=== PATIENT | male | born 1950 | race Caucasian/White ===

== ENCOUNTER 2020-11-15 13:29 | Emergency (ER) | payer MEDICARE, OTHER, SELFPAY ==
--- NOTE | ~2020-11-15 | XR_ITS ---
EXAMINATION: XR ribs LT 2V EXAM DATE: 11/15/2020 14:13 INDICATION: Fall, left lower rib pain. TECHNIQUE: Frontal projection of the upper left ribs, frontal projection of the lower left ribs, obli que projection of the left ribs, without chest x-ray(s) for interpretation. Comparison is made to kalen or examination from 06/15/2015. FINDINGS: Possible acute closed posttraumatic left 6th rib fracture anterolaterally. There is no sof t tissue abnormality seen. There is a dual lead pacemaker/AICD seen with leads projecting over the ex pected locations of the right atrial appendage and right ventricle. IMPRESSION: Possible acute nondisplaced left 6th rib fracture Reviewed, dictated and finalized at location A.
[2020-11-15 13:40] VITALS: BP 157/86; PULSE 71; RESP 71; TEMP 36.6; O2SAT 96
--- NOTE | 2020-11-15 14:35 | ED.CHESTPAIN ---
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 MD complaint: other ( left rib pain and bruising) Severity: mild Related Data Home Medications Medication Instructions Recorded Confirmed allopurinol 100 mg PO BID 11/15/20 11/15/20 alprazolam 0.5 mg PO DAILY PRN 11/15/20 11/15/20 amlodipine 10 mg PO DAILY 11/15/20 11/15/20 aspirin 81 mg PO DAILY 11/15/20 11/15/20 atorvastatin 80 mg PO DAILY 11/15/20 11/15/20 bupropion HCl 300 mg PO DAILY 11/15/20 11/15/20 carvedilol 25 mg PO BID 11/15/20 11/15/20 cetirizine 10 mg PO DAILY 11/15/20 11/15/20 fluoxetine 40 mg PO DAILY 11/15/20 11/15/20 hydralazine 25 mg PO BID 11/15/20 11/15/20 zafirlukast 20 mg PO BID 11/15/20 11/15/20 Allergies Allergy/AdvReac Type Severity Reaction Status Date / Time morphine AdvReac Unknown N&V Verified 11/15/20 13:45 Review of Systems Review of Systems: All systems reviewed & are unremarkable except as noted in HPI and below PMFSH Past Medical History Medical History HLD (hyperlipidemia) HTN (hypertension) Exam Const: General: cooperative, healthy appearing, comfortable, no acute distress and ill appearing HENMT: Head: normal to inspection Ears: hearing grossly normal bilaterally Face and sinus: normal facial exam Mouth: Yes Normal oral and palatal mucosa present Throat: posterior oropharynx normal Eyes: General: appearance normal, both eyes and all related structures Conjunctivae: conjunctivae normal Sclera: sclerae normal Neck: Neck: normal visual inspection Chest: Chest palpation & inspection: normal inspection of the chest and normal palpation of entire chest wall Other: left lower rib pain with palpation and bruising Resp: Effort & Inspection: able to speak in complete sentences Cardio: Jugular venous distension: no JVD Palpation: normal PMI Rate: regular rate Rhythm: regular rhythm Back/Spine/Pelvis: Back: no CVA tenderness Skin: General skin exam: no rashes or lesions noted Neuro: General: oriented to person, oriented to place, oriented to time, patient oriented x3 and gait normal Course Course Emergency Course: patient pain level well controlled according to patient declined any pain medication, reviewed x-ray finding which show a nondisplaced 6th rib fracture on the left Vital Signs Vital signs: Vital Signs Temperature 36.6 C 11/15/20 13:40 Pulse Rate 71 11/15/20 13:40 Respiratory Rate 71 H 11/15/20 13:40 Blood Pressure 157/86 H 11/15/20 13:40 Pulse Oximetry 96 11/15/20 13:40 Temperature 36.6 C 11/15/20 13:40 Pulse Rate 71 11/15/20 13:40 Respiratory Rate 71 H 11/15/20 13:40 Blood Pressure 157/86 H 11/15/20 13:40 Pulse Oximetry 96 11/15/20 13:40 Critical Care Time Critical Care Time Critical Care Time: No Discharge Plan Discharge Clinical Impression: Fracture of rib Qualifiers: Encounter type: initial encounter Rib fracture type: single rib Fracture type: closed Laterality: left Qualified Code(s): S22.32XA - Fracture of one rib, left side, initial encounter for closed fracture Patient Disposition: Home, Self-Care Condition: Stable Instructions: Antibiotic Form, Rib Fracture (ED) Additional Instructions: can take Tylenol or Motrin for pain and follow-up with primary care physician. Prescriptions: No Action fluoxetine 40 mg capsule 40 mg PO DAILY RF: 0 atorvastatin 80 mg tablet 80 mg PO DAILY RF: 0 carvedilol 25
[2020-11-15 14:45] VITALS: BP 142/80; PULSE 75; RESP 16; TEMP 36.8; O2SAT 96
== END 2020-11-15 14:48 | disposition home or self-care (01) ==
PROVIDERS: Emergency Provider Emergency Medicine; PCP Internal Medicine
DX: S22.32XA Fracture of one rib, left side, initial encounter for closed fracture (principal); W01.198A Fall on same level from slipping, tripping and stumbling with subsequent striking against other object, initial encounter; E78.5 Hyperlipidemia, unspecified; I10 Essential (primary) hypertension
CPT/HCPCS: 71100; 99282; 99283

== ENCOUNTER 2021-02-02 02:18 | Day surgery (SDC) | payer MEDICARE, OTHER, SELFPAY ==
[2021-01-14 14:50] VITALS: BMI 32.0
[2021-02-02 10:25] VITALS: BP 151/88; PULSE 70; RESP 18; TEMP 35.7; O2SAT 95; BMI 31.3
[2021-02-02] MEDS: LACTATED RINGERS 1,000 ML 150 ML IV CONT (10:36)
[2021-02-02] MEDS: AMPICILLIN 2 GM/NS 100 ML 2 GM/100 ML BAG IVPB (10:38)
[2021-02-02 10:40] LABS: Glucose Point of Care 127 mg/dl (65-105)
--- NOTE | 2021-02-02 10:44 | WPDGICN ---
Assessment and Plan Assessment and plan (1) History of colon polyps: Code(s): Z86.010 - Personal history of colonic polyps Status: Acute Assessment and Plan: Patient has a prior history of colon polyps. For this reason surveillance colonoscopies have been advised 5 year intervals. Further recommendations will be given after endoscopy. GI Consult Note Consult date/time: 02/02/21 10:45 HPI: Quinten Hawkins is a 71 year old male Presents for screening colonoscopy. Patient reports his current weight appetite bowel movements are normal. He has had previous colon polyps. He has had several previous colonoscopies. Most recent colonoscopy was 2014. Patient does report some tendency towards constipation. His past medical history is significant for diabetes mellitus. He denies any blood in his stools. Review of Systems Review of Systems: All systems reviewed & are unremarkable except as noted in HPI and below PMFSH Past Medical History Medical History HLD (hyperlipidemia) HTN (hypertension) Social History Social History Substance use: never Living arrangements: with family Meds Home Medications and Allergies Home Medications Medication Instructions Recorded Confirmed Type allopurinol 100 mg PO BID 11/15/20 01/14/21 History alprazolam 0.5 mg PO DAILY PRN 11/15/20 01/14/21 History amlodipine 10 mg PO DAILY 11/15/20 01/14/21 History aspirin 81 mg PO DAILY 11/15/20 01/14/21 History atorvastatin 80 mg PO DAILY 11/15/20 01/14/21 History bupropion HCl 300 mg PO DAILY 11/15/20 01/14/21 History carvedilol 25 mg PO BID 11/15/20 01/14/21 History cetirizine 10 mg PO DAILY 11/15/20 01/14/21 History fluoxetine 40 mg PO DAILY 11/15/20 01/14/21 History hydralazine 25 mg PO BID 11/15/20 01/14/21 History zafirlukast 20 mg PO BID 11/15/20 01/14/21 History Infusion To Raise Blood Counts 01/14/21 History alirocumab [Praluent Syringe] 75 mg SUBCUT USEASDIRECTD 01/14/21 02/02/21 History cholecalciferol (vitamin D3) 50 mcg PO DAILY 01/14/21 01/14/21 History [Vitamin D3] coenzyme Q10 [Co Q-10] 100 mg PO DAILY 01/14/21 01/14/21 History ipratropium bromide 2 spray INTRANASAL TID PRN 01/14/21 01/14/21 History melatonin 6 mg PO HS PRN 01/14/21 01/14/21 History iqxstherwubu-sfynbxxe-zbvwyg 1 tablet PO DAILY 01/14/21 01/14/21 History [Centrum Silver] Allergies Allergy/AdvReac Type Severity Reaction Status Date / Time morphine AdvReac Unknown N&V Verified 02/02/21 10:23 Vital Signs Vital Signs - 24 hr 02/02/21 10:25 Temperature 96.2 F L Pulse Rate 70 Respiratory Rate 18 Blood Pressure 151/88 H Pulse Oximetry 95 Exam Narrative: Physical exam reveals patient be alert. Vital signs stable. HEENT exam is unremarkable. Patient is anicteric. Lungs are clear to auscultation and percussion. Heart is without murmur or extra sounds. Abdominal exam bowel sounds are present soft nontender with no organomegaly. Digital external rectal exam is normal.
--- NOTE | 2021-02-02 11:13 | WPDANESEPPF ---
Anes - Initial Pre Proc Eval Procedure: Operation Date: 02/02/21 11:00 Proposed Procedures p Screening Colonoscopy - John Oseguera MD Date/Time: 02/02/21 11:13 Surgeon: John Oseguera MD Pre Op Diagnosis: hx of colon polyps Patient Data Age: 71 Gender: M Height: 1.85 m Weight: 107.8 kg Last Vital Signs Temp 96.2 F L 02/02/21 10:25 Pulse 70 02/02/21 10:25 Resp 18 02/02/21 10:25 BP 151/88 H 02/02/21 10:25 Pulse Ox 95 02/02/21 10:25 Allergies Allergy/AdvReac Type Severity Reaction Status Date / Time morphine AdvReac Unknown N&V Verified 02/02/21 10:23 Home Medications Medication Instructions Recorded Confirmed Type allopurinol 100 mg PO BID 11/15/20 01/14/21 History alprazolam 0.5 mg PO DAILY PRN 11/15/20 01/14/21 History amlodipine 10 mg PO DAILY 11/15/20 01/14/21 History aspirin 81 mg PO DAILY 11/15/20 01/14/21 History atorvastatin 80 mg PO DAILY 11/15/20 01/14/21 History bupropion HCl 300 mg PO DAILY 11/15/20 01/14/21 History carvedilol 25 mg PO BID 11/15/20 01/14/21 History cetirizine 10 mg PO DAILY 11/15/20 01/14/21 History fluoxetine 40 mg PO DAILY 11/15/20 01/14/21 History hydralazine 25 mg PO BID 11/15/20 01/14/21 History zafirlukast 20 mg PO BID 11/15/20 01/14/21 History Infusion To Raise Blood Counts 01/14/21 History alirocumab [Praluent Syringe] 75 mg SUBCUT USEASDIRECTD 01/14/21 02/02/21 History cholecalciferol (vitamin D3) 50 mcg PO DAILY 01/14/21 01/14/21 History [Vitamin D3] coenzyme Q10 [Co Q-10] 100 mg PO DAILY 01/14/21 01/14/21 History ipratropium bromide 2 spray INTRANASAL TID PRN 01/14/21 01/14/21 History melatonin 6 mg PO HS PRN 01/14/21 01/14/21 History jcnrknvkoqjx-utqghqka-nihojf 1 tablet PO DAILY 01/14/21 01/14/21 History [Centrum Silver] Laboratory Tests 02/02/21 10:36 POC Capillary Glucose 127 mg/dl H mg/dl (65-105) Patient hx anesthesia problems: none Family hx anesthesia problems: none Results Review: All pre-operative results and documents have been reviewed as part of the pre-operative evaluation. [facility] Past Medical History Medical History HLD (hyperlipidemia) HTN (hypertension) Social History Social History Substance use: never Living arrangements: with family Jacquies - Evtabatha Final PreProcedure Day of Procedure 02/02/21 11:13 Patient weight: overweight Heart: regular rate and rhythm Lungs: clear to auscultation Airway: Mallampati scale class II Neurological: alert and oriented Last oral intake: >/= 8 hours ASA classification: III Emergent: no Anesthetic plan: proceed Anesthesia type and monitoring: general GIVS and standard monitoring Results Review: All pre-operative results and documents have been reviewed as part of the pre-operative evaluation. Informed Consent: The patient's anesthetic plan and its attendant risks and benefits were discussed with the patient/family/POA. Questions were solicited and answers provided to the satisfaction of the patient/family/POA.
[2021-02-02 12:08] VITALS: BP 111/69; PULSE 73; RESP 25; O2SAT 95
[2021-02-02 12:18] VITALS: BP 144/81; PULSE 71; RESP 24; O2SAT 96
[2021-02-02 12:28] VITALS: BP 146/80; PULSE 70; RESP 20; O2SAT 96
== END 2021-02-02 12:43 | disposition home or self-care (01) ==
PROVIDERS: PCP Internal Medicine; Visit Provider Internal Medicine Gastroenterology
PROC: 0DJD8ZZ Inspection of Lower Intestinal Tract, Via Natural or Artificial Opening Endoscopic (ICD-10-PCS; CPT 45378; principal; 2021-02-02 11:00)
DX: Z12.11 Encounter for screening for malignant neoplasm of colon (principal); D12.2 Benign neoplasm of ascending colon; I10 Essential (primary) hypertension; E78.5 Hyperlipidemia, unspecified; Z79.82 Long term (current) use of aspirin
CPT/HCPCS: 45385; 82948; 88305; J0290; J2704; J7120

== ENCOUNTER 2021-08-26 16:45 | Emergency (ER) | payer MEDICARE, OTHER, SELFPAY ==
[2021-08-26 16:50] VITALS: BP 105/62; PULSE 66; RESP 20; TEMP 36.1; O2SAT 97
--- NOTE | 2021-08-26 16:50 | ED.ABDPAIN ---
HPI - Abdominal Pain General Chief Complaint: Unspecified Stated Complaint: constipation Time Seen by Provider: 08/26/21 16:48 Source: patient and RN notes reviewed Mode of arrival: ambulatory Limitations: no limitations History of Present Illness HPI narrative: Patient has a history of constipation. He tried several different medications at home. He admits that he had not been taking his MiraLax daily. He has had an episode of this in the past. Said he has not had a bowel movement in 3 days. MD elicited complaint: other ( constipation) Pertinent past history: constipation Onset (ago): day(s) (3) Pain Consistency: constant Location: diffuse Severity: moderate Quality: cramping Migration to: no migration Exacerbating factors: eating Relieving factors: nothing Associated symptoms: constipation Related Data Home Medications Medication Instructions Recorded Confirmed allopurinol 100 mg tablet 100 mg PO BID 11/15/20 01/14/21 alprazolam 0.5 mg tablet 0.5 mg PO DAILY PRN Anxiety 11/15/20 01/14/21 amlodipine 10 mg tablet 10 mg PO DAILY 11/15/20 01/14/21 aspirin 81 mg tablet,delayed 81 mg PO DAILY 11/15/20 01/14/21 release atorvastatin 80 mg tablet 80 mg PO DAILY 11/15/20 01/14/21 bupropion HCl 300 mg 24 hr tablet, 300 mg PO DAILY 11/15/20 01/14/21 extended release carvedilol 25 mg tablet 25 mg PO BID 11/15/20 01/14/21 cetirizine 10 mg tablet 10 mg PO DAILY 11/15/20 01/14/21 fluoxetine 40 mg capsule 40 mg PO DAILY 11/15/20 01/14/21 hydralazine 25 mg tablet 25 mg PO BID 11/15/20 01/14/21 zafirlukast 20 mg tablet 20 mg PO BID 11/15/20 01/14/21 Infusion To Raise Blood Counts 01/14/21 alirocumab 75 mg/mL subcutaneous 75 mg subcut USEASDIRECTD 01/14/21 02/02/21 syringe cholecalciferol (vitamin D3) 50 50 mcg PO DAILY 01/14/21 01/14/21 mcg (2,000 unit) capsule (Vitamin D3) coenzyme Q10 100 mg capsule (Co 100 mg PO DAILY 01/14/21 01/14/21 Q-10) ipratropium bromide 42 mcg (0.06 2 spray intranasal TID PRN 01/14/21 01/14/21 %) nasal spray Allergies melatonin 3 mg disintegrating 6 mg PO HS PRN Insomnia 01/14/21 01/14/21 tablet fmfevlbgpslk-uqplsifd-aovhsj tablet 1 tablet PO DAILY 01/14/21 01/14/21 Allergies Allergy/AdvReac Type Severity Reaction Status Date / Time morphine AdvReac Unknown N&V Verified 02/02/21 10:23 Review of Systems Review of Systems: All systems reviewed & are unremarkable except as noted in HPI and below PMFSH Past Medical History Medical History (Updated 08/26/21 @ 17:28 by John Adler MD) Gout HLD (hyperlipidemia) HTN (hypertension) Social History Social History (Updated 08/26/21 @ 17:26 by John Adler MD) Smoking status: Never smoker Alcohol intake: former Alcohol use details: no alcohol last 5 years Substance use: never Exam Const: General: healthy appearing, no acute distress and alert Nutritional Appearance: well nourished Orientation/consciousness: patient oriented x3 Limitations: no limitations HENMT: Head: normal to inspection Ears: external ears normal General nose exam: Normal external nose present Face and sinus: normal facial exam Mouth: Yes moist mucous membranes Eyes: Conjunctivae: conjunctivae normal Pupils: Equal, round and reactive pupils present EOM: EOMs intact bilaterally Neck: Neck: normal visual inspection Resp: Effort & Inspection: normal respiratory effort Auscultation: clear to auscultation bilaterally Cardio: Rate: regular rate Rhythm: regular rhythm GI: GI Palp: Yes Soft to palpation, Yes Tenderness to palpation present (GI) ( mild diffusely) and No Guarding due to palpation present (GI) Auscultation: normal bowel sounds Back/Spine/Pelvis: Cervical Spine: cervical ROM normal Thoracic/Lumbar Spine: thoraco-lumbar ROM normal Skin: General skin exam: normal color Rashes: no rashes Neuro: General: patient oriented x3, moves all extremities, no focal motor deficits and CN's II-XI intact bilaterally Speech: annie
[2021-08-26 17:30] VITALS: BP 110/62; PULSE 66; RESP 20; TEMP 36.6; O2SAT 97
== END 2021-08-26 17:40 | disposition home or self-care (01) ==
PROVIDERS: Emergency Provider Emergency Medicine; PCP Internal Medicine
DX: K59.00 Constipation, unspecified (principal); E78.5 Hyperlipidemia, unspecified; I10 Essential (primary) hypertension
CPT/HCPCS: 99283

== ENCOUNTER 2021-09-19 10:30 | Emergency (ER) | payer MEDICARE, OTHER, SELFPAY ==
--- NOTE | ~2021-09-19 | XR_ITS ---
XR foot LT min 3V DATE: 09/19/2021 11:25 INDICATION: Twisted ankle and foot 3 days ago. Pain, swelling, bruising TECHNIQUE: 4 views COMPARISON: None FINDINGS: Osteopenia. Prominent anterior and posterior tibial and dorsalis pedis artery calcifications. Metatarsal artery c alcifications. Diabetes is suggested. Prominent plantar and posterior calcaneal enthesopathy. Incorporated os tibiale externum, normal variant. One cortical width laterally displaced lateral malleolar fracture with overlying soft tissue swelling . Linear intra-articular nondisplaced fracture of the medial base of the proximal phalanx of the great toe. Osteoarthritic change of mild degree at the first metatarsophalangeal joint. Irregularity of the second metatarsal head likely due to chronic osteonecrosis. IMPRESSION: Nondisplaced linear intra-articular fracture of the medial base of the proximal phalanx o f the first digit 1 cortical width laterally displaced lateral malleolar fracture Osteopenia Mild osteoarthrosis at first metatarsophalangeal joint Chronic flattening deformity of the second metatarsal head consistent with avascular necrosis Prominent plantar and posterior calcaneal enthesopathy Extensive arterial calcifications including metatarsal artery calcifications suggesting diabetes Reviewed, dictated and finalized at location A. IMPRESSION: Nondisplaced linear intra-articular fracture of the medial base of the proximal phalanx of the first digit 1 cortical width laterally displaced lateral malleolar fracture Osteopenia Mild osteoarthrosis at first metatarsophalangeal joint Chronic flattening deformity of the second metatarsal head consistent with avas cular necrosis Prominent plantar and posterior calcaneal enthesopathy Extensive arterial calcifications including metatarsal artery calcifications galeas ggesting diabetes
--- NOTE | ~2021-09-19 | XR_ITS ---
XR ankle LT min 3V DATE: 09/19/2021 11:26 INDICATION: Twisted ankle 3 days ago. Swelling, bruising TECHNIQUE: 4 views COMPARISON: None FINDINGS: There is a lateral malleolar fracture with one cortical width lateral displacement, no angu lation. The medial malleolus and posterior malleolus are intact. The ankle mortise appears preserved. Prominent plantar and posterior calcaneal enthesopathy. Osteoarthritic change at the tarsal joints. Anterior and posterior tibial and dorsalis pedis artery calcification. IMPRESSION: 1 cortical width laterally displaced lateral malleolar fracture Reviewed, dictated and finalized at location A.
[2021-09-19 10:40] VITALS: BP 153/86; PULSE 74; RESP 14; TEMP 36.2; O2SAT 95
--- NOTE | 2021-09-19 10:54 | ED.LOWEXIN ---
HPI - Extremity Injury (Lower) General Chief Complaint: Extremity Injury, Lower Stated Complaint: L ankle pain after fall Time Seen by Provider: 09/19/21 10:54 Source: patient History of Present Illness HPI Narrative: 71-year-old male with a history of hypertension, dyslipidemia, gout, coronary artery disease status post stents, arthritis status post hip and knee replacements twisted his left ankle 2 days ago and presents to the ER with -- pain around the left lateral ankle with bruising -- over the left big toe with bruising -- bruising over left medial knee joint. MD complaint: ankle injury Onset (ago): day(s) ( Two days ago) Injury: Left: ankle and foot Type of Injury: inversion Place: work Severity: moderate Relieving factors: immobilization Exacerbating factors: movement Associated symptoms: swelling Other symptoms: none Related Data Home Medications Medication Instructions Recorded Confirmed allopurinol 100 mg tablet 100 mg PO BID 11/15/20 09/19/21 alprazolam 0.5 mg tablet 0.5 mg PO DAILY PRN Anxiety 11/15/20 09/19/21 amlodipine 10 mg tablet 10 mg PO DAILY 11/15/20 09/19/21 aspirin 81 mg tablet,delayed 81 mg PO DAILY 11/15/20 09/19/21 release atorvastatin 80 mg tablet 80 mg PO DAILY 11/15/20 09/19/21 bupropion HCl 300 mg 24 hr tablet, 300 mg PO DAILY 11/15/20 09/19/21 extended release carvedilol 25 mg tablet 25 mg PO BID 11/15/20 09/19/21 cetirizine 10 mg tablet 10 mg PO DAILY 11/15/20 09/19/21 fluoxetine 40 mg capsule 40 mg PO DAILY 11/15/20 09/19/21 hydralazine 25 mg tablet 25 mg PO BID 11/15/20 09/19/21 zafirlukast 20 mg tablet 20 mg PO BID 11/15/20 09/19/21 alirocumab 75 mg/mL subcutaneous 75 mg subcut USEASDIRECTD 01/14/21 09/19/21 syringe cholecalciferol (vitamin D3) 50 50 mcg PO DAILY 01/14/21 09/19/21 mcg (2,000 unit) capsule (Vitamin D3) coenzyme Q10 100 mg capsule (Co 100 mg PO DAILY 01/14/21 09/19/21 Q-10) ipratropium bromide 42 mcg (0.06 2 spray intranasal TID PRN 01/14/21 09/19/21 %) nasal spray Allergies nedkimqcrgjn-vpnubobl-nenpct tablet 1 tablet PO DAILY 01/14/21 09/19/21 carvedilol 25 mg tablet 25 mg PO BID 09/19/21 09/19/21 Allergies Allergy/AdvReac Type Severity Reaction Status Date / Time morphine AdvReac Unknown N&V Verified 09/19/21 10:52 Review of Systems Review of Systems: All systems reviewed & are unremarkable except as noted in HPI and below Constitutional: Constitutional: Reports as per HPI and Reports no additional constitutional complaints Eyes: Eyes: Reports as per HPI and Reports no additional eye complaints ENT: Reports system reviewed and no additional complaints, except as documented Cardiovascular: Cardiovascular: Reports as per HPI and Reports no additional cardiovascular complaints Respiratory: Respiratory: Reports as per HPI and Reports no additional respiratory complaints Gastrointestinal: Gastrointestinal: Reports as per HPI and Reports no additional gastrointestinal complaints Genitourinary: Genitourinary: Reports no additional male genitourinary complaints and Reports as per HPI Musculoskeletal: Musculoskeletal: Reports no additional musculoskeletal complaints, Reports as per HPI, Reports arthralgias and Reports joint swelling Integumentary/Breasts: Skin/Breast: Reports system reviewed and no additional complaints, except as docu and Reports as per HPI Comments: bruising over her left ankle and toe Neurologic: Reports system reviewed and no additional complaints, except as documented and Reports as per HPI Psychiatric: Psychiatric: Reports no additional psychiatric complaints and Reports as per HPI Endocrine: Endocrine: Reports no additional endocrine complaints and Reports as per HPI Hematologic/Lymphatic: Hematologic/Lymphatic: Reports no additional hematologic/lymphatic complaints and Reports as per HPI Allergic/Immunologic: Allergic/Immunologic: Reports no additional allergic/immunologic complaints and Reports as per HPI PMFSH P
[2021-09-19 12:45] VITALS: BP 141/74; PULSE 67; RESP 16; O2SAT 96
== END 2021-09-19 12:45 | disposition home or self-care (01) ==
PROVIDERS: Emergency Provider Internal Medicine Critical Care Medicine; PCP Internal Medicine
DX: S92.415A Nondisplaced fracture of proximal phalanx of left great toe, initial encounter for closed fracture (principal); S82.62XA Displaced fracture of lateral malleolus of left fibula, initial encounter for closed fracture; I10 Essential (primary) hypertension; I25.10 Atherosclerotic heart disease of native coronary artery without angina pectoris; M87.9 Osteonecrosis, unspecified; E78.5 Hyperlipidemia, unspecified; M10.9 Gout, unspecified; X50.1XXA Overexertion from prolonged static or awkward postures, initial encounter; Z95.5 Presence of coronary angioplasty implant and graft; Z96.649 Presence of unspecified artificial hip joint; Z96.659 Presence of unspecified artificial knee joint; Z79.82 Long term (current) use of aspirin
CPT/HCPCS: 73610; 73630; 99284; L4350

== ENCOUNTER 2022-06-22 13:58 | Outpatient (CLI) | payer MEDICARE, OTHER, SELFPAY ==
--- NOTE | ~2022-06-22 | XR_ITS ---
XR lumbar spine 2-3V 06/22/2022 14:39 Indication: Low back pain Procedure: 3 views lumbar spine Comparison: No prior studies for comparison. Findings: Vertebral body heights are maintained. There is disc narrowing at L4-5 and L5-S1. There are small marginal osteophytes anteriorly. There is facet hypertrophy at L4-5 and L5-S1. No evidence for fracture, subluxation or spondylolisthesis. Impression: 1: Moderate lumbar spondylosis. Reviewed, dictated and finalized at location A. Impression: 1: Moderate lumbar spondylosis.
--- NOTE | ~2022-06-22 | XR_ITS ---
XR thoracic spine 3V DATE: 06/22/2022 14:36 INDICATION: Lower thoracic and upper lumbar back pain for 6 months, worsening TECHNIQUE: AP, lateral, swimmer views COMPARISON: 09/14/2016 two-view chest FINDINGS: Moderate cervical degenerative disc disease. Diffuse osteopenia. There is chronic mild anterior wedging and loss of height at T4 since 09/04/2016 . There is mild to moderate degenerative spurring of the thoracic spine. The thoracic pedicles appear intact. No bone destruction is evident. No paraspinal soft tissue thickening is noted. IMPRESSION: Osteopenia Degenerative change of the cervical and thoracic spine Chronic mild anterior wedge compression fracture deformity of T4, stable in appearance since lateral chest radiograph of 09/14/2016 Reviewed, dictated and finalized at location L. IMPRESSION: Osteopenia Degenerative change of the cervical and thoracic spine Chronic mild anterior wedge compression fracture deformity of T4, stable in anabel earance since lateral chest radiograph of 09/14/2016
== END 2022-06-22 13:59 | disposition home or self-care (01) ==
LOC: CHSIMG 14:01
PROVIDERS: PCP Internal Medicine; Visit Provider Internal Medicine
DX: M54.50 Low back pain, unspecified (principal); M43.06 Spondylolysis, lumbar region; M85.88 Other specified disorders of bone density and structure, other site; M48.54XA Collapsed vertebra, not elsewhere classified, thoracic region, initial encounter for fracture
CPT/HCPCS: 72072; 72100

== ENCOUNTER 2022-07-12 13:27 | Outpatient (RCR) | payer MEDICARE, OTHER, SELFPAY ==
--- NOTE | 2022-07-12 13:41 | PTOPEVAL1 ---
Assessment and note entered by Maxim Harry Evaluation Information Assessment Status Evaluation Diagnosis low back pain Onset 07/12/22 Subjective Information Pt. reports that he has had increasing back pain over the past year. He reports that he has had multiple knee and hip surgeries that have kept him down as of recently. He states that back pain is located along the belt line and up about 6 inches . He states that he cannot stand for longer than 10 minutes due to increasing low back pain. He reports that he is not active and has been sitting the majority of the day. he states that he has no trouble with sleeping at night. He reports that he has seen a decline in his ability to sleep . He reports that his goal for therapy is to stand longer and decrease his low back pain. Reported Pain Level Pain Score 5: Self Report Assessment PT Clinical Summary Pt. is a 72 year old male who enters the clinic with low back pain. Pt. presents with signifcant generalized l.e. weakness, impaired balance, impaired gait, pain and functional decline. Continued skilled PT is indicated in order to improve these areas to allow the pt. to be able to complete all IADL's with improved comfort. Plan of Care Interventions Gait Training,Manual Therapy,Neuro Re-education, Patient/Caregiver Educati,Therapeutic Activities, Therapeutic Exercise PT Services Indicated Yes Treatment Frequency and 2x/week x 10 visits Duration These treatments will address the objective and functional deficits as defined above. The patient will be advanced safely and appropriately in order for the patient to progress towards his/her prior level of function. Additional exercises will be introduced and as well as a comprehensive home exercise program upon discharge, if needed, ?to ensure carryover of functional gains achieved in the clinic. This treatment plan has been reviewed and agreement upon by the patient.
--- NOTE | 2022-08-26 12:19 | PTOPREEVAL ---
Assessment and note entered by JT File, PT Evaluation Information Assessment Status Re-evaluation Diagnosis low back pain Onset 07/12/22 Subjective Information patient reports therapy has really helped him. he reports he no longer uses a cane for ambulation, and he tolerates standing and walking for longer periods of time. he reports he would like to continue to work on the back, the knees, and his balance. Reported Pain Level Pain Score 3: Self Report Pain Score 4: Self Report Assessment PT Clinical Summary mr. monzon presents to skilled PT services for his 10th skilled therapy visit. as of this date, he has achieved goals for pain, safety, and HEP performance. however, he is still lacking achievement of goals for flexibility, strength, and balance/functional performance. he would benefit from continued skilled PT to address these remaining deficits and progress towards return to prior level standing, walking, and functional activity participation/performance. Plan of Care Interventions Gait Training,Hot Pack/Cold Pack,Manual Therapy, Neuro Re-education,Patient/Caregiver Educati, Therapeutic Activities,Therapeutic Exercise PT Services Indicated Yes Treatment Frequency and continue skilled PT 1x weekly for 3 more visits Duration These treatments will address the objective and functional deficits as defined above. The patient will be advanced safely and appropriately in order for the patient to progress towards his/her prior level of function. Additional exercises will be introduced and as well as a comprehensive home exercise program upon discharge, if needed, ?to ensure carryover of functional gains achieved in the clinic. This treatment plan has been reviewed and agreement upon by the patient.
== END 2022-09-08 23:59 | disposition home or self-care (01) ==
LOC: CHSPT 13:27
PROVIDERS: PCP Internal Medicine; Visit Provider Internal Medicine
DX: M54.50 Low back pain, unspecified (principal)
CPT/HCPCS: 97110; 97112; 97161; 97530

== ENCOUNTER 2022-09-15 12:22 | Outpatient (CLI) | payer MEDICARE, OTHER, SELFPAY ==
--- NOTE | 2022-09-15 14:00 | NEURO_ITS ---
Impression: # Complains of numbness of left 4th and 5th fingers. # Left Carpal Tunnel Syndrome. # Left ulnar neuropathy across the elbow. # Needle/EMG exam revealed neurogenic changes in left 1st DI, ADM, APB but as well as in Deltoid and triceps muscles raising the possibility of higher involvement as well such as cervical spondylosis. # Clinical correlation recommended.Mri will be needed for the Possibility of cervical spondylosis to be ruled out., Nerve Conduction Studies Anti Sensory Summary Table Stim Site NR Peak (ms) P-T Amp (?V) Site1 Site2 Delta-P (ms) Dist (cm) Matteo (m/s) Left Median Anti Sensory (2-3nd Digit) NO RESPONSE Wrist NR Wrist 2-3nd Digit 14.0 Wrist NR Wrist 2-3nd Digit 14.0 Left Radial Anti Sensory (Base 1st Digit) Wrist 2.5 8.1 Wrist Base 1st Digit 2.5 0.0 Left Ulnar Anti Sensory (5th Digit) NO RESPONSE Wrist NR Wrist 5th Digit 14.0 Motor Summary Table Stim Site NR Onset (ms) O-P Amp (mV) Site1 Site2 Delta-0 (ms) Dist (cm) Matteo (m/s) Left Median Motor (Abd Poll Brev) Wrist 4.5 2.2 Elbow Wrist 6.0 33.0 55 Elbow 10.5 1.4 Left Ulnar Motor (Abd Dig Minimi) Wrist 2.9 3.8 A Elbow Wrist 7.9 32.0 41 A Elbow 10.8 2.4 B Elbow Wrist 5.0 25.0 50 B Elbow 7.9 2.6 F Wave Studies NR F-Lat (ms) L-R F-Lat (ms) Left Median (Mrkrs) (Abd Poll Brev) 33.39 Left Ulnar (Mrkrs) (Abd Dig Min) 31.16 EMG Side Muscle Nerve Root Ins Act Fibs Amp Dur Recrt Comment Left 1stDorInt Ulnar C8-T1 Nml Nml Incr >12ms Reduced Left Ext Indicis Radial (Post Int) C7-8 Nml Nml Nml Nml Nml Left Ext Digitorum Radial (Post Int) C7-8 Nml Nml Nml Nml Nml Left BrachioRad Radial C5-6 Nml Nml Incr Nml Reduced Left PronatorTeres Median C6-7 Nml Nml Nml Nml Nml Left Abd Poll Brev Median C8-T1 Nml Nml Incr >12ms Reduced Left ABD Dig Min Ulnar C8-T1 Nml Nml Incr >12ms Reduced Left Biceps Musculocut C5-6 Nml Nml Nml Nml Nml Left Triceps Radial C6-7-8 Nml Nml Nml Nml Nml Left Deltoid Axillary C5-6 Nml Nml Incr Nml Reduced MTDD
== END 2022-09-15 12:23 | disposition home or self-care (01) ==
PROVIDERS: PCP Internal Medicine
DX: G56.22 Lesion of ulnar nerve, left upper limb (principal); G56.02 Carpal tunnel syndrome, left upper limb
CPT/HCPCS: 95886; 95909

== ENCOUNTER 2022-10-11 08:41 | Outpatient (CLI) | payer MEDICARE, OTHER, SELFPAY ==
--- NOTE | ~2022-10-11 | CT_ITS ---
EXAMINATION: CT cervical spine wo con DATE: 10/11/2022 09:13 INDICATION: Cervical radiculopathy. TECHNIQUE: Computed tomography (CT) of the cervical spine was performed without intravenous contrast. Automated exposure control and iterative reconstruction technique were employed. The dose-length pro duct was 541.46 mGy-cm. COMPARISON: None FINDINGS: Bone alignment is normal. Vertebral body heights are normal. There is mildly decreased disc height at C5-C6 and C6-C7. The following disc levels are specifically discussed: C2-C3: There is mild bilateral uncovertebral joint osteoarthritis. There is moderate facet joint oste oarthritis. There is no neural foraminal stenosis. There is no central canal stenosis. C3-C4: There is mild bilateral uncovertebral joint osteoarthritis. There is severe right and mild lef t facet joint osteoarthritis. There is mild bilateral neural foraminal stenosis. There is no central canal stenosis. C4-C5: There is mild bilateral uncovertebral joint osteoarthritis. There is mild bilateral facet join t osteoarthritis. There is no neural foraminal stenosis. There is mild central canal stenosis. C5-C6: There is mild bilateral uncovertebral joint osteoarthritis. There is mild bilateral facet join t osteoarthritis. There is no neural foraminal stenosis. There is mild central canal stenosis. C6-C7: There is mild bilateral uncovertebral joint osteoarthritis. There is mild bilateral facet join t osteoarthritis. There is mild right neural foraminal stenosis. There is mild central canal stenosis . C7-T1: There is no uncovertebral joint osteoarthritis. There is mild bilateral facet joint osteoarthr itis. There is no neural foraminal stenosis. There is no central canal stenosis. IMPRESSION: 1. Mild cervical spondylosis. Reviewed, dictated and finalized at location A.
== END 2022-10-11 08:42 | disposition home or self-care (01) ==
LOC: CHSIMG 08:43
PROVIDERS: PCP Internal Medicine; Visit Provider Internal Medicine
DX: M43.02 Spondylolysis, cervical region (principal); M54.12 Radiculopathy, cervical region; Z95.0 Presence of cardiac pacemaker
CPT/HCPCS: 72125

== ENCOUNTER 2022-11-12 09:28 | Outpatient (CLI) | payer MEDICARE, OTHER, SELFPAY ==
[2022-11-12 09:40] LABS: Hematocrit 28.4 % (37.0-46.0); Hemoglobin 9.1 g/dL (12.4-15.3)
[2022-11-12 09:54] LABS: Partial Thromboplastin Time 26.9 SEC (23.90-30.70); Prothrombin Time 10.9 Seconds (9.50-12.10)
[2022-11-12 10:16] LABS: Anion Gap 9 mmol/L (8-16); Blood Urea Nitrogen 48 mg/dL (7-18); Calcium 8.7 mg/dL (8.5-10.1); Carbon Dioxide 25 mmol/L (21-32); Chloride 109 mmol/L (98-108); Estimated Glomerular Filt Rate 18; Glucose 97 mg/dL (70-99); Osmolality Calculated 308 mOsm/kg (285-295); Potassium 4.7 mmol/L (3.5-5.1); Sodium 143 mmol/L (136-145)
== END 2022-11-12 09:29 | disposition home or self-care (01) ==
PROVIDERS: PCP Internal Medicine; Visit Provider Anesthesiology
DX: Z01.818 Encounter for other preprocedural examination (principal); N28.9 Disorder of kidney and ureter, unspecified; D64.9 Anemia, unspecified
CPT/HCPCS: 36415; 80048; 85014; 85018; 85610; 85730

== ENCOUNTER 2022-11-16 01:33 | Day surgery (SDC) | payer MEDICARE, OTHER, SELFPAY ==
[2022-11-11 14:25] VITALS: BMI 16.6
--- NOTE | 2022-11-11 14:39 | PC.NURSE ---
Report to the Outpatient Waiting Room, entrance under the green pavilion located off [facility], at time ___1030____ on date __11/16/22 . Planned Procedure Time: __1230 . Time changes happen often and if your time is changed the preop area will call you the afternoon before. - You and your visitor will be asked to self-screen and do not enter if you have any COVID symptoms. - A mask is optional within the hospital at this time. Patients may have clear liquids (water, carbonated beverages, clear teas, apple juice) until 3 hours prior to surgery with a maximum of 20 ounces. - No food from midnight until time of surgery - Infants may have breast milk until 4 hours before surgery, infant formula 6 hours prior to surgery. - Children will be allowed to drink immediately following surgery. If applicable, please bring a bottle or sippy cup to assist with drinking. Juice, water, soda, and popsicles are readily available. For infants on formula, please bring formula the day of surgery. Pacifiers are allowed. Take the following medications with a SIP of water the morning of surgery: _AMLODIPINE, BUPROPION, CARVEDILOL, FLUOXETINE, HYDRALAZINE, ZAFIRLUKAST_ DO NOT STOP ANY OF YOUR OTHER PRESCRIPTION MEDICATIONS PRIOR TO SURGERY ?EXCEPT THE FOLLOWING Medications to discontinue per physician _ASPIRIN PER DR. BALES'S INSTRUCTIONS, MULTIVITAMIN 3 DAYS PRIOR TO SURGERY, Date to take last dose 11/12/22 Please no make-up, nail syrian, hairspray, perfume, deodorant, or body powder the day of surgery. No jewelry (including any body piercings) or valuables the day of surgery, leave them at home. Please take a shower or bath the night before, or the morning of, surgery with an antibacterial soap. Wear comfortable, loose fitting clothing. Children are encouraged to wear pajamas. - Jewelry must be removed prior to entering the operating room. Rings and piercings that are not removed may be cut off. - The hospital will not accept responsibility for valuables. - Please leave all valuables, including medications, at home the day of surgery. If you are going home after surgery, a licensed otr tanker truck driver must drive you home. - NO public transportation without another adult if you receive anesthesia. - We recommend that an adult stay with you for 24 hours following discharge. - We also recommend that you do not drive, make important decision, drink alcoholic beverages, or take any drugs that were not prescribed by your health care provider for at least 24 hours after your discharge time. For Pediatric surgeries, we recommend two adults accompany the child home. Follow any additional instructions given to you from your surgeon. If you or anyone in your household have experienced Covid symptoms in the past week, please notify your surgeon or the nurse liaison at the phone number below for possible testing. Telephone instructions given to ___SPOUSE and asked if any additional questions and then verbalized understanding. Patient advised to call surgeon office or pre surgery nurse liaison [phone] if any additional questions.
--- NOTE | 2022-11-15 12:49 | WPDANESEPPF ---
Anes - Initial Pre Proc Eval Procedure: Operation Date: 11/16/22 12:30 Proposed Procedures p Left Endoscopic Possible Open Carpal Tunnel Release and Left Cubital Tunnel Release - Chidi Guardado MD Date/Time: 11/15/22 12:49 Surgeon: Chidi Guardado MD Pre Op Diagnosis: left cpts of wrist, ulnar nerve entrapment lft elb Patient Data Age: 72 Gender: M Height: 1.85 m Weight: 57.27 kg Allergies Allergy/AdvReac Type Severity Reaction Status Date / Time morphine AdvReac Unknown N&V Verified 11/16/22 11:02 Home Medications Medication Instructions Recorded Confirmed Type allopurinol 100 mg tablet 100 mg PO BID 11/15/20 11/16/22 History amlodipine 10 mg tablet 10 mg PO DAILY 11/15/20 11/16/22 History aspirin 81 mg tablet,delayed 81 mg PO DAILY 11/15/20 11/16/22 History release atorvastatin 80 mg tablet 80 mg PO DAILY 11/15/20 11/16/22 History fluoxetine 40 mg capsule 40 mg PO DAILY 11/15/20 11/16/22 History hydralazine 25 mg tablet 25 mg PO BID 11/15/20 11/16/22 History zafirlukast 20 mg tablet 20 mg PO BID 11/15/20 11/16/22 History cholecalciferol (vitamin D3) 50 50 mcg PO DAILY 01/14/21 11/16/22 History mcg (2,000 unit) capsule (Vitamin D3) coenzyme Q10 100 mg capsule (Co 100 mg PO DAILY 01/14/21 11/16/22 History Q-10) qvlkmqavccdh-bsatqmyy-knrnnp tablet 1 tablet PO DAILY 01/14/21 11/16/22 History bupropion HCl 300 mg 24 hr tablet, 300 mg PO DAILY 11/11/22 11/16/22 History extended release carvedilol 25 mg tablet 25 mg BID 11/11/22 11/16/22 History cetirizine 10 mg capsule (Zyrtec) 10 mg PO HS 11/11/22 11/16/22 History frmoocyp-qscaqjhbv-kolnssob 3.5 1 drp Q2H 11/11/22 11/16/22 History mg/mL-10,000 unit/mL-0.1% eye drops Patient hx anesthesia problems: none Family hx anesthesia problems: none Results Review: All pre-operative results and documents have been reviewed as part of the pre-operative evaluation. [facility] Past Medical History Medical History (Updated 11/15/22 @ 12:50 by Tha Elliott DO) CAD (coronary artery disease) COPD (chronic obstructive pulmonary disease) Gout HLD (hyperlipidemia) HTN (hypertension) DEVEN (obstructive sleep apnea) Pacemaker Surgical History Surgical History (Updated 11/15/22 @ 12:50 by Tha Elliott DO) H/O heart artery stent x3 Social History Social History Smoking status: Never smoker Second hand tobacco smoke exposure: No Alcohol intake: former Alcohol use details: STOPPED 2018~ Substance use: never Substance use type: does not use Living arrangements: with family Spiritual care concerns: No Anes - Eval Final PreProcedure Day of Procedure 11/15/22 12:49 Patient weight: normal Heart: regular rate and rhythm Lungs: clear to auscultation and normal air movement Airway: Mallampati scale class II Neurological: alert and oriented Last oral intake: >/= 8 hours ASA classification: III Emergent: no Anesthetic plan: proceed Anesthesia type and monitoring: general GIVS and standard monitoring Results Review: All pre-operative results and documents have been reviewed as part of the pre-operative evaluation. Informed Consent: The patient's anesthetic plan and its attendant risks and benefits were discussed with the patient/family/POA. Questions were solicited and answers provided to the satisfaction of the patient/family/POA.
--- NOTE | 2022-11-16 09:14 | WPDHPUPDATE1 ---
History and Physical Update Update Date/Time: 11/16/22 09:14 History and Physical has been reviewed, including an updated exam of the patient. There are NO changes in the patient's condition. Risks, benefits, and alternatives have been discussed and questions answered. Patient agrees to proceed with procedure. Patient seen and examined in pre-op holding area. Continues to desire to proceed with left endoscopic, possible open carpal tunnel release and left cubital tunnel release. I reviewed procedure, post-op expectations and risks including but not limited to bleeding, infection, injury to tendon/nerve/vessel, decreased hand function, stiffness, RSD, no change or worsening of symptoms. Patient stated understanding and signed consent form wishing to proceed.
[2022-11-16] MEDS: LACTATED RINGERS 1,000 ML 30 ML IV CONT (11:07)
[2022-11-16 11:27] VITALS: BP 122/67; PULSE 71; RESP 16; TEMP 36.2; O2SAT 98
--- NOTE | 2022-11-16 11:35 | P.OP_ITS ---
Procedure Note - Detailed Date of Procedure 11/16/22 Pre-op Diagnosis left carpal tunnel syndrome and ulnar nerve entrapment at elbow Post-op Diagnosis Same Procedure Performed left ectr and cubital tunnel release Surgeon Chidi Guardado MD [employer] Lab Technician Denisa Ray PA-C Anesthesia MAC Description of Procedure Pt. seen and examined and marked in pre-op area. consent signed Patient taken back to OR on stretcher in supine position. Time out performed with anesthesia, surgeon and staff agreeing on patient name site and surgery to be performed scds placed on LE and inflated tourniquet placed on Left upper extremity After anesthesia administered sedation I injected 10cc 1%lido with epi and 0.5%marcaine plain amongs both operative sites LUE prepped and draped in sterile fashion LUE exanguinated with Esmarch bandage and tourniquet inflated to 250mmHg I made a transverse incision in left distal volar wrist crease through skin and dermis with 15 blade scalpe. Littler scissors spread down to antebrachial fascia. A small incision was made in antebrachial fascia allowing access to Carpal tunnel. I proceeded with sequential dilation staying in line with the ring finger and hugging the hook of the hamate. I then used the synovial elevator to free any adhesions from the underside of the transverse carpal ligament. Next I was able to insert the [employer] endoscopic carpal tunnel device with direct visualization of the transverse fibers on the monitor and proceeded with complete segmental retrograde release of the ligament in its entirety. I irrgated with normal saline and closed with 4-0 monocry for dermis and subcuticular closure. I next proceeded with making a longitudinal incision between two heads for flexor carpi ulnaris at end of cubital tunnel with 15 blade scalpel. Littler scissors used to spread down to FCU fascia. Incision made in FCU fascia and ulnar nerve identified extiing cubital tunnel. Proceeded with complete retrograde release of the cubital tunnel including 7cm proximal for intermuscular septum. The nerve appeared healthy with visible vaso nervorum. There was no subluxation on full elbow range of motion. I irrigated with normal saline and closure with 4-0 monocry for dermis and subcuticular. The incisions were covered with Dermabond then 4x4s, vanessa, volar wrist splint and posterior elbow splint for patient safety, security and comfort and secured with radha bandages after the tourniquet was let down noting the hand was warm and well perfused. Patient awaken from anesthesia and transferred to recovery in stable condition Complciations - none EBL- 1cc Disposition _ home in stable conditions Denisa Ray PA-C was essentail for positioning, retraction, closure and dressing/splint application [facility] Billing Surgery - Charge Forward: Surgery Billing ([id number] and [id number] and [id number])
[2022-11-16] MEDS: ceFAZolin 2 GM/D5W 50 ML 2 GM/50 ML BAG IVPB (12:08)
[2022-11-16] MEDS: BUPivacaine HCL 0.5% PF 30 ML VIAL 5 ML INFILTRATE (12:43)
[2022-11-16] MEDS: LIDO 1%/EPINEPHRINE 1:100,000 20 ML VIAL 5 ML INFILTRATE (12:44)
[2022-11-16 13:00] VITALS: BP 114/65; PULSE 64; RESP 16; O2SAT 95
[2022-11-16 13:30] VITALS: BP 125/66; PULSE 69; RESP 16
[2022-11-16 14:05] VITALS: BP 136/67; PULSE 63; RESP 16
[2022-11-16 14:20] VITALS: BP 131/68; PULSE 68; RESP 16
== END 2022-11-16 14:30 | disposition home or self-care (01) ==
PROVIDERS: PCP Internal Medicine; Visit Provider Plastic Surgery
PROC: 01N54ZZ Release Median Nerve, Percutaneous Endoscopic Approach (ICD-10-PCS; CPT 29848; principal; 2022-11-16 12:30)
DX: G56.02 Carpal tunnel syndrome, left upper limb (principal); G56.22 Lesion of ulnar nerve, left upper limb; I25.10 Atherosclerotic heart disease of native coronary artery without angina pectoris; J44.9 Chronic obstructive pulmonary disease, unspecified; I10 Essential (primary) hypertension; E78.5 Hyperlipidemia, unspecified; M10.9 Gout, unspecified; G47.33 Obstructive sleep apnea (adult) (pediatric); Z95.0 Presence of cardiac pacemaker; Z95.5 Presence of coronary angioplasty implant and graft; Z79.82 Long term (current) use of aspirin
CPT/HCPCS: 64718; 29848; J0690; J2704; J3010; J7120

== ENCOUNTER 2023-03-02 15:47 | Outpatient (CLI) | payer MEDICARE, OTHER, SELFPAY ==
--- NOTE | ~2023-03-02 | XR_ITS ---
EXAMINATION: XR foot RT min 3V DATE: 03/02/2023 16:12 INDICATION: Right foot hammertoes. TECHNIQUE: 5 views of right foot were obtained. COMPARISON: Right ankle radiographs 06/28/2011 FINDINGS: There is dorsiflexion of the metatarsophalangeal joints and flexion of the interphalangeal joints. There is mild osteoarthritis of first and second metatarsophalangeal joints and many of the i nterphalangeal joints and midfoot joints. There are enthesophytes at the posterior and plantar aspect s of calcaneal tuberosity. IMPRESSION: 1. Mild polyarticular osteoarthritis. Reviewed, dictated and finalized at location A. OPERATOR
--- NOTE | ~2023-03-02 | XR_ITS ---
EXAMINATION: XR foot LT min 3V DATE: 03/02/2023 16:13 INDICATION: Left foot hammertoes. TECHNIQUE: 4 views of left foot were obtained. COMPARISON: Left foot radiographs 09/19/2021 FINDINGS: There is mild hallux valgus. There is dorsiflexion of the metatarsophalangeal joints and fl exion of the interphalangeal joints. No fracture. There is chronic flattening of head of second metat arsal, consistent with osteonecrosis (Freiberg's infraction). There is mild osteoarthritis of first a nd second metatarsophalangeal joints and many of the interphalangeal joints and midfoot joints. There are enthesophytes at the posterior and plantar aspects of calcaneal tuberosity. IMPRESSION: 1. Mild polyarticular osteoarthritis. 2. Freiberg's infraction involving second metatarsal. 3. Mild hallux valgus. Reviewed, dictated and finalized at location A. ANICAL SYSTEM TECHNICIAN
== END 2023-03-02 15:48 | disposition home or self-care (01) ==
LOC: CHSIMG 15:50
PROVIDERS: PCP Internal Medicine; Visit Provider Internal Medicine
DX: M20.42 Other hammer toe(s) (acquired), left foot (principal); M20.41 Other hammer toe(s) (acquired), right foot; M19.072 Primary osteoarthritis, left ankle and foot; M19.071 Primary osteoarthritis, right ankle and foot; M92.72 Juvenile osteochondrosis of metatarsus, left foot; M20.12 Hallux valgus (acquired), left foot
CPT/HCPCS: 73630

== ENCOUNTER 2023-12-08 12:40 | Outpatient (CLI) | payer MEDICARE, OTHER, SELFPAY ==
--- NOTE | ~2023-12-08 | XR_ITS ---
EXAMINATION: XR hip RT min 2V DATE: 12/08/2023 12:59 INDICATION: Right hip fracture. Follow-up. TECHNIQUE: 2 views of right hip were obtained. COMPARISON: Right hip radiographs 07/06/2014 FINDINGS: There is a total right hip arthroplasty in near-anatomic alignment. There is a periprosthet ic fracture involving lateral aspect of proximal femur with callus formation. The greater trochanter fracture fragment demonstrates approximately 6 mm displacement. No periprosthetic lucency to suggest loosening or infection. IMPRESSION: 1. Healing periprosthetic fracture of proximal right femur. Reviewed, dictated and finalized at location A.
== END 2023-12-08 12:41 | disposition home or self-care (01) ==
LOC: CHSIMG 12:42
PROVIDERS: PCP Internal Medicine; Visit Provider Internal Medicine
DX: S72.001D Fracture of unspecified part of neck of right femur, subsequent encounter for closed fracture with routine healing (principal)
CPT/HCPCS: 73502

== ENCOUNTER 2024-01-09 13:32 | Outpatient (RCR) | payer MEDICARE, OTHER, SELFPAY ==
--- NOTE | 2024-01-09 14:29 | PTOPEVAL1 ---
Assessment and note entered by Maxim Harry Evaluation Information Assessment Status Evaluation Diagnosis right proximal femur fracture ICD-10 Condition Codes (PT) Difficulty Walking R26.2,R26.9,Weakness R53.1 Onset 12/15/23 Subjective Information Pt. reports that 10 weeks ago he developed a kidney infection. He was hospitalized for about 1 week. Following hospitalization he was admitted into a rehab facility for about 10 days for weakness. He then returned home and fell in the home 2 days later. He states that he was again hospitalized for about 1 week. He then returned home and has been dealing with a kidney infection. He states that during the last fall he also shattered the bone around his right hip replacement. He states that he has not had it repaired, as doctor does not want to do so with his kidney infection. He states that his balance is currently bad and he is very weak. he states that prior to the last 10 weeks he was able to drive, get into the community and walk without complication. He states that his helps lay his clothes out, but he is able to do the dressing . he reports that he can only stand with his walker and can walk about 20' with his walker. He reports that his goal is to improve his strength and balance. Reported Pain Level Pain Score 0: Self Report Assessment PT Clinical Summary Pt. is a 74 year old male who enters the clinic for developed weakness following prolonged hospitalization. He presents with impaired gait, impaired balance, gross l.e. weakness and functional decline. Continued skilled PT is indicated in order to improve these areas to allow the pt. to achieve his goal of being able to walk further and improve balance and safety. Plan of Care Interventions Gait Training,Hot Pack/Cold Pack,Manual Therapy, Neuro Re-education,Patient/Caregiver Educati, Therapeutic Activities,Therapeutic Exercise PT Services Indicated Yes Treatment Frequency and 3x/week x 12 visits Duration These treatments will address the objective and functional deficits as defined above. The patient will be advanced safely and appropriately in order for the patient to progress towards his/her prior level of function. Additional exercises will be introduced and as well as a comprehensive home exercise program upon discharge, if needed, ?to ensure carryover of functional gains achieved in the clinic. This treatment plan has been reviewed and agreement upon by the patient.
--- NOTE | 2024-01-09 14:29 | OPREHPOC ---
Outpatient Therapy Plan of Care This is a Multidisciplinary Plan of Care that may contain components documented by all disciplines (PT, OT, and ST.) PT Problem 1 PT Problem #1 Knowledge Deficit PT Goal 1 Goal / Goal Update Independent with a HEP addressing strength and mobility. Target Visit 2 PT Problem 2 PT Problem #2 Impaired Balance PT Goal 1 Goal / Goal Update Improve Tinetti score to 20 or greater indicating improved function. Target Visit 10 PT Problem 3 PT Problem #3 Impaired Gait PT Goal 1 Goal / Goal Update Pt. will be able to complete the 6 minute walk test with use of ww for a distance of 600' or greater to participate in community navigation. Target Visit 10 PT Problem 4 PT Problem #4 Impaired Functional Mobil PT Goal 1 Goal / Goal Update Pt. will be able to safely reach to the floor to lift small objects without handhold PT Problem 5 PT Problem #5 Impaired Strength PT Goal 1 Goal / Goal Update Pt. will demonstrate gross bilateral l.e. strength at 4/5 or greater in order to improve standing endurance. Target Visit 10
== END 2024-04-08 23:59 | disposition home or self-care (01) ==
LOC: CHSPT 13:32
PROVIDERS: PCP Internal Medicine; Visit Provider Internal Medicine
DX: R26.2 Difficulty in walking, not elsewhere classified (principal); R53.1 Weakness; S72.001A Fracture of unspecified part of neck of right femur, initial encounter for closed fracture
CPT/HCPCS: 97110; 97150; 97161; 97530

== ENCOUNTER 2024-01-27 15:41 | Outpatient (CLI) | payer MEDICARE, OTHER, SELFPAY ==
--- NOTE | ~2024-01-27 | XR_ITS ---
EXAMINATION: XR hip RT min 2V DATE: 01/27/2024 15:58 INDICATION: Right femur fracture. TECHNIQUE: 2 views of right hip were obtained. COMPARISON: Right hip radiographs 12/08/2023 FINDINGS: There is a total right hip arthroplasty in near-anatomic alignment. No periprosthetic lucen cy to suggest loosening or infection. There is a periprosthetic fracture of proximal right femur with increased callus formation. The greater trochanter fracture fragment demonstrates 15 mm anterior dis placement relative to the main distal fracture fragment. IMPRESSION: 1. Healing periprosthetic fracture of proximal right femur. Reviewed, dictated and finalized at location A. ATRIC NURSE PRACTITIONER
== END 2024-01-27 15:42 | disposition home or self-care (01) ==
PROVIDERS: PCP Internal Medicine; Visit Provider Internal Medicine
DX: S72.001D Fracture of unspecified part of neck of right femur, subsequent encounter for closed fracture with routine healing (principal)
CPT/HCPCS: 73502

== ENCOUNTER 2024-10-24 02:14 | Day surgery (SDC) | payer MEDICARE, OTHER, SELFPAY ==
--- OUTSIDE RECORDS SUMMARY | 2008-01-04 09:45 | XMS_ITS | Continuity of Care Document ---
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 Name Role Phone Trivedi OD, John Unavailable Unavailable Procedures Procedure Date Office/outpatient Visit, Est Office/outpatient Visit, Est Remove Foreign Body From Eye Advance Directives Directive Yes / No Effective Date File Name No Information Encounters Encounter Description Practice Location Reason(s) For Visit Diagnoses Date Provider Providers Copied on Encounter Office/outpat ient Visit, [facility] [place], [address] [place] [address] [address], [place], [place], [id number], tel:[phone] [facility] No Information Oct-3 0-200 8 Trivedi OD John. [address] , [address], [place], [place], [facility], . tel:[phone] Office/outpat ient Visit, [facility] [place], [address] [place] [address] [address], [place], [place], [id number], [place] tel:[phone] [facility] No Information Oct-2 3-200 8 Trivedi OD John. [address] , [address], [place], [place], [facility], . tel:[phone] [facility], [address] [place] [address] [address], [place], [place], [id number], [place] tel:[phone] [facility] No Information Oct-2 1-200 8 Luciano Liz. [address] , [address], [place], [address], [place]. tel:[phone] Referring Provider: Omer Nunn MD, [address] [place] [address], [address]. tel:[phone] Family History Family Member Type Diagnosis Age At Onset No Information Payers Payer name Insurance type Covered libertarian ID Authoriza tikam(s) Mail Hand[employer] Benefit Plan [id number] Social History Type Description Quantity Date Captured [...]
--- OUTSIDE RECORDS SUMMARY | 2023-12-01 09:05 | XMS_ITS | Continuity of Care Document ---
Author Organization [facility] Address [address] [place] [address] Phone Care Team Providers Care Power Switchboard Operator Name Role Phone Garth MARSHALL, Skyler Unavailable [...] Diagnoses Date Provider Providers Copied on Encounter [facility], [address] [place] [address], [id number], tel:[phone] [facility] No Information Liang Skyler. [address] [place] [address], [id number], [place]. tel:[phone] [facility], [address] [place] [address], [id number], tel:[phone] [facility] Liang Skyler. [address] [place] [address], [id number], . tel:[phone] Referring Provider: Guilherme Ramos, [address] [place] [address], [place], [address]. tel:[phone] [facility], [address] [place] [address], [id number], tel:[phone] [facility] Liang Skyler. [address] [place] [address], [id number], . tel:[phone] Referring Provider: Guilherme Ramos, [address] [facility] [address] [facility], [place], [address]. tel:[phone] As per patient privacy policy some of the clinical information may not be visible. Family History Family Member Type Diagnosis Age At Onset No Information Payers Payer name Insurance type Covered green party ID Authortoshiaa tikam(s) Medicare [facility] [id number] Aet[employer] Better [employer] [facility] [id number] Social History Type Description Quantity Date Captured Comments Sex Male Smoking Status No Information Gender Identity Male Chief Complaint And Reason For Visit No Information Reason For Referral Reason For Referral No Information Plan Of Treatment Date Type Action Status Future Order: Radiology Order Up per Body Flouroscopy ([id number]), Ordered on: Ordered History Of Present Illness Encounter Date Complaint History Of Prese nt Illness No Information Functional Status Date Functional Assessmen t No Information Instructions Date Instruction Additional Infor mation No Information Assessments Type Assessment Date No Information Patient Care Teams Name Effective Dates (start - stop) Status Members No Information
[2024-10-23 15:45] VITALS: BMI 27.1
--- OUTSIDE RECORDS SUMMARY | 2024-10-24 02:23 | XMS_ITS | Encounter Summary ---
Author Organization [facility] Address [address] [place] [address] Phone Care Team Providers Care Poultry Breeder Name Role Phone Omer Nunn MD Primary Care Provider [phone] Encounter Details Date Type Department Care Team (Late st Contact Info) Description 05/25/2019 Orders Only [facility]. [address] [facility] [address] [place] [address] Guilherme Dumont MD [address] [facility] [address] [place] [address] Chronic kidney disease stage 3 (HCC); Type 2 diabetes mellitus with diabetic nephropathy (HCC) Social History Tobacco Use Types Packs/Day Years Used Date Smoking Tobacco: Never Smokeless Tobacco: Never Alcohol Use Standard Drinks/Week Comments Never 0 (1 standard drink = 0.6 oz pur e alcohol) AUDIT-C Answer Date Recorded Frequency of Alcohol Consumption Never 10/24/2018 Average Number of Drinks Not on file 019 Frequency of Binge Drinking Not on file 10/06 Sex and Gender Information Value Date Recorded Sex Assigned at Not on file Legal Sex Male 6:10 PM EDT Gender Identity Not on file Sexual Orientation Not on file documented as of this encounter Plan of Treatment Not on file documented as of this encounter Visit Diagnoses Diagnosis Chronic kidney disease stage 3 (HCC) Type 2 diabetes mellitus with diabetic nephropathy (HCC) documented in this encounter Care Teams Poultry Breeder Relationship Specialty Start Date End Date Omer Nunn MD [address] [id number] PCP - General Internal Medicine 12/18/19 documented as of this encounter
--- OUTSIDE RECORDS SUMMARY | 2024-10-24 02:23 | XMS_ITS | Encounter Summary ---
Author Organization [facility] Address [address] [place] [address] Phone Care Team Providers Care Peer Support Specialist Name Role Phone Omer Nunn MD Primary Care Provider [phone] Encounter Details Date Type Department Care Team (Late st Contact Info) Description 06/22/2019 Orders Only [facility]. [address] [place] [address] Guilherme Dumont MD [address] [facility] [place] [address] Chronic kidney disease stage 3 [...] (HCC) documented in this encounter Care Teams Peer Support Specialist Relationship Specialty Start Date End Date Omer Nunn MD [address] [id number] PCP - General Internal Medicine 12/18/19 documented as of this encounter
--- OUTSIDE RECORDS SUMMARY | 2024-10-24 02:23 | XMS_ITS | Clinical Summary ---
Author Organization [facility] Address [address] [place] [address] Care Team Providers Care Golf Player Assistant Name Role Phone Omer Nunn MD Primary Care Provider [phone] Hemanth Sanches MD Unavailable Jessa Bryan DO Unavailable [phone] Allergies Active Allergy Reactions Criticality Noted Date Comments Beta-Blockers (Beta-Adrenergic Blocking Agts) Other (See comments) Low Reaction: Bradycardia, Other reaction(s): Other (See comments) Reaction: Bradycardia, Morphine Nausea & Vomiting,Nausea only Low Vancomycin Unknown 10/18/2023 Pt's reports a previous reaction to vancomycin where he had to be hospitalized afterward but does not remember the symptoms. Medications buPROPion XL (WELLBUTRIN XL) 300 mg 24 hr tablet take 1 tablet by oral route every day 0 0 4 Active FLUoxetine (PROzac) 40 mg capsule Take one by mouth one time per day 0 0 8 Active aspirin (ASPIR-81) 81 mg tablet Take one by mouth one time per day 0 0 8 Active zafirlukast (ACCOLATE) 20 mg tablet TAKE 1 TABLET BY MOUTH TWICE A DAY AT LEAST 1 HOUR BEFORE OR 2 HOURS AFTER MEALS. 1 8 Active multivitamin capsule Take 1 capsule by mouth daily Active lactulose solution 10 gram/15mL Take 15 mL (10 g total) by mouth daily as needed (constipation) 480 mL 1 4 Active cetirizine (ZyrTEC) 10 mg tablet Take 0.5 tablets (5 mg total) by mouth daily 30 tablet 1 4 Active cholecalciferol 25 mcg (1,000 unit) tablet Take 1 tablet (1,000 Units total) by mouth daily Active acetaminophen 500 mg capsule Take 2 capsules (1,000 mg total) by mouth every 6 (six) hours as needed for pain 4 Active rOPINIRole (REQUIP) 0.25 mg tablet Take 1 tablet (0.25 mg total) by mouth daily 4 Active ALPRAZolam (XANAX) 0.5 mg tablet Take 1 tablet (0.5 mg total) by mouth nightly as needed for anxiety Active carvediloL (COREG) 12.5 mg tablet Take 1 tablet (12.5 mg total) by mouth 2 (two) times a day 4 Active apixaban (ELIQUIS) 2.5 mg tablet Take 1 tablet (2.5 mg total) by mouth daily Active blood-glucose meter kit 1 Units 2 (two) times a day 1 kit 5 Active blood glucose diagnostic strip 1 each by other route as directed 100 strip 5 Active glucose 4 gram chewable tablet Take 4 tablets (16 g total) by mouth as needed for low blood sugar 50 tablet 12 5 07/12/19 26 Active hydrALAZINE (APRESOLINE) 25 mg tabletIndication s:hypertension Take 1 tablet (25 mg total) by mouth 3 (three) times a day 90 tablet 5 07/12/19 26 Active Additional Information Patient not taking.Reported on 10/19/2024 coenzyme Q10 10 mg capsule Take 1 capsule (10 mg total) by mouth daily Active blood-glucose sensor (Dexcom G7 Sensor) deviceIndication s:Type 2 diabetes mellitus with hypoglycemia without coma, without long-term current use of insulin (HCC) Use for BG monitoring 3 each 5 Active blood-glucose,re ceiver,cont miscIndications: Type 2 diabetes mellitus with hypoglycemia without coma, without long-term current use of insulin (HCC) Use for blood glucose monitor 1 each 5 Active atorvastatin (LIPITOR) 80 mg tablet TAKE 1 TABLET BY MOUTH EVERY DAY 90 tablet 5 Active famotidine (PEPCID) 10 mg tablet Take 1 tablet (10 mg total) by mouth daily 30 tablet 3 5 10/22/19 26 Active Active Problems Problem Noted Date Diagnosed Date Pharyngeal dysphagia 10/20/2024 Bradycardia 10/20/2024 Chronic systolic congestive heart failure 2024 Hypoalbuminemia 10/20/2024 Hypotension, unspecified hypotension type 2024 NSTEMI (non-ST elevated myocardial infarction) 0 10/19/2024 Hypoglycemia 07/08/2024 End stage renal disease 01/26/2024 Chronic peritonitis 11/16/2023 Closed fracture of right hip, initial encounter 11/12/2023 Peritoneal dialysis catheter site infection 09/2023 Assessment & Plan (11/13/2023 3:59 PM CDT): #C/f PD catheter infection - Renal following for dialysis management - PD fluid studies sent for cell count and culture - Per neph, low threshold to start antibiotics - f/u in AM possible need for intraperitoneal abx --11/12 patient declining hospitalization and leaving AMA, d/w nephrology who recommended 1w course of cipro/zyvox/nystatin until renal SW can set up PD abx/IV abx Periprosthetic fracture of proximal end of femur 11/12/2023 Assessment & Plan (11/13/2023 3:34 PM CDT): - Ortho c/s - Operative planning however given active infection will delay operative planning - Hgb > 9 for OR - Hgb 7.1 > 2u pRBCs > repeat CBC pending - NWBRLE - Ok for the DVT, hold therapeutic anticoagulation - 11/12 Ortho/Anes cancelled OR I/s/o active peritonitis, possible covid (tested negative) with desat >94%, hypertension, nonoperative at this time and patient to follow up with [facility] orthopedics (Dr. Cheema clinic to set up) Peritonitis 10/19/2023 Chronic constipation 10/19/2023 Seizure, epileptic 10/14/2023 Suspected cerebrovascular accident (CVA) 024 Chronic kidney disease, stage V 06/09/2023 Assessment & Plan (06/16/2023 12:27 PM CDT): Discussed placement and post operative phase of placing PD cath, patient and now understanding (initially hoping to have treatments done at a treatment center so they don't have all the equipment in their home) He does not have surgical hx concern (hernias) He does have constipation issues with have recently been addressed by starting senna and lactulose. Anemia of chronic renal failure, stage 5 024 Esophageal dysphagia 05/14/2023 Assessment & Plan (05/18/2023 4:36 PM CDT): No complaints of dysphagia and eating well since EGD yesterday. Progressively worsening dyasphagia PER DIEM PHYSICAL THERAPIST ASSISTANT and scheduled for endoscopy at OSH. He described this as food or pills getting stuck in his upper-mid chest Ate lunch after EGD without difficulty. Will switch IV pantoprazole to p.o. 05/13 morning unable to tolerate po. Modified Barium Swallow showed impaired upper esophageal sphincter relaxation Speech Therapy cleared him for regular diet but concerned he will not be able to swallow due to impaired relaxation of sphincter GI Consult EGD with possible dilation procedure with Bougie ([place]) 05/16 Endoscopy No endoscopic abnormality was evident in the esophagus to explain the patient's complaint of dysphagia. Widely patent Patchy mildly erythematous mucosa without bleeding was found in the gastric antrum. Biopsies were taken with a cold forceps for Helicobacter pylori testing. Patchy moderately erythematous mucosa without active bleeding and with no stigmata of bleeding found in the entire duodenum. Localized nodular mucosa was found in the duodenal bulb. Biopsies taken with a cold forceps for histology. Recommendation: Await pathology results Savory dilation not completed due to widely patent upper esophagus. Acute renal failure superimp osed on stage 4 chronic kidney disease 05/13/2023 Assessment & Plan (05/18/2023 4:35 PM CDT): Spoke with patient's nephrology office and they will see patient next week. He will obtain a BMP at [facility] prior to the visit. Renal function has stabilized on the border of Stage 5 CKD. Per nephrology documentation, likely due to hypertension. Last outside labs 03/25/2023 with Cr 3.83 suggestive of progressive renal disease. Current insult is likely a consequence of urinary retention 2/2 large stool ball. - Falcon, strict I/O with daily weights initially Falcon pulled 05/15 and he was able to urinate well on his own. Will check a PVR. - Limit further contrast exposure, no NSAIDs, renally dose medications Creatinine Trend Recent Labs Lab Units 05/18/23 0442 05/16/23 2211 05/16/23 0458 05/15/23 0525 05/14/23 0540 CREATININE mg/dL 4.25* 4.34* 4.34* 4.24* 4.31* Sick sinus syndrome 05/13/2023 Assessment & Plan (05/16/2023 8:35 PM CDT): S/p pacemaker 2010, no acute issues. 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 Last time device check in 02/27 had dizziness Telemetry Device check by [employer]- normal Hemopericardium 05/13/2023 Assessment & Plan (05/15/2023 4:35 PM CDT): Incidental finding on CT, asymptomatic. - Monitor hemodynamics, hold DVT ppx - ECHO- no pericardial effusion seen Stercoral colitis 05/13/2023 Assessment & Plan (05/18/2023 4:40 PM CDT): No response to dulcolax suppository. Patient had multiple BMs this afternoon after Rx with osmotic agent. Pleased with finally having sufficient BMs. Reports recent colonoscopy which was normal as per pt. Large (11 cm) stool ball in rectum with surrounding inflammatory changes. Manual disimpaction in the ED and enemas. Likely compressing bladder outlet and contributing to urinary retention. No opioids, no recent CCBs. sp golytely (didn't tolerate well due to severe dysphagia at that time) - Miralax BID and Senna 2 tabs BID prn started and he began having BMs with resolution of his abdominal pain. 05/16 He complained of some recurrent constipation. Rx Dulcolax Gout 05/13/2023 Assessment & Plan (05/13/2023 2:27 AM [employer] COOK): Cont allopurinol COPD (chronic obstructive pulmonary disease) 10/2023 Assessment & Plan (05/13/2023 2:37 AM RESTAURANT COOK): PFTs appear more restrictive than obstructive in the setting of known hemidaphragmatic paralysis. No symptoms presently. - Cont zyrtec, levalbuterol PRN - formulary montelukast to replace home zafirlukast Unintentional weight loss 12/22/2022 Mood disorder 12/22/2022 Assessment & Plan (11/12/2023 5:01 PM CDT): - continue home wellbutrin, prozac Assessment & Plan (05/13/2023 2:27 AM [employer]OOK): Continue fluoxetine 40 and bupropion 300 Iron deficiency anemia, unspecified 04/20/2019 Anemia of chronic renal failure, stage 4 (severe ) 03/08/2019 Assessment & Plan (05/18/2023 4:40 PM CDT): No bleeding, was getting EPO w/outpatient nephrology, HGb 7.6 (baseline around 9) - Transfuse for Hgb < 7 - iron panel - borderline low Fe and Fe sat, with elevated ferritin and and low TIBC Hemoglobin Trend Recent Labs Lab Units 05/18/23 0442 05/16/23 2211 05/16/23 0458 05/15/23 0525 05/14/23 0540 HEMOGLOBIN g/dL 7.6* 7.1* 7.6* 8.0* 7.6* Chronic kidney disease, stage IV (severe) 2019 Assessment & Plan (11/13/2023 3:32 PM CDT): - Recent PD peritonitis x2 (E.cloacae July 2023, E. Faecalis September 2023), concern for further PD peritonitis given reported cloudy PD effluent - Plan for 2 x 2L 2.5% dextrose manual exchanges for 2 hours each overnight followed by a 1500 mL daytime icodextrin dwell - PD fluid studies sent for cell count and culture overnight with 46058 nucleated cells (95% neutrophils) and 6403 RBCs, culture pending. Patient has documented vancomycin allergy although seems to have received it last month. Treat with IP cefepime 1g in 2.5L 2.5% dextrose allowed to dwell in peritoneum for 6 hours by manual exchange. Dilated cardiomyopathy 01/28/2019 Assessment & Plan (05/17/2023 4:56 PM CDT): Recovered EF 46 -> 55%. 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 Not taking a diuretic but has been working outside in the heat last week. Dyspnea 09/16/2016 Assessment & Plan (09/16/2016 5:07 PM CDT): Patient is complaining of symptoms consistent with orthopnea and some exertional dyspnea. Does not look volume overloaded; in fact looks a little dry because he is orthostatic. Pro BNP in the emergency room Tuesday was 350, not terribly impressive, and chest x-ray showed no pulmonary vascular congestion. I wonder if this is related to his elevated right hemidiaphragm or obesity. Obesity (BMI 30-39.9) 09/16/2016 Assessment & Plan (09/16/2016 5:08 PM CDT): Obesity is worsening. Patient gained 8 lb Obstructive sleep apnea 09/16/2016 Assessment & Plan (05/13/2023 2:10 AM [employer]OOK): Nonadherent to CPAP Assessment & Plan (09/16/2016 5:11 PM CDT): Intolerant of CPAP Pacemaker 09/16/2016 Overview (10/13/2017): Biotronik Dual Pacemaker. Dx; SSS. DOI 11/10/[address] Black[address] Biotronik remote home monitoring. Office pacer checks Q1 yr. Assessment & Plan (09/16/2016 5:12 PM CDT): Pacemaker check today shows appropriate device function, good thresholds, longevity 5.5 years Essential hypertension 04/26/2013 Overview (06/11/2016): HYPERTENSION NOS Assessment & Plan (05/18/2023 4:39 PM CDT): Home regimen Coreg 12.5 BID, hydralazine 25 BID. Off amlodipine due to symptomatic orthostatic hypotension per patient and cardiology documentation -had hypertensive urgency at ED, and BP continued to alternate with high and normal levels (didn't tolerate po meds for some time) During hospitalization, Coreg 12.5 BID continued and hydralazine increased to 25 TID with plan to restart amlodipine if it remained high. BP 195/87 on morning of 05/16 and patient given amlodipine 5mg with good response. Will decrease hydralazine back to 25mg bid. Will need continued adjustment of his anti-hypertensive medications as an outpatient. Vitals: 05/17/23 1252 05/17/23200905/18/23 0445 05/18/23 0822 BP: 139/75 162/69 168/79 (!) 190/88 BP Location: Right arm Right arm Left arm Patient Position: HOB 30 degrees HOB 30 degrees;Lying Pulse: 67 65 69 69 Resp: 18 18 Temp: 36.5 C (97.7 F) 36.5 C (97.7 F) TempSrc: Oral Oral SpO2: 93% 96% 97% Weight: Height: Assessment & Plan (09/16/2016 5:11 PM CDT): Blood pressure has been high recently, but with orthostasis I am not going to change meds this office visit Arthralgia of hip 09/29/2010 Acquired trigger finger 04/28/2010 Coronary arteriosclerosis in ione artery 06/18 Overview (06/09/2016): CRNRY ATHRSCL NATVE VSSL Assessment & Plan (11/12/2023 5:00 PM CDT): - Hold home aspirin - Continue home statin, coreg Assessment & Plan (09/16/2016 5:09 PM CDT): History of multiple stents in the past, most recent being 2007. 2013: Stress test negative (interesting that was negative in view of chronic total occlusion of the RCA, although the RCA is non dominant) Atypical chest pain and HERNANDEZ recently, will evaluate further with a Lexiscan Multiple-type hyperlipidemia 06/19/2007 Overview (06/09/2016): MIXED HYPERLIPIDEMIA Assessment & Plan (05/13/2023 2:10 AM [employer]AURANT COOK): Cont atorva 80 Assessment & Plan (09/16/2016 5:22 PM CDT): March 2015: Total cholesterol 333, HDL 33, TG 626 May 2015: Total cholesterol 192, HDL 30, TG 377, LDL 87 Patient states compliance with atorvastatin and fish oil Addendum: Later found the following lipids: July 2016 total cholesterol 238, HDL 32, TG 751, direct LDL 67, creatinine 1.5, GFR 48 Type 2 diabetes mellitus wit h hypoglycemia without coma, without long-term current use of insulin Resolved Problems Problem Noted Date Diagnosed Date Resolved Date Hyperkalemia 10/19/2024 10/20/2024 Moderate malnutrition 05/17/20232023 Elevated hemidiaphragm 09/16/201606/18 Assessment & Plan (09/16/2016 5:05 PM CDT): Chest x-ray this week showed a c hronically elevated right hemidiaphragm. Patient did have some chest trauma 1-2 years ago. I wonder if the patient has diaphragmatic paresis and at that is contributing to his HERNANDEZ. I can understand why his shortness of breath may be worse when he lays on his left side if that is the case. Morbid obesity 04/09/2015 09/16/2016 Overview (06/10/2016): Morbid obesity due to excess calories Knee pain 09/29/2010 06/18/2017 Fracture of metacarpal bone 04/28/2010 06/18/2017 Post percutaneous translumin al coronary angioplasty 06/19/2007 06/18/2017 Overview (06/10/2016): STATUS-POST PTCA Unstable angina pectoris 06/19/2007 Overview (06/11/2016): INTERMED CORONARY SYND Chronic ischemic heart disease 06/19/2007 09/16/2016 Overview (06/11/2016): CHR ISCHEMIC HRT DIS NEC Encounters Date Type Department Care Team Description 10/23/2024 [facility] Post Discharge Follow up phone call [facility] [address] [place] [address] Chiara Chavez 10/22/2024 Telephone [facility] G[facility] at [address] [place] [address] Delia Davila MA 10/22/2024 Telephone [facility] at [address] [place] [address] Delia Davila MA 10/22/2024 Telephone [facility] at [address] [place] [address] Delia Davila MA 10/19/2024 2:24 PM CDT - 10/21/2024 5:33 PM CDT Hospital Encounter [facility] [address] [place] [address] Konstantin Jara MD Nikolic, Jelena, MD Richards, MD René Corcoran Jr., Nancy Ramos MD Hypotension, unspecified hypotension type (Primary Dx); Pharyngeal dysphagia; Chronic constipation; Orthostatic hypotension; Hypoalbuminemia; Chronic systolic congestive heart failure (HCC); Bradycardia; End stage renal disease; Essential hypertension; Multiple-type hyperlipidemia; Type 2 diabetes mellitus with hypoglycemia without coma, without long-term current use of insulin (HCC) Discharge Disposition: Discharge to home or self care 10/10/2024 7:15 AM CDT Ancillary Procedure [facility] [address] [place] [address] [place] [phone] Pacemaker; Sick sinus syndrome (HCC) 10/10/2024 Telephone [facility] [address] [facility] [address] [place] [phone] Maxim Juares MD 10/10/2024 Telephone [facility] [address] [place] [address] [place] [phone] Maxim Juares MD 10/09/2024 Telephone [facility] Gastroenter[facility] at [address] [place] [address] Mckenna Cary 09/11/2024 8:30 AM CDT Ancillary Procedure [facility] [address] [place] [address] [place] [phone] Pacemaker [Z95.0] (Primary Dx); SSS (sick sinus syndrome) (HCC); Sick sinus syndrome (HCC); Ischemic cardiomyopathy 08/02/2024 2:30 PM CDT Office Visit [facility] of [address] [place] [phone] Leila Cardoza MD Type 2 diabetes mellitus with hypoglycemia without coma, without long-term current use of insulin (HCC) (Primary Dx); 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; Hypoglycemia 08/01/2024 Telephone [facility] of [address] [phone] Leila Cardoza MD appointment reminder N/P 08/01/2024 Documentation [facility] [address] [place] [address] Shine Hunt MD 07/26/2024 12:31 PM CDT - 07/28/2024 2:55 PM CDT Hospital Encounter [facility] Medicine [address] [place] [address] López Hoskins MD Singh, Supriya, MD Fasick, Victoria Rose, Hypoglycemia (Primary Dx) Discharge Disposition: Discharge to home or self care from Last 3 Months Surgical History Surgery Date Site/Laterality Comments KNEE SURGERY Knee surgery OTHER SURGICAL HISTORY : [facility]. Knee Replacement TOTAL HIP ARTHROPLASTY Right Total Hip Replacement KNEE ARTHROSCOPY Arthroscopic Knee Surgery OTHER SURGICAL HISTORY Surgery for Ulnar nerve R OTHER SURGICAL HISTORY Surgery for Carpal Tunnel R PERITONEAL CATHETER REMOVAL 11/18/2023 REMOVAL PERITONEAL DIALYSIS CATHETER/HEMO placement CARDIAC PACEMAKER PLACEMENT Biotronik CORONARY ANGIOPLASTY WITH STENT PLACEMENT total 3 stents FOOT SURGERY Right surgery for infection Medical History Medical History Date Comments Hx Other Medical Chronic pain Sleep apnea 2007 Sleep Apnea Hx Other Medical Infected ankle - >OA Hx Other Medical Diabetic Neurop athy Gout Gout Hx Other Medical Diabetes Type I I Hypertension AR (myocardial infarction) (HCC) Lung disease COPD Chronic kidney disease stage 5 c kd Type 2 diabetes mellitus Anemia Depression Anxiety AR (myocardial infarction) (HCC) 3 stents Family History Medical History Relation Name Comments Heart attack Father 2 Myocardial Infa rction; Cause of : Myocardial Infarction Other Mother 2 Glioblastoma, C AD; Cause of : Glioblastoma, CAD Heart attack Son 2 Myocardial Infa rction; Relation Name Status Comments Father 1 Father 2 Mother 1 Mother 2 Son 1 Alive Son 2 Social History Tobacco Use Types Packs/Day Years Used Date Smoking Tobacco: Never Smokeless Tobacco: Never Tobacco Cessation:Counseling Given: Not Answered Alcohol Use Standard Drinks/Week Comments Never 0 (1 standard drink = 0.6 oz pur e alcohol) [facility] Utilities Answer Date Recorded In the past 12 months has e electric, gas, oil, or water company threatened to shut off services in your home? No 07/27/2024 Social Connection and Isolation Panel Answer Date Recorded In a typical week, how many times do you talk on the phone with family, friends, or neighbors? More than three times a week 07/27/2024 How often do you get togethe r with friends or relatives? More than three times a week 07/27/2024 How often do you attend chur ch or shinto services? 1 to 4 times per year 07/27/2024 Do you belong to any clubs o r organizations such as pentecostal groups, unions, fraternal or athletic groups, or school groups? No 07/27/2024 How often do you attend meet ings of the clubs or organizations you belong to? Never 07/27/2024 Are you , , di vorced, , never , or living with a partner? 07/27/2024 Overall Financial Resource Strain (CARDIA) Answe r Date Recorded How hard is it for you to pa y for the very basics like food, housing, medical care, and heating? Not very hard 07/27/2024 PHQ-2 Answer Date Recorded PHQ-2 Total Score (If total score is 3 or more points, staff should administer the PHQ-9) 0 10/14/2023 Hunger Vital Sign Answer Date Recorded Within the past 12 months, y ou worried that your food would run out before you got the money to buy more. Never true 07/28/19 25 Within the past 12 months, t he food you bought just didn't last and you didn't have money to get more. Never true 07/27/2024 PRAPARE - Transportation Answer Date Re corded In the past 12 months, has l ack of transportation kept you from medical appointments or from getting medications? No 07/06 In the past 12 months, has l ack of transportation kept you from meetings, work, or from getting things needed for daily living? No 07/27/2024 Housing Stability Vital Sign Answer Vijay e Recorded In the last 12 months, was t here a time when you were not able to pay the mortgage or rent on time? No 06/21/2023 In the last 12 months, how many places have you lived? 1 06/21/2023 In the last 12 months, was t here a time when you did not have a steady place to sleep or slept in a nursing home (including now)? No 06/21/2023 Housing Stability Vital Sign Answer Vijay e Recorded In the last 12 months, was t here a time when you were not able to pay the mortgage or rent on time? No 07/27/2024 In the past 12 months, how m any times have you moved where you were living? 0 07/27/2024 At any time in the past 12 m [facility], were you homeless or living in a nursing home (including now)? No 07/27/2024 AUDIT-C Answer Date Recorded Q1: How often do you have a drink containing alcohol? Never 10/19/2024 Q2: How many drinks containi ng alcohol do you have on a typical day when you are drinking? Patient does not drink Q3: How often do you have si x or more drinks on one occasion? Never 10/19/2024 Personal Safety Answer Date Recorded Have you ever been in or are you currently in a harmful physical or emotional relationship or is someone making you feel afraid or unsafe? Denies 10/19/2024 Sex and Gender Information Value Date Recorded Sex Assigned at Not on file Legal Sex Male 7:02 AM [employer] Gender Identity Not on file Sexual Orientation Not on file Obstetrics History Last Filed Vital Signs Vital Sign Reading Time Taken Comments Blood Pressure 104/56 10/21/2024 11:24 AM CDT Pulse 72 10/21/2024 11:24 AM CDT Temperature 36.5 C (97.7 F) 10/21/2024 11:24 AM CDT Respiratory Rate 18 10/21/2024 11:24 AM CDT Oxygen Saturation 95% 10/21/2024 11:24 AM CDT Inhaled Oxygen Concentration - - Weight 88.1 kg (194 lb 3.6 oz) 10/21/2024 7:00 A M CDT Height 185.4 cm (6' 1) 10/19/2024 8:14 PM CDT Body Mass Index 25.62 10/19/2024 8:14 PM CDT Plan of Treatment Health Maintenance Due Date Last Done Comments Dilated Eye Exam 1950 Foot Exam 1950 Zoster Vaccine (1 of 2) 01/04/1998 Well Visit 65+ 01/04/2013 Albumin Creatinine Ratio, Urine 07/26/2020 0 Pneumococcal vaccine 65+ (3 of 3 - PCV20 or PCV21) 03/23/2023 03/23/2018, 12/20/2012 Covid-19 Vaccine (4 - 2023-2 5 season) 2023 03/16/2021, 06/10/2020, 05/18/2020 DTaP/Tdap/Td Vaccine (2 - Td or Tdap) 04/17/2024 04/17/2014 Lipid Panel 06/20/2024 06/21/2023, 03/07, 12/22/2022, Additional history exists Depression Screening 10/13/2024 10/14/2023 Influenza Vaccine (#1) 2024 , 11/21/2018, 12/16/2017, Additional history exists Hemoglobin A1C 02/02/2025 08/02/2024, 08/2024, 11/12/2023, Additional history exists Fall Risk Assessment 10/21/2025 10/21/2024, 06/09/2023, 01/19/2021, Additional history exists eGFR 10/21/2025 10/21/2024, 10/05, 10/19/2024, Additional history exists Colon Cancer Screening-CT Colonography Discontinued 11/19/2023 Colon Cancer Screening-Colonoscopy Discontinued 11/19/2023 Colon Cancer Screening-DNA Stool Discontinued 11/19/19 Colon Cancer Screening-FIT Discontinued 11/19/2023 Colon Cancer Screening-FOBT Discontinued 11/19/2023 Colon Cancer Screening-Sigmoidoscopy Discontinued 11/19/2023 Colorectal Cancer Screening Discontinued Hepatitis C Screening Completed 07/27/2024 , 11/18/2023, 10/18/2023 Hepatitis B Screening Completed 10/20/2024 , 08/06/2024, 06/08/2024, Additional history exists 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 Device 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 Shelf Expiration Date Model / Serial / Lot Pacemaker- [id number] Implanted:11/09 by Jill Black MD (Quantity not on file) Pacemaker Chest [employer] SSS Calm Longer Luke Set Catheter Laparoscopic Placement Peritoneal [id number] - [id number] Implanted:Qty: 1 on 06/20/2023 by Volodymyr Seo MD at [facility] N/A: Peritoneum [employer] 03/24/2026 [id number] / / [id number] Calm Catheter Peritoneal Dialysis Double Cuff Coiled Adult Flex Neck [id number] Cf-5260 - [id number] Implanted:Qty: 1 on 06/20/2023 by Volodymyr Seo MD at [facility] N/A: Peritoneum [employer] 05/14/2024 CF-5260 / / [id number] [employer] Duraflow Embosafe 15.5fr 24cm Basic 2 Lumen Kit Catheter [id number] - [id number] Implanted:Qty: 1 on 11/18/2023 by Volodymyr Seo MD at [facility] Right: Chest [employer] 04/06/2024 [id number] / / [id number] Calm Catheter Peritoneal Dialysis Double Cuff Coiled Adult Flex Neck 5.3x3.3mgr27nt Cf-5260 - [id number] Implanted:Qty: 1 on 03/05/2024 by Volodymyr Seo MD at [facility] N/A: Abdomen [employer] 07/21/2026 CF-5260 / / [id number] [facility] [employer] Longer Luke Set Catheter Laparoscopic Placement Peritoneal Vp411 - [id number] Implanted:Qty: 1 on 03/05/2024 by Volodymyr Seo MD at [facility] N/A: Abdomen [employer] 08/12/2026 [id number] / / [id number] Procedures Procedure Name Priority Date/Time Associated Diagnosis Comments POCT GLUCOSE DEVICE Routine 10/21/2024 4 :39 PM CDT POCT GLUCOSE DEVICE Routine 10/21/2024 1 1:59 AM CDT POCT GLUCOSE DEVICE Routine 10/21/2024 8 :12 AM CDT POCT GLUCOSE DEVICE Routine 10/21/2024 4 :16 AM CDT EGFR Routine 10/21/2024 2:15 AM CDT DIFFERENTIAL AUTO Routine 10/21/2024 2:1 5 AM CDT COMPREHENSIVE METABOLIC PANEL Routine 10/21/2024 2:15 AM CDT CBC WITH AUTO DIFFERENTIAL Routine 10/21/2024 2:15 AM CDT POCT GLUCOSE DEVICE Routine 10/21/2024 1 2:06 AM CDT POCT GLUCOSE DEVICE Routine 10/20/2024 8 :24 PM CDT POCT GLUCOSE DEVICE Routine 10/20/2024 5 :07 PM CDT POCT GLUCOSE DEVICE Routine 10/20/2024 1 2:07 PM CDT INSULIN, TOTAL Routine 10/20/2024 11:18 AM CDT C-PEPTIDE Routine 10/20/2024 11:18 AM CDT HEPATITIS B SURFACE ANTIGEN Routine 10/20/2024 11:18 AM CDT CONTINUOUS CYCLIC PERITONEAL DIALYSIS (CCPD) Routine 10/20/2024 10:53 AM CDT TRANSTHORACIC ECHO (TTE) LIMITED/FOLLOW UP WO DOPPLER/CF WO CONTRAST Routine 10/20/2024 9:45 AM CDT POCT GLUCOSE DEVICE Routine 10/20/2024 8 :08 AM CDT POCT GLUCOSE DEVICE Routine 10/20/2024 1 :50 AM CDT EGFR Routine 10/20/2024 12:53 AM CDT DIFFERENTIAL AUTO Routine 10/20/2024 12: 53 AM CDT COMPREHENSIVE METABOLIC PANEL Routine 10/20/2024 12:53 AM CDT CBC WITH AUTO DIFFERENTIAL Routine 10/20/2024 12:53 AM CDT LACTATE Routine 10/20/2024 12:53 AM CDT BLOOD CULTURE Routine 10/20/2024 12:53 AM CDT BLOOD CULTURE Routine 10/20/2024 12:53 AM CDT POCT GLUCOSE DEVICE Routine 10/19/2024 1 1:19 PM CDT TROPONIN T HIGH-SENSITIVITY 6-HOUR Timed 10/19/2024 9:15 PM CDT POCT GLUCOSE DEVICE Routine 10/19/2024 8 :31 PM CDT TROPONIN T HIGH-SENSITIVITY 4-HR Timed 10/19/2024 6:52 PM CDT POCT GLUCOSE DEVICE Routine 10/19/2024 4 :13 PM CDT TROPONIN T HIGH-SENSITIVITY 2-HOUR Timed 10/19/2024 4:12 PM CDT ECG 12-LEAD STAT 10/19/2024 2:45 PM CDT INFLUENZA A/B, RSV, AND COVID-19 PCR STAT 10/19/2024 2:45 PM CDT XR CHEST 1 VIEW ED 10/19/2024 2:39 PM CDT EGFR STAT 10/19/2024 2:30 PM CDT DIFFERENTIAL AUTO STAT 10/19/2024 2:3 0 PM CDT TROPONIN T HIGH-SENSITIVITY SERIES (BASELINE, 2HR, 4HR, 6HR) STAT 10/19/2024 2:30 PM CDT PRO B-TYPE NATRIURETIC PEPTIDE Add-On 10/19/2024 2:30 PM CDT COMPREHENSIVE METABOLIC PANEL STAT 10/19/2024 2:30 PM CDT CBC WITH AUTO DIFFERENTIAL STAT 10/19/2024 2:30 PM CDT POCT GLUCOSE DEVICE Routine 10/19/2024 2 :23 PM CDT DEVICE CHECK - REMOTE Routine 10/10/2024 7:00 AM CDT Pacemaker Sick sinus syndrome (HCC) DEVICE CHECK - REMOTE Routine 09/11/2024 4:52 PM CDT SSS (sick sinus syndrome) (HCC) Sick sinus syndrome (HCC) Ischemic cardiomyopathy POCT GLUCOSE Routine 08/02/2024 2:36 PM CDT Type 2 diabetes mellitus with hypoglycemia without coma, without long-term current use of insulin (HCC) POCT HEMOGLOBIN A1C Routine 08/02/2024 2 :36 PM CDT Type 2 diabetes mellitus with hypoglycemia without coma, without long-term current use of insulin (HCC) POCT GLUCOSE DEVICE Routine 07/28/2024 1 1:52 AM CDT POCT GLUCOSE DEVICE Routine 07/28/2024 1 1:29 AM CDT POCT GLUCOSE DEVICE Routine 07/28/2024 8 :11 AM CDT POCT GLUCOSE DEVICE Routine 07/28/2024 7 :53 AM CDT POCT GLUCOSE DEVICE Routine 07/28/2024 6 :48 AM CDT POCT GLUCOSE DEVICE Routine 07/28/2024 6 :47 AM CDT EGFR Routine 07/28/2024 4:21 AM CDT DIFFERENTIAL AUTO Routine 07/28/2024 4:2 1 AM CDT INSULIN, TOTAL Routine 07/28/2024 4:21 AM CDT C-PEPTIDE Routine 07/28/2024 4:21 AM CDT MAGNESIUM Routine 07/28/2024 4:21 AM CDT PHOSPHORUS Routine 07/28/2024 4:21 AM CDT COMPREHENSIVE METABOLIC PANEL Routine 07/28/2024 4:21 AM CDT CBC WITH AUTO DIFFERENTIAL Routine 07/28/2024 4:21 AM CDT POCT GLUCOSE DEVICE Routine 07/28/2024 4 :14 AM CDT POCT GLUCOSE DEVICE Routine 07/28/2024 2 :03 AM CDT POCT GLUCOSE DEVICE Routine 07/27/2024 1 0:30 PM CDT POCT GLUCOSE DEVICE Routine 07/27/2024 7 :54 PM CDT HEPATITIS PANEL, ACUTE Routine 07/27/2024 6:07 PM CDT HEPATITIS B SURFACE ANTIBODY (IMMUNE STATUS) Routine 07/27/2024 6:07 PM CDT POCT GLUCOSE DEVICE Routine 07/27/2024 4 :21 PM CDT POCT GLUCOSE DEVICE Routine 07/27/2024 1 1:52 AM CDT PROINSULIN Routine 07/27/2024 11:27 AM CDT C-PEPTIDE Routine 07/27/2024 11:27 AM CDT INSULIN, TOTAL Routine 07/27/2024 11:27 AM CDT POCT GLUCOSE DEVICE Routine 07/27/2024 9 :34 AM CDT POCT GLUCOSE DEVICE Routine 07/27/2024 7 :30 AM CDT POCT GLUCOSE DEVICE Routine 07/27/2024 4 :13 AM CDT CONTINUOUS CYCLIC PERITONEAL DIALYSIS (CCPD) Routine 07/27/2024 12:31 AM CDT POCT GLUCOSE DEVICE Routine 07/26/2024 1 1:22 PM CDT POCT GLUCOSE DEVICE Routine 07/26/2024 7 :56 PM CDT POCT GLUCOSE DEVICE Routine 07/26/2024 5 :48 PM CDT CONTINUOUS CYCLIC PERITONEAL DIALYSIS (CCPD) Routine 07/26/2024 5:44 PM CDT BETA-HYDROXYBUTYRATE Add-On 07/26/2024 4:50 PM CDT INSULIN-LIKE GROWTH FACTOR Routine 07/26/2024 4:11 PM CDT POCT GLUCOSE DEVICE Routine 07/26/2024 4 :01 PM CDT POCT GLUCOSE DEVICE Routine 07/26/2024 3 :05 PM CDT POCT GLUCOSE DEVICE Routine 07/26/2024 2 :09 PM CDT POCT GLUCOSE DEVICE Routine 07/26/2024 1 :11 PM CDT POCT GLUCOSE DEVICE Routine 07/26/2024 1 2:49 PM CDT ECG 12-LEAD STAT 07/26/2024 12:43 PM CDT C-PEPTIDE Routine 07/26/2024 12:39 PM CDT INSULIN, TOTAL Routine 07/26/2024 12:39 PM CDT EGFR STAT 07/26/2024 12:39 PM CDT DIFFERENTIAL AUTO STAT 07/26/2024 12: 39 PM CDT COMPREHENSIVE METABOLIC PANEL STAT 07/26/2024 12:39 PM CDT CBC WITH AUTO DIFFERENTIAL STAT 07/26/2024 12:39 PM CDT POCT GLUCOSE DEVICE Routine 07/26/2024 1 2:27 PM CDT COLONOSCOPY 11/19/2023 7:32 AM CDT LIPID PANEL Routine 06/21/2023 3:52 AM CDT ALBUMIN CREATININE RATIO, URINE Routine 07/27/2019 from Last 3 Months or Most Recently Relevant to Health Maintenance Results * POCT glucose (10/21/2024 4:39 PM CDT) Glucose, POC 122 70 - 199 mg/dL Blood 10/21/2024 4:39 PM CDT 10/21/2024 4:39 PM CDT Nancy Merritt MD LAB POCT ORDERABLES - DEV ICE Final Result Performing Organization Address City/[facility] Co de Phone Number [address] [employer] [place] [place] [address] * POCT glucose (10/21/2024 11:59 AM CDT) Glucose, POC 128 70 - 199 mg/dL Blood 10/21/2024 11:5 9 AM CDT 10/21/2024 11:59 AM CDT Nancy Merritt MD LAB POCT ORDERABLES - DEV ICE Final Result Performing Organization Address City/[facility]/ZIP Co de Phone Number [facility] ([place] [address] [place] [address] of [employer] [place] [address] * POCT glucose (10/21/2024 8:12 AM CDT) Glucose, POC 121 70 - 199 mg/dL Blood 10/21/2024 8:12 AM CDT 10/21/2024 8:12 AM CDT us Nancy Merritt MD LAB POCT ORDERABLES - DEV ICE Final Result [facility] ([place]) 1 [facility] of [employer] [place] [place] [address] * POCT glucose (10/21/2024 4:16 AM CDT) Glucose, POC 95 70 - 199 mg/dL Blood 10/21/2024 4:16 AM CDT 10/21/2024 4:16 AM CDT Nancy Merritt MD LAB POCT ORDERABLES - DEV ICE Final Result Performing Organization Address City/[facility] Co de Phone Number [facility] ([place]) 1 [facility] [place] [address] * (ABNORMAL) eGFR (10/21/2024 2:15 AM CDT) Pathologist [facility] eGFR 6(L) >=60 mL/min/1. 73 m2 Comment: Interpretive Data Reference Interval Normal >/= 90 mL/min/1.73m2 Mildly decreased* 60 - 89 mL/min/1.73m2 Mildly to moderately decreased 45 - 59 mL/min/1.73m2 Moderately to severely decreased 30 - 44 mL/min/1.73m2 Severely decreased 15 - 29 mL/min/1.73m2 Kidney Failure < 15 mL/min/1.73m2 *Relative to young adult level Estimated glomerular filtration rate is determined by the 2020 CKD-EPI equation recommended by the National Kidney Foundation (A Unifying Approach to GFR Estimation: Recommendations of the NKF-ASK Task Force on Reassessing the Inclusion of Race in Diagnosing Kidney Disease, JASN 202). The CKD-EPI equation should not be used for patients with unstable renal function and has not been validated in children and those over 70. Current interpretive data was last reviewed 2021. Blood 10/21/2024 2:15 AM CDT 10/21/2024 3:35 AM CDT us Eugene Scott MD LAB BLOOD ORDERABLES Final Resu lt [facility] ([place]) 1 [facility] [place] [address] * Differential, auto (10/21/2024 2:15 AM CDT) Neutrophil abs 5.18 1.50 - 6.50 K/cumm Imm gran abs 0.02 0.00 - 0.10 K/cumm [facility] ([place]) Lymphocyte abs 0.87 0.80 - 3.30 K/cumm [facility] ([place]) Monocyte abs 0.58 0.20 - 0.80 K/cumm [facility] ([place]) Eosinophil abs 0.16 0.00 - 0.50 K/cumm [facility] ([place]) Basophil abs 0.04 0.00 - 0.10 K/cumm [facility] ([place]) Neutrophil pct 75.6 % [facility] ([place]) Comment: Interpretive Data Percent cell count reference ranges are not reported, since discordance with absolute values may lead to misinterpretation of CBC data. Current Interpretive Data was last revised on 2017. Imm gran pct 0.3 % [facility] ([place]) Comment: Interpretive Data Percent cell count reference ranges are not reported, since discordance with absolute values may lead to misinterpretation of CBC data. Current Interpretive Data was last revised on 2017. Lymphocyte pct 12.7 % [facility] ([place]) Comment: Interpretive Data Percent cell count reference ranges are not reported, since discordance with absolute values may lead to misinterpretation of CBC data. Current Interpretive Data was last revised on 2017. Monocyte pct 8.5 % [facility] ([place]) Comment: Interpretive Data Percent cell count reference ranges are not reported, since discordance with absolute values may lead to misinterpretation of CBC data. Current Interpretive Data was last revised on 2017. Eosinophil pct 2.3 % [facility] ([place]) Comment: Interpretive Data Percent cell count reference ranges are not reported, since discordance with absolute values may lead to misinterpretation of CBC data. Current Interpretive Data was last revised on 2017. Basophil pct 0.6 % [facility] ([place]) Comment: Interpretive Data Percent cell count reference ranges are not reported, since discordance with absolute values may lead to misinterpretation of CBC data. Current Interpretive Data was last revised on 2017. Blood 10/21/2024 2:15 AM CDT 10/21/2024 3:35 AM CDT us Eugene Scott MD LAB BLOOD ORDERABLES Final Resu lt [facility] ([place]) 1 [facility] [place] [address] * (ABNORMAL) CBC with auto differential (10/21/2024 2:15 AM CDT) WBC 6.85 3.80 - 9.90 K/cumm Hgb 8.6(L) 13.0 - 17.5 g/dL [facility] ([place]) Hct 27.3(L) 38.9 - 50.3 % [facility] ([place]) Plt 211 150 - 400 K/cumm [facility] ([place]) MPV 9.4 9.1 - 12.3 fL [facility] ([place]) RBC 2.75(L) 4.30 - 5.80 M/cumm [facility] ([place]) MCV 99.3(H) 81.3 - 96.4 fL [facility] ([place]) MCH 31.3 27.1 - 33.3 pg [facility] ([place]) MCHC 31.5(L) 32.3 - 35.7 g/dL [facility] ([place]) RDW CV 16.6(H) 11.1 - 14.9 % [facility] ([place]) RDW SD 60.2(H) 35.7 - 48.1 fL [facility] ([place]) NRBC abs 0.00 0.00 - 0.01 K/cumm [facility] ([place]) Blood 10/21/2024 2:15 AM CDT 10/21/2024 3:35 AM CDT us Eugene Scott MD LAB BLOOD ORDERABLES Final Resu lt [facility] ([place]) 1 [facility] [place] [address] * (ABNORMAL) Comprehensive metabolic panel (10/21/2024 2:15 AM CDT) Sodium 131(L) 135 - 145 mmol/L [facility] ([place]) Potassium, pl 4.5 3.3 - 4.9 mmol/L [facility] ([place]) Chloride 89(L) 97 - 110 mmol/L [facility] ([place]) CO2 24 22 - 32 mmol/L [facility] ([place]) Anion gap 18(H) 2 - 15 mmol/L [facility] ([place]) BUN 68(H) 6 - 25 mg/dL [facility] ([place]) Creatinine 9.03(H) 0.80 - 1.30 mg/dL [facility] ([place]) Glucose 90 70 - 199 mg/dL [facility] ([place]) Comment: Interpretive Data Fasting glucose >/= 126 mg/dl is diagnostic for diabetes. Fasting is defined as no caloric intake for at least 8 hours. Fasting glucose between 100 mg/dl to 125 mg/dl is diagnostic of prediabetes. In a patient with classic symptoms of hyperglycemia or hyperglycemic crisis, a random glucose >/= 200 mg/dl is diagnostic for diabetes. In the absence of unequivocal hyperglycemia, results should be confirmed by repeat testing. The classification and Diagnosis of Diabetes Diabetes Care 202; 46: S19-S40. Current interpretive data was last revised 2022. Calcium 8.6 8.5 - 10.3 mg/dL [facility] ([place]) Bilirubin, total 0.2 0.1 - 1.2 mg/dL [facility] ([place]) Protein, pl 6.5 6.5 - 8.5 g/dL [facility] ([place]) Albumin 3.2(L) 3.5 - 5.0 g/dL [facility] ([place]) Alk phos 63 40 - 130 Units/L [facility] ([place]) ALT 12 7 - 55 Units/L [facility] ([place]) AST 18 10 - 50 Units/L [facility] ([place]) Blood 10/21/2024 2:15 AM CDT 10/21/2024 3:35 AM CDT Eugene Scott MD LAB BLOOD ORDERABLES Final Resu lt [facility] ([place]) [address] [facility] [employer] [place] [address] * POCT glucose (10/21/2024 12:06 AM CDT) Glucose, POC 106 70 - 199 mg/dL Blood 10/21/2024 12:0 6 AM CDT 10/21/2024 12:06 AM CDT Nancy Merritt MD LAB POCT ORDERABLES - DEV ICE Final Result Performing Organization Address City/[facility]/ZIP Co de Phone Number [facility] ([place]) [address] [facility] [employer] [place] [address] * POCT glucose (10/20/2024 8:24 PM CDT) Glucose, POC 146 70 - 199 mg/dL Blood 10/20/2024 8:24 PM CDT 10/20/2024 8:24 PM CDT Nancy Merritt MD LAB POCT ORDERABLES - DEV ICE Final Result Performing Organization Address City/[facility]/ZIP Co de Phone Number [facility] ([place]) 1 [facility] [employer] [place] [address] * POCT glucose (10/20/2024 5:07 PM CDT) Glucose, POC 127 70 - 199 mg/dL Blood 10/20/2024 5:07 PM CDT 10/20/2024 5:07 PM CDT Nancy Merritt MD LAB POCT ORDERABLES - DEV ICE Final Result [facility] ([place]) 1 [facility] [place] [employer] [place] [address] * POCT glucose (10/20/2024 12:07 PM CDT) [facility] Glucose, POC 103 70 - 199 mg/dL Blood 10/20/2024 12:0 7 PM CDT 10/20/2024 12:07 PM CDT Nancy Merritt MD LAB POCT ORDERABLES - DEV ICE Final Result Performing Organization Address [facility]/ZIP Co de Phone Number [facility] ([place]) 1 [facility] [place] [address] * (ABNORMAL) Insulin, total (10/20/2024 11:18 AM CDT) [facility] Insulin 28.7(H) 2.6 - 25.0 mcIUnit/mL Comment:Testing performed by : [facility], [address] [facility], [place]., [address] Blood 10/20/2024 11:1 8 AM CDT 10/20/2024 4:05 PM CDT Guilherme Dumont MD LAB BLOOD ORDERABLES Final Re sult [facility] ([place]) 1 [facility] [place] [address] * (ABNORMAL) C-peptide (10/20/2024 11:18 AM CDT) [facility] C-peptide 14.70(H) 1.10 - 4.40 ng/mL Comment:Testing performed by : [facility], [address] [place]., [address] Blood 10/20/2024 11:1 8 AM CDT 10/20/2024 4:05 PM CDT Guilherme Dumont MD LAB BLOOD ORDERABLES Final Re sult Performing Organization Address City/[facility]/ZIP Co de Phone Number [facility] ([place]) [address] [place] [phone] * Hepatitis B Surface Antigen Blood (10/20/2024 11:18 AM CDT) [facility] HepBsAg Nonreactive Nonreactive Comment:Testing performed by : [facility], [address] [place] [address], [address] Blood 10/20/2024 11:1 8 AM CDT 10/20/2024 3:08 PM CDT Guilherme Dumont MD LAB MICROBIOLOGY - GENERAL OR DERABLES Final Result Performing Organization Address [facility] Co de Phone Number [facility] ([place]) [address] [place] [id number] * TRANSTHORACIC ECHO (TTE) LIMITED/FOLLOW UP WO DOPPLER/CF WO CONTRAST (10/20/2024 9:45 AM CDT) Pathologist [facility] Estimated EF 30 % CONS SCIMAGE Anatomical Region Laterality Modality Ultrasound 10/20/2024 11:3 5 AM CDT Narrative 10/20/2024 4:26 PM CDT [address] [address] Limited Echocardiogram Report Patient Name: QUINTEN GOULD : 1950 Study Date: 10/20/2024 11:35:32 AM Gender: M Tech: AA Location: [id number] Ref Provider: ROE GOSS Height(Cm): BSA: Weight(Kg): Quality: Good PROCEDURES: Echocardiographic Report: Limited transthoracic echocardiogram with 2D and M-Mode. INDICATIONS: lv function. MEASUREMENTS: 2D/MM Value Range Doppler Value Range Estimated EF 30 to 35 % TR Peak Matteo 2.70 m/s [ 1.00 - 2.80 ] TR Peak PG 29 mmHg RVSP 34.00 mmHg [ 10.00 - 36.00 ] PA Pressure 5.00 mmHg [ 10.00 - 36.00 ] 2D/MM Value Range Doppler Value Range - FINDINGS: Left Ventricle: Mild enlargement of left ventricle cavity. Moderate global left ventricular systolic dysfunction. Ejection Fraction is estimated to be 30 to 35 %. Left Atrium: The left atrium is normal in size. Right Ventricle: Normal right ventricular size. Normal right ventricular systolic function. Right Atrium: The right atrium is normal in size. Aortic Valve: Normal structure of the aortic valve. Mitral Valve: Normal structure of the mitral valve. Tricuspid Valve: Normal structure of the tricuspid valve. Mild pulmonary hypertension based on right ventricular systolic pressure. Estimated peak RVSP is 39 to 43 mmHg. Mild to moderate tricuspid regurgitation. Pericardium: Normal pericardium with no significant pericardial effusion. CONCLUSIONS: Mild enlargement of left ventricle cavity. Moderate global left ventricular systolic dysfunction. Ejection Fraction is estimated to be 30 to 35 %. Normal structure of the mitral valve. Normal structure of the aortic valve. Normal structure of the tricuspid valve. Mild pulmonary hypertension based on right ventricular systolic pressure. Estimated peak RVSP is 39 to 43 mmHg. Mild to moderate tricuspid regurgitation. Electronically Signed By: Dr Roe Goss 10/20/2024 4:26:13 PM CDT Procedure Note Roe Goss MD - 10/20/[address] [place] [address] Limited Echocardiogram Report Patient Name: QUINTEN GOULD : 1950 Study Date: 10/20/2024 11:35:32 AM Gender: M Tech: AA Location: [place] [address] Ref Provider: ROE GOSS Height(Cm): BSA: Weight(Kg): Quality: Good PROCEDURES: Echocardiographic Report: Limited transthoracic echocardiogram with 2D and M-Mode. INDICATIONS: lv function. MEASUREMENTS: 2D/MM Value Range Doppler ValueRange Estimated EF 30 to 35 % TR Peak Matteo 2.70 m/s [ 1.00- 2.80 ] TR Peak PG 29 mmHg RVSP 34.00 mmHg [ 10.00 - 36.00 ] PA Pressure 5.00 mmHg [ 10.00 - 36.00 ] 2D/MM Value Range Doppler ValueRange - FINDINGS: Left Ventricle: Mild enlargement of left ventricle cavity. Moderate global leftventricular systolic dysfunction. Ejection Fraction is estimated to be 30 to 35 %. Left Atrium: The left atrium is normal in size. Right Ventricle: Normal right ventricular size. Normal right ventricular systolicfunction. Right Atrium: The right atrium is normal in size. Aortic Valve: Normal structure of the aortic valve. Mitral Valve: Normal structure of the mitral valve. Tricuspid Valve: Normal structure of the tricuspid valve. Mild pulmonary hypertension basedon right ventricular systolic pressure. Estimated peak RVSP is 39 to 43 mmHg. Mildto moderate tricuspid regurgitation. Pericardium: Normal pericardium with no significant pericardial effusion. CONCLUSIONS: Mild enlargement of left ventricle cavity. Moderate global leftventricular systolic dysfunction. Ejection Fraction is estimated to be 30 to 35 %. Normal structure of the mitral valve. Normal structure of the aortic valve. Normal structure of the tricuspid valve. Mild pulmonary hypertension basedon right ventricular systolic pressure. Estimated peak RVSP is 39 to 43 mmHg. Mildto moderate tricuspid regurgitation. Electronically Signed By: Dr Roe Goss 10/20/2024 4:26:13 PM CDT us Roe Goss MD CV ECHO PROCEDURES Final Resu lt * POCT glucose (10/20/2024 8:08 AM CDT) Glucose, POC 87 70 - 199 mg/dL Blood 10/20/2024 8:08 AM CDT 10/20/2024 8:08 AM CDT us Nancy Merritt MD LAB POCT ORDERABLES - DEV ICE Final Result Performing Organization Address [facility] Co de Phone Number [facility] ([place]) 1 [facility] [employer] [place] [address] * POCT glucose (10/20/2024 1:50 AM CDT) Glucose, POC 79 70 - 199 mg/dL Blood 10/20/2024 1:50 AM CDT 10/20/2024 1:50 AM CDT us Tatiana Sow MD LAB POCT ORDERABLES - DEVICE F inal Result Performing Organization Address [facility] Co de Phone Number [facility] ([place]) 1 [facility] [employer] [place] [address] * Lactate (10/20/2024 12:53 AM CDT) Lactate 1.3 0.7 - 2.0 mmol/L Blood 10/20/2024 12:5 3 AM CDT 10/20/2024 12:56 AM CDT us Eugene Scott MD LAB BLOOD ORDERABLES Final Resu lt Performing Organization Address City/[facility] Co de Phone Number [facility] ([place]) 1 [facility] [place] [address] * (ABNORMAL) eGFR (10/20/2024 12:53 AM CDT) Pathologist [facility] eGFR 6(L) >=60 mL/min/1. 73 m2 Comment: Interpretive Data Reference Interval Normal >/= 90 mL/min/1.73m2 Mildly decreased* 60 - 89 mL/min/1.73m2 Mildly to moderately decreased 45 - 59 mL/min/1.73m2 Moderately to severely decreased 30 - 44 mL/min/1.73m2 Severely decreased 15 - 29 mL/min/1.73m2 Kidney Failure < 15 mL/min/1.73m2 *Relative to young adult level Estimated glomerular filtration rate is determined by the 2020 CKD-EPI equation recommended by the National Kidney Foundation (A Unifying Approach to GFR Estimation: Recommendations of the NKF-ASK Task Force on Reassessing the Inclusion of Race in Diagnosing Kidney Disease, JASN 2020). The CKD-EPI equation should not be used for patients with unstable renal function and has not been validated in children and those over 70. Current interpretive data was last reviewed 2021. Blood 10/20/2024 12:5 3 AM CDT 10/20/2024 12:56 AM CDT us Eugene Scott MD LAB BLOOD ORDERABLES Final Resu lt [facility] ([place]) 1 [facility] [place] [address] * Differential, auto (10/20/2024 12:53 AM CDT) Pathologist [facility] Neutrophil abs 4.52 1.50 - 6.50 K/cumm Imm gran abs 0.04 0.00 - 0.10 K/cumm [facility] ([place]) Lymphocyte abs 1.26 0.80 - 3.30 K/cumm [facility] ([place]) Monocyte abs 0.65 0.20 - 0.80 K/cumm [facility] ([place]) Eosinophil abs 0.15 0.00 - 0.50 K/cumm [facility] ([place]) Basophil abs 0.05 0.00 - 0.10 K/cumm [facility] ([place]) Neutrophil pct 67.9 % [facility] ([place]) Comment: Interpretive Data Percent cell count reference ranges are not reported, since discordance with absolute values may lead to misinterpretation of CBC data. Current Interpretive Data was last revised on 2017. Imm gran pct 0.6 % [facility] ([place]) Comment: Interpretive Data Percent cell count reference ranges are not reported, since discordance with absolute values may lead to misinterpretation of CBC data. Current Interpretive Data was last revised on 2017. Lymphocyte pct 18.9 % [facility] ([place]) Comment: Interpretive Data Percent cell count reference ranges are not reported, since discordance with absolute values may lead to misinterpretation of CBC data. Current Interpretive Data was last revised on 2017. Monocyte pct 9.7 % [facility] ([place]) Comment: Interpretive Data Percent cell count reference ranges are not reported, since discordance with absolute values may lead to misinterpretation of CBC data. Current Interpretive Data was last revised on 2017. Eosinophil pct 2.2 % [facility] ([place]) Comment: Interpretive Data Percent cell count reference ranges are not reported, since discordance with absolute values may lead to misinterpretation of CBC data. Current Interpretive Data was last revised on 2017. Basophil pct 0.7 % [facility] ([place]) Comment: Interpretive Data Percent cell count reference ranges are not reported, since discordance with absolute values may lead to misinterpretation of CBC data. Current Interpretive Data was last revised on 2017. Blood 10/20/2024 12:5 3 AM CDT 10/20/2024 12:56 AM CDT us Eugene Scott MD LAB BLOOD ORDERABLES Final Resu lt [facility] ([place]) 1 [facility] [place] [address] * (ABNORMAL) CBC with auto differential (10/20/2024 12:53 AM CDT) Pathologist [facility] WBC 6.67 3.80 - 9.90 K/cumm Hgb 9.1(L) 13.0 - 17.5 g/dL [facility] ([place]) Hct 28.3(L) 38.9 - 50.3 % [facility] ([place]) Plt 223 150 - 400 K/cumm [facility] ([place]) MPV 9.6 9.1 - 12.3 fL [facility] ([place]) RBC 2.81(L) 4.30 - 5.80 M/cumm [facility] ([place]) MCV 100.7(H) 81.3 - 96.4 fL [facility] ([place]) MCH 32.4 27.1 - 33.3 pg [facility] ([place]) MCHC 32.2(L) 32.3 - 35.7 g/dL [facility]) RDW CV 17.0(H) 11.1 - 14.9 % [facility] ([place]) RDW SD 63.0(H) 35.7 - 48.1 fL [facility] ([place]) NRBC abs 0.00 0.00 - 0.01 K/cumm [facility] ([place]) Blood 10/20/2024 12:5 3 AM CDT 10/20/2024 12:56 AM CDT us Eugene Scott MD LAB BLOOD ORDERABLES Final Resu lt [facility] ([place]) 1 [facility] [place] [address] * (ABNORMAL) Comprehensive metabolic panel (10/20/2024 12:53 AM CDT) Pathologist [facility] Sodium 137 135 - 145 mmol/L [facility] Potassium, pl 4.8 3.3 - 4.9 mmol/L [facility] ([place]) Chloride 93(L) 97 - 110 mmol/L [facility]) CO2 24 22 - 32 mmol/L [facility]) Anion gap 20(H) 2 - 15 mmol/L [facility] ([place]) BUN 70(H) 6 - 25 mg/dL [facility] ([place]) Creatinine 9.06(H) 0.80 - 1.30 mg/dL [facility] ([place]) Glucose 75 70 - 199 mg/dL [facility] ([place]) Comment: Interpretive Data Fasting glucose >/= 126 mg/dl is diagnostic for diabetes. Fasting is defined as no caloric intake for at least 8 hours. Fasting glucose between 100 mg/dl to 125 mg/dl is diagnostic of prediabetes. In a patient with classic symptoms of hyperglycemia or hyperglycemic crisis, a random glucose >/= 200 mg/dl is diagnostic for diabetes. In the absence of unequivocal hyperglycemia, results should be confirmed by repeat testing. The classification and Diagnosis of Diabetes Diabetes Care 2021; 46: S19-S40. Current interpretive data was last revised 2022. Calcium 9.3 8.5 - 10.3 mg/dL [facility]) Bilirubin, total 0.2 0.1 - 1.2 mg/dL [facility] ([place]) Protein, pl 6.7 6.5 - 8.5 g/dL [facility] ([place]) Albumin 3.2(L) 3.5 - 5.0 g/dL [facility] ([place]) Alk phos 61 40 - 130 Units/L [facility]) ALT 13 7 - 55 Units/L [facility]) AST 18 10 - 50 Units/L [facility]) Blood 10/20/2024 12:5 3 AM CDT 10/20/2024 12:56 AM CDT us Eugene Scott MD LAB BLOOD ORDERABLES Final Resu lt [facility] ([place]) 1 [facility] [place] [address] * POCT glucose (10/19/2024 11:19 PM CDT) Glucose, POC 88 70 - 199 mg/dL Blood 10/19/2024 11:1 9 PM CDT 10/19/2024 11:19 PM CDT Tatiana Sow MD LAB POCT ORDERABLES - DEVICE F inal Result [facility] ([place]) 1 [facility] [employer] [place] [address] * (ABNORMAL) Troponin T high-sensitivity 6-hour (10/19/2024 9:15 PM CDT) Trop T hs 292(C) <=22 ng/L [facility] ([place]) Comment: Critical Result called by [email or web address] at 2024-10-19 22:37:16. Result Read Back by ludy zavala u Interpretive Data For further hscTnT resources including the diagnostic algorithm and an aid in interpretation, copy and paste this link: https://nrl.testcatalog.org/show/hsTrop Current Interpretive Data last revised 2020. Trop T hs pct delta -3 % [facility] ([place]) Trop T hs interp Insignificant [facility] ([place]) Blood 10/19/2024 9:15 PM CDT 10/19/2024 9:28 PM CDT Konstantin Jara MD LAB BLOOD ORDERABLES Final R esult Performing Organization Address City/[facility]/ZIP Co de Phone Number [facility] ([place]) 1 [facility] [employer] [place] [address] * POCT glucose (10/19/2024 8:31 PM CDT) Glucose, POC 91 70 - 199 mg/dL Blood 10/19/2024 8:31 PM CDT 10/19/2024 8:31 PM CDT Tatiana Sow MD LAB POCT ORDERABLES - DEVICE F inal Result [facility] ([place]) 1 [facility] [employer] [place] [address] * (ABNORMAL) Troponin T high-sensitivity 4-hour (10/19/2024 6:52 PM CDT) Pathologist [facility] Trop T hs 290(C) <=22 ng/L [facility] ([place]) Comment: Critical Result called by [email or web address] at 2024-10-19 19:23:37. Result Read Back by MILADY GARCIA Interpretive Data For further hscTnT resources including the diagnostic algorithm and an aid in interpretation, copy and paste this link: https://nrl.testcatalog.org/show/hsTrop Current Interpretive Data last revised 2020. Trop T hs pct delta -4 % [facility] ([place]) Trop T hs interp Insignificant [facility]) Blood 10/19/2024 6:52 PM CDT 10/19/2024 6:55 PM CDT Konstantin Jara MD LAB BLOOD ORDERABLES Final R esult [facility] ([place]) 1 [facility] [employer] [place] [address] * POCT glucose (10/19/2024 4:13 PM CDT) [facility] Glucose, POC 109 70 - 199 mg/dL Blood 10/19/2024 4:13 PM CDT 10/19/2024 4:13 PM CDT Konstantin Jara MD LAB POCT ORDERABLES - DEVICE Final Result [facility] ([place]) 1 [facility] [employer] [place] [address] * (ABNORMAL) Troponin T high-sensitivity 2-hour (10/19/2024 4:12 PM CDT) Pathologist [facility] Trop T hs 288(C) <=22 ng/L [facility] ([place]) Comment: Critical Result called by [email or web address] at 2024-10-19 17:04:24. Result Read Back by [facility] Interpretive Data For further hscTnT resources including the diagnostic algorithm and an aid in interpretation, copy and paste this link: https://nrl.testcatalog.org/show/hsTrop Current Interpretive Data last revised 2020. Trop T hs pct delta -4 % [facility]) Trop T hs interp Insignificant [facility] ([place]) Blood 10/19/2024 4:12 PM CDT 10/19/2024 4:17 PM CDT Konstantin Jara MD LAB BLOOD ORDERABLES Final R esult Performing Organization Address City/[facility]/ZIP Co de Phone Number [facility] ([place]) 1 [facility] [place] [address] * ECG 12 lead (10/19/2024 2:45 PM CDT) 10/19/2024 2:45 PM CDT Narrative [facility] - 10/19/2024 3:36 PM CDT Vent Rate: 62 bpm RR Interval: 967 msec [place] Interval: 213 msec QRS Duration: 162 msec QT Interval: 506 msec QTC Interval: 510 msec P-R-T [place]: -2 - -76 - 137 degrees IMPRESSION: Baseline artifact, 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 ABNORMAL RHYTHM ECG No change from prior EKG Electronically Signed By: Graham Mancilla MD Konstantin Jara MD ECG ORDERABLES Final Result Performing Organization Address City/[facility]/ZIP Co de Phone Number [facility] * Influenza A/B, RSV, and COVID-19 PCR Nasopharyngeal (10/19/2024 2:45 PM CDT) COVID-19 RNA Negative Negative Influenza A RNA Negative Negative [facility]) Influenza B RNA Negative Negative [facility] RSV RNA Negative Negative [facility] ([place]) Comment: Interpretive data: Testing performed by [facility]. This test is performed using the Cepheid Xpert Xpress CoV-2/Flu/RSV plus assay. This is a multiplex, real- time reverse transcriptase PCR assay intended for the qualitative detection of nucleic acid from SARS-CoV-2, influenza A, influenza B, and respiratory syncytial virus. This assay has been cleared by the [place] Food and Drug administration. The performance characteristics have been verified by the [facility]. Results must be considered in the clinical context, and a negative result does not rule out infection. Interpretive Data last revised 2023 Nasopharyngeal 10/19/2024 2: 45 PM CDT 10/19/2024 2:47 PM CDT Narrative [facility] ([place]) - 10/19/2024 3:27 PM CDT Is the Patient experiencing symptoms consistent with COVID?->Unknown Konstantin Jara MD LAB MICROBIOLOGY - GENERAL O RDERABLES Final Result [facility] ([place]) 1 [facility] [place] [address] * XR Chest 1 Vw Portable (10/19/2024 2:39 PM CDT) Anatomical Region Laterality Modality Body, Chest N/A Computed Radiogr aphy 10/19/2024 3:01 PM CDT Narrative 10/19/2024 3:02 PM CDT EXAM DESCRIPTION: XR CHEST 1 VIEW REASON FOR STUDY: general weakness cc of hypotension. Was at pcp office with readings 70s/40s. Pt feels dizzy and lightheaded, some blurred vision. TECHNIQUE: Single radiographic view(s) of the chest. COMPARISON: Chest radiograph 07/07/2024 FINDINGS: LUNGS: Bibasilar atelectasis, stable. No focal opacity, pleural effusion, or pneumothorax. HEART/MEDIASTINUM: Cardiac silhouette normal in size. Mediastinal and hilar contours appear normal. LINES/TUBES: None. BONES: No acute osseous abnormality. IMPRESSION: No acute cardiopulmonary abnormality. THIS IS AN ELECTRONICALLY VERIFIED FINAL REPORT 10/19/2024 3:02 PM - Electronically signed by Katie Li M.D. FT: FT Report ID: [id number] Reading Location: [id number] Procedure Note Katie Kirkland MD - 10/19/2024 EXAM DESCRIPTION: XR CHEST 1 VIEW REASON FOR STUDY: general weakness cc of hypotension. Was at pcp office with readings 70s/40s. Pt feels dizzyand lightheaded, some blurred vision. TECHNIQUE: Single radiographic view(s) of the chest. COMPARISON: Chest radiograph 07/07/2024 FINDINGS: LUNGS: Bibasilar atelectasis, stable. No focal opacity, pleuraleffusion, or pneumothorax. HEART/MEDIASTINUM: Cardiac silhouette normal in size. Mediastinal andhilar contours appear normal. LINES/TUBES: None. BONES: No acute osseous abnormality. IMPRESSION: No acute cardiopulmonary abnormality. THIS IS AN ELECTRONICALLY VERIFIED FINAL REPORT 10/19/2024 3:02 PM - Electronically signed by Katie Li M.D. FT: FT Report ID: [id number] Reading Location: [id number] Konstantin Jara MD IMG XR PROCEDURES Final Resu lt * (ABNORMAL) Troponin T high-sensitivity series (baseline, 2hr, 4hr, 6hr) (10/19/2024 2:30 PM CDT) Trop T hs 301(C) <=22 ng/L [facility] ([place]) Comment: Critical Result called by [email or web address] at 2024-10-19 14:59:02. Result Read Back by SHANEKA QUIÑONES Interpretive Data For further hscTnT resources including the diagnostic algorithm and an aid in interpretation, copy and paste this link: https://nrl.testcatalog.org/show/hsTrop Current Interpretive Data last revised 2020. Blood 10/19/2024 2:30 PM CDT 10/19/2024 2:35 PM CDT Konstantin Jara MD LAB BLOOD ORDERABLES Final R esult Performing Organization Address City/[facility]/ZIP Co de Phone Number [facility] ([place]) 1 [facility] [employer] [place] [address] * (ABNORMAL) eGFR (10/19/2024 2:30 PM CDT) eGFR 6(L) >=60 mL/min/1. 73 m2 Comment: Interpretive Data Reference Interval Normal >/= 90 mL/min/1.73m2 Mildly decreased* 60 - 89 mL/min/1.73m2 Mildly to moderately decreased 45 - 59 mL/min/1.73m2 Moderately to severely decreased 30 - 44 mL/min/1.73m2 Severely decreased 15 - 29 mL/min/1.73m2 Kidney Failure < 15 mL/min/1.73m2 *Relative to young adult level Estimated glomerular filtration rate is determined by the 2020 CKD-EPI equation recommended by the National Kidney Foundation (A Unifying Approach to GFR Estimation: Recommendations of the NKF-ASK Task Force on Reassessing the Inclusion of Race in Diagnosing Kidney Disease, JASN 2020). The CKD-EPI equation should not be used for patients with unstable renal function and has not been validated in children and those over 70. Current interpretive data was last reviewed 2021. Blood 10/19/2024 2:30 PM CDT 10/19/2024 2:35 PM CDT Ailyn LOUIE LAB BLOOD ORDERABLES Final Resu lt [facility] ([place]) 1 [facility] [employer] [place] [address] * Differential, auto (10/19/2024 2:30 PM CDT) Neutrophil abs 5.57 1.50 - 6.50 K/cumm Imm gran abs 0.03 0.00 - 0.10 K/cumm [facility] ([place]) Lymphocyte abs 0.89 0.80 - 3.30 K/cumm [facility] ([place]) Monocyte abs 0.55 0.20 - 0.80 K/cumm [facility] ([place]) Eosinophil abs 0.19 0.00 - 0.50 K/cumm [facility] ([place]) Basophil abs 0.04 0.00 - 0.10 K/cumm [facility] ([place]) Neutrophil pct 76.6 % [facility] ([place]) Comment: Interpretive Data Percent cell count reference ranges are not reported, since discordance with absolute values may lead to misinterpretation of CBC data. Current Interpretive Data was last revised on 2017. Imm gran pct 0.4 % [facility] ([place]) Comment: Interpretive Data Percent cell count reference ranges are not reported, since discordance with absolute values may lead to misinterpretation of CBC data. Current Interpretive Data was last revised on 2017. Lymphocyte pct 12.2 % [facility] ([place]) Comment: Interpretive Data Percent cell count reference ranges are not reported, since discordance with absolute values may lead to misinterpretation of CBC data. Current Interpretive Data was last revised on 2017. Monocyte pct 7.6 % [facility] ([place]) Comment: Interpretive Data Percent cell count reference ranges are not reported, since discordance with absolute values may lead to misinterpretation of CBC data. Current Interpretive Data was last revised on 2017. Eosinophil pct 2.6 % [facility] ([place]) Comment: Interpretive Data Percent cell count reference ranges are not reported, since discordance with absolute values may lead to misinterpretation of CBC data. Current Interpretive Data was last revised on 2017. Basophil pct 0.6 % [facility] ([place]) Comment: Interpretive Data Percent cell count reference ranges are not reported, since discordance with absolute values may lead to misinterpretation of CBC data. Current Interpretive Data was last revised on 2017. Blood 10/19/2024 2:30 PM CDT 10/19/2024 2:35 PM CDT us Ailyn LOUIE LAB BLOOD ORDERABLES Final Resu lt [facility] ([place]) 1 [facility] [place] [address] * (ABNORMAL) Pro B-type natriuretic peptide (10/19/2024 2:30 PM CDT) NT-proBNP 14,898(H) <=450 pg/mL [facility] ([place]) Comment: Interpretive Comments: A. Dyspnea in Acute Care Setting All Ages: < 300 pg/ml, acute heart failure unlikely. < 50 yrs: 300 - 450 pg/ml, further investigation warranted. > 450 pg/ml, acute heart failure likely. 50 - 74 yrs: 300 - 900 pg/ml, further investigation warranted. > 900 pg/ml, acute heart failure likely . > or = 75 yrs: 450 - 1800 pg/ml, further investigation warranted. > 1800 pg/ml, acute heart failure likely. B. Non-acute Setting < 75 yrs < 125 pg/ml, rules out heart failure. > or = 125 pg/ml, further investigation warranted. > or = 75 yrs < 450 pg/ml, rules out heart failure. > or = 450 pg/ml, further investigation warranted. - Knowledge of each individual patient's NT-proBNP range may be more useful than using similar cut-points for every patient. Please note that marked elevations in NT-proBNP levels may be observed in state other than Left Ventricular Congestive Failure, including: acute coronary syndromes, right heart strain/failure (including pulmonary embolism and cor pulmonale), critical illness, renal failure, as well as advanced age. - References: 1. Bev MON[place] et.al. Eur Heart J. 2006:27:330-337. 2. Buster RW, Magali NICHOLSON. J. AM Bello Cardiol: Cardiovasc Imag. 2009;2: 216- 225. Interpretive Data Last Revised Date: 2017. Blood 10/19/2024 2:30 PM CDT 10/19/2024 2:35 PM CDT us Konstantin Jara MD LAB BLOOD ORDERABLES Final R esult [facility] [place]) 1 [facility] [employer] [place] [address] * (ABNORMAL) CBC with auto differential (10/19/2024 2:30 PM CDT) Pathologist [facility] WBC 7.27 3.80 - 9.90 K/cumm Hgb 9.1(L) 13.0 - 17.5 g/dL [facility] ([place]) Hct 29.5(L) 38.9 - 50.3 % [facility] ([place]) Plt 211 150 - 400 K/cumm [facility] ([place]) MPV 9.2 9.1 - 12.3 fL [facility]) RBC 2.85(L) 4.30 - 5.80 M/cumm [facility] ([place]) MCV 103.5(H) 81.3 - 96.4 fL [facility] ([place]) MCH 31.9 27.1 - 33.3 pg [facility]) MCHC 30.8(L) 32.3 - 35.7 g/dL [facility]) RDW CV 17.2(H) 11.1 - 14.9 % [facility]) RDW SD 65.0(H) 35.7 - 48.1 fL [facility] ([place]) NRBC abs 0.00 0.00 - 0.01 K/cumm [facility] ([place]) Blood 10/19/2024 2:30 PM CDT 10/19/2024 2:35 PM CDT Konstantin Jara MD LAB BLOOD ORDERABLES Final R esult [facility] ([place]) 1 [facility] [place] [address] * (ABNORMAL) Comprehensive metabolic panel (10/19/2024 2:30 PM CDT) Pathologist [facility] Sodium 136 135 - 145 mmol/L [facility] ([place]) Potassium, pl 5.1(H) 3.3 - 4.9 mmol/L [facility]) Chloride 93(L) 97 - 110 mmol/L [facility]) CO2 25 22 - 32 mmol/L [facility]) Anion gap 18(H) 2 - 15 mmol/L [facility] ([place]) BUN 64(H) 6 - 25 mg/dL [facility]) Creatinine 8.47(H) 0.80 - 1.30 mg/dL [facility]) Glucose 115 70 - 199 mg/dL [facility] ([place]) Comment: Interpretive Data Fasting glucose >/= 126 mg/dl is diagnostic for diabetes. Fasting is defined as no caloric intake for at least 8 hours. Fasting glucose between 100 mg/dl to 125 mg/dl is diagnostic of prediabetes. In a patient with classic symptoms of hyperglycemia or hyperglycemic crisis, a random glucose >/= 200 mg/dl is diagnostic for diabetes. In the absence of unequivocal hyperglycemia, results should be confirmed by repeat testing. The classification and Diagnosis of Diabetes Diabetes Care 202; 46: S19-S40. Current interpretive data was last revised 2022. Calcium 9.5 8.5 - 10.3 mg/dL [facility] Bilirubin, total 0.3 0.1 - 1.2 mg/dL [facility] ([place]) Protein, pl 7.1 6.5 - 8.5 g/dL [facility]) Albumin 3.4(L) 3.5 - 5.0 g/dL [facility]) Alk phos 62 40 - 130 Units/L [facility]) ALT 12 7 - 55 Units/L [facility] AST 18 10 - 50 Units/L [facility]) Blood 10/19/2024 2:30 PM CDT 10/19/2024 2:35 PM CDT us Konstantin Jara MD LAB BLOOD ORDERABLES Final R esult [facility] ([place]) 1 [facility] [place] [address] * POCT glucose (10/19/2024 2:23 PM CDT) [facility] Glucose, POC 126 70 - 199 mg/dL Blood 10/19/2024 2:23 PM CDT 10/19/2024 2:23 PM CDT us Notinfile Unknown LAB POCT ORDERABLES - DEVICE F inal Result [facility] ([place]) 1 [facility] [employer] [place] [address] * DEVICE CHECK - REMOTE (10/10/2024 7:00 AM CDT) Anatomical Region Laterality Modality Other Narrative 10/15/2024 7:36 AM CDT [employer] Dual Pacemaker. Dx; SSS. DOI 11/10/[address] Black[address] [employer] remote home monitoring. Office pacer checks Q1 yr. Unscheduled DDD CLS Pacemaker Remote due to EMEKA reached on 10/10/24 Transmission attached. Battery status: EMEKA reached on 10/10/24 Patient is not pacemaker dependent. [employer] reports that standard six-month replacement window applies, however some setting changes will occur. Patient device will switch to VDD mode with no rate response, and there is 11% reduction in base rate. 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 No Ventricular high rate episodes detected. Medications: Eliquis 2.5 mg, ASA 81 mg, carvedilol 12.5 mg, hydralazine 25 mg See scanned report. Office pacemaker follow up: Pending generator change [employer] remote f/u pending generator change. Jose Guadalupe Velázquez, [place] Called and spoke with patient's Mili. She states that she handles most of Quinten's healthcare issues. Informed Mili that Quinten's pacemaker has reached recommended replacement time. She states that he would like to have the replacement done at [facility] by Dr. Juares. Patient is diabetic and on peritoneal dialysis. Patient is taking Eliquis 2.5 mg and ASA 81 mg as ordered. Informed patient's that this report would be forwarded to Dr. Juares and the nurses in the [place] office for follow-up. Patient's verbalized understanding. Patient is a former patient of Dr. Black, and then Kirill. Maxim Juares MD [facility] PROC EDURES Final Result * DEVICE CHECK - REMOTE (09/11/2024 4:52 PM CDT) Anatomical Region Laterality Modality Other Narrative 09/14/2024 8:25 AM CDT [employer] Dual Pacemaker. Dx; SSS. DOI 11/10/[address] Black[address] [employer] remote home monitoring. Office pacer checks Q1 yr. 6 week DDD Pacemaker remote. Normal device function. Billable. Battery function-Ok, 10% remaining battery life to [employer]ME[employer]. Appropriate lead measurements noted. Presenting rhythm: -VS. AP-82%, [employer]-7%. 5 Atrial high rate episodes noted, no iegm's available for review. AF burden 1%. No Ventricular high rate episodes noted. Medications; Coreg, Eliquis, ASA 81 mg. See scanned report. Office pacemaker follow-up post generator replacement. Biotronik remote f/u 10/23/2024. Rosi Lisa, RN Day Roy MD CV CARDIAC SERVICES PRO CEDURES Final Result * (ABNORMAL) POCT hemoglobin A1c (08/02/2024 2:36 PM CDT) Hemoglobin A1C, POC 5.0 4.0 - 5.6 % Comment:None Capillary blood 08/02/2024 2 :36 PM CDT Leila Cardoza MD POINT OF CARE TEST ORDERABLES Fi nal Result * (ABNORMAL) POCT glucose (08/02/2024 2:36 PM CDT) Glucose Blood, POC 131 Normal Fasting 70 - 100, Random <200 mg/dL Comment:None Blood 08/02/2024 2:36 PM CDT Result [facility] Leila Cardoza MD POINT OF CARE TEST ORDERABLES Fi nal Result * POCT glucose (07/28/2024 11:52 AM CDT) Glucose, POC 110 70 - 199 mg/dL Blood 07/28/2024 11:5 2 AM CDT 07/28/2024 11:52 AM CDT Jessa Bryan DO LAB POCT ORDERABLES - DE VICE Final Result [facility] ([place]) 1 [facility] [employer] [place] [address] * POCT glucose (07/28/2024 11:29 AM CDT) Glucose, POC 126 70 - 199 mg/dL Blood 07/28/2024 11:2 9 AM CDT 07/28/2024 11:29 AM CDT Jessa Bryan DO LAB POCT ORDERABLES - DE VICE Final Result Performing Organization Address City/[facility]/ZIP Co de Phone Number [facility] ([place]) 1 [facility] [employer] [place] [address] * POCT glucose (07/28/2024 8:11 AM CDT) Glucose, POC 87 70 - 199 mg/dL Blood 07/28/2024 8:11 AM CDT 07/28/2024 8:11 AM CDT Jessa Bryan DO LAB POCT ORDERABLES - DE VICE Final Result Performing Organization Address City/[facility]/ZIP Co de Phone Number [facility] ([place]) 1 [facility] [employer] [place] [address] * POCT glucose (07/28/2024 7:53 AM CDT) Glucose, POC 89 70 - 199 mg/dL Blood 07/28/2024 7:53 AM CDT 07/28/2024 7:53 AM CDT Jessa Bryan DO LAB POCT ORDERABLES - DE VICE Final Result LUCILLE FARR) 1 [facility] [employer] [place] [address] * POCT glucose (07/28/2024 6:48 AM CDT) Glucose, POC 99 70 - 199 mg/dL Blood 07/28/2024 6:48 AM CDT 07/28/2024 6:48 AM CDT Jessa Bryan DO LAB POCT ORDERABLES - DE VICE Final Result Performing Organization Address [facility] Co de Phone Number [facility] ([place]) 1 [facility] [employer] [place] [address] * POCT glucose (07/28/2024 6:47 AM CDT) Glucose, POC 98 70 - 199 mg/dL Blood 07/28/2024 6:47 AM CDT 07/28/2024 6:47 AM CDT Jessa Bryan DO LAB POCT ORDERABLES - DE VICE Final Result Performing Organization Address City/[facility] Co de Phone Number [facility] ([place]) 1 [facility] [employer] [place] [address] * (ABNORMAL) eGFR (07/28/2024 4:21 AM CDT) eGFR 8(L) >=60 mL/min/1. 73 m2 Comment: Interpretive Data Reference Interval Normal >/= 90 mL/min/1.73m2 Mildly decreased* 60 - 89 mL/min/1.73m2 Mildly to moderately decreased 45 - 59 mL/min/1.73m2 Moderately to severely decreased 30 - 44 mL/min/1.73m2 Severely decreased 15 - 29 mL/min/1.73m2 Kidney Failure < 15 mL/min/1.73m2 *Relative to young adult level Estimated glomerular filtration rate is determined by the 2020 CKD-EPI equation recommended by the National Kidney Foundation (A Unifying Approach to GFR Estimation: Recommendations of the NKF-ASK Task Force on Reassessing the Inclusion of Race in Diagnosing Kidney Disease, JASN 2020). The CKD-EPI equation should not be used for patients with unstable renal function and has not been validated in children and those over 70. Current interpretive data was last reviewed 2021. Blood 07/28/2024 4:21 AM CDT 07/28/2024 4:38 AM CDT Jessa Bryan DO LAB BLOOD ORDERABLES Fin al Result [facility] ([place]) 1 [facility] [place] [address] * Differential, auto (07/28/2024 4:21 AM CDT) Neutrophil abs 3.80 1.50 - 6.50 K/cumm Imm gran abs 0.02 0.00 - 0.10 K/cumm [facility] ([place]) Lymphocyte abs 1.58 0.80 - 3.30 K/cumm [facility] ([place]) Monocyte abs 0.62 0.20 - 0.80 K/cumm [facility] ([place]) Eosinophil abs 0.16 0.00 - 0.50 K/cumm [facility] ([place]) Basophil abs 0.03 0.00 - 0.10 K/cumm [facility] ([place]) Neutrophil pct 61.2 % [facility] ([place]) Comment: Interpretive Data Percent cell count reference ranges are not reported, since discordance with absolute values may lead to misinterpretation of CBC data. Current Interpretive Data was last revised on 2017. Imm gran pct 0.3 % [facility] ([place]) Comment: Interpretive Data Percent cell count reference ranges are not reported, since discordance with absolute values may lead to misinterpretation of CBC data. Current Interpretive Data was last revised on 2017. Lymphocyte pct 25.4 % [facility] ([place]) Comment: Interpretive Data Percent cell count reference ranges are not reported, since discordance with absolute values may lead to misinterpretation of CBC data. Current Interpretive Data was last revised on 2017. Monocyte pct 10.0 % [facility] ([place]) Comment: Interpretive Data Percent cell count reference ranges are not reported, since discordance with absolute values may lead to misinterpretation of CBC data. Current Interpretive Data was last revised on 2017. Eosinophil pct 2.6 % [facility] ([place]) Comment: Interpretive Data Percent cell count reference ranges are not reported, since discordance with absolute values may lead to misinterpretation of CBC data. Current Interpretive Data was last revised on 2017. Basophil pct 0.5 % [facility] ([place]) Comment: Interpretive Data Percent cell count reference ranges are not reported, since discordance with absolute values may lead to misinterpretation of CBC data. Current Interpretive Data was last revised on 2017. Blood 07/28/2024 4:21 AM CDT 07/28/2024 4:38 AM CDT us Jessa Bryan DO LAB BLOOD ORDERABLES Fin al Result [facility] ([place]) 1 [facility] [place] [address] * (ABNORMAL) CBC with auto differential (07/28/2024 4:21 AM CDT) WBC 6.21 3.80 - 9.90 K/cumm Hgb 9.2(L) 13.0 - 17.5 g/dL [facility]) Hct 28.1(L) 38.9 - 50.3 % [facility]) Plt 151 150 - 400 K/cumm [facility] ([place]) MPV 9.5 9.1 - 12.3 fL [facility]) RBC 2.85(L) 4.30 - 5.80 M/cumm [facility] ([place]) MCV 98.6(H) 81.3 - 96.4 fL [facility] ([place]) MCH 32.3 27.1 - 33.3 pg [facility] ([place]) MCHC 32.7 32.3 - 35.7 g/dL [facility]) RDW CV 13.2 11.1 - 14.9 % [facility]) RDW SD 47.5 35.7 - 48.1 fL [facility] ([place]) NRBC abs 0.00 0.00 - 0.01 K/cumm [facility]) Blood 07/28/2024 4:21 AM CDT 07/28/2024 4:38 AM CDT Jessa Bryan DO LAB BLOOD ORDERABLES Fin al Result [facility] ([place]) 1 [facility] [employer] [place] [address] * Insulin, total (07/28/2024 4:21 AM CDT) Pathologist [facility] Insulin 8.9 2.6 - 25.0 mcIUnit/mL Comment:Testing performed by : [facility], [address] [place] [address]., [id number] Blood 07/28/2024 4:21 AM CDT 07/28/2024 7:36 PM CDT Narrative [facility] ([place]) - 07/30/2024 6:42 PM CDT Once blood glucose is less than 50. Nursing to call. Jessa Bryan DO LAB BLOOD ORDERABLES Fin al Result Performing Organization Address City/[facility]/ZIP Co de Phone Number [facility] ([place]) 1 [place] [address] * (ABNORMAL) C-peptide (07/28/2024 4:21 AM CDT) Pathologist [facility] C-peptide 11.40(H) 1.10 - 4.40 ng/mL Comment:Testing performed by : [facility], [address] [place] [address], [place]., [address] Blood 07/28/2024 4:21 AM CDT 07/28/2024 7:36 PM CDT Narrative [facility] ([place]) - 07/30/2024 6:41 PM CDT Once blood glucose is less than 50. Nursing to call. Jessa Schmidt [employer] DO LAB BLOOD ORDERABLES Fin al Result Performing Organization Address City/[facility]/ZIP Co de Phone Number [facility] ([place]) 1 [facility] [employer] [place] [address] * (ABNORMAL) Phosphorus (07/28/2024 4:21 AM CDT) Phosphorus, pl 4.6(H) 2.3 - 4.5 mg/dL Blood 07/28/2024 4:21 AM CDT 07/28/2024 4:38 AM CDT [facility] Roxana [employer] LAB BLOOD ORDERABLES Fin al Result Performing Organization Address [facility] Co de Phone Number [facility] Q[facility] ([place]) 1 [facility] [employer] [place] [address] * (ABNORMAL) Magnesium (07/28/2024 4:21 AM CDT) Magnesium 2.6(H) 1.4 - 2.5 mg/dL Blood 07/28/2024 4:21 AM CDT 07/28/2024 4:38 AM CDT Shoeboxed DO LAB BLOOD ORDERABLES Fin al Result Performing Organization Address City/[facility] Co de Phone Number [facility] ([place]) 1 [facility] [employer] [place] [address] * (ABNORMAL) Comprehensive metabolic panel (07/28/2024 4:21 AM CDT) Sodium 134(L) 135 - 145 mmol/L Potassium, pl 3.9 3.3 - 4.9 mmol/L [facility]) Chloride 95(L) 97 - 110 mmol/L [facility]) CO2 25 22 - 32 mmol/L [facility]) Anion gap 15 2 - 15 mmol/L [facility] ([place]) BUN 53(H) 6 - 25 mg/dL [facility] ([place]) Creatinine 6.54(H) 0.80 - 1.30 mg/dL [facility] ([place]) Glucose 78 70 - 199 mg/dL [facility] ([place]) Comment: Interpretive Data Fasting glucose >/= 126 mg/dl is diagnostic for diabetes. Fasting is defined as no caloric intake for at least 8 hours. Fasting glucose between 100 mg/dl to 125 mg/dl is diagnostic of prediabetes. In a patient with classic symptoms of hyperglycemia or hyperglycemic crisis, a random glucose >/= 200 mg/dl is diagnostic for diabetes. In the absence of unequivocal hyperglycemia, results should be confirmed by repeat testing. The classification and Diagnosis of Diabetes Diabetes Care 2021; 46: S19-S40. Current interpretive data was last revised 2022. Calcium 8.2(L) 8.5 - 10.3 mg/dL [facility] ([place]) Bilirubin, total 0.3 0.1 - 1.2 mg/dL [facility] ([place]) Protein, pl 5.4(L) 6.5 - 8.5 g/dL [facility] ([place]) Albumin 3.0(L) 3.5 - 5.0 g/dL [facility] ([place]) Alk phos 56 40 - 130 Units/L [facility] ([place]) ALT 12 7 - 55 Units/L [facility] ([place]) AST 14 10 - 50 Units/L [facility] ([place]) Blood 07/28/2024 4:21 AM CDT 07/28/2024 4:38 AM CDT us Jessa Bryan DO LAB BLOOD ORDERABLES Fin al Result [facility] ([place]) 1 [facility] [place] [address] * POCT glucose (07/28/2024 4:14 AM CDT) Glucose, POC 95 70 - 199 mg/dL Blood 07/28/2024 4:14 AM CDT 07/28/2024 4:14 AM CDT Jessa Bryan DO LAB POCT ORDERABLES - DE VICE Final Result Performing Organization Address [facility] Co de Phone Number [facility] ([place]) 1 [facility] [employer] [place] [address] * POCT glucose (07/28/2024 2:03 AM CDT) Glucose, POC 100 70 - 199 mg/dL Blood 07/28/2024 2:03 AM CDT 07/28/2024 2:03 AM CDT Jessa Bryan LAB POCT ORDERABLES - DE VICE Final Result Performing Organization Address [facility] Co de Phone Number [facility] ([place]) 1 [place] [address] * POCT glucose (07/27/2024 10:30 PM CDT) Glucose, POC 113 70 - 199 mg/dL Blood 07/27/2024 10:3 0 PM CDT 07/27/2024 10:30 PM CDT Jessa Bryan DO LAB POCT ORDERABLES - DE VICE Final Result Performing Organization Address City/[facility] Co de Phone Number [facility] ([place]) 1 [facility] [employer] [place] [address] * POCT glucose (07/27/2024 7:54 PM CDT) Glucose, POC 151 70 - 199 mg/dL Blood 07/27/2024 7:54 PM CDT 07/27/2024 7:54 PM CDT us Jessa Bryan DO LAB POCT ORDERABLES - DE VICE Final Result [facility] ([place]) 1 [facility] [place] [address] * Hepatitis panel, acute Blood (07/27/2024 6:07 PM CDT) Hep A IgM Nonreactive Nonreactive Comment: Interpretive Data: If Hep A IgM Ab is reported as Equivocal, a new sample should be drawn in two weeks for testing. Current interpretive data was last revised on 19. Testing performed by: [address] [address] Hep B core IgM Nonreactive Nonreactive [place] QUIÑONES ([place]) Comment: Interpretive Data If HepB Core IgM Ab is reported as Equivocal, a new sample should be drawn in two weeks for testing. Current interpretive data was last revised on 19. Testing performed by: [facility], [address] [place] [address]., [id number] Hep C Ab Nonreactive Nonreactive [facility] ([place]) Comment: Interpretive Data Nonreactive: Antibodies to HCV not detected. Does NOT exclude the possibility of recent exposure to HCV. Equivocal: Equivocal for HCV antibodies. Supplemental molecular testing will be automatically performed to determine infection status in accordance with current CDC screening recommendations. Reactive: Positive for HCV antibodies. This may represent current or past HCV infection. Supplemental molecular testing will be automatically performed to determine current infection status in accordance with current CDC screening recommendations. Interpretive data was last revised on 2019. Testing performed by: [address] [address] HepBsAg Nonreactive Nonreactive [facility] ([place]) Comment:Testing performed by : [address] [address] Blood 07/27/2024 6:07 PM CDT 07/28/2024 11:03 AM CDT us Guilherme Dumont MD LAB MICROBIOLOGY - GENERAL OR DERABLES Final Result [facility] ([place]) 1 [facility] [employer] [place] [address] * Hepatitis B surface antibody (immune status) Blood (07/27/2024 6:07 PM CDT) [facility] HBsAb (immune status) Reactive Comment: Interpretive Data Nonreactive: This result is consistent with a lack of immunity to Hepatitis B Virus when used in the setting of routine screening. Equivocal: The immune status of the individual should be further assessed, if appropriate, after consideration of clinical status, risk factors, and additional diagnostic information. Reactive: This result is consistent with immunity to Hepatitis B Virus when used in the setting of routine screening. Current interpretive data was last revised on 19. Testing performed by: [facility], [address] [place] [address]., [address] HBsAb (immune status) index 1,203.0 mIUnits/m Brian QUIÑONES ([place]) Comment:Testing performed by : [facility], [address] [place] [address]., [id number] Blood 07/27/2024 6:07 PM CDT 07/28/2024 11:03 AM CDT us Guilherme Dumont MD LAB MICROBIOLOGY - GENERAL OR DERABLES Final Result [facility] ([place]) 1 [place] [address] * (ABNORMAL) POCT glucose (07/27/2024 4:21 PM CDT) [facility] Glucose, POC 224(H) 70 - 199 mg/dL Blood 07/27/2024 4:21 PM CDT 07/27/2024 4:21 PM CDT us Jessa Bryan DO LAB POCT ORDERABLES - DE VICE Final Result [facility] ([place]) 1 [facility] [employer] [place] [address] * POCT glucose (07/27/2024 11:52 AM CDT) Glucose, POC 117 70 - 199 mg/dL Blood 07/27/2024 11:5 2 AM CDT 07/27/2024 11:52 AM CDT Jessa Brayn DO LAB POCT ORDERABLES - DE VICE Final Result Performing Organization Address City/[facility]/ZIP Co de Phone Number [facility] ([place]) 1 [facility] [employer] [place] [address] * (ABNORMAL) Proinsulin (07/27/2024 11:27 AM CDT) Pathologist [facility] Proinsulin 66(H) 3.6 - 22 pmol/L [facility] Comment: ADDITIONAL INFORMATION This test was developed and its performance characteristics determined by [facility] in a manner consistent with CLIA requirements. This test has not been cleared or approved by the U.S. Food and Drug Administration. Test Performed by: [place] [address] Learning Program Manager: Andrea Almonte Ph.D.; CLIA# [id number] Blood 07/27/2024 11:2 7 AM CDT 07/27/2024 11:40 AM CDT Jessa Bryan DO LAB BLOOD ORDERABLES Fin al Result [facility] ([place]) 1 [facility] [place] [address] [facility] * Insulin, total (07/27/2024 11:27 AM CDT) Insulin 21.0 2.6 - 25.0 mcIUnit/mL Comment:Testing performed by : [facility], 1 [place]., [address] Blood 07/27/2024 11:2 7 AM CDT 07/27/2024 2:05 PM CDT Jessa Bryan DO LAB BLOOD ORDERABLES Fin al Result [facility] QUI[facility]ONES ([place]) 1 [facility] [employer] [place] [address] * (ABNORMAL) C-peptide (07/27/2024 11:27 AM CDT) C-peptide 15.60(H) 1.10 - 4.40 ng/mL Comment:Testing performed by : [facility], [address] [place]., [address] Blood 07/27/2024 11:2 7 AM CDT 07/27/2024 2:05 PM CDT Jessa Bryan DO LAB BLOOD ORDERABLES Fin al Result [facility] ([place]) 1 [facility] [employer] [place] [address] * (ABNORMAL) POCT glucose (07/27/2024 9:34 AM CDT) Glucose, POC 223(H) 70 - 199 mg/dL Blood 07/27/2024 9:34 AM CDT 07/27/2024 9:34 AM CDT Jessa Bryan DO LAB POCT ORDERABLES - DE VICE Final Result [facility] ([place]) 1 [facility] [employer] [place] [address] * POCT glucose (07/27/2024 7:30 AM CDT) Glucose, POC 121 70 - 199 mg/dL Blood 07/27/2024 7:30 AM CDT 07/27/2024 7:30 AM CDT Jessa Bryan DO LAB POCT ORDERABLES - DE VICE Final Result [facility] Q[facility]ON[facility] ([place]) 1 [facility] [employer] [place] [address] * POCT glucose (07/27/2024 4:13 AM CDT) Glucose, POC 167 70 - 199 mg/dL Blood 07/27/2024 4:13 AM CDT 07/27/2024 4:13 AM CDT Jessa Bryan DO LAB POCT ORDERABLES - DE VICE Final Result [facility] ([place]) 1 [facility] [employer] [place] [address] * POCT glucose (07/26/2024 11:22 PM CDT) Glucose, POC 144 70 - 199 mg/dL Blood 07/26/2024 11:2 2 PM CDT 07/26/2024 11:22 PM CDT Jessa Bryan DO LAB POCT ORDERABLES - DE VICE Final Result [facility] ([place]) 1 [facility] [employer] [place] [address] * POCT glucose (07/26/2024 7:56 PM CDT) Glucose, POC 145 70 - 199 mg/dL Blood 07/26/2024 7:56 PM CDT 07/26/2024 7:56 PM CDT Jessa Bryan DO LAB POCT ORDERABLES - DE VICE Final Result [facility] ([place]) 1 [facility] [employer] [place] [address] * POCT glucose (07/26/2024 5:48 PM CDT) Glucose, POC 98 70 - 199 mg/dL Blood 07/26/2024 5:48 PM CDT 07/26/2024 5:48 PM CDT Jessa Bryan DO LAB POCT ORDERABLES - DE VICE Final Result Performing Organization Address City/[facility]/ZIP Co de Phone Number [facility] ([place]) 1 [place] [address] * Beta-hydroxybutyrate (07/26/2024 4:50 PM CDT) [facility] Beta-Hydroxybut yrate 0.2 <=0.5 mmol/L Comment:Testing performed by : [facility], [address] [place] [address], [facility] Blood 07/26/2024 4:50 PM CDT 07/27/2024 10:15 AM CDT Jessa Bryan DO LAB BLOOD ORDERABLES Fin al Result Performing Organization Address [facility]/ZIP Co de Phone Number [facility]LE QUI[facility]ON[facility] ([place]) 1 [facility] [employer] [place] [address] * Insulin-like growth factor (IGF-1) (07/26/2024 4:11 PM CDT) Pathologist [facility] Insulin-like growth factor 1 (IGF-1) 185 30 - 200 ng/mL Comment: Interpretive Data Christiano Stage Male Female I 80-250 80-320 II 100-450 120-450 III 250-500 250-550 IV 225-600 225-600 V 225-500 180-500 Assay calibrated to WHO and instituted at [facility] 07/2017. References: 1. [employer] IGF-1 Package Insert 2016-12, V 1.0. 2. [employer] IGFMS entry ([email or web address] Seeking.[email or web address]-catalog/Overview/73215) accessed 07-13-2017. 3. Sarah Beth M, Lucero N, Herrera RT et al. J Clin Endocrinol Metab 2014;99:2114-6159. Current interpretive data was last revised on 2017. Testing performed by: [facility], [facility], [place]., [address] Blood 07/26/2024 4:11 PM CDT 07/27/2024 10:03 AM CDT Shoeboxed DO LAB BLOOD ORDERABLES Fin al Result [facility]LE QUI[facility]ONES ([place]) 1 [facility] [employer] [place] [address] * POCT glucose (07/26/2024 4:01 PM CDT) Glucose, POC 112 70 - 199 mg/dL Blood 07/26/2024 4:01 PM CDT 07/26/2024 4:01 PM CDT Jessa Roxana Finalta LAB POCT ORDERABLES - DE VICE Final Result [facility] ([place]) 1 [facility] [place] [address] * POCT glucose (07/26/2024 3:05 PM CDT) Glucose, POC 123 70 - 199 mg/dL Blood 07/26/2024 3:05 PM CDT 07/26/2024 3:05 PM CDT Shoeboxed DO LAB POCT ORDERABLES - DE VICE Final Result [facility] ([place]) 1 [facility] [employer] [place] [address] * (ABNORMAL) POCT glucose (07/26/2024 2:09 PM CDT) Glucose, POC 58(L) 70 - 199 mg/dL Blood 07/26/2024 2:09 PM CDT 07/26/2024 2:09 PM CDT Candice Meyers MD LAB POCT ORDERABLES - DEVICE Fi nal Result Performing Organization Address [facility]/ZIP Co de Phone Number [facility]LE [facility]ONES ([place]) 1 [facility] [employer] [place] [address] * POCT glucose (07/26/2024 1:11 PM CDT) Glucose, POC 122 70 - 199 mg/dL Blood 07/26/2024 1:11 PM CDT 07/26/2024 1:11 PM CDT López Hoskins MD LAB POCT ORDERABLES - DEVICE Final Result Performing Organization Address [facility] Co de Phone Number [facility]LE QUI[facility]ONES ([place]) 1 [facility] [employer] [place] [address] * (ABNORMAL) POCT glucose (07/26/2024 12:49 PM CDT) Glucose, POC 52(C) 70 - 199 mg/dL Comment:Glu2: RN/ Notified Blood 07/26/2024 12:4 9 PM CDT 07/26/2024 12:49 PM CDT us López Hoskins MD LAB POCT ORDERABLES - DEVICE Final Result Performing Organization Address City/[facility] Co de Phone Number [facility]LE QUI[facility]ONES ([place]) 1 [facility] [employer] [place] [address] * ECG 12 lead (07/26/2024 12:43 PM CDT) 07/26/2024 12:4 3 PM CDT Narrative [facility] - 07/26/2024 2:01 PM CDT Vent Rate: 71 bpm RR Interval: 840 msec [place] Interval: 190 msec QRS Duration: 170 msec QT Interval: 486 msec QTC Interval: 508 msec P-R-T [place]: 78 - -63 - -59 degrees IMPRESSION: Baseline artifact, probable SINUS RHYTHM RIGHT BUNDLE BRANCH BLOCK [120+ ms QRS DURATION, UPRIGHT V1, 40+ ms S IN I/aVL/V4/V5/V6] LEFT ANTERIOR FASCICULAR BLOCK [QRS AXIS <= -45, QR IN I, RS IN II] POSSIBLE LEFT VENTRICULAR HYPERTROPHY [VOLTAGE CRITERIA PLUS LAE OR QRS WIDENING] MODERATE T-WAVE ABNORMALITY, CONSIDER LATERAL ISCHEMIA [-0.1+ mV T-WAVE IN I/aVL/V5/V6] ABNORMAL ECG Need repeat EKG with stable baseline Electronically Signed By: Graham Mancilla MD us López Hoskins MD ECG ORDERABLES [facility] al Result [facility] * (ABNORMAL) eGFR (07/26/2024 12:39 PM CDT) eGFR 8(L) >=60 mL/min/1. 73 m2 Comment: Interpretive Data Reference Interval Normal >/= 90 mL/min/1.73m2 Mildly decreased* 60 - 89 mL/min/1.73m2 Mildly to moderately decreased 45 - 59 mL/min/1.73m2 Moderately to severely decreased 30 - 44 mL/min/1.73m2 Severely decreased 15 - 29 mL/min/1.73m2 Kidney Failure < 15 mL/min/1.73m2 *Relative to young adult level Estimated glomerular filtration rate is determined by the 2020 CKD-EPI equation recommended by the National Kidney Foundation (A Unifying Approach to GFR Estimation: Recommendations of the [employer]F-ASK Task Force on Reassessing the Inclusion of Race in Diagnosing Kidney Disease, JASN 202). The CKD-EPI equation should not be used for patients with unstable renal function and has not been validated in children and those over 70. Current interpretive data was last reviewed 2021. Blood 07/26/2024 12:3 9 PM CDT 07/26/2024 12:42 PM CDT us López Hoskins MD LAB BLOOD ORDERABLE S Final Result [facility] ([place]) 1 [facility] [place] [address] * Differential, auto (07/26/2024 12:39 PM CDT) Neutrophil abs 5.51 1.50 - 6.50 K/cumm Imm gran abs 0.02 0.00 - 0.10 K/cumm [facility] ([place]) Lymphocyte abs 0.87 0.80 - 3.30 K/cumm [facility] ([place]) Monocyte abs 0.42 0.20 - 0.80 K/cumm [facility] ([place]) Eosinophil abs 0.09 0.00 - 0.50 K/cumm [facility] ([place]) Basophil abs 0.02 0.00 - 0.10 K/cumm [facility] ([place]) Neutrophil pct 79.4 % [facility] ([place]) Comment: Interpretive Data Percent cell count reference ranges are not reported, since discordance with absolute values may lead to misinterpretation of CBC data. Current Interpretive Data was last revised on 2017. Imm gran pct 0.3 % [facility] ([place]) Comment: Interpretive Data Percent cell count reference ranges are not reported, since discordance with absolute values may lead to misinterpretation of CBC data. Current Interpretive Data was last revised on 2017. Lymphocyte pct 12.6 % [facility] ([place]) Comment: Interpretive Data Percent cell count reference ranges are not reported, since discordance with absolute values may lead to misinterpretation of CBC data. Current Interpretive Data was last revised on 2017. Monocyte pct 6.1 % [facility] ([place]) Comment: Interpretive Data Percent cell count reference ranges are not reported, since discordance with absolute values may lead to misinterpretation of CBC data. Current Interpretive Data was last revised on 2017. Eosinophil pct 1.3 % [facility] ([place]) Comment: Interpretive Data Percent cell count reference ranges are not reported, since discordance with absolute values may lead to misinterpretation of CBC data. Current Interpretive Data was last revised on 2017. Basophil pct 0.3 % [facility] ([place]) Comment: Interpretive Data Percent cell count reference ranges are not reported, since discordance with absolute values may lead to misinterpretation of CBC data. Current Interpretive Data was last revised on 2017. Blood 07/26/2024 12:3 9 PM CDT 07/26/2024 12:42 PM CDT us López Hoskins MD LAB BLOOD ORDERABLE S Final Result [facility] ([place]) 1 [facility] [place] [address] * (ABNORMAL) CBC with auto differential (07/26/2024 12:39 PM CDT) WBC 6.93 3.80 - 9.90 K/cumm Hgb 10.2(L) 13.0 - 17.5 g/dL [facility] ([place]) Hct 31.9(L) 38.9 - 50.3 % [facility] ([place]) Plt 159 150 - 400 K/cumm [facility] ([place]) MPV 9.5 9.1 - 12.3 fL [facility] ([place]) RBC 3.18(L) 4.30 - 5.80 M/cumm [facility] ([place]) MCV 100.3(H) 81.3 - 96.4 fL [facility] ([place]) MCH 32.1 27.1 - 33.3 pg [facility] ([place]) MCHC 32.0(L) 32.3 - 35.7 g/dL [facility] ([place]) RDW CV 13.3 11.1 - 14.9 % [facility] ([place]) RDW SD 49.0(H) 35.7 - 48.1 fL [facility] ([place]) NRBC abs 0.00 0.00 - 0.01 K/cumm [facility] ([place]) Blood 07/26/2024 12:3 9 PM CDT 07/26/2024 12:42 PM CDT us López Hoskins MD LAB BLOOD ORDERABLE S Final Result [facility] ([place]) [address] [facility] [employer] [place] [address] * (ABNORMAL) Insulin, total (07/26/2024 12:39 PM CDT) [facility] Insulin 79.0(H) 2.6 - 25.0 mcIUnit/mL Comment:Testing performed by : [facility], [address] [place] [address], [id number] Blood 07/26/2024 12:3 9 PM CDT 07/26/2024 5:53 PM CDT Jessa Bryan LAB BLOOD ORDERABLES Fin al Result Performing Organization Address City/[facility] Co de Phone Number [facility] ([place]) 1 [facility] [employer] [place] [address] * (ABNORMAL) C-peptide (07/26/2024 12:39 PM CDT) [facility] C-peptide 30.80(H) 1.10 - 4.40 ng/mL Comment:Testing performed by : [facility], [address] [place] [address], [id number] Blood 07/26/2024 12:3 9 PM CDT 07/26/2024 5:53 PM CDT Jessa Bryan LAB BLOOD ORDERABLES Fin al Result [facility] ([place]) 1 [facility] [employer] [place] [address] * (ABNORMAL) Comprehensive metabolic panel (07/26/2024 12:39 PM CDT) [facility] Sodium 137 135 - 145 mmol/L Potassium, pl 4.4 3.3 - 4.9 mmol/L [facility] ([place]) Chloride 96(L) 97 - 110 mmol/L [facility] ([place]) CO2 28 22 - 32 mmol/L [facility] ([place]) Anion gap 13 2 - 15 mmol/L [facility] ([place]) BUN 64(H) 6 - 25 mg/dL [facility] ([place]) Creatinine 6.59(H) 0.80 - 1.30 mg/dL [facility] ([place]) Glucose 40(C) 70 - 199 mg/dL [facility] ([place]) Comment: Critical Result called by [email or web address] at 2024-07-26 13:03:39. Result Read Back by Juanita Cohen RN ER Interpretive Data Fasting glucose >/= 126 mg/dl is diagnostic for diabetes. Fasting is defined as no caloric intake for at least 8 hours. Fasting glucose between 100 mg/dl to 125 mg/dl is diagnostic of prediabetes. In a patient with classic symptoms of hyperglycemia or hyperglycemic crisis, a random glucose >/= 200 mg/dl is diagnostic for diabetes. In the absence of unequivocal hyperglycemia, results should be confirmed by repeat testing. The classification and Diagnosis of Diabetes Diabetes Care 202; 46: S19-S40. Current interpretive data was last revised 2022. Calcium 8.3(L) 8.5 - 10.3 mg/dL [facility]) Bilirubin, total <0.2 0.1 - 1.2 mg/dL [facility] ([place]) Protein, pl 5.8(L) 6.5 - 8.5 g/dL [facility] ([place]) Albumin 3.2(L) 3.5 - 5.0 g/dL [facility] ([place]) Alk phos 55 40 - 130 Units/L [facility] ([place]) ALT 11 7 - 55 Units/L [facility] ([place]) AST 15 10 - 50 Units/L [facility] ([place]) Blood 07/26/2024 12:3 9 PM CDT 07/26/2024 12:42 PM CDT us López Hoskins MD LAB BLOOD ORDERABLE S Final Result [facility] ([place]) 1 [facility] [place] [address] * (ABNORMAL) POCT glucose (07/26/2024 12:27 PM CDT) Glucose, POC 52(C) 70 - 199 mg/dL Comment:Glu2: RN/ Notified Blood 07/26/2024 12:2 7 PM CDT 07/26/2024 12:27 PM CDT us Notinfile Unknown LAB POCT ORDERABLES - DEVICE F inal Result [facility] ([place]) 1 [facility] [place] [address] * Colonoscopy (11/19/2023 7:32 AM CDT) Anatomical Region Laterality Modality Other Narrative Procedure Note Jerson Alonso MD - 11/19/2023 7:32 AM CDT [facility] Patient Name: Quinten Gould Procedure Date: 11/19/2023 7:32 AM Date of : 1950 Admit Type: Inpatient Age: 73 Gender: Male Attending MD: Jerson Alonso M.D. Room: [facility] ENDOSCOPY ROOM 3 Note Status: Finalized Patient Profile: This is a 73 year old male. Patient admitted with peritonitis. Type of bacteria concerning for GI source. 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 By reports he had colonoscopy within thelast 2 years with benign polyps removed. No familyhistory of colon cancer. Procedure: Colonoscopy Indications: Abnormal CT of the GI tract Referring MD: Omer Nunn M.D. Providers: Jerson Alonso M.D. Impression: - Stool in the rectum and in the sigmoid colon. - No specimens collected. Recommendation: - Continue present medications. - Continue Linzess daily and MiraLax 34 g twicedaily. - Once his colon fully evacuated then proper colonoscopy as needed with the inpatient orinpatient depending on the clinical course and duration ofstay in the hospital. - Repeat colonoscopy after studies are complete for surveillance. Medicines: Monitored Anesthesia Care Complications: No immediate complications. Estimated Blood Loss: Estimated blood loss: none. Procedure: Pre-Anesthesia Assessment: - Prior to the procedure, a History and Physicalwas performed, and patient medications and allergieswere reviewed. The patient's tolerance of previous anesthesia was also reviewed. The risks andbenefits of the procedure and the sedation options and risks were discussed with the patient. All questions were answered, and informed consent was obtained. Prior Anticoagulants: The patient has taken noanticoagulant or antiplatelet agents. ASA Grade Assessment: Per anesthesia note and evaluation. After reviewing the risks and benefits, the patient was deemed in satisfactory condition to undergo the procedure. The benefits, risks and alternatives of theprocedure and sedation were discussed and informed consentwas obtained. All questions were answered. Please referto the signed informed consent document in the medical record. The scope was passed under direct vision.The Pediatric Colonoscope [id number]-H190L [id number] was introduced through the anus and advanced to the the rectum. The bowel preparation used was Miralax, bisacodyl tablets and magnesium citrate. Findings: The perianal and digital rectal examinations were normal. A large amount of semi solid and solid stool was found in the rectumand in the sigmoid colon, precluding visualization. Partially visualized rectal mucosa appeared normal. Electronically signed by Jerson Alonso M.D. Jerson Alonso M.D. 11/19/2023 8:26:28 AM Number of Addenda: 0 Note Initiated On: 11/19/2023 7:32 AM Procedure Code(s): --- Professional --- 98857, 53, Colonoscopy, flexible; diagnostic, including collection of specimen(s) by brushing or washing, when performed (separateprocedure) Diagnosis Code(s): --- Professional --- R93.3, Abnormal findings on diagnostic imaging of other parts of digestive tract CPT copyright 2020 [employer]. All rights reserved. The codes documented in this report are preliminary and upon hospital coder reviewmay be revised to meet current compliance requirements. Recognized by the [employer] for promoting quality in endoscopy Jerson Alonso MD ENDOSCOPY PROCEDURES Final Result * (ABNORMAL) Lipid panel (06/21/2023 3:52 AM CDT) Cholesterol 176 30 - 199 mg/dL Comment: Interpretive Data Ages < or = 19 years Acceptable: <170 mg/dL Borderline high: 170-199 mg/dL High: >or= 200 mg/dL Ages > or = 20 years Desirable: <200 mg/dL Borderline high: 200-239 mg/dL High: >or= 240 mg/dL Literature References: 1. Expert Panel on Integrated Guidelines for Cardiovascular Health and Risk Reduction in Children and Adolescents. Pediatrics 2011;128:S213 2. NCEP Expert Panel. Circulation 2004;110:227 Current Interpretive Data was last revised on 2017. Triglycerides 241(H) <=149 mg/dL [facility] ([place]) Comment: Interpretive Data Ages < or = 9 years Acceptable: <75 mg/dL Borderline high: 75-99 mg/dL High: >or= 100 mg/dL Ages 10 to 20 years Acceptable: <90 mg/dL Borderline high: 90-129 mg/dL High: >or= 130 mg/dL Ages > or = 20 years Desirable: <150 mg/dL Borderline high: 150-199 mg/dL High: 200-499 mg/dL Very high: >or= 499 mg/dL Literature References: 1. Expert Panel on Integrated Guidelines for Cardiovascular Health and Risk Reduction in Children and Adolescents. Pediatrics 2011;128:S213 2. NCEP Expert Panel. Circulation 2004;110:227 Current Interpretive Data was last revised on 2017. HDL 30(L) >=40 mg/dL [facility] ([place]) Comment: Interpretive Data Ages < or = 19 years Acceptable: >45 mg/dL Borderline low: 40-45 mg/dL Low: <40 mg/dL Ages > or = 20 years Desirable: >or= 60 mg/dL Low: <40 mg/dL Literature References: 1. Expert Panel on Integrated Guidelines for Cardiovascular Health and Risk Reduction in Children and Adolescents. Pediatrics 2011;128:S213 2. NCEP Expert Panel. Circulation 2004;110:227 Current Interpretive Data was last revised on 2017. LDL, calculated 98 <=129 mg/dL [facility] ([place]) Comment: Interpretive Data Ages < or = 19 years Acceptable: <110 mg/dL Borderline high: 110-129 mg/dL High: >or= 130 mg/dL Ages > or = 20 years Optimal: <100 mg/dL Near optimal: 100-129 mg/dL Borderline high: 130-159 mg/dL High: >160 mg/dL Literature References: 1. Expert Panel on Integrated Guidelines for Cardiovascular Health and Risk Reduction in Children and Adolescents. Pediatrics 2011;128:S213 2. NCEP Expert Panel. Circulation 2004;110:227 Current Interpretive Data was last revised on 2017. Non-HDL Cholesterol 146 mg/dL [facility] ([place]) Comment: Interpretive Data Ages < or = 19 years Acceptable: <120 mg/dL Borderline high: 120-144 mg/dL High: >145 mg/dL Ages > or = 20 years When triglycerides are >200 mg/dL, Non-HDL cholesterol is a secondary target of therapy with treatment goals that are 30 mg/dL greater than the LDL cholesterol target. Literature References: 1. Expert Panel on Integrated Guidelines for Cardiovascular Health and Risk Reduction in Children and Adolescents. Pediatrics 2011;128:S213 2. NCEP Expert Panel. Circulation 2004;110:227 Current Interpretive Data was last revised on 2017. Chol/HDL ratio 6 [facility] ([place]) Blood 06/21/2023 3:52 AM CDT 06/21/2023 4:23 AM CDT Andrey Hernandez MD LAB BLOOD ORDERABLES Final Resu lt [facility] ([place]) 1 [facility] [place] [address] * Albumin Creatinine Ratio, Urine (07/27/2019) Urine Historical Provider LAB URINE ORDERABLES Nancy l Result from Last 3 Months or Most Recently Relevant to Health Maintenance Insurance MEDICARE [facility] HMO MEDICARE [facility] Advance Directives For more information, please contact: [phone] Documents on File Type Date Recorded 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 Expl anation ADVANCE DIRECTIVE 11/15/2016 Advance Di rective Checklist * Full Code (Latest Code Status on File) Date Activated Date Inactivated Comments 10/19/2024 6:52 PM 10/21/2024 9:38 PM * Full Code Date Activated Date Inactivated Comments 07/26/2024 2:09 PM 07/28/2024 6:55 PM * Full Code Date Activated Date Inactivated Comments 07/08/2024 3:22 AM 07/11/2024 5:35 PM * Full Code Date Activated Date Inactivated Comments 11/19/2023 7:25 AM 11/21/2023 9:43 PM * Full Code Date Activated Date Inactivated Comments 11/16/2023 4:35 PM 11/19/2023 7:25 AM Healthcare Agents on File Name Relationship Healthcare Agent Relationshi p Communication Mili Gould Spouse Health Care Agent Tita Gonzalez Sister First Alternate Health Care Agent John Gould Son Second Alternate Health Care Agent Care Teams Golf Player Assistant Relationship Specialty Start Date End Date Omer Nunn MD [address] [place], [place] [id number] PCP - General 01/10/12 Hemanth Sanches MD [address] [place] [address] Consulting Physician Gastroenterology 10/24/23 Jessa Bryan DO [address] [place] [address] Consulting Physician Internal Medicine 07/12/24
--- OUTSIDE RECORDS SUMMARY | 2024-10-24 02:23 | XMS_ITS ---
Author Organization [facility] Address [address] [place] [address] Care Team Providers Care Vehicle Sales Professional Name Role Phone Omer Nunn MD Primary Care Provider [phone] Hemanth Sanches MD Unavailable Jessa Bryan DO Unavailable [phone] Dialysis Plan of Treatment Dialysis Prescription As-Of Date Prescribed Dry Weight Primary Se tting 10/20/2024 Acute Dialysis S CA Instructions Modality Start Time Dwell Time (hours) Dextrose Strength Continuous Cycling Peritonea l Dialysis Dialysis Access Type Location from Last 30 Days Dialysis Access Sites Type Status Location Placement Date Removal Da te Peritoneal Dialysis Catheter Manual on hold Mid lower abdomen Active Abdomen - Lower, Medial (Navel) 03/05/2024 Hemodialysis Cath Double 11/18/23 Tunneled catheter Right Internal Jugular Inactive Right Neck (side) - Anterior 11/18/2023 04/13/2024 Peritoneal Dialysis Catheter Left lower abdomen Inactive Left Abdomen (side) - Lower 06/20/2023 11/18/2023 Procedures Procedure Name Priority Date/Time Associated Diagnosis [...] insulin (HCC) POCT HEMOGLOBIN A1C Routine 08/02/2024 2:36 PM CDT Type 2 [...] or Most Recently Relevant to Health Maintenance Allergies Active Allergy Reactions Criticality Noted Date [...] coma, without long-term current use of insulin ([facility]) Use for blood glucose monitor 1 each [...] time and patient to follow up with [facility] orthopedics (Dr. Cheema clinic to set up) [...] well since EGD yesterday. 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 He [...] week. He will obtain a BMP at [facility] prior to the visit. 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 No symptoms presently. - Cont zyrtec, levalbuterol PRN - formulary montelukast to replace home zafirlukast Unintentional weight loss 12/22/2022 Mood disorder 12/22/2022 Assessment & Plan (11/12/2023 5:01 PM CDT): - continue home wellbutrin, prozac Assessment & Plan (05/13/2023 2:27 AM DOG WALKER): Continue fluoxetine 40 and bupropion 300 Iron [...] for cell count and culture [place] with 10826 nucleated cells (95% neutrophils) and 6403 RBCs, [...] 12/30/2016 Assessment & Plan (05/13/2023 2:10 AM DOG WALKER): - Continue ASA, atorvastatin 80 - Off [...] 09/16/2016 Assessment & Plan (05/13/2023 2:10 AM DOG WALKER): Nonadherent to CPAP Assessment & Plan (09/16/2016 [...] Acquired trigger finger 04/28/2010 Coronary arteriosclerosis in bad river band artery 06/18 Overview (06/09/2016): CRNRY ATHRSCL NATVE [...] HYPERLIPIDEMIA Assessment & Plan (05/13/2023 2:10 AM DOG WALKER): Cont atorva 80 Assessment & Plan (09/16/2016 [...] coma, without long-term current use of insulin Social History Tobacco Use Types Packs/Day Years Used Date Smoking Tobacco: Never Smokeless Tobacco: Never Tobacco Cessation:Counseling Given: Not Answered Alcohol Use Standard Drinks/Week Comments Never 0 (1 standard drink = 0.6 oz pur e alcohol) [facility] Utilities Answer Date Recorded In the past 12 months has e [employer], gas, oil, or water [employer] threatened to shut off services in your [...] often do you attend chur ch or spiritism services? 1 to 4 times per year 07/27/2024 Do you belong to any clubs o r organizations such as taoism groups, unions, fraternal or athletic groups, or [...] place to sleep or slept in a long term (including now)? No 06/21/2023 Housing Stability Vital Sign Answer Vijay e Recorded In the last 12 months, was t here a time when you were not able to pay the mortgage or rent on time? No 07/27/2024 In the past 12 months, how m any times have you moved where you were living? 0 07/27/2024 At any time in the past 12 m [facility], were you homeless or living in a long term (including now)? No 07/27/2024 AUDIT-C Answer Date [...] on file Legal Sex Male 7:02 AM DOG WALKER Gender Identity Not on file Sexual Orientation Not on file Last Filed Vital Signs Vital Sign Reading [...] Mass Index 25.62 10/19/2024 8:14 PM CDT Results * POCT glucose (10/21/2024 4:39 PM CDT) [facility] Signature Glucose, POC 122 70 - 199 mg/dL Blood 10/21/2024 4:39 PM CDT 10/21/2024 4:39 PM CDT Nancy Merritt MD LAB POCT ORDERABLES - DEV ICE Final Result [facility] 1 [facility] [place] [address] * POCT glucose (10/21/2024 11:59 AM CDT) Glucose, POC 128 70 - 199 mg/dL Blood 10/21/2024 11:5 9 AM CDT 10/21/2024 11:59 AM CDT Nancy Merritt MD LAB POCT ORDERABLES - DEV ICE Final Result Performing Organization Address [facility] Co de Phone Number [facility] ([place] [address] [facility] [place] [address] * POCT glucose (10/21/2024 8:12 AM CDT) Glucose, POC 121 70 - 199 mg/dL Blood 10/21/2024 8:12 AM CDT 10/21/2024 8:12 AM CDT Nancy Merritt MD LAB POCT ORDERABLES - DEV ICE Final Result Performing Organization Address City/[facility]/ZIP Co de Phone Number [facility] ([place]) 1 [facility] [place] [address] * POCT glucose (10/21/2024 4:16 AM CDT) Glucose, POC 95 70 - 199 mg/dL Blood 10/21/2024 4:16 AM CDT 10/21/2024 4:16 AM CDT us Nancy Merritt MD LAB POCT ORDERABLES - DEV ICE Final Result Performing Organization Address City/[facility]/ZIP Co de Phone Number [facility] ([place]) [address] Department [place] [address] * (ABNORMAL) eGFR (10/21/2024 2:15 AM CDT) [facility] eGFR 6(L) >=60 mL/min/1. 73 m2 Comment: [...] BLOOD ORDERABLES Final Resu lt [facility] ([place]) 1 [facility] [place] [address] * Differential, auto (10/21/2024 2:15 AM CDT) [facility] Neutrophil abs 5.18 1.50 - 6.50 K/cumm Imm gran abs 0.02 0.00 - 0.10 K/cumm [facility] ([place]) Lymphocyte abs 0.87 0.80 - 3.30 K/cumm [facility] ([place]) Monocyte abs 0.58 0.20 - 0.80 K/cumm [facility] ([place]) Eosinophil abs 0.16 0.00 - 0.50 K/cumm [facility] ([place]) Basophil abs 0.04 0.00 - 0.10 K/cumm [facility] ([place]) Neutrophil pct 75.6 % [facility] ([place]) Comment: Interpretive [...] Final Resu lt [facility] ([place]) 1 [facility] [place] [address] * (ABNORMAL) CBC with auto differential (10/21/2024 [...] Final Resu lt [facility] ([place]) 1 [facility] [place] [address] * (ABNORMAL) Comprehensive metabolic panel (10/21/2024 2:15 AM CDT) Pathologist [facility] Sodium 131(L) 135 - 145 mmol/L [facility] [...] 5.0 g/dL [facility] ([place]) Alk phos 63 40 - 130 Units/L [facility]) ALT 12 7 - 55 Units/L [facility] ([place]) AST 18 10 - 50 Units/L [facility] ([place]) Blood 10/21/2024 2:15 AM CDT 10/21/2024 3:35 AM CDT us Eugene Scott MD LAB BLOOD ORDERABLES Final Resu lt [facility] ([place]) 1 [facility] [place] [address] * POCT glucose (10/21/2024 12:06 AM CDT) Glucose, POC 106 70 - 199 mg/dL Blood 10/21/2024 12:0 6 AM CDT 10/21/2024 12:06 AM CDT Nancy Merritt MD LAB POCT ORDERABLES - DEV ICE Final Result [facility] ([place] 1 [facility] [place] [address] * POCT glucose (10/20/2024 8:24 PM CDT) Glucose, POC 146 70 - 199 mg/dL Blood 10/20/2024 8:24 PM CDT 10/20/2024 8:24 PM CDT Nancy Merritt MD LAB POCT ORDERABLES - DEV ICE Final Result Performing Organization Address [facility]/ZIP Co de Phone Number [facility] ([place]) 1 [facility] [place] [address] * POCT glucose (10/20/2024 5:07 PM CDT) Glucose, POC 127 70 - 199 mg/dL Blood 10/20/2024 5:07 PM CDT 10/20/2024 5:07 PM CDT Nancy Merritt MD LAB POCT ORDERABLES - DEV ICE Final Result Performing Organization Address City/[facility]/ZIP Co de Phone Number [facility] ([place] 1 [facility] [place] [address] * POCT glucose (10/20/2024 12:07 PM CDT) Glucose, POC 103 70 - 199 mg/dL Blood 10/20/2024 12:0 7 PM CDT 10/20/2024 12:07 PM CDT Nancy Merritt MD LAB POCT ORDERABLES - DEV ICE Final Result [facility] ([place]) 1 [facility] [place] [address] * (ABNORMAL) Insulin, total (10/20/2024 11:18 AM CDT) [facility] Insulin 28.7(H) 2.6 - 25.0 mcIUnit/mL Comment:Testing performed by : [facility], [address] [place] [address], [employer] [facility] [employer], [address] Blood 10/20/2024 11:1 8 AM CDT 10/20/2024 4:05 PM CDT us Guilherme Dumont MD LAB BLOOD ORDERABLES Final Re sult [facility] ([place]) 1 [facility] [place] [address] * (ABNORMAL) C-peptide (10/20/2024 11:18 AM CDT) [facility] C-peptide 14.70(H) 1.10 - 4.40 ng/mL Comment:Testing performed by : [facility], [address] [place] [address], [place]., [address] Blood 10/20/2024 11:1 8 AM CDT 10/20/2024 4:05 PM CDT us Guilherme Dumont MD LAB BLOOD ORDERABLES Final Re sult [facility] ([place]) 1 [facility] [place] [address] * Hepatitis B Surface Antigen Blood (10/20/2024 11:18 AM CDT) [facility] HepBsAg Nonreactive Nonreactive Comment:Testing performed by : [facility], [address] [place] [address], [place]., [address] Blood 10/20/2024 11:1 8 AM CDT 10/20/2024 3:08 PM CDT us Guilherme Dumont MD LAB MICROBIOLOGY - GENERAL OR DERABLES Final Result [facility] ([place]) [address] [place] [address] Department of Laboratories [place], [place] [id number] * TRANSTHORACIC ECHO (TTE) LIMITED/FOLLOW UP WO DOPPLER/CF WO CONTRAST (10/20/2024 9:45 AM CDT) Estimated EF 30 % CONS SCIMAGE Anatomical Region Laterality Modality Ultrasound 10/20/2024 11:3 5 AM CDT Narrative 10/20/2024 4:26 PM CDT [address] [address] Limited Echocardiogram Report Patient Name: QUINTEN GOULD : 1950 Study Date: 10/20/2024 11:35:32 AM Gender: M Tech: AA Location: [id number] Ref Provider: ROE GOSS Height(Cm): BSA: Weight(Kg): [...] Procedure Note Roe Goss MD - 10/20/[address] [address] Limited Echocardiogram Report Patient Name: QUINTEN GOULD : 1950 Study Date: 10/20/2024 11:35:32 AM Gender: M Tech: Location: [place] [address] Ref Provider: ROE GOSS Height(Cm): BSA: Weight(Kg): [...] ORDERABLES - DEV ICE Final Result [facility] ([place] 1 [facility] [place] [address] * POCT glucose (10/20/2024 1:50 AM CDT) Pathologist [facility] Glucose, POC 79 70 - 199 mg/dL Blood 10/20/2024 1:50 AM CDT 10/20/2024 1:50 AM CDT us Tatiana Sow MD LAB POCT ORDERABLES - DEVICE F inal Result Performing Organization Address City/[facility]/ZIP Co de Phone Number [facility] ([place]) [address] [place] [address] [place] [address] * Lactate (10/20/2024 12:53 AM CDT) [facility] Lactate 1.3 0.7 - 2.0 mmol/L Blood 10/20/2024 12:5 3 AM CDT 10/20/2024 12:56 AM CDT us Eugene Scott MD LAB BLOOD ORDERABLES Final Resu lt Performing Organization Address City/[facility]/ZIP Co de Phone Number [facility] ([place]) 1 [facility] [place] [address] * (ABNORMAL) eGFR (10/20/2024 12:53 AM CDT) [facility] eGFR 6(L) >=60 mL/min/1. 73 m2 Comment: [...] MD LAB BLOOD ORDERABLES Final Resu lt [facility] ([place]) 1 [facility] Department [place] [address] * Differential, auto (10/20/2024 12:53 AM CDT) Neutrophil abs 4.52 1.50 - 6.50 K/cumm Imm gran abs 0.04 0.00 - 0.10 K/cumm [facility] ([place]) Lymphocyte abs 1.26 0.80 - 3.30 K/cumm [facility] ([place]) Monocyte abs 0.65 0.20 - 0.80 K/cumm [facility] ([place]) Eosinophil abs 0.15 0.00 - 0.50 K/cumm [facility] ([place]) Basophil abs 0.05 0.00 - 0.10 K/cumm [facility] ([place]) Neutrophil pct 67.9 % [facility] ([place]) Comment: Interpretive Data Percent cell count reference ranges are not reported, since discordance with absolute values may lead to misinterpretation of CBC data. Current Interpretive Data was last revised on 2017. Imm gran pct 0.6 % [facility] ([place]) Comment: Interpretive Data Percent cell count reference ranges are not reported, since discordance with absolute values may lead to misinterpretation of CBC data. Current Interpretive Data was last revised on 2017. Lymphocyte pct 18.9 % [facility] ([place]) Comment: Interpretive Data Percent cell count reference ranges are not reported, since discordance with absolute values may lead to misinterpretation of CBC data. Current Interpretive Data was last revised on 2017. Monocyte pct 9.7 % [facility] ([place]) Comment: Interpretive Data Percent cell count reference [...] Final Resu lt [facility] ([place]) 1 [facility] Department [place] [address] * (ABNORMAL) CBC with auto differential (10/20/2024 12:53 AM CDT) WBC 6.67 3.80 - 9.90 K/cumm Hgb [...] Final Resu lt [facility] ([place]) 1 [facility] Department [place] [address] * (ABNORMAL) Comprehensive metabolic panel (10/20/2024 12:53 AM CDT) Sodium 137 135 - 145 mmol/L [facility] ([place]) Potassium, pl 4.8 3.3 - [...] BLOOD ORDERABLES Final Resu lt [facility] ([place]) 1 [facility] [place] [address] * POCT glucose (10/19/2024 11:19 PM CDT) Glucose, POC 88 70 - 199 mg/dL Blood 10/19/2024 11:1 9 PM CDT 10/19/2024 11:19 PM CDT us Tatiana Sow MD LAB POCT ORDERABLES - DEVICE F inal Result Performing Organization Address City/[facility]/ZIP Co de Phone Number [facility] ([place]) 1 [facility] [place] [address] * (ABNORMAL) Troponin T high-sensitivity 6-hour (10/19/2024 9:15 PM CDT) Trop T hs 292(C) <=22 ng/L [facility] ([place]) Comment: Critical Result called by [email or web address] at 2024-10-19 22:37:16. Result Read Back by ludy fraser Interpretive Data For further hscTnT resources including the diagnostic algorithm and an aid in interpretation, copy and paste this link: https://nrl.testcatalog.org/show/hsTrop Current Interpretive Data last revised 2020. Trop T hs pct delta -3 % [facility] ([place]) Trop T hs interp Insignificant [facility] ([place]) Blood 10/19/2024 9:15 PM CDT 10/19/2024 9:28 PM CDT Konstantin Jara MD LAB BLOOD ORDERABLES Final R esult Performing Organization Address [facility] Co de Phone Number [facility] ([place] 1 [facility] [place] [address] * POCT glucose (10/19/2024 8:31 PM CDT) Glucose, POC 91 70 - 199 mg/dL Blood 10/19/2024 8:31 PM CDT 10/19/2024 8:31 PM CDT Tatiana Sow MD LAB POCT ORDERABLES - DEVICE F inal Result Performing Organization Address [facility] de Phone Number [facility] ([place]) 1 [facility] [place] [address] * (ABNORMAL) Troponin T high-sensitivity 4-hour (10/19/2024 6:52 PM CDT) Trop T hs 290(C) <=22 ng/L [facility] ([place]) Comment: Critical Result called by [email or web address] at 2024-10-19 19:23:37. Result Read Back by MILADY GARCIA Interpretive Data For further hscTnT resources including the diagnostic algorithm and an aid in interpretation, copy and paste this link: https://nrl.testcatalog.org/show/hsTrop Current Interpretive Data last revised 2020. Trop T hs pct delta -4 % [facility] ([place]) Trop T hs interp Insignificant [facility] ([place]) Blood 10/19/2024 6:52 PM CDT 10/19/2024 6:55 PM CDT Konstantin Jara MD LAB BLOOD ORDERABLES Final R esult Performing Organization Address [facility]/ZIP Co de Phone Number [facility] ([place]) 1 [facility] [place] [address] * POCT glucose (10/19/2024 4:13 PM CDT) Glucose, POC 109 70 - 199 mg/dL Blood 10/19/2024 4:13 PM CDT 10/19/2024 4:13 PM CDT Konstantin Jara MD LAB POCT ORDERABLES - DEVICE Final Result Performing Organization Address [facility] Co de Phone Number [facility] ([place]) [address] [place] [address] * (ABNORMAL) Troponin T high-sensitivity 2-hour (10/19/2024 4:12 PM CDT) Trop T hs 288(C) <=22 ng/L [facility] ([place]) Comment: Critical Result called by [email or web address] at 2024-10-19 17:04:24. Result Read Back by FAUSTO LEPE Interpretive Data For further hscTnT resources including the diagnostic algorithm and an aid in interpretation, copy and paste this link: https://nrl.testcatalog.org/show/hsTrop Current Interpretive Data last revised 2020. Trop T hs pct delta -4 % [facility] ([place]) Trop T hs interp Insignificant [facility] ([place]) Blood 10/19/2024 4:12 PM CDT 10/19/2024 4:17 PM CDT Konstantin Jara MD LAB BLOOD ORDERABLES Final R esult Performing Organization Address [facility] Co de Phone Number [facility] ([place]) 1 [facility] [place] [address] * ECG 12 lead (10/19/2024 2:45 PM CDT) 10/19/2024 2:45 PM CDT Narrative [facility] - 10/19/2024 3:36 PM CDT Vent Rate: 62 bpm RR Interval: 967 msec UT Interval: 213 msec QRS Duration: 162 msec QT Interval: 506 msec QTC Interval: 510 msec P-R-T Ada: -2 - -76 - 137 degrees IMPRESSION: Baseline artifact, 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 ABNORMAL RHYTHM ECG No change from prior EKG Electronically Signed By: Graham Mancilla MD Konstantin Jara MD ECG ORDERABLES Final Result [facility] * Influenza A/B, RSV, and COVID-19 PCR Nasopharyngeal (10/19/2024 2:45 PM CDT) COVID-19 RNA Negative Negative Influenza A RNA Negative Negative [facility] ([place] Influenza B RNA Negative Negative [facility] ([place]) RSV RNA Negative Negative [facility] ([place]) Comment: Interpretive data: Testing performed by [facility]. This test is performed using the [employer] Xpert Xpress CoV-2/Flu/RSV plus assay. This is a multiplex, real- time reverse transcriptase PCR assay intended for the qualitative detection of nucleic acid from SARS-CoV-2, influenza A, influenza B, and respiratory syncytial virus. This assay has been cleared by the [place] Food and Drug administration. The performance characteristics have been verified by the [facility]. Results must be considered in the clinical context, and a negative result does not rule out infection. Interpretive Data last revised 2023 Nasopharyngeal 10/19/2024 2: 45 PM CDT 10/19/2024 2:47 PM CDT Narrative [facility] ([place]) - 10/19/2024 3:27 PM CDT Is the Patient experiencing symptoms consistent with COVID?->Unknown Konstantin Jara MD LAB MICROBIOLOGY - GENERAL O RDERABLES Final Result [facility] ([place]) 1 [facility] [place] [address] * XR Chest 1 Vw Portable (10/19/2024 [...] Katie Li M.D. FT: FT Report ID: [id number] Reading Location: [id number] Procedure Note Katie Kirkland MD - 10/19/2024 [...] 3:02 PM - Electronically signed by Katie PerezD. FT: FT Report ID: [id number] Reading Location: [id number] Konstantin Jaar MD IMG XR PROCEDURES Final Resu lt * (ABNORMAL) Troponin T high-sensitivity series (baseline, 2hr, 4hr, 6hr) (10/19/2024 2:30 PM CDT) Trop T hs 301(C) <=22 ng/L [facility] ([place]) Comment: Critical Result called by [email or web address] at 2024-10-19 14:59:02. Result Read Back by SHANEKA QUIÑONES Interpretive Data For further hscTnT resources including the diagnostic algorithm and an aid in interpretation, copy and paste this link: https://nrl.testcatalog.org/show/hsTrop Current Interpretive Data last revised 2020. Blood 10/19/2024 2:30 PM CDT 10/19/2024 2:35 PM CDT Konstantin Jara MD LAB BLOOD ORDERABLES Final R esult [facility] ([place]) 1 [facility] [place] [address] * (ABNORMAL) eGFR (10/19/2024 2:30 PM CDT) [...] LOUIE LAB BLOOD ORDERABLES Final Resu lt [facility] ([place]) 1 [facility] [place] [address] * Differential, auto (10/19/2024 2:30 PM CDT) Neutrophil abs 5.57 1.50 - 6.50 K/cumm Imm gran abs 0.03 0.00 - 0.10 K/cumm [facility] ([place]) Lymphocyte abs 0.89 0.80 - 3.30 K/cumm [...] revised on 2017. Monocyte pct 7.6 % [facility] ([place]) Comment: Interpretive Data Percent cell [...] revised on 2017. Basophil pct 0.6 % [facility] ([place]) Comment: Interpretive Data Percent cell count reference ranges are not reported, since discordance with absolute values may lead to misinterpretation of CBC data. Current Interpretive Data was last revised on 2017. Blood 10/19/2024 2:30 PM CDT 10/19/2024 2:35 PM CDT Ailyn LOUIE LAB BLOOD ORDERABLES Final Resu lt [facility] ([place]) 1 [facility] [place] [address] * (ABNORMAL) Pro B-type natriuretic peptide (10/19/2024 2:30 PM CDT) NT-proBNP 14,898(H) <=450 pg/mL [facility] ([place]) Comment: Interpretive Comments: A. Dyspnea in Acute [...] Final R esult [facility] ([place]) 1 [facility] [place] [address] * (ABNORMAL) CBC with auto differential (10/19/2024 2:30 PM CDT) WBC 7.27 3.80 - 9.90 K/cumm Hgb [...] Final R esult [facility] ([place]) 1 [facility] [place] [address] * (ABNORMAL) Comprehensive metabolic panel (10/19/2024 2:30 PM CDT) Sodium 136 135 - 145 mmol/L [facility] [...] BLOOD ORDERABLES Final R esult [facility] ([place]) 1 [facility] [place] [address] * POCT glucose (10/19/2024 2:23 PM CDT) [facility] Glucose, POC 126 70 - 199 mg/dL Blood 10/19/2024 2:23 PM CDT 10/19/2024 2:23 PM CDT us Notinfile Unknown LAB POCT ORDERABLES - DEVICE F inal Result Performing Organization Address City/[facility]/ZIP Co de Phone Number [facility] ([place]) 1 [facility] [place] [address] * DEVICE CHECK - REMOTE (10/10/2024 7:00 AM CDT) Anatomical Region Laterality Modality Other Narrative 10/15/2024 7:36 AM CDT [employer] Dual Pacemaker. Dx; SSS. DOI 11/10/[address] Black. [employer] remote home monitoring. Office pacer checks Q1 yr. Unscheduled DDD CLS Pacemaker Remote due to EMEKA reached on 10/10/24 Transmission attached. Battery status: EMEKA reached on 10/10/24 Patient is not pacemaker dependent. [employer] reports that standard six-month replacement window applies, however some setting changes will occur. Patient device will switch to VDD mode with no rate response, and there is 11% reduction in base rate. Stable Lead impedances, pacing and sensing thresholds since 04/24/24 Presenting rhythm: AP/VS AP-84%, COURT CRIER-7% No AT/AF episodes noted. No Ventricular high [...] like to have the replacement done at [facility] by Dr. Juares. Patient is diabetic and on peritoneal dialysis. Patient is taking Eliquis 2.5 mg and ASA 81 mg as ordered. Informed patient's that this report would be forwarded to Dr. Juares and the nurses in the [place] office for follow-up. Patient's verbalized understanding. Patient is a former patient of Dr. Black, and then Kirill. us Maxim Juares MD [facility] CARDIAC SERVICES PROC [...] lead measurements noted. Presenting rhythm: -VS. AP-82%, COURT CRIER-7%. 5 Atrial high rate episodes noted, no [...] Comment:None Blood 08/02/2024 2:36 PM CDT Result [facility] Leila Cardoza MD POINT OF CARE TEST ORDERABLES Fi nal Result * POCT glucose (07/28/2024 11:52 AM CDT) Glucose, POC 110 70 - 199 mg/dL Blood 07/28/2024 11:5 2 AM CDT 07/28/2024 11:52 AM CDT Jessa Bryan DO LAB POCT ORDERABLES - DE VICE Final Result [facility] [place] 1 [facility] [place] [address] * POCT glucose (07/28/2024 11:29 AM CDT) Glucose, POC 126 70 - 199 mg/dL Blood 07/28/2024 11:2 9 AM CDT 07/28/2024 11:29 AM CDT Jessa Bryan DO LAB POCT ORDERABLES - DE VICE Final Result [facility] ([place]) 1 [facility] [place] [address] * POCT glucose (07/28/2024 8:11 AM CDT) Glucose, POC 87 70 - 199 mg/dL Blood 07/28/2024 8:11 AM CDT 07/28/2024 8:11 AM CDT Jessa Bryan DO LAB POCT ORDERABLES - DE VICE Final Result [facility] ([place]) 1 [facility] [place] [address] * POCT glucose (07/28/2024 7:53 AM CDT) Glucose, POC 89 70 - 199 mg/dL Blood 07/28/2024 7:53 AM CDT 07/28/2024 7:53 AM CDT Jessa Bryan DO LAB POCT ORDERABLES - DE VICE Final Result [facility] ([place]) 1 [facility] [place] [address] * POCT glucose (07/28/2024 6:48 AM CDT) Glucose, POC 99 70 - 199 mg/dL Blood 07/28/2024 6:48 AM CDT 07/28/2024 6:48 AM CDT Jessa Bryan DO LAB POCT ORDERABLES - DE VICE Final Result [facility] ([place]) 1 [facility] [place] [address] * POCT glucose (07/28/2024 6:47 AM CDT) Glucose, POC 98 70 - 199 mg/dL Blood 07/28/2024 6:47 AM CDT 07/28/2024 6:47 AM CDT Jessa Schmidt [employer] DO LAB POCT ORDERABLES - DE VICE Final Result Performing Organization Address City/[facility]/ZIP Co de Phone Number [place] ([place]) 1 [facility] [place] [address] * (ABNORMAL) eGFR (07/28/2024 4:21 AM CDT) [...] AM CDT 07/28/2024 4:38 AM CDT Jessa Roxana Octopart DO LAB BLOOD ORDERABLES Fin al Result [facility] ([place]) 1 [facility] [place] [address] * Differential, auto (07/28/2024 4:21 AM CDT) [...] Fin al Result [facility] ([place]) 1 [facility] [place] [address] * (ABNORMAL) CBC with auto differential (07/28/2024 [...] ([place]) MCH 32.3 27.1 - 33.3 pg [facility] ([place]) MCHC 32.7 32.3 - 35.7 g/dL [facility] ([place]) RDW CV 13.2 11.1 - 14.9 % [facility] ([place]) RDW SD 47.5 35.7 - 48.1 fL [facility] ([place]) NRBC abs 0.00 0.00 - 0.01 K/cumm [facility] ([place]) Blood 07/28/2024 4:21 AM CDT 07/28/2024 4:38 AM CDT Jessa Bryan DO LAB BLOOD ORDERABLES Fin al Result [place] ([place]) 1 [facility] [place] [address] * Insulin, total (07/28/2024 4:21 AM CDT) Pathologist [facility] Insulin 8.9 2.6 - 25.0 mcIUnit/mL Comment:Testing performed by : [facility], [address] [place]., [address] Blood 07/28/2024 4:21 AM CDT 07/28/2024 7:36 PM CDT Narrative [facility] ([place]) - 07/30/2024 6:42 PM CDT Once blood glucose is less than 50. Nursing to call. Jessa Bryan DO LAB BLOOD ORDERABLES Fin al Result [place] ([place]) 1 [facility] [place] [address] * (ABNORMAL) C-peptide (07/28/2024 4:21 AM CDT) C-peptide 11.40(H) 1.10 - 4.40 ng/mL Comment:Testing performed by : [facility], [address] [place]., [address] Blood 07/28/2024 4:21 AM CDT 07/28/2024 7:36 PM CDT Narrative [facility] ([place]) - 07/30/2024 6:41 PM CDT Once blood glucose is less than 50. Nursing to call. Jessa Bryan DO LAB BLOOD ORDERABLES Fin al Result [facility] ([place]) 1 [facility] [place] [address] * (ABNORMAL) Phosphorus (07/28/2024 4:21 AM CDT) Phosphorus, pl 4.6(H) 2.3 - 4.5 mg/dL Blood 07/28/2024 4:21 AM CDT 07/28/2024 4:38 AM CDT Jessa Bryan DO LAB BLOOD ORDERABLES Fin al Result [facility] ([place]) 1 [facility] [place] [address] * (ABNORMAL) Magnesium (07/28/2024 4:21 AM CDT) Magnesium 2.6(H) 1.4 - 2.5 mg/dL Blood 07/28/2024 4:21 AM CDT 07/28/2024 4:38 AM CDT Jessa [email or web address] DO LAB BLOOD ORDERABLES Fin al Result Performing Organization Address City/[facility] Co de Phone Number [place] ([place]) 1 [facility] [place] [address] * (ABNORMAL) Comprehensive metabolic panel (07/28/2024 4:21 AM CDT) Sodium 134(L) 135 - 145 mmol/L Potassium, pl 3.9 3.3 - 4.9 mmol/L [facility] ([place]) Chloride 95(L) 97 - 110 mmol/L [facility] ([place]) CO2 25 22 - 32 mmol/L [facility] ([place]) Anion gap 15 2 - 15 mmol/L [facility] ([place]) BUN 53(H) 6 - 25 mg/dL [facility] ([place]) Creatinine 6.54(H) 0.80 - 1.30 mg/dL [facility] ([place]) Glucose 78 70 - 199 mg/dL [facility] ([place]) Comment: Interpretive Data Fasting glucose [...] ([place]) AST 14 10 - 50 Units/L [facility] ([place]) Blood 07/28/2024 4:21 AM CDT 07/28/2024 4:38 AM CDT Jessa rByan DO LAB BLOOD ORDERABLES Fin al Result Performing Organization Address City/[facility]/ZIP Co de Phone Number [facility] ([place]) 1 [facility] [place] [address] * POCT glucose (07/28/2024 4:14 AM CDT) Glucose, POC 95 70 - 199 mg/dL Blood 07/28/2024 4:14 AM CDT 07/28/2024 4:14 AM CDT Jessa Bryan DO LAB POCT ORDERABLES - DE VICE Final Result Performing Organization Address City/[facility]/ZIP Co de Phone Number [facility] ([place]) 1 [facility] [place] [address] * POCT glucose (07/28/2024 2:03 AM CDT) Glucose, POC 100 70 - 199 mg/dL Blood 07/28/2024 2:03 AM CDT 07/28/2024 2:03 AM CDT Jessa Bryan DO LAB POCT ORDERABLES - DE VICE Final Result Performing Organization Address City/[facility]/ZIP Co de Phone Number [facility] ([place]) 1 [place] [address] * POCT glucose (07/27/2024 10:30 PM CDT) Glucose, POC 113 70 - 199 mg/dL Blood 07/27/2024 10:3 0 PM CDT 07/27/2024 10:30 PM CDT Jessa Bryan DO LAB POCT ORDERABLES - DE VICE Final Result [facility] ([place]) 1 [place] [address] * POCT glucose (07/27/2024 7:54 PM CDT) Pathologist [facility] Glucose, POC 151 70 - 199 mg/dL Blood 07/27/2024 7:54 PM CDT 07/27/2024 7:54 PM CDT Jessa Bryan DO LAB POCT ORDERABLES - DE VICE Final Result Performing Organization Address City/[facility]/ZIP Co de Phone Number [facility] ([place]) 1 [place] [address] * Hepatitis panel, acute Blood (07/27/2024 6:07 PM CDT) [facility] Hep A IgM Nonreactive Nonreactive Comment: Interpretive Data: If Hep A IgM Ab is reported as Equivocal, a new sample should be drawn in two weeks for testing. Current interpretive data was last revised on 19. Testing performed by: [facility], [address] [place] [address], [place]., [address] Hep B core IgM Nonreactive Nonreactive [place] [facility] ([place]) Comment: Interpretive Data If HepB Core IgM Ab is reported as Equivocal, a new sample should be drawn in two weeks for testing. Current interpretive data was last revised on 19. Testing performed by: [facility], [address] [place] [address], [place] [address] Hep C Ab Nonreactive Nonreactive [facility] [...] last revised on 2019. Testing performed by: [facility], [address] [place] [address]., [address] HepBsAg Nonreactive Nonreactive [facility] ([place]) Comment:Testing performed by : [address] [address] Blood 07/27/2024 6:07 PM CDT 07/28/2024 11:03 AM CDT Guilherme Dumont MD LAB MICROBIOLOGY - GENERAL OR DERABLES Final Result [facility] ([place]) 1 [facility] Department [place] [address] * Hepatitis B surface antibody (immune status) Blood (07/27/2024 6:07 PM CDT) [facility] HBsAb (immune status) Reactive Comment: Interpretive [...] last revised on 19. Testing performed by: [address] [address] HBsAb (immune status) index 1,203.0 mIUnits/m L [facility] ([place]) Comment:Testing performed by : [address] [address] Blood 07/27/2024 6:07 PM CDT 07/28/2024 11:03 AM CDT Guilherme Dumont MD LAB MICROBIOLOGY - GENERAL OR DERABLES Final Result Performing Organization Address [facility] Co de Phone Number [facility] ([place]) 1 [facility] [place] [address] * (ABNORMAL) POCT glucose (07/27/2024 4:21 PM CDT) Glucose, POC 224(H) 70 - 199 mg/dL Blood 07/27/2024 4:21 PM CDT 07/27/2024 4:21 PM CDT Jessa Bryan DO LAB POCT ORDERABLES - DE VICE Final Result Performing Organization Address [facility] de Phone Number [facility] ([place]) 1 [facility] [place] [address] * POCT glucose (07/27/2024 11:52 AM CDT) Glucose, POC 117 70 - 199 mg/dL Blood 07/27/2024 11:5 2 AM CDT 07/27/2024 11:52 AM CDT Jessa Bryan DO LAB POCT ORDERABLES - DE VICE Final Result Performing Organization Address [facility] de Phone Number [facility] ([place]) 1 [facility] [place] [address] * (ABNORMAL) Proinsulin (07/27/2024 11:27 AM CDT) Proinsulin 66(H) 3.6 - 22 pmol/L [place] [facility] Comment: ADDITIONAL INFORMATION This test was developed and its performance characteristics determined by [facility] in a manner consistent with CLIA requirements. This test has not been cleared or approved by the U.S. Food and Drug Administration. Test Performed by: [facility] [address] [place] [address] Greenkeeper: Andrea Almonte Ph.D.; CLIA# [id number] Blood 07/27/2024 11:2 7 AM CDT 07/27/2024 11:40 AM CDT Jessa StreeterChunnel[employer]TV DO LAB BLOOD ORDERABLES Fin al Result Performing Organization Address City/[facility]/ZIP Co de Phone Number [facility] ([place]) 1 [place] [address] [facility] * Insulin, total (07/27/2024 11:27 AM CDT) Insulin 21.0 2.6 - 25.0 mcIUnit/mL Comment:Testing performed by : [facility], [address] [place] [address]., [address] Blood 07/27/2024 11:2 7 AM CDT 07/27/2024 2:05 PM CDT Jessa StreeterNTQ-Data LAB BLOOD ORDERABLES Fin al Result Performing Organization Address [facility] Co de Phone Number [facility] ([place]) 1 [place] [address] * (ABNORMAL) C-peptide (07/27/2024 11:27 AM CDT) C-peptide 15.60(H) 1.10 - 4.40 ng/mL Comment:Testing performed by : [facility], [address] [place] [address], [place]., [address] Blood 07/27/2024 11:2 7 AM CDT 07/27/2024 2:05 PM CDT [employer] DO LAB BLOOD ORDERABLES Fin al Result [facility] ([place]) 1 [facility] [place] [address] * (ABNORMAL) POCT glucose (07/27/2024 9:34 AM CDT) Glucose, POC 223(H) 70 - 199 mg/dL Blood 07/27/2024 9:34 AM CDT 07/27/2024 9:34 AM CDT Jessa Bryan DO LAB POCT ORDERABLES - DE VICE Final Result [facility] ([place]) 1 [facility] [place] [address] * POCT glucose (07/27/2024 7:30 AM CDT) Glucose, POC 121 70 - 199 mg/dL Blood 07/27/2024 7:30 AM CDT 07/27/2024 7:30 AM CDT Jessa Bryan DO LAB POCT ORDERABLES - DE VICE Final Result [facility] ([place]) 1 [facility] [place] [address] * POCT glucose (07/27/2024 4:13 AM CDT) Glucose, POC 167 70 - 199 mg/dL Blood 07/27/2024 4:13 AM CDT 07/27/2024 4:13 AM CDT Jessa Bryan DO LAB POCT ORDERABLES - DE VICE Final Result [facility] ([place]) 1 [facility] [place] [address] * POCT glucose (07/26/2024 11:22 PM CDT) Glucose, POC 144 70 - 199 mg/dL Blood 07/26/2024 11:2 2 PM CDT 07/26/2024 11:22 PM CDT Jessa Bryan DO LAB POCT ORDERABLES - DE VICE Final Result Performing Organization Address [facility] Co de Phone Number [facility] ([place]) 1 [facility] [place] [address] * POCT glucose (07/26/2024 7:56 PM CDT) Glucose, POC 145 70 - 199 mg/dL Blood 07/26/2024 7:56 PM CDT 07/26/2024 7:56 PM CDT Jessa Schmidt Sylmaged DO LAB POCT ORDERABLES - DE VICE Final Result Performing Organization Address [facility] Co de Phone Number [place] ([place]) 1 [facility] [place] [address] * POCT glucose (07/26/2024 5:48 PM CDT) Glucose, POC 98 70 - 199 mg/dL Blood 07/26/2024 5:48 PM CDT 07/26/2024 5:48 PM CDT Jessa Bryan DO LAB POCT ORDERABLES - DE VICE Final Result Performing Organization Address [facility] Co de Phone Number [facility] ([place]) 1 [facility] [place] [address] * Beta-hydroxybutyrate (07/26/2024 4:50 PM CDT) Beta-Hydroxybut yrate 0.2 <=0.5 mmol/L Comment:Testing performed by : [facility], [address] [place] [address], [place]., [address] Blood 07/26/2024 4:50 PM CDT 07/27/2024 10:15 AM CDT Jessa Bryan DO LAB BLOOD ORDERABLES Fin al Result [facility] ([place]) 1 [facility] [place] [address] * Insulin-like growth factor (IGF-1) (07/26/2024 4:11 PM CDT) Insulin-like growth factor 1 (IGF-1) 185 30 - 200 ng/mL Comment: Interpretive Data Christiano Stage Male Female I 80-250 80-320 II 100-450 120-450 III 250-500 250-550 IV 225-600 225-600 V 225-500 180-500 Assay calibrated to WHO and instituted at [facility] 07/2017. References: 1. [employer] IGF-1 Package Insert 2016-12, V 1.0. 2. [employer] IGFMS entry ([email or web address]-[email or web address]/31936) accessed 07-13-2017. 3. Sarah Beth M, Lucero N, Herrera RT et al. J Clin Endocrinol Metab 2014;99:1338-8134. Current interpretive data was last revised on 2017. Testing performed by: [facility], [facility], [place]., [address] Blood 07/26/2024 4:11 PM CDT 07/27/2024 10:03 AM CDT Jessa Bryan DO LAB BLOOD ORDERABLES Fin al Result [facility] ([place]) 1 [facility] [place] [address] * POCT glucose (07/26/2024 4:01 PM CDT) Glucose, POC 112 70 - 199 mg/dL Blood 07/26/2024 4:01 PM CDT 07/26/2024 4:01 PM CDT us Jessa Bryan DO LAB POCT ORDERABLES - DE VICE Final Result Performing Organization Address City/[facility]/ZIP Co de Phone Number [facility] ([place]) 1 [facility] [place] [address] * POCT glucose (07/26/2024 3:05 PM CDT) Glucose, POC 123 70 - 199 mg/dL Blood 07/26/2024 3:05 PM CDT 07/26/2024 3:05 PM CDT us Jessa Bryan DO LAB POCT ORDERABLES - DE VICE Final Result Performing Organization Address [facility] Co de Phone Number [facility] ([place]) 1 [facility] [place] [address] * (ABNORMAL) POCT glucose (07/26/2024 2:09 PM CDT) Glucose, POC 58(L) 70 - 199 mg/dL Blood 07/26/2024 2:09 PM CDT 07/26/2024 2:09 PM CDT us Candice Meyers MD LAB POCT ORDERABLES - DEVICE Fi nal Result Performing Organization Address City/[facility]/ZIP Co de Phone Number [facility] ([place]) 1 [facility] [place] [address] * POCT glucose (07/26/2024 1:11 PM CDT) Glucose, POC 122 70 - 199 mg/dL Blood 07/26/2024 1:11 PM CDT 07/26/2024 1:11 PM CDT us López Hoskins MD LAB POCT ORDERABLES - DEVICE Final Result Performing Organization Address City/[facility]/ZIP Co de Phone Number [facility] ([place]) 1 [facility] [place] [address] * (ABNORMAL) POCT glucose (07/26/2024 12:49 PM CDT) Pathologist [facility] Glucose, POC 52(C) 70 - 199 mg/dL Comment:Glu2: RN/ Notified Blood 07/26/2024 12:4 9 PM CDT 07/26/2024 12:49 PM CDT López Hoskins MD LAB POCT ORDERABLES - DEVICE Final Result [facility] ([place]) 1 [place] [address] * ECG 12 lead (07/26/2024 12:43 PM CDT) 07/26/2024 12:4 3 PM CDT Narrative [facility] - 07/26/2024 2:01 PM CDT Vent Rate: 71 bpm RR Interval: 840 msec UT Interval: 190 msec QRS Duration: 170 msec QT Interval: 486 msec QTC Interval: 508 msec P-R-T Ada: 78 - -63 - -59 degrees IMPRESSION: [...] baseline Electronically Signed By: Graham Mancilla MD López Hoskins MD ECG ORDERABLES Fin al Result [employer] [facility] * (ABNORMAL) eGFR (07/26/2024 12:39 PM CDT) [facility] eGFR 8(L) >=60 mL/min/1. 73 m2 Comment: [...] MD LAB BLOOD ORDERABLE S Final Result [facility] ([place]) 1 [facility] Department of Laboratories [place], [place] [id number] * Differential, auto (07/26/2024 12:39 PM CDT) [...] Neutrophil pct 79.4 % [facility] ([place]) Comment: Interpretive Data Percent cell count reference [...] 2017. Monocyte pct 6.1 % [facility] ([place]) Comment: Interpretive Data [...] S Final Result [facility] ([place]) 1 [facility] [place] [address] * (ABNORMAL) CBC with auto differential (07/26/2024 12:39 PM CDT) WBC 6.93 3.80 - 9.90 K/cumm Hgb 10.2(L) 13.0 - 17.5 g/dL [facility] ([place]) Hct 31.9(L) 38.9 - 50.3 [...] S Final Result [facility] ([place]) 1 [facility] [place] [address] * (ABNORMAL) Insulin, total (07/26/2024 12:39 PM CDT) Insulin 79.0(H) 2.6 - 25.0 mcIUnit/mL Comment:Testing performed by : [facility], 1 [place] [address] Blood 07/26/2024 12:3 9 PM CDT 07/26/2024 5:53 PM CDT us Jessa Bryan DO LAB BLOOD ORDERABLES Fin al Result [facility] ([place]) 1 [facility] [place] [address] * (ABNORMAL) C-peptide (07/26/2024 12:39 PM CDT) C-peptide 30.80(H) 1.10 - 4.40 ng/mL Comment:Testing performed by : [facility], [address] [place]., [address] Blood 07/26/2024 12:3 9 PM CDT 07/26/2024 5:53 PM CDT Jessa Bryan DO LAB BLOOD ORDERABLES [facility] al Result [facility] ([place]) 1 [facility] [place] [address] * (ABNORMAL) Comprehensive metabolic panel (07/26/2024 12:39 PM CDT) Sodium 137 135 - 145 mmol/L Potassium, pl 4.4 3.3 - 4.9 mmol/L [facility] ([place]) Chloride 96(L) 97 - 110 mmol/L [facility] ([place]) CO2 28 22 - 32 mmol/L [facility] ([place]) Anion gap 13 2 - 15 mmol/L [facility] ([place]) BUN 64(H) 6 - 25 mg/dL [facility] ([place]) Creatinine 6.59(H) 0.80 - 1.30 mg/dL [facility] ([place]) Glucose 40(C) 70 - 199 mg/dL [facility] ([place]) Comment: Critical Result called by [id number] at 2024-07-26 13:03:39. Result Read Back by [...] MD LAB BLOOD ORDERABLE S Final Result Performing Organization Address City/[facility]/ZIP Co de Phone Number [facility] ([place]) 1 [facility] [place] [address] * (ABNORMAL) POCT glucose (07/26/2024 12:27 PM CDT) [facility] Glucose, POC 52(C) 70 - 199 mg/dL Comment:Glu2: RN/ Notified Blood 07/26/2024 12:2 7 PM CDT 07/26/2024 12:27 PM CDT us Notinfile Unknown LAB POCT ORDERABLES - DEVICE F inal Result Performing Organization Address City/[facility]/ZIP Co de Phone Number [facility] ([place]) 1 [facility] [place] [address] * Colonoscopy (11/19/2023 7:32 AM CDT) Anatomical Region Laterality Modality Other Narrative Procedure Note Jerson Alonso MD - 11/19/2023 7:32 AM CDT [facility] Patient Name: Quinten Gould Procedure Date: 11/19/2023 7:32 AM Date of : 1950 Admit Type: Inpatient Age: 73 Gender: Male Attending MD: Jerson Alonso M.D. Room: [facility] ENDOSCOPY ROOM 3 Note Status: Finalized Patient [...] passed under direct vision.The Pediatric Colonoscope [id number] was introduced through the anus and advanced [...] 7:32 AM Procedure Code(s): --- Professional --- 94273, 53, Colonoscopy, flexible; diagnostic, including collection of specimen(s) by brushing or washing, when performed (separateprocedure) Diagnosis Code(s): --- Professional --- R93.3, Abnormal findings on diagnostic imaging of other parts of digestive tract CPT copyright 2020 [employer]. All rights reserved. The codes documented in this report are preliminary and upon help desk manager reviewmay be revised to meet current compliance requirements. Recognized by the [employer] for promoting quality [...] on 2017. HDL 30(L) >=40 mg/dL [facility] ([place]) Comment: Interpretive Data [...] 2017. LDL, calculated 98 <=129 mg/dL [facility] ([place]) Comment: Interpretive Data [...] on 2017. Non-HDL Cholesterol 146 mg/dL [facility] ([place]) Comment: Interpretive Data [...] last revised on 2017. Chol/HDL ratio 6 [facility] ([place]) Blood 06/21/2023 3:52 AM CDT 06/21/2023 4:23 AM CDT us Andrey Hernandez MD LAB BLOOD ORDERABLES Final Resu lt [facility] ([place]) 1 [facility] [place] [address] * Albumin Creatinine Ratio, Urine (07/27/2019) Urine Historical Provider LAB URINE ORDERABLES Nancy l Result from Last 3 Months or Most Recently Relevant to Health Maintenance
--- OUTSIDE RECORDS SUMMARY | 2024-10-24 02:23 | XMS_ITS | Encounter Summary ---
Author Organization [facility] Address [address] [facility] [place] [address] Care Team Providers Care Gold Beater Name Role Phone Monty Moreno MD Unavailable Jill Black MD Unavailable Omer Nunn MD Primary Care Provider [phone] Encounter Details Date Type Department Care Team (Late st Contact Info) Description 05/01/2015 Therapy Visit [facility] Orthopedics [id number] [facility] [address] [place] [address] [place] [id number] [address] Social History Tobacco Use Types Packs/Day Years Used Date Smoking Tobacco: Never Alcohol Use Standard Drinks/Week Comments Yes 0 (1 standard drink = 0.6 oz pur e alcohol) very rare Sex and Gender Information Value Date Recorded Sex Assigned at Not on file 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 Answer Date of Assessment Author No 04/16/2015 5:28 PM Jose Juan Garrison RN * Is person blind or have serious difficulty seeing? Answer Date of Assessment Author No 04/16/2015 5:28 PM Jose Juan Garrison RN * Does person have serious difficulty walking/climbing stairs? Answer Date of Assessment Author No 04/16/2015 5:28 PM Jose Juan Garrison RN * Does person have difficulty dressing/bathing? Answer Date of Assessment Author No 04/16/2015 5:28 PM Jose Juan Garrison RN * Does person have difficulty doing errands alone? Answer Date of Assessment Author No 04/16/2015 5:28 PM Jose Juan Garrison RN documented as of this encounter Mental Status * Does person have difficulty concentrating/remembering/making decisions? Answer Entry Date Author No 04/16/2015 5:28 PM Jose Juan Garrison RN documented in this encounter Plan of Treatment Not on file documented as of this encounter Visit Diagnoses Not on filedocumented in this encounter Additional Health Concerns Infection Onset Date Last Indicated Resolved Time COVID-19 Under Investigation 09/22/2019 09/22/2019 09/22/2019 3:48 PM CDT documented as of this encounter Care Teams Gold Beater Relationship Specialty Start Date End Date Omer Nunn MD [address] [place] [address] PCP - General 02/04/21 [place] [address] [address] Orthopedic Surgery 12/31/14 Jill Black MD [address] [facility] [address] [place] [address] Cardiovascular Disease 09/20/19 documented as of this encounter
--- OUTSIDE RECORDS SUMMARY | 2024-10-24 02:23 | XMS_ITS | Encounter Summary ---
Author Organization [facility] Address [address] [facility] [address] [place] [address] Phone Care Team Providers Care Med Admin Name Role Phone Omer Nunn MD Primary Care Provider [phone] Encounter Details Date Type Department Care Team (Late st Contact Info) Description 10/22/2024 Orders Only [facility]. [address] [facility] [address] [place] [address] Guilherme Dumont MD [address] [facility] [address] [place] [address] Social History Tobacco Use Types Packs/Day Years [...] on file documented as of this encounter Procedures Procedure Name Priority Date/Time Associated Diagnosis Comments SPECIAL CHEMISTRY Routine 10/22/2024 HEMATOLOGY Routine 10/22/2024 CHEMISTRY Routine 10/22/2024 CHEMISTRY Routine 10/22/2024 documented in this encounter Results * (ABNORMAL) SPECIAL CHEMISTRY (10/22/2024) Hemoglobin A1C 4.7(L) 4.8 - 5.9 % [facility] 10/22/2024 10/23/2024 9:5 2 AM CDT Narrative [facility] - 10/23/2024 Unless otherwise specified, test(s) performed at: [facility], [address] [place] [address] SUPERVISOR TWISTING DEPARTMENT: Ramirez Carter M.D. For any questions, please call customer service at FREQUENCY:MONTHLY Resulting Agency Comment Specimen source: Blood Guilherme Dumont MD LAB BLOOD BANK TEST ORDERABLES Final Result [facility] See order comments or contact performing lab Unknown, [place] * (ABNORMAL) [facility] (10/22/2024) Pathologist [facility] Ferritin 896(H) 22 - 322 ng/mL [facility] BUN 60(H) 6 - 19 mg/dL [facility] Creatinine 9.07(H) 0.60 - 1.30 mg/dL [facility] BUN/Creatinine Ratio 6.6(L) 10.0 - 20.0 [facility] Sodium 135(L) 136 - 145 mEq/L [facility] Potassium 4.2 3.5 - 5.1 mEq/L [facility] Chloride 91(L) 96 - 108 mEq/L [facility] Bicarbonate (CO2) 26 22 - 29 mEq/L [facility] Calcium 8.7 8.4 - 10.2 mg/dL [facility] Corrected Calcium 9.1 8.4 - 10.2 mg/dL [facility] Comment: Corrected Calcium is not equivalent to measured Ionized Calcium. Phosphorus 7.5(H) 2.6 - 4.5 mg/dL [facility] Calcium Phosphorus Product 65(H) 0 - 54 [facility] Calcium Phosporus Product, Cor 68(H) 0 - 54 [facility] Alkaline Phosphatase 60 40 - 129 U/L [facility] Total Protein 6.5 6.0 - 8.5 g/dL [facility] Albumin 3.5 3.5 - 5.2 g/dL [facility] Globulin, Total 3.0 2.0 - 4.0 g/dL [facility] A/G Ratio 1.2 1.0 - 2.0 [facility] Glucose 102(H) 70 - 100 mg/dL [facility] Magnesium 2.5 1.6 - 2.6 mg/dL [facility] Iron 77 45 - 160 mcg/dL [facility] UIBC 189 155 - 355 mcg/dL [facility] TIBC 266 185 - 515 mcg/dL [facility] Iron Saturation (TSat) 29 20 - 55 % [facility] 10/22/2024 10/23/2024 10: 08 AM CDT Narrative [facility] - 10/23/2024 Unless otherwise specified, test(s) performed at: [facility], [address] [place] [address] SUPERVISOR TWISTING DEPARTMENT: Ramirez Carter M.D. For any questions, please call customer service at FREQUENCY:MONTHLY Resulting Agency Comment Specimen source: Serum Guilherme Dumont MD LAB BLOOD ORDERABLES Edited Re sult - Final Performing Organization Address City/[facility]/ZIP Co de Phone Number [facility] YouTube See order comments or contact performing lab Unknown, [place] * (ABNORMAL) [facility] Chemistry (10/22/2024) PTH 178(H) 16 - 80 pg/mL [facility] 10/22/2024 10/23/2024 10: 11 AM CDT Narrative [facility] - 10/23/2024 Unless otherwise specified, test(s) performed at: [facility], [address] [place], [place] [id number] SUPERVISOR TWISTING DEPARTMENT: Ramirez Carter M.D. For any questions, please call customer service at FREQUENCY:MONTHLY Resulting Agency Comment Specimen source: Plasma Guilherme Dumont MD LAB BLOOD ORDERABLES Final Res ult [facility] See order comments or contact performing lab Unknown, [place] * (ABNORMAL) HEMATOLOGY (10/22/2024) Neutrophils 74.1 40.0 - 75.0 % [facility] Lymphocytes Relative 14.2(L) 19.0 - 48.0 % [facility] Monocytes 5.7 3.0 - 10.0 % [facility] Eosinophils Relative 3.8 0.0 - 7.0 % [facility] Basophils Relative 3.1(H) 0.0 - 1.5 % [facility] BUBBA 2.2 0.0 - 4.0 % [facility] WBC 5.30 4.80 - 10.80 1000/mcL [facility] RBC 3.05(L) 4.70 - 6.10 mill/mcL [facility] Hematocrit 30.4(L) 42.0 - 52.0 % [facility] MCV 100 80 - 100 fl [facility] MCH 31.8(H) 27.0 - 31.0 pg [facility] MCHC 32.0 30.0 - 36.0 g/dL [facility] RDW 16.6(H) 11.5 - 14.5 % [facility] Hemoglobin 9.7(L) 14.0 - 18.0 g/dL [facility] Hemoglobin x 3 29.1(L) 42.0 - 54.0 % [facility] Platelets 292 130 - 400 1000/mcL [facility] Retic Ct Pct 4.12(H) 0.80 - 2.10 % [facility] 10/22/2024 10/23/2024 9:5 2 AM CDT Narrative [facility] - 10/23/2024 Unless otherwise specified, test(s) performed at: [facility], [address] [place] [id number] SUPERVISOR TWISTING DEPARTMENT: Ramirez Carter M.D. For any questions, please call customer service at FREQUENCY:MONTHLY Resulting Agency Comment Specimen source: Blood Guilherme Dumont MD LAB BLOOD ORDERABLES Final Res ult [facility] See order comments or contact performing lab Unknown, [place] documented in this encounter Visit Diagnoses Not on filedocumented in this encounter Care Teams Med Admin Relationship Specialty Start Date End Date Omer Nunn MD [address] [place] [address] PCP - General Internal Medicine 12/18/19 documented as of this encounter
--- OUTSIDE RECORDS SUMMARY | 2024-10-24 02:23 | XMS_ITS | Encounter Summary ---
Author Organization [facility] Address [address] [address] [place] [address] Phone Care Team Providers Care Steam And Gas Turbine Assembler Name Role Phone Omer Nunn MD Primary Care Provider [phone] Encounter Details Date Type Department Care Team (Late st Contact Info) Description 04/27/2019 Orders Only [facility]. [address] [facility] [facility] [address] [place] [address] Guilherme Dumont MD [address] [facility] [address] [place] [address] Chronic kidney disease stage 3 [...] (HCC) documented in this encounter Care Teams Steam And Gas Turbine Assembler Relationship Specialty Start Date End Date Omer Nunn MD [address] [place] [id number] PCP - General Internal Medicine 12/18/19 documented as of this encounter
--- OUTSIDE RECORDS SUMMARY | 2024-10-24 02:23 | XMS_ITS | Encounter Summary ---
Author Organization [facility] Address [address] [facility] [address] [place] [address] Phone Care Team Providers Care Credentialing Specialist Name Role Phone Omer Nunn MD Primary Care Provider [phone] Reason for Visit * Reason Comments Med Refill Encounter Details Date Type Department Care Team (Late st Contact Info) Description 01/24/2024 Refill [facility]. [address] [facility] [address] [place] [address] Guilherme Dumont MD [address] [facility] [address] [place] [address] Social History Tobacco Use Types [...] on filedocumented in this encounter Care Teams Credentialing Specialist Relationship Specialty Start Date End Date Omer Nunn MD [address] [place] [address] PCP - General Internal Medicine 12/18/19 documented as of this encounter
--- OUTSIDE RECORDS SUMMARY | 2024-10-24 02:23 | XMS_ITS | Clinical Summary ---
Author Organization [facility] Address [facility] [place] [address] Care Team Providers Care Couture Alterations Dressmaker Name Role Phone Unavailable Primary Care Provider Unavailabl e Social History Tobacco Use Types Packs/Day Years Used Date Smoking Tobacco: Never Assessed Sex and Gender Information Value Date Recorded Sex Assigned at Not on file Legal Sex Male 8:03 PM CDT Gender Identity Not on file Sexual Orientation Not on file Plan of Treatment Health Maintenance Due Date Last Done Comments Hepatitis C 01/04/1966 DTaP, Tdap and Td Vaccines ( 1 - Tdap) 01/04/1967 Pneumococcal Vaccine: 50+ Ye ars (1 of 1 - PCV) 01/04/1998 Zoster Vaccines (1 of 2) 01/04/1998 RSV Immunization or 60+ Years (1 - 1-dose 75+ series) 01/04/2023 COVID-19 Vaccine ( - 2023-2 5 season) 2023 Meningococcal B Vaccine Aged Out No l onger eligible based on patient's age to complete this topic Meningococcal Vaccine Aged Out No alonzo ailyn eligible based on patient's age to complete this topic RSV Immunizations Under 20 Months Aged Out No longer eligible based on patient's age to complete this topic
--- OUTSIDE RECORDS SUMMARY | 2024-10-24 02:23 | XMS_ITS | Encounter Summary ---
Author Organization [facility] Address [address] [place] [address] Care Team Providers Care Pin Sorter And Bagger Name Role Phone Omer Nunn MD Primary Care Provider [phone] Hemanth Sanches MD Unavailable Jessa Bryan DO Unavailable [phone] Encounter Details Date Type Department Care Team (Late st Contact Info) Description 10/23/2024 [facility] Post Discharge Follow up phone call [facility] [address] [place] [address] [id number] Chiara Chavez Social History Tobacco Use Types Packs/Day Years Used Date Smoking Tobacco: Never Smokeless Tobacco: Never Alcohol Use Standard Drinks/Week Comments Never 0 (1 standard drink = 0.6 oz pur e alcohol) [facility] Utilities Answer Date Recorded In the past [...] often do you attend chur ch or worship services? 1 to 4 times per year 07/27/2024 Do you belong to any clubs o r organizations such as roman catholic groups, unions, fraternal or athletic groups, or [...] money to buy more. Never true 07/28/19 Within the past 12 months, t he [...] place to sleep or slept in a group home (including now)? No 06/21/2023 Housing Stability [...] any time in the past 12 m [facility], were you homeless or living in a group home (including now)? 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 Gender Identity Not on file Sexual Orientation Not on file documented as of this encounter Plan of Treatment Not on file documented as of this encounter Visit Diagnoses Not on filedocumented in this encounter Care Teams Pin Sorter And Bagger Relationship Specialty Start Date End Date Omer Nunn MD [address] [place] [address] PCP - General 01/10/12 Hemanth Sanches MD [address] [facility] [address] [place] [address] Consulting Physician Gastroenterology 10/24/23 Jessa Bryan DO [address] [facility] [place] [address] Consulting Physician Internal Medicine 07/12/24 documented as of this encounter
--- OUTSIDE RECORDS SUMMARY | 2024-10-24 02:23 | XMS_ITS | Clinical Summary ---
Author Organization [facility] Facility Address [address] [address] Care Team Providers Care Lead Operator Name Role Phone Omer Nunn MD Primary Care Provider [phone] Allergies Active Allergy Reactions Criticality Noted Date Comments Morphine Nausea And Vomiting, Other (see comments) 12/31/2014 Medications * This document contains information received from the source organization and may not represent a complete record from that organization. allopurinol (ZYLOPRIM) 100 MG tablet Take 1 tablet by mouth 2 (two) times a day 5 Active aspirin 81 MG chewable tablet Chew 1 tablet 1 (one) time each day 6 Active FLUoxetine (PROzac) 40 MG capsule Take 1 capsule by mouth every morning 5 Active buPROPion XL (WELLBUTRIN XL) 300 MG 24 hr tablet Take 1 tablet by mouth 1 (one) time each day Active ALPRAZolam (Xanax) 0.5 MG tablet Take 1 tablet by mouth every 8 (eight) hours if needed 5 Active zafirlukast (ACCOLATE) 20 MG tablet Take 1 tablet by mouth 2 (two) times a day 8 Active Cetirizine HCl 10 MG capsule Take 1 capsule by mouth 1 (one) time each day Active Multiple Vitamin (multivitamin) tablet Take 1 tablet by mouth 1 (one) time each day Active co-enzyme Q-10 30 MG capsule Take 100 mg by mouth 1 (one) time each day Active atorvastatin (LIPITOR) 80 MG tablet Take 80 mg by mouth 1 (one) time each day Active ipratropium (ATROVENT) 0.06 % nasal spray Administer 2 sprays into each nostril 1 (one) time each day if needed 0 Active cholecalciferol (VITAMIN D-3) 50 MCG (2000 UT) tablet Take 2,000 Units by mouth 1 (one) time each day Active amLODIPine (NORVASC) 10 MG tablet Take 1 tablet (10 mg total) by mouth 1 (one) time each day 90 tablet 3 3 Active hydrALAZINE 25 MG tablet Take 1 tablet (25 mg total) by mouth in the morning and 1 tablet (25 mg total) in the evening. 180 tablet 3 3 Active lactulose (CHRONULAC) 10 GM/15ML solution Take 20 g by mouth 1 (one) time each day Active levalbuterol (XOPENEX HFA) 45 MCG/ACT inhaler Inhale 1-2 puffs Active carvedilol (COREG) 25 MG tablet Take 1 tablet (25 mg total) by mouth in the morning and 1 tablet (25 mg total) in the evening. 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 [address] [place] [address] Guilherme Dumont MD 10/04/2024 Orders Only [facility] [address] [place] [address] Guilherme Dumont MD 09/20/2024 Refill [facility] [address] [place] [address] Guilherme Dumont MD 09/17/2024 Orders Only [facility] [address] [place] [address] Prachi Hennessy MA 09/12/2024 Orders Only [facility] [address] [place] [address] Prachi Hennessy MA 09/04/2024 Orders Only [facility] [address] [place] [address] Guilherme Dumont MD 08/21/2024 Documentation Only [facility] [address] [place] [address] Guilherme Dumont MD 08/21/2024 Orders Only [facility] [address] [place] [address] Charlotte Hennessy MA 08/06/2024 Orders Only [facility] [address] [place] [address] Guilherme Dumont MD from Last 3 Months Family History Medical History Relation Comments Heart disease Brother 1 No Known Problems Brother 2 Kidney disease Child Diabetes Father Gout Father Heart disease Father Hypertension Father Cancer Mother Heart disease Mother Hypertension Mother Heart disease Sibling Autoimmune disease Sister Cirrhosis Sister Relation Status Comments Brother 1 Alive Brother 2 Alive Child Father Mother Sibling Sister Alive Social History Tobacco Use Types Packs/Day Years [...] Sign Reading Time Taken Comments Blood Pressure 113/65 05/24/2023 12:55 PM CDT Pulse 83 05/24/2023 12:55 PM CDT Temperature 36.7 C (98 F) 05/24/2023 12:55 PM CDT Respiratory Rate 16 08/02/2017 11:00 AM CDT Oxygen Saturation 93% 06/16/2021 10:34 AM CDT Inhaled Oxygen Concentration - - Weight 95.7 kg (211 lb) 05/24/2023 12:55 PM CDT Height 185.4 cm (6' 1) 05/24/2023 12:55 PM CDT Body Mass Index 27.84 05/24/2023 12:55 PM CDT Plan of Treatment Health Maintenance Due Date Last Done Comments Pneumococcal Vaccine: 50+ Years (1 of 2 - PCV) 01/04/1969 Diabetes: Ophthalmology Exam 08/21/2024 Diabetes: Pedal Pulse Checked 08/21/2024 Diabetes: Sensory Foot Exam 08/21/2024 Diabetes: Visual Foot Exam 08/21/2024 Influenza Vaccine (#1) 2024 Diabetes: Hemoglobin A1C 01/22/2025 025, 08/02/2024, 07/10/2024, Additional history exists Colorectal Cancer Screening: Colonoscopy Discontinued 11/19/2023 Hepatitis B Vaccine Aged Out No longe r eligible based on patient's age to complete this topic Procedures Procedure Name Priority Date/Time Associated Diagnosis Comments SPECIAL CHEMISTRY Routine 10/22/2024 CHEMISTRY Routine 10/22/2024 CHEMISTRY Routine 10/22/2024 HEMATOLOGY Routine 10/22/2024 URINE CLEARANCE Routine 10/04/2024 PD ADEQUACY Routine 10/04/2024 HEMATOLOGY Routine 10/04/2024 PDF CHEMISTRY Routine 10/04/2024 PD ADEQUACY Routine 10/04/2024 PATIENT INFORMATION Routine 10/04/2024 CHEMISTRY Routine 10/04/2024 PATIENT INFORMATION Routine 10/04/2024 PATIENT INFORMATION Routine 10/04/2024 URINE CLEARANCE Routine 09/04/2024 PD ADEQUACY Routine 09/04/2024 PDF CHEMISTRY Routine 09/04/2024 PD ADEQUACY Routine 09/04/2024 IMMUNO CHEMISTRY Routine 09/04/2024 CHEMISTRY Routine 09/04/2024 HEMATOLOGY Routine 09/04/2024 PATIENT INFORMATION Routine 09/04/2024 PATIENT INFORMATION Routine 09/04/2024 PATIENT INFORMATION Routine 09/04/2024 IMMUNO CHEMISTRY Routine 08/06/2024 CHEMISTRY Routine 08/06/2024 HEMATOLOGY Routine 08/06/2024 from Last 3 Months Results * (ABNORMAL) SPECIAL CHEMISTRY (10/22/2024) Hemoglobin A1C 4.7(L) 4.8 - 5.9 % [facility] 10/22/2024 10/23/2024 9:5 2 AM CDT Narrative [facility] - 10/23/2024 Unless otherwise specified, test(s) performed at: [facility], [address] [place], [place] [id number] FRANCHISE SALES REPRESENTATIVE: Ramirez Carter M.D. For any questions, please call customer service at FREQUENCY:MONTHLY Resulting Agency Comment Specimen source: Blood Guilherme Dumont MD LAB BLOOD BANK TEST ORDERABLES Final Result [facility] See order comments or contact performing lab Unknown, [place] * (ABNORMAL) HEMATOLOGY (10/22/2024) Only the most recent of4 resultswithin the time period is included. Neutrophils 74.1 40.0 - 75.0 % [facility] [...] 10/23/2024 Unless otherwise specified, test(s) performed at: [facility], [address] [place] [id number] FRANCHISE SALES REPRESENTATIVE: Ramirez Carter M.D. For any questions, please call customer service at FREQUENCY:MONTHLY Resulting Agency Comment Specimen source: Blood us Guilherme Dumont MD LAB BLOOD ORDERABLES Final Res ult [facility] See order comments or contact performing lab Unknown, [place] * (ABNORMAL) [facility] Chemistry (10/22/2024) Only the most recent of5 resultswithin the time period is included. Ferritin 896(H) 22 - 322 ng/mL [facility] [...] 10/22/2024 10/23/2024 10: 08 AM CDT Narrative [facility] - 10/23/2024 Unless otherwise specified, test(s) performed at: [facility], [address] [place], [place] [id number] FRANCHISE SALES REPRESENTATIVE: Ramirez Carter M.D. For any questions, please call customer service at FREQUENCY:MONTHLY Resulting Agency Comment Specimen source: Serum Guilherme Dumont MD LAB BLOOD ORDERABLES Edited Re sult - Final [facility] See order comments or contact performing lab Unknown, [place] * (ABNORMAL) URINE CLEARANCE (10/04/2024) Only the most recent of2 resultswithin the time period is included. Urea Nitrogen, Urine Timed 264 mg/dL [facility] Urea Nitrogen, Urine 24 Hr 0.8(L) 12.0 - 20.0 g/24 hr [facility] Urea Clear, Urine Norm 0.8(L) 64.0 - 99.0 mL/min [facility] Urea Clearance, Urine 1.0(L) 64.0 - 99.0 mL/min [facility] Urea Clear, Urine Norm Wkly 10 L/wk [facility] Creatinine, Urine Timed 100.4 mg/dL [facility] Creatinine, 24H Ur 0.3(L) 0.7 - 1.8 g/24 hr [facility] Creatinine Clear, Urine 2.5 mL/min [facility] Creat Clear, Urine Norm 2.0(L) 94.0 - 122.0 mL/min [facility] Creat Clear, Urine Wkly 25.2 L/wk [facility] 10/04/2024 10/05/2024 9:4 7 AM CDT Narrative Resulting Agency Comment Specimen source: Urine us Guilherme Dumont MD LAB URINE ORDERABLES Final Res ult [facility] See order comments or contact performing lab Unknown, [place] * PDF CHEMISTRY (10/04/2024) Only the most recent of2 resultswithin the time period is included. Urea Nitrogen, PDF 24 Hr 7,974.2 mg/24 hr [facility] Urea Nitrogen, PDF Timed 48 mg/dL [facility] Urea Clearance, PD Fluid 9.7 mL/min [facility] Urea Clearance, PDF Norm 7.8 mL/min [facility] Urea Clear, PDF Norm Wkly 98 L/wk [facility] Creatinine, PDF Timed Uncor 4.9 mg/dL [facility] Urea Clear, Tot Norm Wkly 108 L/wk [facility] Creatinine, PDF Timed Cor 4.7 mg/dL [facility] Comment: Creatinine values have been corrected for glucose interference. [facility] glucose correction factor for creatinine is 0.0002. Creatinine, PDF 24 Hr 780.8 mg/24 hr [facility] Creatinine Clear, PDF 6.5 mL/min [facility] Creatinine Clear, PDF Norm 5.3 mL/min [facility] Creat Clear, PDF Norm Wkly 66 L/wk [facility] Creat Clear, Tot Wkly 91 L/wk [facility] Glucose, PDF Timed 1,168 mg/dL [facility] 10/04/2024 10/05/2024 9:4 3 AM CDT Narrative Resulting Agency Comment Specimen source: PD Fluid Guilherme Dumont MD LAB BODY FLUIDS AND STOOLS ORD ERABLES Edited Result - Final [facility] See order comments or contact performing lab Unknown, [place] * PD ADEQUACY (10/04/2024) Only the most recent of4 resultswithin the time period is included. Kt/V, Residual 0.20 [facility] Creat Clear, Urine Nor Wkly 20 L/wk [facility] 10/04/2024 10/05/2024 9:4 7 AM CDT Narrative [facility] - 10/05/2024 Unless otherwise specified, test(s) performed at: [facility], [address] [place] [id number] FRANCHISE SALES REPRESENTATIVE: Ramirez Carter M.D. For any questions, please call customer service at FREQUENCY:OTHER Resulting Agency Comment Specimen source: Urine Guilherme Dumont MD LAB BODY FLUIDS AND STOOLS ORD ERABLES Final Result [facility] See order comments or contact performing lab Unknown, [place] * PATIENT INFORMATION (10/04/2024) Only the most recent of6 resultswithin the time period is included. Pathologist [facility] Urea Volume Distribution ([place]) 49.0 L [facility] 10/04/2024 10/05/2024 9:4 3 AM CDT Narrative [facility] - 10/05/2024 Unless otherwise specified, test(s) performed at: [facility], [address] [place] [id number] FRANCHISE SALES REPRESENTATIVE: Ramirez Carter M.D. For any questions, please call customer service at FREQUENCY:OTHER Resulting Agency Comment Specimen source: PD Fluid us Guilherme Dumont MD LAB BLOOD ORDERABLES Final Res ult Performing Organization Address [facility] de Phone Number [facility] See order comments or contact performing lab Unknown, [place] * IMMUNO CHEMISTRY (09/04/2024) Only the most recent of2 resultswithin the time period is included. Pathologist [facility] Hepatitis B Surface Ab >1,000 mIU/mL [facility] Comment: The anti-HBs (Hepatitis B surface antibody) is greater than or equal to 10 mIU/mL and implies immunity. The patient has either had an antibody response to HBV vaccination, received a transfusion, or has recovered from HBV infection. For post-vaccination antibody testing guidelines for the general public, refer to MMWR February 26, 2005/Vol.54 (No. 16); 1-23, and for healthcare workers, refer to MMWR February 23, 2013/Vol.62 (No. 10); 1-18. Reference Range: <10 mIU/mL Non-Immune >=10 mIU/mL Immune The magnitude of the measured result above 10 mIU/mL is not indicative of the total amount of antibody present. 09/04/2024 09/05/2024 9:3 1 AM CDT Narrative Resulting Agency Comment Specimen source: Serum us Guilherme Dumont MD LAB BLOOD ORDERABLES Final Res ult [facility] See order comments or contact performing lab Unknown, [place] from Last 3 Months Insurance Medicare Aet Commercial Care Teams Lead Operator Relationship Specialty Start Date End Date Omer Nunn MD [address] [place] [address] PCP - General Internal Medicine 12/18/19
--- OUTSIDE RECORDS SUMMARY | 2024-10-24 02:24 | XMS_ITS | Encounter Summary ---
Author Organization [facility] Address [address] [place] [address] Phone Care Team Providers Care Radiation Engineer Name Role Phone Omer Nunn MD Primary Care Provider [phone] Encounter Details Date Type Department Care Team (Late st Contact Info) Description 12/07/2019 Orders Only [facility] [address] [place] [address] Guilherme Dumont MD [address] [place] [address] Stage 5 chronic kidney disease (HCC) Social History Tobacco Use Types Packs/Day [...] as of this encounter Visit Diagnoses Diagnosis Stage 5 chronic kidney disease (HCC) documented in this encounter Care Teams Radiation Engineer Relationship Specialty Start Date End Date Omer Nunn MD [address] [place] [address] PCP - General Internal Medicine 12/18/19 documented as of this encounter
--- OUTSIDE RECORDS SUMMARY | 2024-10-24 02:24 | XMS_ITS | Encounter Summary ---
Author Organization [facility] Address [address] [place] [address] Phone Care Team Providers Care Textile Colorist Dyer Name Role Phone Omer Nunn MD Primary Care Provider [phone] Encounter Details Date Type Department Care Team (Late st Contact Info) Description 11/23/2019 Orders Only [facility] [address] [place] [address] Guilherme Dumont MD [address] [place] [address] Stage 5 chronic kidney disease [...] (HCC) documented in this encounter Care Teams Textile Colorist Dyer Relationship Specialty Start Date End Date Omer Nunn MD [address] [place] [address] PCP - General Internal Medicine 12/18/19 documented as of this encounter
--- OUTSIDE RECORDS SUMMARY | 2024-10-24 02:24 | XMS_ITS | Encounter Summary ---
Author Organization [facility] Address [address] [place] [address] Phone Care Team Providers Care Director Records Management Name Role Phone Omer Nunn MD Primary Care Provider [phone] Encounter Details Date Type Department Care Team (Late st Contact Info) Description 11/16/2019 Orders Only [facility] [address] [place] [address] Guilherme Dumont MD [address] [place] [address] Stage 5 chronic kidney disease [...] (HCC) documented in this encounter Care Teams Director Records Management Relationship Specialty Start Date End Date Omer Nunn MD [address] [place] [address] PCP - General Internal Medicine 12/18/19 documented as of this encounter
--- OUTSIDE RECORDS SUMMARY | 2024-10-24 02:24 | XMS_ITS | Clinical Summary ---
Author Organization [facility] Address [address] [place] [address] Care Team Providers Care Senior Accounting Analyst Name Role Phone Monty Moreno MD Unavailable [phone] Jill Black MD Unavailable [phone] Omer Nunn MD Primary Care Provider [phone] Source Comments [facility],non-owned Affiliates and Associated Physician Practices is amultiple site organization consisting of ambulatory clinics and hospital sitesin [place], [place], [place] and [place]. This disclosure is being madepursuant to the Care Everywhere program and may not contain all information available regarding this patient. Last updated 17.[facility] Allergies Active Allergy Reactions Criticality Noted Date Comments Beta Adrenergic Blockers Other Low Bradycardia - takes Coreg as home med as of 04/2020 Morphine Nausea and/or Vomiting Low 12/31/2014 Medications * Be aware that medications may not be up to date on this document. Alwaysverify current medications with the patient. carvedilol (COREG) 25 MG tablet Take 1 (one) tablet by mouth 2 times daily 2 5 Active allopurinol (ZYLOPRIM) 100 MG tablet Take 1 (one) tablet by mouth 2 times daily 1 5 Active FLUoxetine (PROZAC) 40 MG capsule Take 1 (one) capsule by mouth every morning 1 5 Active ALPRAZolam (XANAX) 0.5 MG tablet Take 1 (one) tablet by mouth once daily as needed 0.5 mg in am/ 1 mg HS 2 5 Active multivitamin daily (THERAGRAN) tablet Take 1 (one) tablet by mouth daily with food Active zafirlukast (ACCOLATE) 20 MG tablet 2 times daily, before breakfast and supper 1 8 Active cetirizine (ZYRTEC ALLERGY) 10 MG tablet Take 1 (one) tablet by mouth once daily 4 Active atorvastatin (LIPITOR) 80 MG tablet Take 1 (one) tablet by mouth at bedtime 0 Active alirocumab (PRALUENT) 75 MG/ML injection Inject 75 (seventy five) mg subcutaneously every 14 days 0 Active Coenzyme Q10 (CO Q-10) 200 MG Take 1 tablet by mouth once daily Active Darbepoetin Oscar-Polysorba te (ARANESP, ALB FREE, SURECLICK IJ) Every 2 weeks when hgb <10 Active melatonin 10 MG capsule Take 1 (one) capsule by mouth at bedtime Active HYDROcodone-ac etaminophen (NORCO) 5-325 MG tablet Take 1 (one) tablet by mouth every 6 hours as needed for Pain 28 tablet 1 Active Additional Information Patient not taking.Reported on 03/23/2023 hydrALAZINE (APRESOLINE) 25 MG tablet Take 1 (one) tablet by mouth 2 times daily Take only if BP is greater than 130/90 60 tablet 1 Active amLODIPine (NORVASC) 10 MG tablet Take 1 (one) tablet by mouth once daily Take only if BP is greater than 120/80 30 tablet 1 Active Additional Information Patient not taking.Reported on 03/23/2023 buPROPion XL 24hr (WELLBUTRIN-XL ) 300 MG tablet Take 1 (one) tablet by mouth once daily 1 Active ammonium lactate (Lac-Hydrin) 12 % creamIndicatio ns:Xerosis Cutis Apply to the feet and around the toenails at least once a day. Do not apply between the toes Reasons: Abnormal Dryness of Skin 385 g 5 4 Active Active Problems Problem Noted Date Diagnosed Date Depression 12/22/2022 03/23/2023 Acute renal failure superimposed on chronic kidn ey disease 10/10/2019 Infection of total knee replacement 09/24/2019 Iron deficiency anemia, unspecified 04/20/2019 Chronic kidney disease, stage IV (severe) 2019 Anemia of chronic renal failure, stage 4 (severe ) 03/08/2019 Cardiomyopathy 01/28/2019 Presence of stent in coronary artery 12/30/2016 Obstructive sleep apnea 09/16/2016 Overview (07/28/2017): Last Assessment & Plan: Intolerant of CPAP S/P revision of total knee 05/27/2015 Heart disease Pacemaker Hypertension Diabetes Social History Tobacco Use Types Packs/Day Years Used Date Smoking Tobacco: Never Smokeless Tobacco: Never Tobacco Cessation:Counseling Given: Not Answered Alcohol Use Standard Drinks/Week Comments Never 0 (1 standard drink = 0.6 oz pur e alcohol) very rare AUDIT-C Answer Date Recorded Q1: How often do you have a drink containing alc ohol? Never 09/24/2019 Average Number of Drinks Not on file 020 Frequency of Binge Drinking Not on file 09/05 Sex and Gender Information Value Date Recorded Sex Assigned at Not on file Legal Sex Male 9:37 AM STORES LABORER Gender Identity Not on file Sexual Orientation Not on file Last Filed Vital Signs Vital Sign Reading Time Taken Comments Blood Pressure 146/67 04/11/2020 7:48 AM STORES LABORER sit ting. Pulse 70 03/23/2023 1:10 PM STORES LABORER Temperature 36.8 C (98.2 F) 04/11/2020 7:31 AM STORES LABORER Respiratory Rate 17 03/23/2023 1:10 PM STORES LABORER Oxygen Saturation 94% 03/23/2023 1:10 PM STORES LABORER Inhaled Oxygen Concentration - - Weight 98.4 kg (217 lb) 03/23/2023 1:10 PM STORES LABORER Height 188 cm (6' 2) 03/23/2023 1:10 PM STORES LABORER Body Mass Index 27.86 03/23/2023 1:10 PM STORES LABORER Plan of Treatment Health Maintenance Due Date Last Done Comments MEDICARE AWV 12 MONTHS 1950 HEPATITIS C SCREENING 12/31/1965 DTAP/TDAP/TD VACCINES (1 - Tdap) 01/04/1967 PNEUMOCOCCAL VACCINE 50+ (1 of 2 - PCV) 01/04/1967 ZOSTER VACCINE (1 of 2) 01/04/1998 DIABETES RETINOPATHY SCREENING 04/17/2019 DIABETES-HGB A1C 07/23/2020 01/24/2020, , 07/31/2019, Additional history exists DIABETES-SERUM CREATININE 01/06/20222020, 12/08/2020, 10/21/2020, Additional history exists Respiratory Syncytial Virus (RSV) Vaccine Pt: or over 60 yrs (1 - 1-dose 75+ series) 01/04/2023 COVID-19 VACCINE ( season) 2023 DEPRESSION SCREENING 03/07/2024 DIABETES - URINE PROTEIN SCREENING 03/07/2024 10/11/2019, 04/14/2019 DIABETES-FOOT EXAM WITH MONOFILAMENT 04/10/2024 04/10/2023 INFLUENZA VACCINE (#1) 2024 HEPATITIS B VACCINE Aged Out No longe r eligible based on patient's age to complete this topic HIB VACCINE Aged Out No longer eligi ble based on patient's age to complete this topic HPV VACCINE Aged Out No longer eligi ble based on patient's age to complete this topic MENINGOCOCCAL (Group B) VACCINE SHARED DECISION-MAKING Aged Out No longer eligible based on patient's age to complete this topic MENINGOCOCCAL GROUPS A/C/Y/W VACCINE Aged Out No longer eligible based on patient's age to complete this topic 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 Type Area Landscape Contractor Device Identifier Shelf Expiration Date Model / Serial / Lot Harrison Bone Clemons-G Hv 40/20 Implanted:Qty: 1 on 04/16/2015 by Monty Moreno MD at [facility] Left: Knee [employer] 10/04/2016 [id number] / / [id number] Compon Stem Exten Splined 18mm X 80mm Implanted:Qty: 1 on 04/16/2015 by Monty Moreno MD at [facility] Left: Knee [employer] 10/18/2024 [id number] / / [id number] Tibial Brg Vanguard Ps+ Sz 16 X 79/83mm Implanted:Qty: 1 on 04/16/2015 by Monty Moreno MD at [facility] Left: Knee [employer] 11/03/2016 [id number] / / [id number] Harrison Bone Clemons Hv Implanted:Qty: 1 on 04/16/2015 by Monty Moreno MD at [facility] Left: Knee [employer] 12/04/2016 [id number] / / [id number] Compon Stem Exten Splined 16mm X 120mm Implanted:Qty: 1 on 04/16/2015 by Monty Moreno MD at [facility] Left: Knee [employer] 01/03/2023 [id number] / / [id number] Comp Fem L 75mm Implanted:Qty: 1 on 04/16/2015 by Monty Moreno MD at [facility] Left: Knee [employer] 10/04/2015 [id number] / / [id number] 5mm X 75mm Femoral Posterior Augment Implanted:Qty: 1 on 04/16/2015 by Monty Moreno MD at [facility] Left: Knee [employer] 07/04/2017 [id number] / / [id number] 5mm X 75mm Femoral Posterior Augment Implanted:Qty: 1 on 04/16/2015 by Monty Moreno MD at [facility] Left: Knee [employer] 12/04/2016 [id number] / / [id number] Implt Fem Dist Aug 5 X 75mm Implanted:Qty: 1 on 04/16/2015 by Monty Moreno MD at [facility] Left: Knee [employer] 02/03/2021 [id number] / / [id number] 10mm X 75mm Femoral Rl/Lm Distal Augment Implanted:Qty: 1 on 04/16/2015 by Monty Moreno MD at [facility] Left: Knee [employer] 01/20/2025 [id number] / / [id number] Ty Tibial Non Por 79mm Implanted:Qty: 1 on 04/16/2015 by Monty Moreno MD at [facility] Left: Knee [employer] 02/19/2020 [id number] / / [id number] Harrison Bone Clemons-G Hv 40/20 Implanted:Qty: 2 on 09/24/2019 by Monty Moreno MD at [facility] Right: Knee [employer] 06/21/2020 600-15-100 / / [id number] Cmnt Bone Djo Srg Cblt 40gm Hvisc Strl Implanted:Qty: 2 on 09/24/2019 by Monty Moreno MD at [facility] Right: Knee [employer] 01/04/2020 600-15-000 / / [id number] Harrison Bone Clemons-G Hv 40/20 Implanted:Qty: 1 on 04/09/2020 by Monty Moreno MD at [facility] Right: Knee [employer] 10/07/2020 600-15-100 / / [id number] Harrison Bone Clemons-G Hv 40/20 Implanted:Qty: 1 on 04/09/2020 by Monty Moreno MD at [facility] Right: Knee [employer] 06/07/2020 600-15-100 / / [id number] Block Aug Vngrd [id number] Fem Dist Rmll Implanted:Qty: 1 on 04/09/2020 by Monty Moreno MD at [facility] Right: Knee [employer] 08/07/2028 [id number] / / [id number] Block Aug Vngrd [id number] Fem Dist Lt Mdl Implanted:Qty: 1 on 04/09/2020 by Monty Moreno MD at [facility] Right: Knee [employer] 08/07/2028 [id number] / / [id number] Block Aug Vngrd [id number] Kn Fem Lt Mdl Implanted:Qty: 1 on 04/09/2020 by Monty Moreno MD at [facility] Right: Knee [employer] 06/07/2028 [id number] / / [id number] Block Aug Vngrd [id number] Fem Post Rmll Implanted:Qty: 1 on 04/09/2020 by Monty Moreno MD at [facility] Right: Knee [employer] 04/09/2028 [id number] / / [id number] Tray Tib 5mm Ofst Kn Adpr Implanted:Qty: 1 on 04/09/2020 by Monty Moreno MD at [facility] Right: Knee [employer] 01/07/2029 [id number] / / [id number] Stem Tib 80mm 16mm Vngrd 360 Kn Spline Implanted:Qty: 1 on 04/09/2020 by Monty Moreno MD at [facility] Right: Knee [employer] 09/06/2028 [id number] / / [id number] Cmpnt Fem Kn Rt Post Stab Opn Bx Vngrd Implanted:Qty: 1 on 04/09/2020 by Monty Moreno MD at [facility] Right: Knee [employer] 09/07/2027 [id number] / / [id number] Stem Tib 120mm 18mm Vngrd 360 Kn Spline Implanted:Qty: 1 on 04/09/2020 by Monty Moreno MD at [facility] Right: Knee [employer] 09/06/2025 [id number] / / [id number] Cmpnt Ptlr 31mm 1 Pg Wire Ascnt Arcm Kn Implanted:Qty: 1 on 04/09/2020 by Monty Moreno MD at [facility] Right: Knee [employer] 02/06/2025 [id number] / / [id number] Brng 79/[id number] Vngrd 360 Pe Kn Post Implanted:Qty: 1 on 04/09/2020 by Monty Moreno MD at [facility] Right: Knee [employer] 06/07/2021 [id number] / / [id number] Tray Tib 83mm Ofst Kn Implanted:Qty: 1 on 04/09/2020 by Monty Moreno MD at [facility] Right: Knee [employer] [id number] / / [id number] Procedures Procedure Name Priority Date/Time Associated Diagnosis Comments BASIC METABOLIC PANEL (CALCIUM TOTAL) AM Draw 04/11/2020 3:57 AM STORES LABORER Status post revision of total replacement of right knee HEMOGLOBIN A1C STAT 01/24/2020 12:50 PM STORES LABORER Type 2 diabetes mellitus without complication, without long-term current use of insulin PROTEIN CREATININE RATIO URINE RANDOM PNL Routine 10/11/2019 6:20 PM CDT Acute renal failure superimposed on chronic kidney disease, unspecified CKD stage, unspecified acute renal failure type from Last 3 Months or Most Recently Relevant to Health Maintenance Results * (ABNORMAL) BASIC METABOLIC PANEL (CALCIUM TOTAL) (04/11/2020 3:57 AM STORES LABORER) Glucose 112(H) 70 - 105 mg/dL 04/11/2020 4:35 AM STORES LABORER [facility] Sodium 136 136 - 145 mmol/L 04/11/2020 4:35 AM [facility] Potassium 4.7 3.5 - 5.1 mmol/L 04/11/2020 4:35 AM [facility] Chloride 103 98 - 107 mmol/L 04/11/2020 4:35 AM [facility] CO2 24 23 - 31 mmol/L 04/11/2020 4:35 AM [facility] Calcium 7.9(L) 8.4 - 10.4 mg/dL 04/11/2020 4:35 AM [facility] Anion Gap 9 8 - 18 mmol/L 04/11/2020 4:35 AM [facility] Comment:Attention clinician: Reference Range change. BUN 43(H) 8.4 - 25.7 mg/dL 04/11/2020 4:35 AM [facility] Creatinine 2.16(H) 0.72 - 1.25 mg/dL 04/11/2020 4:35 AM STORES LABORER [facility] eGFR by MDRD 30 mL/min/1.7 3m2 04/11/2020 4:35 AM STORES LABORER [facility] eGFR by MDRD 37 mL/min/1.7 3m2 04/11/2020 4:35 AM [facility] Blood BLOOD SPECIMEN / Unknown Venipuncture / Unknown 04/11/2020 3:57 AM STORES LABORER 04/11/2020 4:09 AM STORES LABORER us Liza Ojeda MD LAB - CHEMISTRY ORDERABLES Final Result [facility] [address] [place] [address] * HEMOGLOBIN A1C (01/24/2020 12:50 PM STORES LABORER) Hemoglobin A1c 4.8 4.2 - 5.6 % 01/24/2020 2:50 PM STORES LABORER [facility] Estimated Average Glucose 91 mg/dL 01/24/2020 2:50 PM STORES LABORER [facility] Blood BLOOD SPECIMEN / Unknown Venipuncture / Unknown 01/24/2020 12:50 PM STORES LABORER 01/24/2020 12:53 PM STORES LABORER Narrative [facility] - 01/24/2020 2:50 PM STORES LABORER The following cutoff levels are recommended by [place] [employer]. A1c > 6.5% : considered as diabetes if two separate tests >6.5% or in an appropriate clinical setting. A1c 5.7% - 6.4% : considered as prediabetes (suggest increased risk for diabetes and cardiovascular disease) Control target level: Should be individualized. < 7 for general (non-) , < 8% less stringent goal, < 6.5 more stringent goal. Hemoglobin A1c measurements are used as an aid in the diagnosis of diabetic mellitus, as an aid to identify patients who may be at the risk for developing diabetic mellitus, and for the monitoring long-term blood glucose control in individuals with diabetes mellitus. This test should not replace glucose testing for patients with Type 1 diabetes, pediatric patients, or women. Falsely low HbA1c results may be observed in patients with clinical conditions that shorten erythrocyte life span or decrease mean erythrocyte age such as the presence of unstable hemoglobin variants, elevated hemoglobin F level or other causes of hemolytic anemia . HbA1c may not accurately reflect glycemic control when clinical conditions that affect erythrocyte survival are present. Severe Iron deficiency anemia may yield falsely high results. Hemoglobin A1c assay should not be used to diagnose or monitor diabetes in patients with malignancy, recent blood transfusion, chronic kidney or liver disease. This method may yield falsely low results when hemoglobin (HbF) exceeds 5% in the specimen. oMnica Garrido SCOREBOARD OPERATOR-METAL BOX MAKER LAB - CHEMISTRY ORDER ALEXX Final Result [facility] [address] [place] [address] * (ABNORMAL) PROTEIN CREATININE RATIO URINE RANDOM PNL (10/11/2019 6:20 PM CDT) Protein Urine 147.0(H) <11.9 mg/dL 10/11/2019 7:06 PM CDT [facility] Creatinine Urine 38.58 mg/dL 10/11/2019 7:06 PM CDT [facility] Protein/Creatin ine Ratio Urine 3.81 10/11/2019 7:06 PM CDT [facility] Urine URINE SPECIMEN OBTAINED BY CLEAN CATCH PROCEDURE / Unknown Collection / Unknown 10/11/2019 6:20 PM CDT 10/11/2019 6:39 PM CDT us Pradeep Grewal MD LAB - URINE CHEMISTRY ORDERABL ES Final Result [facility] [address] [place] [address] from Last 3 Months or Most Recently Relevant to Health Maintenance Insurance MEDICARE AET MEDICARE AETNA Advance Directives * Full Code (Latest Code Status on File) Date Activated Date Inactivated Comments 04/09/2020 3:39 PM 04/11/2020 2:51 PM * Full Code Date Activated Date Inactivated Comments 10/10/2019 7:45 PM 10/13/2019 5:00 PM * Full Code Date Activated Date Inactivated Comments 09/24/2019 2:25 PM 09/27/2019 6:28 PM * Full Code Date Activated Date Inactivated Comments 06/08/2015 10:10 PM 06/11/2015 3:44 PM * Full Code Date Activated Date Inactivated Comments 04/16/2015 5:00 PM 04/18/2015 3:07 PM Care Teams Senior Accounting Analyst Relationship Specialty Start Date End Date Omer Nunn MD [address] [place] [id number] PCP - General 02/04/21 [place] [address] [address] Orthopedic Surgery 12/31/14 Jill Black MD [address] [address] Cardiovascular Disease 09/20/19
--- OUTSIDE RECORDS SUMMARY | 2024-10-24 02:24 | XMS_ITS | Encounter Summary ---
Author Organization [facility] Address [address] [place] [address] Phone Care Team Providers Care Supervisor Sunglasses Name Role Phone Omer Nunn MD Primary Care Provider [phone] Encounter Details Date Type Department Care Team (Late st Contact Info) Description 11/30/2019 Orders Only [facility]. [address] [place] [address] Guilherme Dumont MD [address] [place] [address] Stage 5 chronic kidney disease [...] (HCC) documented in this encounter Care Teams Supervisor Sunglasses Relationship Specialty Start Date End Date Omer Nunn MD [address] [place] [address] PCP - General Internal Medicine 12/18/19 documented as of this encounter
[2024-10-24 10:00] VITALS: BP 173/83; PULSE 70; RESP 19; O2SAT 97
--- NOTE | 2024-10-24 10:34 | WPDMODSED ---
Moderate Sedation Note-Pt Data Patient Data Diagnosis: Sick sinus syndrome with pacemaker at [facility] Ischemic cardiomyopathy Present Complaint: No complaints Procedure to be performed/Plan: Pacemaker generator change Allergies Allergy/AdvReac Type Severity Reaction Status Date / Time vancomycin Allergy Unknown Unknown Verified 10/23/24 15:37 morphine AdvReac Unknown N&V Verified 10/23/24 15:37 Home Medications ?Medication ?Instructions ?Recorded ?Confirmed ?Type aspirin 81 mg tablet,delayed 81 mg PO DAILY 11/15/20 10/23/24 History release atorvastatin 80 mg tablet 80 mg PO DAILY 11/15/20 10/23/24 History fluoxetine 40 mg capsule 40 mg PO DAILY 11/15/20 10/23/24 History zafirlukast 20 mg tablet 20 mg PO BID 11/15/20 10/23/24 History coenzyme Q10 100 mg capsule (Co 100 mg PO DAILY 01/14/21 10/23/24 History Q-10) ueodispdyajx-pgyawvap-guibrd tablet 1 tablet PO DAILY 01/14/21 10/23/24 History bupropion HCl 300 mg 24 hr tablet, 300 mg PO DAILY 11/11/22 10/23/24 History extended release carvedilol 25 mg tablet 12.5 mg PO BID 11/11/22 05/09/23 History cetirizine 10 mg capsule (Zyrtec) 5 mg PO HS 11/11/22 10/23/24 History alprazolam 0.5 mg tablet 0.5 mg PO HS PRN Sleep 05/09/23 10/23/24 History calcium 500 mg (as 1 tablet PO DAILY 05/09/23 10/23/24 History carbonate)-vitamin D3 3.125 mcg (125 unit) tablet cholecalciferol (vitamin D3) 25 25 mcg PO DAILY 05/09/23 10/23/24 History mcg (1,000 unit) capsule (Vitamin D3) levalbuterol tartrate 45 2 inh inhalation Q6H 05/09/23 10/23/24 History mcg/actuation aerosol inhaler apixaban 2.5 mg tablet (Eliquis) mg 10/23/24 History ropinirole 0.25 mg tablet 0.25 mg PO DAILY 10/23/24 10/23/24 History Sedation/Anesthesia: No previous sedation/anesthesia problems (including family history). [facility] Past Medical History Medical History (Updated 11/15/22 @ 12:50 by Tha Elliott DO) DEVEN (obstructive sleep apnea) COPD (chronic obstructive pulmonary disease) Pacemaker CAD (coronary artery disease) Gout HTN (hypertension) HLD (hyperlipidemia) Surgical History Surgical History (Updated 11/15/22 @ 12:50 by Tha Elliott DO) H/O heart artery stent x3 Social History Social History (Updated 11/30/22 @ 13:15 by Kavya Doan MA) Smoking status: Never smoker Second hand tobacco smoke exposure: No Alcohol intake: former Alcohol use details: STOPPED 2018~ Substance use: never Substance use type: does not use Lack of Transportation: No Lack of Food: Never True Current Housing: I Have Housing Concerned About Future Housing: No Difficulty Paying Gas/Electric Bills: No Difficulty Paying for Meds: No Currently Unemployed: No Education: High School Diploma/GED Difficulty w/ Childcare or Family Care: No Living arrangements: with family Gender identity (if verbalized by the patient): Male Sexual Orientation (if Verbalized by the Patient): Straight or Heterosexual Spiritual care concerns: No Mod Sed Physical Exam Physical Exam Pre Procedural Exam: Normal: Appearance, Throat, Airway, Lungs, Heart Rate, Heart Rhythm, Neuro Exam and Extremities and Variation: Heart Size (PMI laterally displaced) Hours since solid foods: 12 Hours since liquid intake: 12 Mallampati Classification: class II ASA Classification/Sedation ASA Classification/Sedation ASA Class: III Emergent: No Risks: Risks, benefits and alternatives explained and patient/family accepted plan for sedation. Patient re-evaluated immediately prior to sedation.
--- NOTE | 2024-10-24 10:35 | PM.IMHP ---
H&P: HPI History of Present Illness Date/Time: 10/24/24 10:35 Chief Complaint: Outpatient admission for pacemaker generator change Narrative: This is a 74-year-old man with a rather complex cardiac/arrhythmia history when seeing this morning for the 1st time as he is admitted as an outpatient for a pacemaker generator change. His device was implanted in 2010 for treatment of symptomatic bradycardia with the diagnosis of sick sinus syndrome. He also has the diagnosis of coronary artery disease and ischemic LV dysfunction. He suffered a myocardial infarction in 2007. He had a series of 3 drug-eluting stents placed in the proximal to mid LAD, posterolateral and the posterior descending arteries. He has a non dominant right coronary artery that is chronically occluded. Following the event his ejection fraction was in the range of 45-50%. He also has a important comorbidity of end-stage renal disease who is now on peritoneal dialysis. The patient was found to have EMEKA on his pacemaker device October 12 of this year. A routine generator change was recommended. Last week and unknown to me he was hospitalized elsewhere at [facility] with some weakness and hypotension. Echocardiograms at [facility] twice earlier this year have showed his ejection fraction to be in the range of 20-25% more recently 30%. Because of this the physicians there ordered as supplied him with a life vest device last week. Comes in today for a pacemaker generator change. Had a very long detailed conversation with the patient and his in the holding area prior to this procedure. Obviously this is not a situation where we have a routine generator change procedure. The patient has had a significant decline in his ejection fraction. Explained to the patient that if we are to treat his heart disease with normal level of aggressiveness we would 1st arrange for a follow-up catheterization to evaluate the status of his coronary arteries and determine if there is any need for or opportunity for revascularization and then determine if he needs a pacemaker or upgrade to an ICD. Had a long conversation with them about ventricular arrhythmia is and sudden . Also made clear to the patient as that they have time to think about an consider this decision as his pacemaker will function for another 6 months. The patient was very clear that he does not wish to be protected against lethal arrhythmias and does not wish to have a defibrillator placed. I explained to them that it the fact that he is wearing a life vest is the contrary to that desire. The clear pressure and I have visiting the patient in the room today is that he would like to the simply do a generator change and not worry about potentially lethal arrhythmias and sudden his feels otherwise but obviously this is ultimately the patient's decision. He is alert and oriented and cognitively intact and capable of making these decisions in my opinion Review of Systems Constitutional: Constitutional: Reports lethargy Eyes: Eyes: Reports no additional eye complaints ENT: Reports system reviewed and no additional complaints, except as documented Cardiovascular: Cardiovascular: Reports no additional cardiovascular complaints Respiratory: Respiratory: Reports dyspnea on exertion Gastrointestinal: Gastrointestinal: Reports no additional gastrointestinal complaints Musculoskeletal: Musculoskeletal: Reports no additional musculoskeletal complaints Integumentary/Breasts: Skin/Breast: Reports system reviewed and no additional complaints, except as docu Neurologic: Reports system reviewed and no additional complaints, except as documented [facility] Past Medical History Medical History (Updated 10/24/24 @ 10:43 by Maxim Juares MD) DEVEN (obstructive sleep apnea) COPD (chronic obstructive pulmonary disease) Pacemaker CAD (coronary artery disease) Gout HTN (hypertension) HLD (hyperlipidemia) Surgical History Surgical History (Updated 11/15/22 @ 12:50 by Tha Elliott DO) H/O heart artery stent x3 Social History Social History (Updated 11/30/22 @ 13:15 by Kavya Doan MA) Smoking status: Never smoker Second hand tobacco smoke exposure: No Alcohol intake: former Alcohol use details: STOPPED 2018~ Substance use: never Substance use type: does not use Lack of Transportation: No Lack of Food: Never True Current Housing: I Have Housing Concerned About Future Housing: No Difficulty Paying Gas/Electric Bills: No Difficulty Paying for Meds: No Currently Unemployed: No Education: High School Diploma/GED Difficulty w/ Childcare or Family Care: No Living arrangements: with family Gender identity (if verbalized by the patient): Male Sexual Orientation (if Verbalized by the Patient): Straight or Heterosexual Spiritual care concerns: No Meds Home Medications and Allergies Home Medications ?Medication ?Instructions ?Recorded ?Confirmed ?Type aspirin 81 mg tablet,delayed 81 mg PO DAILY 11/15/20 10/23/24 History release atorvastatin 80 mg tablet 80 mg PO DAILY 11/15/20 10/23/24 History fluoxetine 40 mg capsule 40 mg PO DAILY 11/15/20 10/23/24 History zafirlukast 20 mg tablet 20 mg PO BID 11/15/20 10/23/24 History coenzyme Q10 100 mg capsule (Co 100 mg PO DAILY 01/14/21 10/23/24 History Q-10) nzxvraihuoif-vkyvissm-lhydjg tablet 1 tablet PO DAILY 01/14/21 10/23/24 History bupropion HCl 300 mg 24 hr tablet, 300 mg PO DAILY 11/11/22 10/23/24 History extended release carvedilol 25 mg tablet 12.5 mg PO BID 11/11/22 05/09/23 History cetirizine 10 mg capsule (Zyrtec) 5 mg PO HS 11/11/22 10/23/24 History alprazolam 0.5 mg tablet 0.5 mg PO HS PRN Sleep 05/09/23 10/23/24 History calcium 500 mg (as 1 tablet PO DAILY 05/09/23 10/23/24 History carbonate)-vitamin D3 3.125 mcg (125 unit) tablet cholecalciferol (vitamin D3) 25 25 mcg PO DAILY 05/09/23 10/23/24 History mcg (1,000 unit) capsule (Vitamin D3) levalbuterol tartrate 45 2 inh inhalation Q6H 05/09/23 10/23/24 History mcg/actuation aerosol inhaler apixaban 2.5 mg tablet (Eliquis) mg 10/23/24 History ropinirole 0.25 mg tablet 0.25 mg PO DAILY 10/23/24 10/23/24 History Allergies Allergy/AdvReac Type Severity Reaction Status Date / Time vancomycin Allergy Unknown Unknown Verified 10/23/24 15:37 morphine AdvReac Unknown N&V Verified 10/23/24 15:37 Exam Const: General: comfortable and no acute distress Other: Pleasant white male appearing his stated age no distress this morning HENMT: Mouth: Yes moist mucous membranes Eyes: Sclera: sclerae normal Neck: Neck: supple and no JVD Resp: Effort & Inspection: normal respiratory effort Auscultation: clear to auscultation bilaterally Other: Pacemaker pocket in the left chest wall is unremarkable in appearance Cardio: Rate: regular rate Rhythm: regular rhythm Other: Soft systolic murmur at the left sternal border without radiation no diastolic murmur no gallop GI: GI Palp: Yes Soft to palpation Auscultation: normal bowel sounds Skin: General skin exam: normal color Neuro: Other: Alert and oriented x3 Extrem: General: normal to inspection Assessment and Plan Assessment and plan (1) Ischemic cardiomyopathy: Code(s): I25.5 - Ischemic cardiomyopathy Status: Acute (2) Pacemaker at end of battery life: Code(s): Z45.010 - Encounter for checking and testing of cardiac pacemaker pulse generator [battery] Status: Acute Plan Very complex situation of a 74-year-old man with underlying ischemic heart disease, ischemic cardiomyopathy which clearly has worsened this year with a significant decline in his ejection fraction. As a result of that and hypotension guideline directed medical therapy in the way of carvedilol and hydralazine have been put on hold. He is admitted today for a pacemaker generator change. He is clear that he does not wish to be protected against sudden in this setting of lethal ventricular arrhythmias and for this reason we will proceed with a standard generator change. Spoke to the patient and his at some length about his wishes not to be resuscitated and I would recommend therefore that he does not continue to wear his LifeVest device. Maxim Juares MD [facility]
[2024-10-24 10:48] LABS: Hematocrit 27.1 % (42.0-52.0); Hemoglobin 8.4 g/dL (14.0-18.0); Immature Granulocyte Percent A 0.4 % (0-0.5); Lymphocytes Absolute Auto 0.96 K/mm3 (0.9-3.2); Mean Corpuscular HGB Conc 31.0 g/dl (32-36); Mean Corpuscular Hemoglobin 31.6 pg (26-34); Mean Corpuscular Volume 101.9 fl (80-100); Nucleated Red Blood Cells Absolute Auto 0.000 K/mm3 (0.0-0.012); Nucleated Red Blood Cells Perc 0.0 % (0.0-0.2); Platelet Count Result 214 k/mm3 (150-375); Red Blood Count 2.66 M/mm3 (4.6-6.20); White Blood Count 7.3 K/mm3 (4.5-10.0)
[2024-10-24 11:11] LABS: Anion Gap 13 mmol/L (4-12); Blood Urea Nitrogen 69 mg/dL (9-20); Calcium 8.6 mg/dL (8.4-10.2); Carbon Dioxide 26 mmol/L (22-30); Chloride 93 mmol/L (98-107); Estimated CRCL calculation 7 ml/min; Estimated Glomerular Filt Rate 6; Glucose 71 mg/dL (65-110); Potassium 4.4 mmol/L (3.4-5.0); Sodium 132 mmol/L (137-145)
--- NOTE | 2024-10-24 12:10 | WPDCARDPROC ---
Cardiac Cath Procedure Note Date of procedure:: 10/24/24 Performing physician:: Maxim Juares MD Indication:: Pacemaker at [facility] Brief clinical history:: This is a 74-year-old man with a chronically implanted pacemaker that is at [facility]. The device was implanted in 2010 for treatment of sick sinus syndrome. Procedure Procedure performed:: Explantation of depleted pacemaker generator Implantation of new pacemaker pulse generator Sedation/Medication given:: Fentanyl 25 mg Versed 2 mg Case start time 11:27 a.m. Case end time 11:51 a.m. Sedation provided by Emilia Mauro RN, trained observer Access site:: Chronically implanted pacemaker pocket in left anterior chest wall Estimated blood loss:: Minimal Procedure note:: Patient was brought to the cardiac catheterization lab in the postabsorptive state where the left anterior chest wall was prepped and draped in sterile fashion. The site of the chronically implanted pacemaker device was easily identified. 20 cc of lidocaine was then injected in the pocket area for local anesthesia. The PlasmaBlade was then used to create an incision above the pocket it, to provide electrocautery and 2 in size and dissect the subcutaneous tissue. The plasma blade in the Metzenbaum scissors were used to open the fibrous capsule of the pacemaker device in the attached leads were then removed and was visually unremarkable in appearance. The torque wrench was used then to disconnect the leads from the depleted generator. The same torque wrench was then used to connect the new generator detailed below to the chronically implanted leads. The pocket was irrigated with Ancef infused saline the pacemaker device was placed back into the pocket this was then closed in layers using 3-0 Vicryl in interrupted fashion for the subcutaneous tissue 4-0 Vicryl in a running subcuticular fashion for the skin. The wound was dressed with an Aquacel dressing the patient was taken back to the holding area for recovery and there were no procedural complications. Findings:: The explanted device is a Biotronik pacemaker model Evia DR-T serial number [id number]. Originally implanted November 10, 2010 The new pacemaker generator is Biotronik dual-chamber device model Amvia Edge DR-T [id number]. Serial number [id number]. Device is programmed at the DDD, CLS mode lower rate limit 60 upper rate limit 120. The chronically implanted atrial lead is a Biotronik bipolar lead, P-waves are sensed at 2.5 mV threshold 1 volts at 0.4 milliseconds impedance 430 Ohms. Chronically implanted ventricular lead is a Biotronik bipolar lead was R-waves are sensed at 3.1 mV threshold is 1.0 volts at 0.4 milliseconds impedance 410 Ohms. Conclusion:: 1. Successful uncomplicated explantation of depleted dual-chamber pulse generator 2. Successful uncomplicated implantation dual-chamber pulse generator for ongoing treatment of sick sinus this 74-year-old man who also has ischemic cardiomyopathy Maxim Juares MD [facility]
[2024-10-24 12:15] VITALS: BP 148/78; PULSE 71; RESP 16; O2SAT 95
[2024-10-24 12:30] VITALS: BP 161/75; PULSE 72; RESP 16; O2SAT 97
[2024-10-24 12:45] VITALS: BP 136/84; PULSE 70; RESP 15; O2SAT 90
[2024-10-24 13:00] VITALS: BP 176/88; PULSE 70; RESP 16; O2SAT 94
[2024-10-24 13:23] VITALS: BP 167/78; PULSE 70; RESP 16; O2SAT 94
== END 2024-10-24 13:30 | disposition home or self-care (01) ==
PROVIDERS: PCP Internal Medicine; Visit Provider Specialist
PROC: 0JPT0PZ Removal of Cardiac Rhythm Related Device from Trunk Subcutaneous Tissue and Fascia, Open Approach (ICD-10-PCS; CPT 33228; principal; 2024-10-24 10:00)
DX: Z45.010 Encounter for checking and testing of cardiac pacemaker pulse generator [battery] (principal); I25.5 Ischemic cardiomyopathy; E78.5 Hyperlipidemia, unspecified; I10 Essential (primary) hypertension; I25.10 Atherosclerotic heart disease of native coronary artery without angina pectoris; J44.9 Chronic obstructive pulmonary disease, unspecified; G47.33 Obstructive sleep apnea (adult) (pediatric); Z79.82 Long term (current) use of aspirin; Z79.01 Long term (current) use of anticoagulants; Z79.51 Long term (current) use of inhaled steroids; Z95.5 Presence of coronary angioplasty implant and graft
CPT/HCPCS: 33228; 36415; 80048; 85025; J0690; C1785; J2003; J2250; J3010; J7040

== ENCOUNTER 2024-12-05 15:45 | Outpatient (RCR) | payer MEDICARE, OTHER, SELFPAY ==
--- NOTE | 2024-11-28 14:01 | OPREHPOC ---
Outpatient Therapy Plan of Care This is a Multidisciplinary Plan of Care that may contain components documented by all disciplines (PT, OT, and ST.) PT Problem 1 PT Problem #1 Knowledge Deficit PT Goal 1 Goal / Goal Update independent and compliant with HEP Target Visit 6 PT Problem 2 PT Problem #2 Impaired Strength PT Goal 1 Goal / Goal Update improve core strength to sit up in chair for 30 minutes without leaning improve bilateral hip strength to 4/5 or better overall improve bilateral ankle DF to 4/5 or better Target Visit 12 PT Problem 3 PT Problem #3 Impaired Balance PT Goal 1 Goal / Goal Update TUG to be completed in 15 seconds or less safely 5x sit to stand to be completed in 15 seconds or less safely tinetti to display moderate fall risk Target Visit 12 PT Problem 4 PT Problem #4 Impaired Gait PT Goal 1 Goal / Goal Update patient to complete 6 minute walk test without sitting rest improve hip stability mechanics during ambulation to reduce fall risk Target Visit 12 PT Problem 5 PT Problem #5 Impaired Functional Mobility PT Goal 1 Goal / Goal Update oswestry to display 50% or less functional deficits patient to report no falls over the last 4 weeks patient to complete 15 minutes of standing activities prior to needing rest Target Visit 12
--- NOTE | 2024-11-28 14:01 | PTOPEVAL1 ---
Assessment and note entered by JT File, PT Evaluation Information Assessment Status Evaluation ICD-10 Condition Codes (PT) Pain in low back M54.50,Repeated falls R29.6, Difficulty Walking R26.2,Abnormalities of gait and mobility R26.9,Weakness R53.1 Onset 11/22/24 Subjective Information patient reports he is in worse shape now than he was before. he reports he was in the hospital about 1 month ago. he reports he has poor strength , poor balance, inability to walk more than very short distances, and pain in the lower back. he reports he uses a walker all the time. he reports he does not trust himself with a cane. he reports he fell most recently about 3-4 days ago. he reports his back pain is increased with event the slightest movements and walking. Reported Pain Level Pain Score 7: Self Report Assessment PT Clinical Summary mr. monzon is a 74 yo man who presents to skilled PT services for evaluation and treatment of weakness, unsteady gait, back pain, and decreased functional activity performance. he displays objective deficits in LE strength, balance, ambulation mechanics, endurance, and posture. continued skilled PT is indicated to improve his objective/functional deficits and return to his prior level functional activity performance/ endurance. Plan of Care Interventions Gait Training,Hot Pack/Cold Pack,Manual Therapy, Neuro Re-education,Patient/Caregiver Education, Therapeutic Activities,Therapeutic Exercise PT Services Indicated Yes Treatment Frequency and 3x weekly for 12 visits Duration These treatments will address the objective and functional deficits as defined above. The patient will be advanced safely and appropriately in order for the patient to progress towards his/her prior level of function. Additional exercises will be introduced and as well as a comprehensive home exercise program upon discharge, if needed, ?to ensure carryover of functional gains achieved in the clinic. This treatment plan has been reviewed and agreement upon by the patient.
--- NOTE | 2024-12-03 12:14 | PCPTNOTE ---
Cancelled session. Reports blood pressure was high and now is low. Pt reports he is dizzy and is stomach is swollen.
== END 2025-02-26 23:59 | disposition home or self-care (01) ==
LOC: CHSPT 15:45
PROVIDERS: PCP Nurse Practitioner Family; Visit Provider Nurse Practitioner Family
DX: R26.81 Unsteadiness on feet (principal)
CPT/HCPCS: 97110; 97161; 97530

== ENCOUNTER 2024-12-19 17:26 | Emergency (ER) | payer MEDICARE, OTHER, SELFPAY ==
--- OUTSIDE RECORDS SUMMARY | 2008-01-04 09:45 | XMS_ITS | Continuity of Care Document ---
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 [place], [address] [place] [address] [address], [place], [place], [id number], tel:[phone] [facility] No Information Oct-3 0-200 8 Trivedi OD John. [address] , [address], [place], [place], [facility], . tel:[phone] Office/outpat ient Visit, [facility] [place], [address] [place] [address] [address], [place], [place], [id number], [place] tel:[phone] [facility] No Information Oct-2 3-200 8 Trivedi OD John. [address] , [address], [place], [place], [facility], . tel:[phone] [facility], [address] [place] [address] [address], [place], [place], [id number], [place] tel:[phone] [facility] No Information Oct-2 1-200 8 Luciano Liz. [address] , [address], [place], [address], [place]. tel:[phone] Referring Provider: Omer Nunn MD, [address] [place] [address], [address]. tel:[phone] Family History Family Member Type Diagnosis Age At Onset No Information Payers Payer name Insurance type Covered green party ID Authoriza tikam(s) Mail Hand[employer] Benefit Plan [id number] Social History Type Description Quantity Date Captured Comments Sex Male Smoking Status No Information Chief Complaint And Reason For Visit No Information Reason For Referral Reason For Referral No Information History Of Present Illness Encounter Date Complaint History Of Prese nt Illness No Information Functional Status Date Functional Assessmen t No Information Instructions Date Instruction Additional Infor mation No Information Assessments Type Assessment Date No Information Patient Care Teams Name Effective Dates (start - stop) Status Members No Information
--- OUTSIDE RECORDS SUMMARY | 2023-12-01 09:05 | XMS_ITS | Continuity of Care Document ---
Author Organization [facility] Address [address] [place] [address] Phone Care Team Providers Care Bakery Manager Name Role Phone Garth MARSHALL, Skyler Unavailable [...] Diagnoses Date Provider Providers Copied on Encounter [facility], [address] [place] [address], [id number], tel:[phone] [facility] No Information Liang Skyler. [address] [place] [address], [id number], [place]. tel:[phone] [facility], [address] [place] [address], [id number], tel:[phone] [facility] Liang Skyler. [address] [place] [address], [id number], . tel:[phone] Referring Provider: Guilherme Ramos, [address] [place] [address], [place], [address]. tel:[phone] [facility], [address] [place] [address], [id number], tel:[phone] [facility] Liang Skyler. [address] [place] [address], [id number], . tel:[phone] Referring Provider: Guilherme Ramos, [address] [facility] [address] [facility], [place], [address]. tel:[phone] As per patient privacy policy some of the clinical information may not be visible. Family History Family Member Type Diagnosis Age At Onset No Information Payers Payer name Insurance type Covered alliance party ID Authortoshiaa tikam(s) Medicare [facility] [id number] [employer] [facility] [id number] Social History Type Description Quantity Date Captured Comments Sex Male Smoking Status No Information Gender Identity Male Chief Complaint And Reason For Visit No Information Reason For Referral Reason For Referral No Information Plan Of Treatment Date Type Action Status Future Order: Radiology Order Up per Body Flouroscopy ([id number]), Ordered on: Ordered History Of Present Illness Encounter Date Complaint History Of Prese nt Illness No Information Functional Status Date Functional Assessmen t No Information Instructions Date Instruction Additional Infor mation No Information Assessments Type Assessment Date No Information Patient Care Teams Name Effective Dates (start - stop) Status Members No Information
--- NOTE | ~2024-12-19 | XR_ITS ---
XR abdomen obstructive series HISTORY: Abdominal Pain. COMPARISON: NONE FINDINGS: AP, upright and lateral views of the abdomen were obtained. Moderate fecal load throughout the colon consistent with moderate to severe constipation. No free air or air fluid levels are noted. There is no evidence of obstruction. IMPRESSION: [id number]-[id number] constipation. Reviewed, dictated and finalized at location S. IMPRESSION: [id number] constipation.
--- NOTE | 2024-12-19 17:30 | ED.ABDPAIN ---
HPI - Abdominal Pain General Chief Complaint: Abdominal Pain Stated Complaint: constipation Source: patient Mode of arrival: ambulatory Limitations: no limitations History of Present Illness HPI narrative: Patient is a 74-year-old male with known recurrent constipation here for the same problem at this time. Patient has fullness in his abdomen. He feels the same as prior episodes. He stopped his stool softener. MD elicited complaint: abdominal pain Pertinent past history: constipation Onset (ago): day(s) (One) Pain Consistency: constant Location: diffuse Severity: moderate Pain scale (0-10): 4 Quality: cramping, fullness and sharp Radiation: none Migration to: no migration Exacerbating factors: nothing Relieving factors: nothing Context: confirms history of similar episodes Associated symptoms: denies other symptoms Treatments prior to arrival: other (None) Related Data Home Medications ?Medication ?Instructions ?Recorded ?Confirmed ?Last Taken ?Type aspirin 81 mg tablet,delayed 81 mg PO DAILY 11/15/20 10/23/24 10/23/24 History release atorvastatin 80 mg tablet 80 mg PO DAILY 11/15/20 10/23/24 10/23/24 History fluoxetine 40 mg capsule 40 mg PO DAILY 11/15/20 10/23/24 10/23/24 History zafirlukast 20 mg tablet 20 mg PO BID 11/15/20 10/23/24 10/23/24 History coenzyme Q10 100 mg capsule (Co 100 mg PO DAILY 01/14/21 10/23/24 10/23/24 History Q-10) gnottsuqmvoj-kkhoxlym-xhhlpk tablet 1 tablet PO DAILY 01/14/21 10/23/24 10/23/24 History bupropion HCl 300 mg 24 hr tablet, 300 mg PO DAILY 11/11/22 10/23/24 10/23/24 History extended release cetirizine 10 mg capsule (Zyrtec) 5 mg PO HS 11/11/22 10/23/24 10/23/24 History alprazolam 0.5 mg tablet 0.5 mg PO HS PRN Sleep 05/09/23 10/23/24 Unknown History calcium 500 mg (as 1 tablet PO DAILY 05/09/23 10/23/24 10/23/24 History carbonate)-vitamin D3 3.125 mcg (125 unit) tablet cholecalciferol (vitamin D3) 25 25 mcg PO DAILY 03/06/2810/23/24 10/23/24 History mcg (1,000 unit) capsule (Vitamin D3) levalbuterol tartrate 45 2 inh inhalation Q6H 05/09/23 10/23/24 Unknown History mcg/actuation aerosol inhaler apixaban 2.5 mg tablet (Eliquis) mg 10/23/24 10/20/24 History Held on 10/24/24. Instructions: Resume on 10/31/24. ropinirole 0.25 mg tablet 0.25 mg PO DAILY 10/23/24 10/23/24 10/23/24 History Allergies Allergy/AdvReac Type Severity Reaction Status Date / Time vancomycin Allergy Unknown Unknown Verified 12/19/24 17:52 morphine AdvReac Unknown N&V Verified 12/19/24 17:52 Review of Systems Review of Systems: All systems reviewed & are unremarkable except as noted in HPI and below Constitutional: Constitutional: Reports no additional constitutional complaints Eyes: Eyes: Reports no additional eye complaints ENT: Reports system reviewed and no additional complaints, except as documented Cardiovascular: Cardiovascular: Reports no additional cardiovascular complaints Respiratory: Respiratory: Reports no additional respiratory complaints Gastrointestinal: Gastrointestinal: Reports no additional gastrointestinal complaints Genitourinary: Genitourinary: Reports no additional male genitourinary complaints Musculoskeletal: Musculoskeletal: Reports no additional musculoskeletal complaints Integumentary/Breasts: Skin/Breast: Reports system reviewed and no additional complaints, except as docu Neurologic: Reports system reviewed and no additional complaints, except as documented Psychiatric: Psychiatric: Reports no additional psychiatric complaints Endocrine: Endocrine: Reports no additional endocrine complaints Hematologic/Lymphatic: Hematologic/Lymphatic: Reports no additional hematologic/lymphatic complaints Allergic/Immunologic: Allergic/Immunologic: Reports no additional allergic/immunologic complaints PMFSH Past Medical History Medical History DEVEN (obstructive sleep apnea) COPD (chronic obstructive pulmonary disease) Pacemaker CAD (coronary artery disease) Gout HTN (hypertension) HLD (hyperlipidemia) Surgical History Surgical History H/O heart artery stent x3 Social History Social History Smoking status: Never smoker Second hand tobacco smoke exposure: No Alcohol intake: former Alcohol use details: STOPPED 2018~ Substance use: never Substance use type: does not use Lack of Transportation: No Lack of Food: Never True Current Housing: I Have Housing Concerned About Future Housing: No Difficulty Paying Gas/Electric Bills: No Difficulty Paying for Meds: No Currently Unemployed: No Education: High School Diploma/GED Difficulty w/ Childcare or Family Care: No Living arrangements: with family Gender identity (if verbalized by the patient): Male Sexual Orientation (if Verbalized by the Patient): Straight or Heterosexual Spiritual care concerns: No Exam Const: General: healthy appearing Nutritional Appearance: well nourished Orientation/consciousness: patient oriented x3 HENMT: Head: normal to inspection Ears: external ears normal Face/Nose/Sinus: Normal external nose present Eyes: Conjunctivae: conjunctivae normal Pupils: Equal, round and reactive pupils present EOM: EOMs intact bilaterally Neck: Neck: normal visual inspection Chest: Chest palpation & inspection: normal inspection of the chest Resp: Effort & Inspection: normal respiratory effort and not labored Auscultation: clear to auscultation bilaterally and no crackles Cardio: Rate: regular rate Rhythm: regular rhythm Heart sounds: no murmurs GI: Inspection: distended GI Palp: Yes Soft to palpation, Yes Tenderness to palpation present (GI), No Guarding due to palpation present (GI), No Rigid due to palpation, No Hernia present, No Palpable mass present and No Rebound tenderness present Auscultation: Hypoactive bowel sounds present : General: Yes bladder normal to palpation Back/Spine/Pelvis: Back: no CVA tenderness Skin: General skin exam: normal color Rashes: no rashes Wounds: no wounds Neuro: General: patient oriented x3, moves all extremities and no meningeal signs Extrem: General: normal to inspection, no clubbing, cyanosis or edema and no pedal edema Psych: Mental Status: mental status grossly normal Affect: normal affect Attitude: cooperative Course Vital Signs Vital signs: Vital Signs Temperature 36.6 C 12/19/24 17:35 Pulse Rate 78 12/19/24 17:35 Respiratory Rate 16 12/19/24 17:35 Blood Pressure 101/68 12/19/24 17:35 Pulse Oximetry 99 12/19/24 17:35 Oxygen Delivery Room Air 12/19/24 17:35 Temperature 36.6 C 12/19/24 17:35 Pulse Rate 78 12/19/24 17:35 Respiratory Rate 16 12/19/24 17:35 Blood Pressure 101/68 12/19/24 17:35 Pulse Oximetry 99 12/19/24 17:35 Oxygen Delivery Room Air 12/19/24 17:35 MDM - Abdominal Pain MDM Narrative Medical decision making narrative: Patient is 74-year-old male with constipation. Abdomen x-ray series. Fecal disimpaction. Imaging Data Attestation: I personally reviewed and interpreted this imaging study as follows: Radiologist's impression: ITS Impressions Abdomen X-Ray 12/19/24 18:24 IMPRESSION: [id number] constipation. Discharge Plan Discharge Clinical Impression: Fecal impaction Constipation Qualifiers: Constipation type: unspecified constipation type Qualified Code(s): K59.00 - Constipation, unspecified Patient Disposition: Home Condition: Stable Instructions: Constipation (ED) Additional Instructions: Please use MiraLax on a daily basis. Patient Language: Greek Prescriptions: No Action fluoxetine 40 mg capsule 40 mg PO DAILY atorvastatin 80 mg tablet 80 mg PO DAILY aspirin 81 mg tablet,delayed release (DR/EC) 81 mg PO DAILY zafirlukast 20 mg tablet 20 mg PO BID bupropion HCl 300 mg tablet extended release 24 hr 300 mg PO DAILY Zyrtec 10 mg Capsule 5 mg PO HS Eliquis 2.5 mg tablet ropinirole 0.25 mg tablet 0.25 mg PO DAILY amiodarone 200 mg tablet 200 mg PO DAILY Qty: 60 2RF evxkfihvceir-yghgyphw-dooipz Tablet 1 tablet PO DAILY coenzyme Q10 [Co Q-10] 100 mg Capsule 100 mg PO DAILY alprazolam 0.5 mg Tablet 0.5 mg PO HS PRN (Reason: Sleep) cholecalciferol (vitamin D3) [Vitamin D3] 25 mcg (1,000 unit) Capsule 25 mcg PO DAILY levalbuterol tartrate 45 mcg/actuation Hfa Aerosol Inhaler 2 inh INHALATION Q6H calcium carbonate-vitamin D3 500 mg-3.125 mcg (125 unit) Tablet 1 tablet PO DAILY Follow-up/Referrals: Omer Nunn MD [Primary Care Provider, Internal Medicine] Time of Disposition: 21:04
[2024-12-19 17:35] VITALS: BP 101/68; PULSE 78; RESP 16; TEMP 36.6; O2SAT 99
--- OUTSIDE RECORDS SUMMARY | 2024-12-19 17:54 | XMS_ITS | Encounter Summary ---
Author Organization [facility] Address [address] [place] [address] Care Team Providers Care Belly Dump Driver Name Role Phone Monty Moreno MD Unavailable Jill Black MD Unavailable Omer Nunn MD Primary Care Provider [phone] Encounter Details Date Type Department Care Team (Late st Contact Info) Description 10/12/2019 Postop Outreach [facility] - Perioperative Surgery [address] [place] [address] Nazario Jensen PA-C 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 Unable to assess 09/22/2019 4:01 AM CDT documented as of this encounter Functional Status * Is person deaf or have serious hearing difficulty? Answer Date of Assessment Author No 10/11/2019 10:45 AM CDT Carlitos Hughes RN * Is person blind or have serious difficulty seeing? Answer Date of Assessment Author No 10/11/2019 10:45 AM Carlitos Vu RN * Does person have serious difficulty walking/climbing stairs? Answer Date of Assessment Author No 10/11/2019 10:45 AM CDCarlitos Montesinos RN * Does person have difficulty dressing/bathing? Answer Date of Assessment Author No 10/11/2019 10:45 AM Carlitos Vu RN * Does person have difficulty doing errands alone? Answer Date of Assessment Author No 10/11/2019 10:45 AM Carlitos Vu RN documented as of this encounter Mental Status * Does person have difficulty concentrating/remembering/making decisions? Answer Entry Date Author No 10/11/2019 10:45 AM Carlitos Vu RN documented in this encounter Plan of Treatment Not on file documented as of this encounter Visit Diagnoses Not on filedocumented in this encounter Care Teams Belly Dump Driver Relationship Specialty Start Date End Date Omer Nunn MD [address] [place] [address] PCP - General 02/04/21 [place] [id number] [address] Orthopedic Surgery 12/31/14 Jill Black MD [address] [address] Cardiovascular Disease 09/20/19 documented as of this encounter
--- OUTSIDE RECORDS SUMMARY | 2024-12-19 17:54 | XMS_ITS | Clinical Summary ---
Author Organization [facility] Address [address] [place] [address] Care Team Providers Care Route Sales Representative Name Role Phone Omer Nunn MD Primary Care Provider [phone] Hemanth Sanches MD Unavailable Jessa Bryan DO Unavailable [phone] Allergies Active Allergy Reactions Criticality Noted Date [...] by oral route every day 0 0 04/26/19 14 Active FLUoxetine (PROzac) 40 mg capsule Take one by mouth one time per day 0 0 06/19/19 08 Active aspirin (ASPIR-81) 81 mg tablet Take one by mouth one time per day 0 0 12/05/19 08 Active zafirlukast (ACCOLATE) 20 mg tablet TAKE 1 TABLET BY MOUTH TWICE A DAY AT LEAST 1 HOUR BEFORE OR 2 HOURS AFTER MEALS. 1 06/04/19 18 Active multivitamin capsule Take 1 capsule by mouth daily Active lactulose solution 10 gram/15mL Take 15 mL (10 g total) by mouth daily as needed (constipation) 480 mL 1 05/18/19 24 Active cetirizine (ZyrTEC) 10 mg tablet Take 0.5 tablets (5 mg total) by mouth daily 30 tablet 1 05/18/19 24 Active cholecalciferol 25 mcg (1,000 unit) tablet Take 1 tablet (1,000 Units total) by mouth daily Active acetaminophen 500 mg capsule Take 2 capsules (1,000 mg total) by mouth every 6 (six) hours as needed for pain 11/13/19 24 Active rOPINIRole (REQUIP) 0.25 mg tablet Take 1 tablet (0.25 mg total) by mouth daily 09/19/19 24 Active carvediloL (COREG) 12.5 mg tablet Take 1 tablet (12.5 mg total) by mouth 2 (two) times a day 01/10/20 24 Active apixaban (ELIQUIS) 2.5 mg tablet Take 1 tablet (2.5 mg total) by mouth daily Active blood-glucose meter kit 1 Units 2 (two) times a day 1 kit 07/12/19 25 Active blood glucose diagnostic strip 1 each by other route as directed 100 strip 07/12/19 25 Active glucose 4 gram chewable tablet Take 4 tablets (16 g total) by mouth as needed for low blood sugar 50 tablet 12 07/12/19 25 026 Active hydrALAZINE (APRESOLINE) 25 mg tabletIndication s:hypertension Take 1 tablet (25 mg total) by mouth 3 (three) times a day 90 tablet 07/12/19 25 026 Active Additional Information Patient not taking.Reported on 12/10/2024 coenzyme Q10 10 mg capsule Take 1 capsule (10 mg total) by mouth daily Active blood-glucose sensor (Wavemarkcom G7 Sensor) deviceIndication s:Type 2 diabetes mellitus with hypoglycemia without coma, without long-term current use of insulin (HCC) Use for BG monitoring 3 each 08/03/19 25 Active blood-glucose,re ceiver,cont miscIndications: Type 2 diabetes mellitus with hypoglycemia without coma, without long-term current use of insulin (HCC) Use for blood glucose monitor 1 each 08/03/19 25 Active famotidine (PEPCID) 10 mg tablet Take 1 tablet (10 mg total) by mouth daily 30 tablet 3 10/22/19 25 026 Active atorvastatin (LIPITOR) 80 mg tablet Take 1 tablet (80 mg total) by mouth daily 90 tablet 1 11/17/19 25 Active amiodarone (PACERONE) 200 mg tablet Take 1 tablet (200 mg total) by mouth daily 10/25/19 25 Active ALPRAZolam (XANAX) 0.25 mg tablet Take 1 tablet (0.25 mg total) by mouth every 6 (six) hours as needed 11/07/19 25 Active ALPRAZolam (XANAX) 0.5 mg tablet Take 1 tablet (0.5 mg total) by mouth nightly as needed for anxiety 025 Discontin ued(Alter mel therapy) Active Problems Problem Noted Date Diagnosed Date [...] time and patient to follow up with [facility] orthopedics (Dr. Cheema clinic to set up) [...] well since EGD yesterday. 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 He [...] EGD with possible dilation procedure with Bougie (Savmonae) 05/16 Endoscopy No endoscopic abnormality was evident [...] week. He will obtain a BMP at [facility] prior to the visit. Renal function has [...] 02/27 had dizziness Telemetry Device check by 3seventy- normal Hemopericardium 05/13/2023 Assessment & Plan (05/15/2023 [...] 05/13/2023 Assessment & Plan (05/13/2023 2:27 AM [employer]): Cont allopurinol COPD (chronic obstructive pulmonary disease) 10/2023 Assessment & Plan (05/13/2023 2:37 AM [employer]): PFTs appear more restrictive than obstructive in the setting of known hemidaphragmatic paralysis. No symptoms presently. - Cont zyrtec, levalbuterol PRN - formulary montelukast to replace home zafirlukast Unintentional weight loss 12/22/2022 Mood disorder 12/22/2022 Assessment & Plan (11/12/2023 5:01 PM CDT): - continue home wellbutrin, prozac Assessment & Plan (05/13/2023 2:27 AM [employer]): Continue fluoxetine 40 and bupropion 300 Iron [...] [place] [address] nucleated cells (95% neutrophils) and 6403 RBCs, [...] 12/30/2016 Assessment & Plan (05/13/2023 2:10 AM [employer]): - Continue ASA, atorvastatin 80 - Off [...] 09/16/2016 Assessment & Plan (05/13/2023 2:10 AM [employer]): Nonadherent to CPAP Assessment & Plan (09/16/2016 5:11 PM CDT): Intolerant of CPAP Pacemaker 09/16/2016 Overview (10/24/2024): Biotronik Amvia Edge Dual Pacemaker. Dx; SSS. DOI: 10/24/24 [place] Chronic leads 11/10/2010 Biotronik remote home monitoring. Assessment & Plan (09/16/2016 5:12 PM CDT): [...] Acquired trigger finger 04/28/2010 Coronary arteriosclerosis in [place] artery 06/18 Overview (06/09/2016): CHETAN BROCK NATNOEMI VSSL Assessment & Plan (11/12/2023 5:00 PM CDT): - Hold home aspirin - Continue home statin, coreg Assessment & Plan (09/16/2016 5:09 PM CDT): History of multiple stents in the past, most recent being 2007. 2014: Stress test negative (interesting that was negative in view of chronic total occlusion of the RCA, although the RCA is non dominant) Atypical chest pain and HERNANDEZ recently, will evaluate further with a Lexiscan Multiple-type hyperlipidemia 06/19/2007 Overview (06/09/2016): MIXED HYPERLIPIDEMIA Assessment & Plan (05/13/2023 2:10 AM [employer]): Cont atorva 80 Assessment & Plan (09/16/2016 [...] Encounters Date Type Department Care Team Description 12/10/2024 1:45 PM CDT Office Visit [facility] Specialists of [address], [place] [address] Leila Cardoza MD Type 2 diabetes mellitus with hypoglycemia without coma, without long-term current use of insulin (HCC) (Primary Dx) 12/06/2024 1:15 PM CDT Office Visit [facility] Cardiology at [address] [place] [address] Maxim Juares MD Coronary arteriosclerosis in [place] artery (Primary Dx); Dilated cardiomyopathy (HCC); Presence of stent in coronary artery; Anemia of chronic renal failure, stage 5 (HCC); Pacemaker 11/29/2024 Telephone [facility] Cardiology [address] [place] [phone] Maxim Juares MD Hypertension; Dizziness 11/14/2024 Documentation [facility] Gastroenterology at [address] [place] [address] Eva Cary MA Labs 11/14/2024 Orders Only [facility] Gastroenterology at [address] [place] [address] ProviderSmiley MD 10/31/2024 2:00 PM CDT Ancillary Procedure [facility] Cardiology [address] [place] [phone] Bradycardia (Primary Dx); SSS (sick sinus syndrome) (HCC); Ischemic cardiomyopathy; Pacemaker; Atrial fibrillation, unspecified type (HCC) 10/25/2024 Orders Only [facility] Cardiology [address] [place] [phone] Maxim Juares MD 10/24/2024 Orders Only [facility] Health Information Management [address] [place] [address] Darien Garcia 10/23/2024 [facility] Post Discharge Follow up phone call [facility] [address] [place] [address] Chiara Chavez 10/22/2024 Telephone [facility] Gastroenterology at [address] [place] [address] Deila Davila MA 10/22/2024 Telephone [facility] Gastroenterology at [address] [place] [address] Delia Davila MA 10/22/2024 Telephone [facility] Gastroenterology at [address] [place] [address] Delia Davila MA 10/19/2024 2:24 PM CDT - 10/21/2024 5:33 PM CDT Hospital Encounter [facility] IMU [address] [place] [address] Konstantin Jara MD Nikolic, MD Magali Simpson, MD René Corcoran Jr., Nancy Ramos MD [...] care 10/10/2024 7:15 AM CDT Ancillary Procedure [facility] Cardiology [address] [facility] [address] [place] [phone] Pacemaker; Sick sinus syndrome (HCC) 10/10/2024 Telephone [facility] Cardiology [address] [place] [phone] Maxim Juares MD 10/10/2024 Telephone [facility] Cardiology [address] [place] [address] [place] [phone] Maxim Juares MD 10/09/2024 Telephone [facility] Gastroenterology at [place] [address] [facility] [address] [place] [phone] Mckenna Cary from Last 3 Months Surgical History Surgery [...] Other Medical Diabetes Type I I Hypertension [place] (myocardial infarction) (HCC) Lung disease COPD Chronic kidney disease stage 5 c kd Type 2 diabetes mellitus Anemia Depression Anxiety [place] (myocardial infarction) (HCC) 3 stents Family History [...] drink = 0.6 oz pur e alcohol) [facility] Utilities Answer Date Recorded In the past 12 months has e [employer], gas, oil, or water [employer] threatened to shut off services in your [...] often do you attend chur ch or yarsanism services? 1 to 4 times per year 07/27/2024 Do you belong to any clubs o r organizations such as yarsani groups, unions, fraternal or athletic groups, or [...] place to sleep or slept in a snf (including now)? No 06/21/2023 Housing Stability Vital Sign Answer Vijay e Recorded In the last 12 months, was t here a time when you were not able to pay the mortgage or rent on time? No 07/27/2024 In the past 12 months, how m any times have you moved where you were living? 0 07/27/2024 At any time in the past 12 m [facility], were you homeless or living in a snf (including now)? No 07/27/2024 AUDIT-C Answer Date [...] on file Legal Sex Male 7:02 AM [employer] Gender Identity Not on file Sexual Orientation Not on file Obstetrics History Last Filed Vital Signs Vital Sign Reading Time Taken Comments Blood Pressure 126/80 12/10/2024 1:52 PM CDT Pulse 69 12/10/2024 1:52 PM CDT Temperature 36.5 C (97.7 F) 10/21/2024 11:24 AM CDT Respiratory Rate 18 12/10/2024 1:52 PM CDT Oxygen Saturation 94% 12/06/2024 1:06 PM CDT Inhaled Oxygen Concentration - - Weight 97.4 kg (214 lb 12.8 oz) 12/10/2024 1:52 PM CDT Height 183.1 cm (6' 0.1) 12/10/2024 1:52 PM CDT Body Mass Index 29.05 12/10/2024 1:52 PM CDT Plan of Treatment Health Maintenance Due Date Last Done Comments Dilated Eye Exam 1950 Foot Exam 1950 Zoster Vaccine (1 of 2) 01/04/1998 Well Visit 65+ 01/04/2013 Albumin Creatinine Ratio, Urine 07/26/2020 0 Pneumococcal vaccine 65+ (3 of 3 - PCV20 or PCV21) 03/23/2023 03/23/2018, 12/20/2012 DTaP/Tdap/Td Vaccine (2 - Td or Tdap) 04/17/2024 04/17/2014 Lipid Panel 06/20/2024 06/21/2023, 03/07, 12/22/2022, Additional history exists Depression Screening 10/13/2024 10/14/2023 Covid-19 Vaccine (4 - 2024-2 6 season) 2024 03/16/2021, 06/10/2020, 05/18/2020 Influenza Vaccine (#1) 2024 0, 11/21/2018, 12/16/2017, Additional history exists Hemoglobin A1C 06/10/2025 12/10/2024, 07/06, 07/10/2024, Additional history exists Fall Risk Assessment 10/21/2025 [...] history exists 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 Type Area Corrosion Prevention Metal Sprayer Device Identifier Shelf Expiration Date Model / Serial / Lot Pacemaker- [id number] Implanted:11/09 by Jill Black MD (Quantity not on file) Pacemaker Chest [employer] SSS [employer] Longer Luke Set Catheter Laparoscopic Placement Peritoneal [id number] - [id number] Implanted:Qty: 1 on 06/20/2023 by Volodymyr Seo MD at [facility] N/A: Peritoneum Weecast - [email or web address] 03/24/2026 [id number] / / [id number] [employer] Catheter Peritoneal Dialysis Double Cuff Coiled Adult Flex Neck 5.3x3.9sqb38my Cf-5260 - [id number] Implanted:Qty: 1 on 06/20/2023 by Volodymyr Seo MD at [facility] N/A: Peritoneum Weecast - [email or web address] 05/14/2024 CF-5260 / / [id number] [employer] Duraflow Embosafe 15.5fr 24cm Basic 2 Lumen Kit Catheter [id number] - [id number] Implanted:Qty: 1 on 11/18/2023 by Volodymyr Seo MD at [facility] Right: Chest Weecast - [email or web address] 04/06/2024 [id number] / / [id number] Weecast - [email or web address] Catheter Peritoneal Dialysis Double Cuff Coiled Adult Flex Neck 5.3x3.4nsk32xg Cf-5260 - [id number] Implanted:Qty: 1 on 03/05/2024 by Volodymyr Seo MD at [facility] N/A: Abdomen Weecast - [email or web address] 07/21/2026 CF-5260 / / [id number] [employer] Longer Luke Set Catheter Laparoscopic Placement Peritoneal Vp411 - [id number] Implanted:Qty: 1 on 03/05/2024 by Volodymyr Seo MD at [facility] N/A: Abdomen [facility] [employer] 08/12/2026 [id number] / / [id number] Procedures Procedure Name Priority Date/Time Associated Diagnosis Comments POCT GLUCOSE Routine 12/10/2024 2:00 PM CDT Type 2 diabetes mellitus with hypoglycemia without coma, without long-term current use of insulin (HCC) POCT HEMOGLOBIN A1C Routine 12/10/2024 2 :00 PM CDT Type 2 diabetes mellitus with hypoglycemia without coma, without long-term current use of insulin (HCC) DEVICE CHECK - IN OFFICE Routine 10/31/2024 1:43 PM CDT SSS (sick sinus syndrome) (HCC) Ischemic cardiomyopathy CARDIOLOGY DOCUMENT SCAN Routine 10/24/2024 3:07 PM CDT CARDIOLOGY DOCUMENT SCAN 10/24/2024 SCAN - LABS 10/24/2024 POCT GLUCOSE DEVICE Routine 10/21/2024 4 :39 [...] DEVICE Routine 10/20/2024 1 2:07 PM CDT GLUTAMIC ACID DECARBOXYLASE Routine 10/20/2024 11:18 AM CDT INSULIN, TOTAL Routine 10/20/2024 11:18 AM [...] AM CDT Pacemaker Sick sinus syndrome (HCC) HEPATITIS PANEL, ACUTE Routine 07/27/2024 6:07 PM CDT COLONOSCOPY 11/19/2023 7:32 AM CDT LIPID PANEL Routine 06/21/2023 3:52 AM CDT ALBUMIN CREATININE RATIO, URINE Routine 07/27/2019 from Last 3 Months or Most Recently Relevant to Health Maintenance Results * (ABNORMAL) POCT hemoglobin A1c (12/10/2024 2:00 PM CDT) Hemoglobin A1C, POC 4.9 4.0 - 5.6 % Capillary blood 12/10/2024 2 :00 PM CDT us Leila Cardoza MD POINT OF CARE TEST ORDERABLES Fi nal Result * (ABNORMAL) POCT glucose (12/10/2024 2:00 PM CDT) Glucose Blood, POC 114 Normal Fasting 70 - 100, Random <200 mg/dL Comment:PPG 30 Minutes Blood 12/10/2024 2:00 PM CDT us Leila Cardoza MD POINT OF CARE TEST ORDERABLES Fi nal Result * DEVICE CHECK - IN OFFICE (10/31/2024 1:43 PM CDT) Anatomical Region Laterality Modality Other Narrative 11/09/2024 12:42 PM CDT Biotronik Amvia Edge Dual Pacemaker. Dx; SSS. DOI: 10/24/24 [place] Chronic leads 11/10/2010 Biotronik remote home monitoring. Supervising MD: Dr. Cyr. Left pectoral incision well approximated. No redness or drainage noted. Minimal to moderate pocket edema noted. Reiterated wound care instructions. Office DDD Pacemaker interrogation demonstrated appropriate device function. Appropriate lead measurements noted. Battery function: NINO, 9 years remaining battery life to EMEKA. Presenting rhythm- VS (SR). AP- 32 HOME HEALTH AID- 0. No Atrial high rate episodes recorded. No Ventricular high rate episodes noted. Medications; Eliquis, ASA 81 mg, Coreg. No programming changes made to device settings. See scanned report. Office pacemaker f/u scheduled 01/08/2026. Biotronik remote f/u 02/05/2025. Rosi Lisa RN us Ripa Cisco Roy MD [facility] C[facility] PRO CEDURES Final Result * Cardiology Document Scan (10/24/2024 3:07 PM CDT) Anatomical Region Laterality Modality Other us Maxim Juares MD [facility] CARDIAC SERVICES PROC EDURES Final Result * SCAN - LABS (10/24/2024) Provider Scanning Final Result * Cardiology Document Scan (10/24/2024) Anatomical Region Laterality Modality Other us Provider Scanning [facility] C[facility]IAC SERVICES PROCEDURES Final Result * POCT glucose (10/21/2024 4:39 PM CDT) Glucose, POC 122 70 - 199 mg/dL Blood 10/21/2024 4:39 PM CDT 10/21/2024 4:39 PM CDT Nancy Merritt MD LAB POCT ORDERABLES - DEV ICE Final Result [facility] Department of Laboratories [place], [place] [id number] * POCT glucose (10/21/2024 11:59 AM CDT) Glucose, POC 128 70 - 199 mg/dL Blood 10/21/2024 11:5 9 AM CDT 10/21/2024 11:59 AM CDT Nancy Merritt MD LAB POCT ORDERABLES - DEV ICE Final Result LUCILLE Castro[facility]) 1 [facility] [place] [address] * POCT glucose (10/21/2024 8:12 AM CDT) Glucose, POC 121 70 - 199 mg/dL Blood 10/21/2024 8:12 AM CDT 10/21/2024 8:12 AM CDT Nancy Merritt MD LAB POCT ORDERABLES - DEV ICE Final Result Performing Organization Address City/[facility]/ZIP Co de Phone Number LUCILLE QUI[facility]ON[facility] ([place]) 1 [facility] [place] [address] * POCT glucose (10/21/2024 4:16 AM CDT) Glucose, POC 95 70 - 199 mg/dL Blood 10/21/2024 4:16 AM CDT 10/21/2024 4:16 AM CDT Nancy Merritt MD LAB POCT ORDERABLES - DEV ICE Final Result Performing Organization Address City/[facility]/ZIP Co de Phone Number [facility]LE [facility] ([place]) 1 [facility] [place] [address] * (ABNORMAL) eGFR (10/21/2024 2:15 AM CDT) eGFR 6(L) >=60 mL/min/1. 73 m2 [...] MD LAB BLOOD ORDERABLES Final Resu lt MILROSE QUI[facility]ONES ([place]) [address] [facility] [place] [address] * Differential, auto (10/21/2024 2:15 AM CDT) [...] MD LAB BLOOD ORDERABLES Final Resu lt [facility] ([place]) [address] [facility] [place] [address] * (ABNORMAL) CBC with auto differential (10/21/2024 [...] NRBC abs 0.00 0.00 - 0.01 K/cumm [facility] ([place]) Blood 10/21/2024 2:15 AM CDT 10/21/2024 3:35 AM CDT us Eugene Scott MD LAB BLOOD ORDERABLES Final Resu lt [facility] ([place]) [address] [facility] Department [place] [address] * (ABNORMAL) Comprehensive metabolic panel (10/21/2024 2:15 [...] Final Resu lt [facility]LE [facility] ([place]) [address] [facility] [employer] [place] [address] * POCT glucose (10/21/2024 12:06 AM CDT) Glucose, POC 106 70 - 199 mg/dL Blood 10/21/2024 12:0 6 AM CDT 10/21/2024 12:06 AM CDT Nancy Merritt MD LAB POCT ORDERABLES - DEV ICE Final Result L[facility]LE Q[facility]ON[facility] ([place]) 1 [facility] [place] [address] * POCT glucose (10/20/2024 8:24 PM CDT) Glucose, POC 146 70 - 199 mg/dL Blood 10/20/2024 8:24 PM CDT 10/20/2024 8:24 PM CDT Nancy Merritt MD LAB POCT ORDERABLES - DEV ICE Final Result [facility] ([place]) 1 [facility] [place] [address] * POCT glucose (10/20/2024 5:07 PM CDT) Glucose, POC 127 70 - 199 mg/dL Blood 10/20/2024 5:07 PM CDT 10/20/2024 5:07 PM CDT Nancy Merritt MD LAB POCT ORDERABLES - DEV ICE Final Result Performing Organization Address [facility] Co de Phone Number LUCILLE QUI[facility]ONES ([place]) 1 [facility] [place] [address] * POCT glucose (10/20/2024 12:07 PM CDT) Glucose, POC 103 70 - 199 mg/dL Blood 10/20/2024 12:0 7 PM CDT 10/20/2024 12:07 PM CDT Nancy Merritt MD LAB POCT ORDERABLES - DEV ICE Final Result Performing Organization Address [facility] Co de Phone Number LUC[facility]LE QUI[facility]ON[facility] ([place]) 1 [facility] [place] [address] * (ABNORMAL) Glutamic acid decarboxylase (10/20/2024 11:18 AM CDT) GAD65 ab ser 0.11(H) <=0.02 nmol/L [facility] Comment: The following antibody was identified: Glutamic Acid Decarboxylase. * This profile is consistent with predisposition to thyrogastric disorders, including thyroiditis, pernicious anemia, and type 1 diabetes, but has low specificity for neurological autoimmunity. GAD65 antibody values less than 2.00 nmol/L have a lower positive predictive value for neurological autoimmunity than values of 20.0 nmol/L and higher. * ADDITIONAL INFORMATION This test was developed and its performance characteristics determined by [facility] in a manner consistent with CLIA requirements. This test has not been cleared or approved by the U.S. Food and Drug Administration. Test Performed by: [facility] - [address] [address] Floor Supervisor: Andrea Almonte Ph.D.; CLIA# [id number] Blood 10/20/2024 11:1 8 AM CDT 10/20/2024 11:30 AM CDT Guilherme Dumont MD LAB BLOOD ORDERABLES Final Re sult Performing Organization Address City/[facility] Co de Phone Number [facility] ([place]) [address] [place] [address] [place] [address] [facility] * (ABNORMAL) Insulin, total (10/20/2024 11:18 AM CDT) Insulin 28.7(H) 2.6 - 25.0 mcIUnit/mL Comment:Testing performed by : [facility], [address] [place] [address], [place]., [address] Blood 10/20/2024 11:1 8 AM CDT 10/20/2024 4:05 PM CDT Guilherme uDmont MD LAB BLOOD ORDERABLES Final Re sult [facility] ([place]) [address] [place] [address] [place] [address] * (ABNORMAL) C-peptide (10/20/2024 11:18 AM CDT) C-peptide 14.70(H) 1.10 - 4.40 ng/mL Comment:Testing performed by : [facility], [address] [place] [address], [place]., [address] Blood 10/20/2024 11:1 8 AM CDT 10/20/2024 4:05 PM CDT Guilherme Dumont MD LAB BLOOD ORDERABLES Final Re sult Performing Organization Address [facility] Co de Phone Number [facility]ONES [place]) [address] [place] [address] * Hepatitis B Surface Antigen Blood (10/20/2024 11:18 AM CDT) Pathologist [facility] HepBsAg Nonreactive Nonreactive Comment:Testing performed by : [facility], [address] [place] [address], [facility] Blood 10/20/2024 11:1 8 AM CDT 10/20/2024 3:08 PM CDT Guilherme Dumont MD LAB MICROBIOLOGY - GENERAL OR DERABLES Final Result Performing Organization Address [facility] Co de Phone Number [facility] ([place]) [address] [place] [address] * TRANSTHORACIC ECHO (TTE) LIMITED/FOLLOW UP WO DOPPLER/CF WO CONTRAST (10/20/2024 9:45 AM CDT) [facility] Estimated EF 30 % CONS SCIMAGE Anatomical Region Laterality Modality Ultrasound 10/20/2024 11:3 5 AM CDT Narrative 10/20/2024 4:26 PM CDT [address] [address] Limited Echocardiogram Report Patient Name: QUINTEN GOULD : 1950 Study Date: 10/20/2024 11:35:32 AM Gender: M Tech: AA Location: [place] [address] Ref Provider: ROE GOSS Height(Cm): BSA: Weight(Kg): [...] 10/20/2024 4:26:13 PM CDT Procedure Note Roe Gsos MD - 10/20/[address] [place] [address] Limited Echocardiogram Report Patient Name: QUINTEN GOULD : 1950 Study Date: 10/20/2024 11:35:32 AM Gender: M Tech: AA Location: [id number] Ref Provider: ROE GOSS Height(Cm): BSA: Weight(Kg): [...] * POCT glucose (10/20/2024 8:08 AM CDT) [facility] Glucose, POC 87 70 - 199 mg/dL Blood 10/20/2024 8:08 AM CDT 10/20/2024 8:08 AM CDT us Nancy Merritt MD LAB POCT ORDERABLES - DEV ICE Final Result [facility] ([facility]) 1 [facility] [place] [address] * POCT glucose (10/20/2024 1:50 AM CDT) [facility] Glucose, POC 79 70 - 199 mg/dL Blood 10/20/2024 1:50 AM CDT 10/20/2024 1:50 AM CDT Tatiana Sow MD LAB POCT ORDERABLES - DEVICE F inal Result Performing Organization Address [facility] Co de Phone Number [facility] ([place]) 1 [facility] [place] [address] * Lactate (10/20/2024 12:53 AM CDT) [facility] Lactate 1.3 0.7 - 2.0 mmol/L Blood 10/20/2024 12:5 3 AM CDT 10/20/2024 12:56 AM CDT us Eugene Scott MD LAB BLOOD ORDERABLES Final Resu lt Performing Organization Address City/[facility]/ZIP Co de Phone Number [facility] ([place] 1 [facility] [place] [address] * (ABNORMAL) eGFR (10/20/2024 12:53 AM CDT) [facility] eGFR 6(L) >=60 mL/min/1. 73 m2 [...] LAB BLOOD ORDERABLES Final Resu lt [facility] ([place]) 1 [facility] [place] [address] * Differential, auto (10/20/2024 12:53 AM CDT) Pathologist [facility] [place] Neutrophil abs 4.52 1.50 - 6.50 K/cumm [...] Neutrophil pct 67.9 % [facility] ([place]) Comment: Interpretive Data Percent cell count reference ranges are not reported, since discordance with absolute values may lead to misinterpretation of CBC data. Current Interpretive Data was last revised on 2017. Imm gran pct 0.6 % [facility] ([place]) Comment: Interpretive Data Percent cell [...] revised on 2017. Monocyte pct 9.7 % [facility] ([place]) Comment: Interpretive Data [...] revised on 2017. Basophil pct 0.7 % [facility] ([place]) Comment: Interpretive Data Percent cell count reference ranges are not reported, since discordance with absolute values may lead to misinterpretation of CBC data. Current Interpretive Data was last revised on 2017. Blood 10/20/2024 12:5 3 AM CDT 10/20/2024 12:56 AM CDT us Eugene Scott MD LAB BLOOD ORDERABLES Final Resu lt [facility] ([place]) 1 [facility] Department of Laboratories [place], [place] [id number] * (ABNORMAL) CBC with auto differential (10/20/2024 12:53 AM CDT) WBC 6.67 3.80 - 9.90 K/cumm Hgb 9.1(L) 13.0 - 17.5 g/dL [facility] ([place]) Hct 28.3(L) 38.9 - 50.3 % [facility] ([place]) Plt 223 150 - 400 K/cumm [facility] ([place]) MPV 9.6 9.1 - 12.3 fL [facility] ([place]) RBC 2.81(L) 4.30 - 5.80 M/cumm [facility] ([place]) MCV 100.7(H) 81.3 - 96.4 fL [facility] ([place]) MCH 32.4 27.1 - 33.3 pg [facility] ([place]) MCHC 32.2(L) 32.3 - 35.7 g/dL [facility] ([place]) RDW CV 17.0(H) 11.1 - 14.9 % [facility] ([place]) RDW SD 63.0(H) 35.7 - 48.1 fL [facility] ([place]) NRBC abs 0.00 0.00 - 0.01 K/cumm [facility] ([place]) Blood 10/20/2024 12:5 3 AM CDT 10/20/2024 12:56 AM CDT us Eugene Scott MD LAB BLOOD ORDERABLES Final Resu lt [facility] ([place]) 1 [facility] Department [place] [address] * Blood culture Blood (10/20/2024 12:53 AM CDT) Report Final Report: No growth Comment:Testing performed by : [facility], 1 [facility], [place]., [address] Blood 10/20/2024 12:5 3 AM CDT 10/20/2024 5:04 AM CDT Narrative [facility] ([place]) - 10/24/2024 7:00 AM CDT From a different site than #1. Collection->Peripheral 1. Blood cultures are incubated for 4 days on a continuously monitored blood culture system. The first report of a negative culture is issued within 24 hours of receipt of the specimen in the laboratory. 2. Positive culture results are reported as soon as they are detected. 3. The most important factor for detection of microbes in the setting of bloodstream infection is the volume of blood submitted for culture. Failure to collect an optimal blood volume can result in false negative blood cultures. 4. For pediatric patients, the recommended blood volume to collect follows a weight based strategy. See the electronic test catalog for collection instructions. 5. For positive blood cultures, a rapid molecular test may be performed for organism identification using the casie ePlex blood culture identification panel for gram positive (BCID-GP) and gram negative (BCID-GN) organisms. This nucleic acid amplification test detects microbial DNA in positive blood culture broth. This assay has been cleared by the [place] Food and Drug Administration and its performance characteristics have been verified by the [facility] Microbiology Laboratory. For questions about this culture, contact the Microbiology Laboratory at [phone]. Interpretive data was last revised on 23. Eugene Scott MD LAB MICROBIOLOGY - [facility] Final Result [facility] ([place]) 1 [facility] Department [place] [address] * Blood culture Blood (10/20/2024 12:53 AM CDT) Report Final Report: No growth Comment:Testing performed by : [facility], 1 [facility] [place]., [address] Blood 10/20/2024 12:5 3 AM CDT 10/20/2024 5:04 AM CDT Narrative [facility] ([place]) - 10/24/2024 7:00 AM CDT Collection->Peripheral 1. Blood cultures are incubated for 4 days on a continuously monitored blood culture system. The first report of a negative culture is issued within 24 hours of receipt of the specimen in the laboratory. 2. Positive culture results are reported as soon as they are detected. 3. The most important factor for detection of microbes in the setting of bloodstream infection is the volume of blood submitted for culture. Failure to collect an optimal blood volume can result in false negative blood cultures. 4. For pediatric patients, the recommended blood volume to collect follows a weight based strategy. See the electronic test catalog for collection instructions. 5. For positive blood cultures, a rapid molecular test may be performed for organism identification using the casie ePlex blood culture identification panel for gram positive (BCID-GP) and gram negative (BCID-GN) organisms. This nucleic acid amplification test detects microbial DNA in positive blood culture broth. This assay has been cleared by the [place] Food and Drug Administration and its performance characteristics have been verified by the [facility]biology Laboratory. For questions about this culture, contact the Microbiology Laboratory at [phone]. Interpretive data was last revised on 23. us Eugene Scott MD [facility] Final Result [facility] ([place]) 1 [facility] Department [place] [address] * (ABNORMAL) Comprehensive metabolic panel (10/20/2024 12:53 [...] ORDERABLES Final Resu lt Performing Organization Address City/[facility]/ZIP Co de Phone Number [facility] ([place] 1 [facility] [place] [address] * POCT glucose (10/19/2024 11:19 PM CDT) [facility] Glucose, POC 88 70 - 199 mg/dL Blood 10/19/2024 11:1 9 PM CDT 10/19/2024 11:19 PM CDT Tatiana Sow MD LAB POCT ORDERABLES - DEVICE F inal Result Performing Organization Address City/[facility]/ZIP Co de Phone Number [facility] ([place]) 1 [facility] [place] [address] * (ABNORMAL) Troponin T high-sensitivity 6-hour (10/19/2024 9:15 PM CDT) Trop T hs 292(C) <=22 ng/L [facility] ([place]) Comment: Critical Result called by [email or web address] at 2024-10-19 22:37:16. Result Read Back by ludy zavala [facility] Interpretive Data For further hscTnT resources including [...] BLOOD ORDERABLES Final R esult [facility] ([place]) 1 [facility] [place] [address] * POCT glucose (10/19/2024 8:31 PM CDT) Glucose, POC 91 70 - 199 mg/dL Blood 10/19/2024 8:31 PM CDT 10/19/2024 8:31 PM CDT Tatiana oSw MD LAB POCT ORDERABLES - DEVICE F inal Result [facility] ([place]) 1 [facility] [place] [address] * (ABNORMAL) Troponin T high-sensitivity 4-hour (10/19/2024 6:52 PM CDT) Trop T hs 290(C) <=22 ng/L [facility] ([place]) Comment: Critical Result called by [email or web address] at 2024-10-19 19:23:37. Result Read Back by MILADY GARCIA Interpretive Data For further hscTnT resources including the diagnostic algorithm and an aid in interpretation, copy and paste this link: https://nrl.testcatAbsolutData.org/show/hsTrop Current Interpretive Data last revised 2020. Trop T hs pct delta -4 % [facility] ([place]) Trop T hs interp Insignificant [facility] ([place]) Blood 10/19/2024 6:52 PM CDT 10/19/2024 6:55 PM CDT Konstantin Jara MD LAB BLOOD ORDERABLES Final R esult Performing Organization Address City/[facility]/ZIP Co de Phone Number [facility] ([place]) 1 [facility] [place] [address] * POCT glucose (10/19/2024 4:13 PM CDT) Glucose, POC 109 70 - 199 mg/dL Blood 10/19/2024 4:13 PM CDT 10/19/2024 4:13 PM CDT Konstantin Jara MD LAB POCT ORDERABLES - DEVICE Final Result Performing Organization Address [facility] Co de Phone Number [facility] ([place]) 1 [facility] [place] [address] * (ABNORMAL) Troponin T high-sensitivity 2-hour (10/19/2024 4:12 PM CDT) Trop T hs 288(C) <=22 ng/L [facility] ([place]) Comment: Critical Result called by [email or web address] at 2024-10-19 17:04:24. Result Read Back by FAUSTO LEPE Interpretive Data For further hscTnT resources including the diagnostic algorithm and an aid in interpretation, copy and paste this link: https://nrl.testcatalog.org/show/hsTrop Current Interpretive Data last revised 2020. Trop T hs pct delta -4 % [facility] ([place]) Trop T hs interp Insignificant [facility] ([place]) Blood 10/19/2024 4:12 PM CDT 10/19/2024 4:17 PM CDT Konstantin Jara MD LAB BLOOD ORDERABLES Final R esult Performing Organization Address City/[facility] Co de Phone Number [facility] ([place]) 1 [facility] [place] [address] * ECG 12 lead (10/19/2024 2:45 PM CDT) 10/19/2024 2:45 PM CDT Narrative [facility] - 10/19/2024 3:36 PM CDT Vent Rate: 62 bpm RR Interval: 967 msec TN Interval: 213 msec QRS Duration: 162 msec QT Interval: 506 msec QTC Interval: 510 msec P-R-T [place]: -2 - -76 - 137 degrees IMPRESSION: Baseline artifact, 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 ABNORMAL RHYTHM ECG No change from prior EKG Electronically Signed By: Graham Mancilla MD Konstantin Jara MD ECG ORDERABLES Final Result Performing Organization Address [facility] Co de Phone Number [facility] * Influenza A/B, RSV, and COVID-19 PCR Nasopharyngeal (10/19/2024 2:45 PM CDT) COVID-19 RNA Negative Negative Influenza A RNA Negative Negative [facility] ([place]) Influenza B RNA Negative Negative [facility] ([place]) RSV RNA Negative Negative [facility] ([place]) Comment: Interpretive data: Testing performed by [facility]. This test is performed using the [employer] Xpert Xpress CoV-2/Flu/RSV plus assay. This is a multiplex, real- time reverse transcriptase PCR assay intended for the qualitative detection of nucleic acid from SARS-CoV-2, influenza A, influenza B, and respiratory syncytial virus. This assay has been cleared by the [place] Food and Drug administration. The performance characteristics have been verified by the [facility]. Results must be considered in the clinical context, and a negative result does not rule out infection. Interpretive Data last revised 2023 Nasopharyngeal 10/19/2024 2: 45 PM CDT 10/19/2024 2:47 PM CDT Narrative [facility] ([place]) - 10/19/2024 3:27 PM CDT Is the Patient experiencing symptoms consistent with COVID?->Unknown Konstantin Jara MD LAB MICROBIOLOGY - GENERAL O RDERABLES Final Result [facility] ([place]) 1 [facility] [place] [address] * XR Chest 1 Vw Portable (10/19/2024 [...] Katie Li M.D. FT: FT Report ID: [id number] Reading Location: [id number] Procedure Note Katie Kirkland MD - 10/19/2024 [...] Katie Li M.D. FT: FT Report ID: [id number] Reading Location: [place] [address] Konstantin Jara MD IMG XR PROCEDURES Final Resu lt * (ABNORMAL) Troponin T high-sensitivity series (baseline, 2hr, 4hr, 6hr) (10/19/2024 2:30 PM CDT) Trop T hs 301(C) <=22 ng/L [facility] ([place]) Comment: Critical Result called by [email or web address] at 2024-10-19 14:59:02. Result Read Back by SHANEKA DAMONHUBER Interpretive Data For further hscTnT resources including the diagnostic algorithm and an aid in interpretation, copy and paste this link: https://nrl.testcatalog.org/show/hsTrop Current Interpretive Data last revised 2020. Blood 10/19/2024 2:30 PM CDT 10/19/2024 2:35 PM CDT Konstantin Jara MD LAB BLOOD ORDERABLES Final R esult [facility] ([place]) 1 [facility] [place] [address] * (ABNORMAL) eGFR (10/19/2024 2:30 PM CDT) [...] BLOOD ORDERABLES Final Resu lt [facility] ([place]) 1 [facility] [place] [address] * Differential, auto (10/19/2024 2:30 PM CDT) [...] 2017. Lymphocyte pct 12.2 % [facility] ([place]) Comment: Interpretive Data Percent cell count reference ranges are not reported, since discordance with absolute values may lead to misinterpretation of CBC data. Current Interpretive Data was last revised on 2017. Monocyte pct 7.6 % [facility] ([place]) Comment: Interpretive Data Percent cell count reference ranges are not reported, since discordance with absolute values may lead to misinterpretation of CBC data. Current Interpretive Data was last revised on 2017. Eosinophil pct 2.6 % [facility] ([place]) Comment: Interpretive Data Percent cell count reference ranges are not reported, since discordance with absolute values may lead to misinterpretation of CBC data. Current Interpretive Data was last revised on 2017. Basophil pct 0.6 % [facility] ([place]) Comment: Interpretive Data Percent cell count reference ranges are not reported, since discordance with absolute values may lead to misinterpretation of CBC data. Current Interpretive Data was last revised on 2017. Blood 10/19/2024 2:30 PM CDT 10/19/2024 2:35 PM CDT us Ailyn LOUIE LAB BLOOD ORDERABLES Final Resu lt [facility] ([place]) 1 [facility] [place] [address] * (ABNORMAL) Pro B-type natriuretic peptide (10/19/2024 [...] [place] et.al. Eur Heart J. 2006:27:330-337. 2. Butser RW, Magali NICHOLSON. J. AM Bello Cardiol: Cardiovasc Imag. 2009;2: 216- 225. Interpretive Data Last Revised Date: 2017. Blood 10/19/2024 2:30 PM CDT 10/19/2024 2:35 PM CDT Konstantin Jara MD LAB BLOOD ORDERABLES Final R esult [facility] ([place]) 1 [facility] [place] [address] * (ABNORMAL) CBC with auto differential (10/19/2024 [...] NRBC abs 0.00 0.00 - 0.01 K/cumm [facility] ([place]) Blood 10/19/2024 2:30 PM CDT 10/19/2024 2:35 PM CDT Konstantin Jara MD LAB BLOOD ORDERABLES Final R esult [facility] ([place]) 1 [facility] [place] [address] * (ABNORMAL) Comprehensive metabolic panel (10/19/2024 2:30 PM CDT) Sodium 136 135 - 145 mmol/L [facility] ([place]) Potassium, pl 5.1(H) 3.3 - 4.9 mmol/L [facility] ([place]) Chloride 93(L) 97 - 110 mmol/L [facility] ([place]) CO2 25 22 - 32 [...] BLOOD ORDERABLES Final R esult [facility] ([place]) 1 [facility] [place] [address] * POCT glucose (10/19/2024 2:23 PM CDT) Glucose, POC 126 70 - 199 mg/dL Blood 10/19/2024 2:23 PM CDT 10/19/2024 2:23 PM CDT us Notinfile Unknown LAB POCT ORDERABLES - DEVICE F inal Result Performing Organization Address City/[facility]/ZIP Co de Phone Number [facility] ([place]) 1 [facility] [employer] [place] [address] * DEVICE CHECK - REMOTE (10/10/2024 7:00 AM CDT) Anatomical Region Laterality Modality Other Narrative 10/15/2024 7:36 AM CDT Biotronik Dual Pacemaker. Dx; SSS. DOI 11/10/[address] Black. [employer]ronik remote home monitoring. Office pacer checks Q1 yr. Unscheduled DDD CLS Pacemaker Remote due to EMEKA reached on 10/10/24 Transmission attached. Battery status: EMEKA reached on 10/10/24 Patient is not pacemaker dependent. [employer] reports that standard six-month replacement window applies, however some setting changes will occur. Patient device will switch to VDD mode with no rate response, and there is 11% reduction in base rate. Stable Lead impedances, pacing and sensing thresholds since 04/24/24 Presenting rhythm: AP/VS AP-84%, HOME HEALTH AID-7% No AT/AF episodes noted. No Ventricular high rate episodes detected. Medications: Eliquis 2.5 mg, ASA 81 mg, carvedilol 12.5 mg, hydralazine 25 mg See scanned report. Office pacemaker follow up: Pending generator change [employer] remote f/u pending generator change. Jose Guadalupe Velázquez RN Called and spoke with patient's Mili. She states that she handles most of Quinten's healthcare issues. Informed Mili that Quinten's pacemaker has reached recommended replacement time. She states that he would like to have the replacement done at [facility] by Dr. Juares. Patient is diabetic and on peritoneal dialysis. Patient is taking Eliquis 2.5 mg and ASA 81 mg as ordered. Informed patient's that this report would be forwarded to Dr. Juares and the nurses in the [place] office for follow-up. Patient's verbalized understanding. Patient is a former patient of Dr. Black, and then Kirill. us Maxim Juares MD CV CARDIAC SERVICES PROC EDURES Final Result * Hepatitis panel, acute Blood (07/27/2024 6:07 PM CDT) Hep A IgM Nonreactive Nonreactive Comment: Interpretive Data: If Hep A IgM Ab is reported as Equivocal, a new sample should be drawn in two weeks for testing. Current interpretive data was last revised on 19. Testing performed by: [facility], [address] [place] [address]., [id number] Hep B core IgM Nonreactive Nonreactive [facility] ([place]) Comment: Interpretive Data If HepB Core IgM Ab is reported as Equivocal, a new sample should be drawn in two weeks for testing. Current interpretive data was last revised on 19. Testing performed by: [facility], [address] [place] [address]., [id number] Hep C Ab Nonreactive Nonreactive [facility] [...] last revised on 2019. Testing performed by: [facility], [address] [place] [address]., [id number] HepBsAg Nonreactive Nonreactive [facility] ([place]) Comment:Testing performed by : [address] [address] Blood 07/27/2024 6:07 PM CDT 07/28/2024 11:03 AM CDT Guilherme Dumont MD LAB MICROBIOLOGY - GENERAL OR DERABLES Final Result [facility] ([place]) 1 [facility] [place] [address] * Colonoscopy (11/19/2023 7:32 AM CDT) Anatomical Region Laterality Modality Other Narrative Procedure Note Jerson Alonso MD - 11/19/2023 7:32 AM CDT [facility] Patient Name: Quinten Gould Procedure Date: 11/19/2023 7:32 AM Date of : 1950 Admit Type: Inpatient Age: 73 Gender: Male Attending MD: Jerson Alonso M.D. Room: [facility] ENDOSCOPY ROOM 3 Note Status: Finalized [...] passed under direct vision.The Pediatric Colonoscope [id number] was introduced through the anus and advanced [...] 7:32 AM Procedure Code(s): --- Professional --- 45548, 53, Colonoscopy, flexible; diagnostic, including collection of specimen(s) by brushing or washing, when performed (separateprocedure) Diagnosis Code(s): --- Professional --- R93.3, Abnormal findings on diagnostic imaging of other parts of digestive tract CPT copyright 2020 [employer]. All rights reserved. The codes documented in this report are preliminary and upon roll examiner reviewmay be revised to meet current compliance requirements. Recognized by the [place] [employer] for promoting quality in endoscopy us Jerson Alonso MD ENDOSCOPY PROCEDURES Final Result [...] 2017. Non-HDL Cholesterol 146 mg/dL [facility] ([place]) Comment: Interpretive Data Ages < or = [...] last revised on 2017. Chol/HDL ratio 6 [facility] ([place]) Blood 06/21/2023 3:52 AM CDT 06/21/2023 4:23 AM CDT Andrey Hernandez MD LAB BLOOD ORDERABLES Final Resu lt [facility] ([place]) 1 [facility] [place] [address] * Albumin Creatinine Ratio, Urine (07/27/2019) Urine Historical Provider LAB URINE ORDERABLES Nancy triana Result from Last 3 Months or Most Recently Relevant to Health Maintenance Insurance 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 Expl anation ADVANCE DIRECTIVE 11/15/2016 Advance Di [...] Agents on File Name Relationship Healthcare Agent [facility] p Communication Mili Gould Spouse Health Care Agent Tita Gonzalez Sister First Alternate Health Care Agent John Gould Son Second Alternate Health Care Agent Care Teams Route Sales Representative Relationship Specialty Start Date End Date Omer Nunn MD [address] [place] [address] PCP - General 01/10/12 Hemanth Sanches MD [address] [place] [address] Consulting Physician Gastroenterology 10/24/23 Jessa Bryan DO [address] [address] Consulting Physician Internal Medicine 07/12/24
--- OUTSIDE RECORDS SUMMARY | 2024-12-19 17:54 | XMS_ITS | Clinical Summary ---
Author Organization [facility] Address [address] [place] [id number] Care Team Providers Care Medical Parasitologist Name Role Phone Unavailable Primary Care Provider [...] COVID-19 Vaccine ( - 2023-2 5 season) 2024 Influenza Adult (#1) 2024 Meningococcal B Vaccine Aged Out No l onger eligible based on patient's age to complete this topic Meningococcal Vaccine Aged Out No alonzo ailyn eligible based on patient's age to complete this topic RSV Immunizations Under 20 Months Aged Out No longer eligible based on patient's age to complete this topic
--- OUTSIDE RECORDS SUMMARY | 2024-12-19 17:54 | XMS_ITS | Encounter Summary ---
Author Organization [facility] Healthcare Address [address] [place] [address] Care Team Providers Care Vocational Technical Education Teacher Name Role Phone Omer Nunn MD Primary Care Provider [phone] Hemanth Sanches MD Unavailable Jessa Bryan DO Unavailable [phone] Encounter Details Date Type Department Care Team (Late st Contact Info) Description 10/24/2024 Orders Only [facility] Health Information Management [address] [place] [id number] Scanning, Provider Social History Tobacco Use Types Packs/Day Years Used Date Smoking Tobacco: Never Smokeless Tobacco: Never Alcohol Use Standard Drinks/Week Comments Never 0 (1 standard drink = 0.6 oz pur e alcohol) [facility] Utilities Answer Date Recorded In the past 12 months has [employer], gas, oil, or water company threatened [...] often do you attend chur ch or roman catholic services? 1 to 4 times per year 07/27/2024 Do you belong to any clubs o r organizations such as judaism groups, unions, fraternal or athletic groups, or [...] place to sleep or slept in a alf (including now)? No 06/21/2023 Housing Stability Vital Sign Answer Vijay e Recorded In the last 12 months, was t here a time when you were not able to pay the mortgage or rent on time? No 07/27/2024 In the past 12 months, how m any times have you moved where you were living? 0 07/27/2024 At any time in the [facility], were you homeless or living in a alf (including now)? 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 Gender Identity Not on file Sexual Orientation Not on file documented as of this encounter Plan of Treatment Not on file documented as of this encounter Procedures Procedure Name Priority Date/Time Associated Diagnosis Comments CARDIOLOGY DOCUMENT SCAN 10/24/2024 documented in this encounter Results * Cardiology Document Scan (10/24/2024) Anatomical Region Laterality Modality Other us Provider Scanning CV CARDIAC SERVICES PROCEDURES Final Result documented in this encounter Visit Diagnoses Not on filedocumented in this encounter Care Teams Vocational Technical Education Teacher Relationship Specialty Start Date End Date Omer Nunn MD [address] [place] [address] PCP - General 01/10/12 Hemanth Sanches MD [address] [place] [address] Consulting Physician Gastroenterology 10/24/23 Jessa Bryan DO [address] [place] [address] Consulting Physician Internal Medicine 07/12/24 documented as of this encounter
--- OUTSIDE RECORDS SUMMARY | 2024-12-19 17:55 | XMS_ITS | Clinical Summary ---
Author Organization [facility] Address [address] [place] [address] Care Team Providers Care Stamping Mill Tender Name Role Phone Monty Moreno MD Unavailable [phone] Jill Black MD Unavailable Omer Nunn MD Primary Care Provider [phone] Source Comments [facility],non-owned Affiliates and Associated Physician Practices is amultiple site organization consisting of ambulatory clinics and hospital sitesin [place], [place] and [place]. This disclosure is being madepursuant to the Care Everywhere program and may not contain all information available regarding this patient. 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 Pulse 70 03/23/2023 1:10 PM SENIOR TRAINING AND DEVELOPMENT REP Temperature 36.8 C (98.2 F) 04/11/2020 7:31 AM SENIOR TRAINING AND DEVELOPMENT REP Respiratory Rate 17 03/23/2023 1:10 PM SENIOR TRAINING AND DEVELOPMENT REP Oxygen Saturation 94% 03/23/2023 1:10 PM SENIOR TRAINING AND DEVELOPMENT REP Inhaled Oxygen Concentration - - Weight 98.4 kg (217 lb) 03/23/2023 1:10 PM SENIOR TRAINING AND DEVELOPMENT REP Height 188 cm (6' 2) 03/23/2023 1:10 PM SENIOR TRAINING AND DEVELOPMENT REP Body Mass Index 27.86 03/23/2023 1:10 PM SENIOR TRAINING AND DEVELOPMENT REP Plan of Treatment Health Maintenance Due Date [...] yrs (1 - 1-dose 75+ series) 01/04/2023 DEPRESSION SCREENING 03/07/2024 DIABETES - URINE PROTEIN SCREENING 03/07/2024 10/11/2019, 04/14/2019 DIABETES-FOOT EXAM WITH MONOFILAMENT 04/10/2024 04/10/2023 COVID-19 VACCINE ( season) 2024 INFLUENZA VACCINE (#1) 2024 HEPATITIS B VACCINE [...] this topic 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 Type Area Tail Board Man Device Identifier Shelf Expiration Date Model / Serial / Lot Harrison Bone Clifton-G Hv 40/20 Implanted:Qty: 1 on 04/16/2015 by Monty Moreno MD at [facility] Left: Knee [employer] 10/04/2016 [id number] / / [id number] Compon Stem Exten Splined 18mm X 80mm Implanted:Qty: 1 on 04/16/2015 by Monty Moreno MD at [facility] Left: Knee [employer] 10/18/2024 [id number] / / [id number] Tibial Brg Vanguard Ps+ Sz 16 X 79/83mm Implanted:Qty: 1 on 04/16/2015 by Monty Moreno MD at [facility] Left: Knee [employer] 11/03/2016 [id number] / / [id number] Harrison Bone Clifton Hv Implanted:Qty: 1 on 04/16/2015 by Monty Moreno MD at [facility] Left: Knee [employer] 12/04/2016 [id number] / / [id number] Compon Stem Exten Splined 16mm X 120mm Implanted:Qty: 1 on 04/16/2015 by Monty Moreno MD at [facility] Left: Knee [employer] 01/03/2023 [id number] / / [id number] Comp Fem L 75mm Implanted:Qty: 1 on 04/16/2015 by Monty Moreno MD at [facility] Left: Knee [employer] 10/04/2015 [id number] / / [id number] 5mm X 75mm Femoral Posterior Augment Implanted:Qty: 1 on 04/16/2015 by Monty Moreno MD at [facility] Left: Knee [employer] 07/04/2017 [id number] / / [id number] 5mm X 75mm Femoral Posterior Augment Implanted:Qty: 1 on 04/16/2015 by Monty Moreno MD at [facility] Left: Knee [employer] 12/04/2016 [id number] / / [id number] Implt Fem Dist Aug 5 X 75mm Implanted:Qty: 1 on 04/16/2015 by Monty Moreno MD at [facility] Left: Knee [employer] 02/03/2021 [id number] / / [id number] 10mm X 75mm Femoral Rl/Lm Distal Augment Implanted:Qty: 1 on 04/16/2015 by Monty Moreno MD at [facility] Left: Knee [employer] 01/20/2025 [id number] / / [id number] Ty Tibial Non Por 79mm Implanted:Qty: 1 on 04/16/2015 by Monty Moreno MD at [facility] Left: Knee [employer] 02/19/2020 [id number] / / [id number] Harrison Bone Clifton-G Hv 40/20 Implanted:Qty: 2 on 09/24/2019 by Monty Moreno MD at [facility] Right: Knee [employer] 06/21/2020 600-15-100 / / [id number] Cmnt Bone Djo Srg Cblt 40gm Hvisc Strl Implanted:Qty: 2 on 09/24/2019 by Monty Moreno MD at [facility] Right: Knee [employer] 01/04/2020 600-15-000 / / [id number] Harrison Bone Clifton-G Hv 40/20 Implanted:Qty: 1 on 04/09/2020 by Monty Moreno MD at [facility] Right: Knee [employer] 10/07/2020 600-15-100 / / [id number] Harrison Bone Clifton-G Hv 40/20 Implanted:Qty: 1 on 04/09/2020 by Monty Moreno MD at [facility] Right: Knee [employer] 06/07/2020 600-15-100 / / [id number] Block Aug Vngrd 56eyx7ud Fem Dist Rmll Implanted:Qty: 1 on 04/09/2020 by Monty Moreno MD at [facility] Right: Knee [employer] 08/07/2028 [id number] / / [id number] Block Aug Vngrd [id number] Fem Dist Lt Mdl Implanted:Qty: 1 on 04/09/2020 by Monty Moreno MD at [facility] Right: Knee [employer] 08/07/2028 [id number] / / [id number] Block Aug Vngrd 55gcr36tt Kn Fem Lt Mdl Implanted:Qty: 1 on 04/09/2020 by Monty Moreno MD at [facility] Right: Knee [employer] 06/07/2028 [id number] / / [id number] Block Aug Vngrd 74gqo4rh Fem Post Rmll Implanted:Qty: 1 on 04/09/2020 by Monty Moreno MD at [facility] Right: Knee [employer] 04/09/2028 [id number] / / [id number] Tray Tib 5mm Ofst Kn Adpr Implanted:Qty: 1 on 04/09/2020 by Monty Moreno MD at [facility] Right: Knee [employer] 01/07/2029 [id number] / / [id number] Stem Tib 80mm 16mm Vngrd 360 Kn Spline Implanted:Qty: 1 on 04/09/2020 by Monty Moreno MD at [facility] Right: Knee [employer] 09/06/2028 [id number] / / [id number] Cmpnt Fem Kn Rt Post Stab Opn Bx Vngrd Implanted:Qty: 1 on 04/09/2020 by Monty Moreno MD at [facility] Right: Knee [employer] 09/07/2027 [id number] / / [id number] Stem Tib 120mm 18mm Vngrd 360 Kn Spline Implanted:Qty: 1 on 04/09/2020 by Monty Moreno MD at [facility] Right: Knee [employer] 09/06/2025 [id number] / / [id number] Cmpnt Ptlr 31mm 1 Pg Wire Ascnt Arcm Kn Implanted:Qty: 1 on 04/09/2020 by Monty Moreno MD at [facility] Right: Knee [employer] 02/06/2025 [id number] / / [id number] Brng 79/[id number] Vngrd 360 Pe Kn Post Implanted:Qty: 1 on 04/09/2020 by Monty Moreno MD at [facility] Right: Knee [employer] 06/07/2021 [id number] / / [id number] Tray Tib 83mm Ofst Kn Implanted:Qty: 1 on 04/09/2020 by Monty Moreno MD at [facility] Right: Knee [employer] [id number] / / [id number] Procedures Procedure Name Priority Date/Time Associated Diagnosis Comments BASIC METABOLIC PANEL (CALCIUM TOTAL) AM Draw 04/11/2020 3:57 AM SENIOR TRAINING AND DEVELOPMENT REP Status post revision of total replacement of right knee HEMOGLOBIN A1C STAT 01/24/2020 12:50 PM SENIOR TRAINING AND DEVELOPMENT REP Type 2 diabetes mellitus without complication, without long-term current use of insulin PROTEIN CREATININE RATIO URINE RANDOM PNL Routine 10/11/2019 6:20 PM CDT Acute renal failure superimposed on chronic kidney disease, unspecified CKD stage, unspecified acute renal failure type from Last 3 Months or Most Recently Relevant to Health Maintenance Results * (ABNORMAL) BASIC METABOLIC PANEL (CALCIUM TOTAL) (04/11/2020 3:57 AM SENIOR TRAINING AND DEVELOPMENT REP) Glucose 112(H) 70 - 105 mg/dL 04/11/2020 4:35 AM SENIOR TRAINING AND DEVELOPMENT REP [facility] Sodium 136 136 - 145 mmol/L 04/11/2020 4:35 AM [facility] Potassium 4.7 3.5 - 5.1 mmol/L 04/11/2020 4:35 AM [facility] Chloride 103 98 - 107 mmol/L 04/11/2020 4:35 AM [facility] CO2 24 23 - 31 mmol/L 04/11/2020 4:35 AM [facility] Calcium 7.9(L) 8.4 - 10.4 mg/dL 04/11/2020 4:35 AM [facility] Anion Gap 9 8 - 18 mmol/L 04/11/2020 4:35 AM [facility] Comment:Attention clinician: Reference Range change. BUN 43(H) 8.4 - 25.7 mg/dL 04/11/2020 4:35 AM [facility] Creatinine 2.16(H) 0.72 - 1.25 mg/dL 04/11/2020 4:35 AM SENIOR TRAINING AND DEVELOPMENT REP [facility] eGFR by MDRD 30 mL/min/1.7 3m2 04/11/2020 4:35 AM SENIOR TRAINING AND DEVELOPMENT REP [facility] eGFR by MDRD 37 mL/min/1.7 3m2 04/11/2020 4:35 AM [facility] Blood BLOOD SPECIMEN / Unknown Venipuncture / Unknown 04/11/2020 3:57 AM SENIOR TRAINING AND DEVELOPMENT REP 04/11/2020 4:09 AM SENIOR TRAINING AND DEVELOPMENT REP us Liza Ojeda MD LAB - CHEMISTRY ORDERABLES Final Result [facility] [address] [place] [address] * HEMOGLOBIN A1C (01/24/2020 12:50 PM SENIOR TRAINING AND DEVELOPMENT REP) Hemoglobin A1c 4.8 4.2 - 5.6 % 01/24/2020 2:50 PM SENIOR TRAINING AND DEVELOPMENT REP [facility] Estimated Average Glucose 91 mg/dL 01/24/2020 2:50 PM SENIOR TRAINING AND DEVELOPMENT REP [facility] Blood BLOOD SPECIMEN / Unknown Venipuncture / Unknown 01/24/2020 12:50 PM SENIOR TRAINING AND DEVELOPMENT REP 01/24/2020 12:53 PM SENIOR TRAINING AND DEVELOPMENT REP Narrative [facility] - 01/24/2020 2:50 PM SENIOR TRAINING AND DEVELOPMENT REP The following cutoff levels are recommended by [place] [employer]. A1c > 6.5% : considered [...] hemoglobin (HbF) exceeds 5% in the specimen. Monica Garrido MEDICAL SCIENTIST-CAMPAIGN ANALYST LAB - CHEMISTRY ORDER ALEXX Final Result [facility] [address] [place] [address] * (ABNORMAL) PROTEIN CREATININE RATIO URINE RANDOM PNL (10/11/2019 6:20 PM CDT) Protein Urine 147.0(H) <11.9 mg/dL 10/11/2019 7:06 PM CDT [facility] Creatinine Urine 38.58 mg/dL 10/11/2019 7:06 PM CDT [facility] Protein/Creatin ine Ratio Urine 3.81 10/11/2019 7:06 PM CDT [facility] Urine URINE SPECIMEN OBTAINED BY CLEAN CATCH PROCEDURE / Unknown Collection / Unknown 10/11/2019 6:20 PM CDT 10/11/2019 6:39 PM CDT us Pradeep Grewal MD LAB - URINE CHEMISTRY ORDERABL ES Final Result [facility] [address] [place] [address] from Last 3 Months or Most Recently [...] 5:00 PM 04/18/2015 3:07 PM Care Teams Stamping Mill Tender Relationship Specialty Start Date End Date Omer Nunn MD [address] [place] [id number] PCP - General 02/04/21 [place] [address] [address] Orthopedic Surgery 12/31/14 Jill Black MD [address] [address] Cardiovascular Disease 09/20/19
--- OUTSIDE RECORDS SUMMARY | 2024-12-19 17:55 | XMS_ITS | Encounter Summary ---
Author Organization [facility] Address [address] [place] [address] Care Team Providers Care Medicaid Nurse Name Role Phone Monty Moreno MD Unavailable Jill Black MD Unavailable Omer Nunn MD Primary Care Provider [phone] Encounter Details Date Type Department Care Team (Late st Contact Info) Description 05/01/2015 Therapy Visit [facility] Orthopedics [address] [facility] [address] [place] [address] [place] [id number] [address] Social History Tobacco Use Types Packs/Day Years Used Date Smoking Tobacco: Never Alcohol Use Standard Drinks/Week Comments Yes 0 (1 standard drink = 0.6 oz pur e alcohol) very rare Sex and Gender Information Value Date Recorded Sex Assigned at Not on file 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
--- OUTSIDE RECORDS SUMMARY | 2024-12-19 17:55 | XMS_ITS ---
Author Organization [facility] Address [address] [place] [address] Care Team Providers Care Consumer Advocate Name Role Phone Omer Nunn MD Primary Care Provider Hemanth Sanches MD Unavailable Jessa Bryan DO Unavailable [phone] Dialysis Access Sites Type Status Location Placement [...] coma, without long-term current use of insulin ([facility]) Use for BG monitoring 3 each 08/03/19 25 Active blood-glucose,re ceiver,cont miscIndications: Type 2 diabetes mellitus with hypoglycemia without coma, without long-term current use of insulin ([facility]) Use for blood glucose monitor 1 each [...] time and patient to follow up with [facility] orthopedics (Dr. Cheema clinic to set up) [...] well since EGD yesterday. 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 He [...] week. He will obtain a BMP at [facility] prior to the visit. 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 No symptoms presently. - Cont zyrtec, levalbuterol PRN - formulary montelukast to replace home zafirlukast Unintentional weight loss 12/22/2022 Mood disorder 12/22/2022 Assessment & Plan (11/12/2023 5:01 PM CDT): - continue home wellbutrin, prozac Assessment & Plan (05/13/2023 2:27 AM CHEMICAL PROCESS PROJECT ENGINEER): Continue fluoxetine 40 and bupropion 300 Iron [...] for cell count [place] [address] nucleated cells (95% neutrophils) and 6403 RBCs, [...] 12/30/2016 Assessment & Plan (05/13/2023 2:10 AM CHEMICAL PROCESS PROJECT ENGINEER): - Continue ASA, atorvastatin 80 - Off [...] 09/16/2016 Assessment & Plan (05/13/2023 2:10 AM CHEMICAL PROCESS PROJECT ENGINEER): Nonadherent to CPAP Assessment & Plan (09/16/2016 [...] Acquired trigger finger 04/28/2010 Coronary arteriosclerosis in [place] artery 06/18 Overview (06/09/2016): CHETAN HDZ VSSL Assessment & Plan (11/12/2023 5:00 PM [...] HYPERLIPIDEMIA Assessment & Plan (05/13/2023 2:10 AM CHEMICAL PROCESS PROJECT ENGINEER): Cont atorva 80 Assessment & Plan (09/16/2016 [...] drink = 0.6 oz pur e alcohol) [facility] Utilities Answer Date Recorded In the past 12 months has [employer], gas, oil, or water [employer] threatened to shut off services in your [...] week 07/27/2024 How often do you attend [facility] ch or anabaptist services? 1 to 4 times per year 07/27/2024 Do you belong to any clubs o r organizations such as muslim groups, unions, fraternal or athletic groups, or [...] place to sleep or slept in a skilled nursing (including now)? No 06/21/2023 Housing Stability Vital Sign Answer Vijay e Recorded In the last 12 months, was t here a time when you were not able to pay the mortgage or rent on time? No 07/27/2024 In the past 12 months, how m any times have you moved where you were living? 0 07/27/2024 At any time in the past 12 m [facility], were you homeless or living in a skilled nursing (including now)? No 07/27/2024 AUDIT-C Answer Date [...] on file Legal Sex Male 7:02 AM CHEMICAL PROCESS PROJECT ENGINEER Gender Identity Not on file Sexual Orientation [...] Mass Index 29.05 12/10/2024 1:52 PM CDT Results * (ABNORMAL) POCT hemoglobin A1c (12/10/2024 [...] EMEKA. Presenting rhythm- VS (SR). AP- 32 IMMIGRATION JUDGE- 0. No Atrial high rate episodes recorded. No Ventricular high rate episodes noted. Medications; Eliquis, ASA 81 mg, Coreg. No programming changes made to device settings. See scanned report. Office pacemaker f/u scheduled 01/08/2026. Biotronik remote f/u 02/05/2025. Rosi Lisa RN [facility] Cisco Roy MD CV CARDIAC SERVICES PRO CEDURES Final Result * Cardiology Document Scan (10/24/2024 3:07 PM CDT) Anatomical Region Laterality Modality Other Maxim Juares MD CV CARDIAC SERVICES PROC EDURES Final Result * SCAN - LABS (10/24/2024) us Provider Scanning Final Result * Cardiology Document Scan (10/24/2024) Anatomical Region Laterality Modality Other us Provider Scanning CV CARDIAC SERVICES PROCEDURES Final Result * POCT glucose (10/21/2024 4:39 PM CDT) Glucose, POC 122 70 - 199 mg/dL Blood 10/21/2024 4:39 PM CDT 10/21/2024 4:39 PM CDT us Nancy Merritt MD LAB POCT ORDERABLES - DEV ICE Final Result [facility] [place] [address] [facility] Department [place] [address] * POCT glucose (10/21/2024 11:59 AM CDT) Glucose, POC 128 70 - 199 mg/dL Blood 10/21/2024 11:5 9 AM CDT 10/21/2024 11:59 AM CDT Nancy Merritt MD LAB POCT ORDERABLES - DEV ICE Final Result Performing Organization Address City/[facility]/ZIP Co de Phone Number [facility] ([place]) 1 [facility] [employer] [place] [address] * POCT glucose (10/21/2024 8:12 AM CDT) Glucose, POC 121 70 - 199 mg/dL Blood 10/21/2024 8:12 AM CDT 10/21/2024 8:12 AM CDT Nancy Merritt MD LAB POCT ORDERABLES - DEV ICE Final Result Performing Organization Address [facility] Co de Phone Number [facility] ([place]) 1 [facility] [employer] [place] [address] * POCT glucose (10/21/2024 4:16 AM CDT) Glucose, POC 95 70 - 199 mg/dL Blood 10/21/2024 4:16 AM CDT 10/21/2024 4:16 AM CDT Nancy Merritt MD LAB POCT ORDERABLES - DEV ICE Final Result Performing Organization Address City/[facility] Co de Phone Number [facility] ([place] 1 [facility] [employer] [place] [address] * (ABNORMAL) eGFR (10/21/2024 2:15 AM CDT) [...] MD LAB BLOOD ORDERABLES Final Resu lt [facility] ([place]) [address] [facility] Department [place] [address] * Differential, auto (10/21/2024 2:15 AM CDT) [...] revised on 2017. Basophil pct 0.6 % [facility] ([place]) Comment: Interpretive Data Percent cell count reference ranges are not reported, since discordance with absolute values may lead to misinterpretation of CBC data. Current Interpretive Data was last revised on 2017. Blood 10/21/2024 2:15 AM CDT 10/21/2024 3:35 AM CDT us Eugene Scott MD LAB BLOOD ORDERABLES Final Resu lt [facility] ([place]) [address] [facility] Department [place] [address] * (ABNORMAL) CBC with auto differential (10/21/2024 2:15 AM CDT) WBC 6.85 3.80 - 9.90 K/cumm Hgb 8.6(L) 13.0 - 17.5 g/dL [facility] ([place]) Hct 27.3(L) 38.9 - 50.3 % [facility] ([place]) Plt 211 150 - 400 K/cumm [facility] ([place]) MPV 9.4 9.1 - 12.3 [...] MD LAB BLOOD ORDERABLES Final Resu lt [facility] ([place]) [address] [facility] Department of Laboratories [place] [id number] * (ABNORMAL) Comprehensive metabolic panel (10/21/2024 2:15 AM CDT) Sodium 131(L) 135 - 145 mmol/L [facility] ([place]) Potassium, pl 4.5 3.3 - [...] ([place]) Glucose 90 70 - 199 mg/dL [facility] ([place]) Comment: Interpretive Data Fasting glucose [...] BLOOD ORDERABLES Final Resu lt [facility] ([place]) [address] [facility] [employer] [place] [address] * POCT glucose (10/21/2024 12:06 AM CDT) Glucose, POC 106 70 - 199 mg/dL Blood 10/21/2024 12:0 6 AM CDT 10/21/2024 12:06 AM CDT us Nancy Merritt MD LAB POCT ORDERABLES - DEV ICE Final Result Performing Organization Address City/[facility]/ZIP Co de Phone Number [facility] ([place] [address] [facility] [employer] [place] [address] * POCT glucose (10/20/2024 8:24 PM CDT) Glucose, POC 146 70 - 199 mg/dL Blood 10/20/2024 8:24 PM CDT 10/20/2024 8:24 PM CDT Nancy Merritt MD LAB POCT ORDERABLES - DEV ICE Final Result Performing Organization Address [facility] Co de Phone Number [facility] ([place]) 1 [facility] [place] [address] * POCT glucose (10/20/2024 5:07 PM CDT) Glucose, POC 127 70 - 199 mg/dL Blood 10/20/2024 5:07 PM CDT 10/20/2024 5:07 PM CDT Nancy Merritt MD LAB POCT ORDERABLES - DEV ICE Final Result Performing Organization Address [facility] de Phone Number [facility] ([place]) 1 [facility] [employer] [place] [address] * POCT glucose (10/20/2024 12:07 PM CDT) Glucose, POC 103 70 - 199 mg/dL Blood 10/20/2024 12:0 7 PM CDT 10/20/2024 12:07 PM CDT Nancy Merritt MD LAB POCT ORDERABLES - DEV ICE Final Result Performing Organization Address [facility] de Phone Number [facility] ([place] 1 [facility] [place] [address] * (ABNORMAL) Glutamic acid decarboxylase (10/20/2024 11:18 AM CDT) GAD65 ab ser 0.11(H) <=0.02 nmol/L [facility] Lab Comment: The following antibody was identified: [...] developed and its performance characteristics determined by [facility] in a manner consistent with CLIA requirements. This test has not been cleared or approved by the U.S. Food and Drug Administration. Test Performed by: [address] [address] Grease Remover: Andrea Almonte Ph.D.; CLIA# [id number] Blood 10/20/2024 11:1 8 AM CDT 10/20/2024 11:30 AM CDT Guilherme Dumont MD LAB BLOOD ORDERABLES Final Re sult Performing Organization Address [facility]/ZIP Co de Phone Number [facility] ([place] 1 [facility] [place] [address] [place] [facility] * (ABNORMAL) Insulin, total (10/20/2024 11:18 AM CDT) Insulin 28.7(H) 2.6 - 25.0 mcIUnit/mL Comment:Testing performed by : [facility], 1 [place] [address] Blood 10/20/2024 11:1 8 AM CDT 10/20/2024 4:05 PM CDT Guilherme Dumont MD LAB BLOOD ORDERABLES Final Re sult [facility] ([place] 1 [facility] [place] [address] * (ABNORMAL) C-peptide (10/20/2024 11:18 AM CDT) Pathologist [facility] C-peptide 14.70(H) 1.10 - 4.40 ng/mL Comment:Testing performed by : [facility], [address] [place] [address], [address] Blood 10/20/2024 11:1 8 AM CDT 10/20/2024 4:05 PM CDT Guilherme Dumont MD LAB BLOOD ORDERABLES Final Re sult Performing Organization Address City/[facility]/ZIP Co de Phone Number [facility] ([place]) [address] [place] [address] [employer] [place] [address] * Hepatitis B Surface Antigen Blood (10/20/2024 11:18 AM CDT) [facility] HepBsAg Nonreactive Nonreactive Comment:Testing performed by : [facility], [address] [place] [address], [address] Blood 10/20/2024 11:1 8 AM CDT 10/20/2024 3:08 PM CDT Guilherme Dumont MD LAB MICROBIOLOGY - GENERAL OR DERABLES Final Result Performing Organization Address City/[facility]/ZIP Co de Phone Number [facility] ([place]) [address] [place] [address] [place] [address] * TRANSTHORACIC ECHO (TTE) LIMITED/FOLLOW UP WO DOPPLER/CF WO CONTRAST (10/20/2024 9:45 AM CDT) Pathologist [facility] Estimated EF 30 % CONS SCIMAGE Anatomical Region Laterality Modality Ultrasound 10/20/2024 11:3 5 AM CDT Narrative 10/20/2024 4:26 PM CDT [address] [address] Limited Echocardiogram Report Patient Name: QUINTEN GOULD : 1950 Study Date: 10/20/2024 11:35:32 AM Gender: M Tech: AA Location: [id number] Ref Provider: ROE GOSS Height(Cm): BSA: Weight(Kg): [...] Procedure Note Roe Goss MD - 10/20/[address] [place] [address] Limited Echocardiogram Report Patient Name: QUINTEN GOULD : 1950 Study Date: 10/20/2024 11:35:32 AM Gender: M Tech: Location: [id number] Ref Provider: ROE GOSS Height(Cm): BSA: Weight(Kg): [...] Dr Roe Goss 10/20/2024 4:26:13 PM CDT Roe Goss MD CV ECHO PROCEDURES Final Resu lt * POCT glucose (10/20/2024 8:08 AM CDT) Glucose, POC 87 70 - 199 mg/dL Blood 10/20/2024 8:08 AM CDT 10/20/2024 8:08 AM CDT Nancy Merritt MD LAB POCT ORDERABLES - DEV ICE Final Result Performing Organization Address City/[facility]/ZIP Co de Phone Number [facility] ([place]) [address] [facility] [place] [address] * POCT glucose (10/20/2024 1:50 AM CDT) Glucose, POC 79 70 - 199 mg/dL Blood 10/20/2024 1:50 AM CDT 10/20/2024 1:50 AM CDT Tatiana Sow MD LAB POCT ORDERABLES - DEVICE F inal Result Performing Organization Address City/[facility] Co de Phone Number [facility] ([place]) [address] [facility] [place] [address] * Lactate (10/20/2024 12:53 AM CDT) [facility] Signature Lactate 1.3 0.7 - 2.0 mmol/L Blood 10/20/2024 12:5 3 AM CDT 10/20/2024 12:56 AM CDT Eugene Scott MD LAB BLOOD ORDERABLES Final Resu lt Performing Organization Address City/[facility]/ZIP Co de Phone Number [facility] ([place]) [address] [facility] Department of [employer] [place] [address] * (ABNORMAL) eGFR (10/20/2024 12:53 AM CDT) Pathologist [facility] eGFR 6(L) >=60 mL/min/1. 73 m2 [...] 3 AM CDT 10/20/2024 12:56 AM CDT Eugene Scott MD LAB BLOOD ORDERABLES Final Resu lt Performing Organization Address City/[facility]/ZIP Co de Phone Number [facility] ([place]) [address] [facility] Department of [employer] [place] [address] * Differential, auto (10/20/2024 12:53 AM CDT) Neutrophil abs 4.52 1.50 - 6.50 K/cumm Imm gran abs 0.04 0.00 - 0.10 K/cumm [facility] ([place]) Lymphocyte abs 1.26 0.80 - 3.30 K/cumm [facility] ([place]) Monocyte abs 0.65 0.20 - 0.80 K/cumm [...] Lymphocyte pct 18.9 % [facility] ([place]) Comment: Interpretive Data Percent cell count reference [...] Eosinophil pct 2.2 % [facility] ([place]) Comment: Interpretive Data Percent cell count reference ranges are not reported, since discordance with absolute values may lead to misinterpretation of CBC data. Current Interpretive Data was last revised on 2017. Basophil pct 0.7 % [facility] ([place]) Comment: Interpretive Data Percent cell count reference ranges are not reported, since discordance with absolute values may lead to misinterpretation of CBC data. Current Interpretive Data was last revised on 2017. Blood 10/20/2024 12:5 3 AM CDT 10/20/2024 12:56 AM CDT us Eugene Scott MD LAB BLOOD ORDERABLES Final Resu lt [facility] ([place]) [address] [facility] Department of [employer] [place] [address] * (ABNORMAL) CBC with auto differential (10/20/2024 [...] Final Resu lt [facility] ([place]) [address] [facility] Department [place] [address] * Blood culture Blood (10/20/2024 12:53 AM CDT) Report Final Report: No growth Comment:Testing performed by : [facility], 1 [facility] [place]., [address] Blood 10/20/2024 12:5 3 AM CDT 10/20/2024 5:04 AM CDT Narrative [facility] ([place]) - 10/24/2024 7:00 AM CDT From [...] performance characteristics have been verified by the [facility] Microbiology Laboratory. For questions about this culture, contact the Microbiology Laboratory at [phone]. Interpretive data was last revised on 23. uEgene Scott MD LAB MICROBIOLOGY - GENERAL ORDJarred [facility] Final Result [facility] ([place]) [address] [facility] Department [place] [address] * Blood culture Blood (10/20/2024 12:53 AM CDT) Report Final Report: No growth Comment:Testing performed by : [facility], [address] [facility] [place]., [address] Blood 10/20/2024 12:5 3 AM CDT 10/20/2024 [...] performance characteristics have been verified by the [facility] Microbiology Laboratory. For questions about this culture, contact the Microbiology Laboratory at [phone]. Interpretive data was last revised on 23. Eugene Scott MD LAB MICROBIOLOGY - [facility] Final Result [facility] ([place]) [address] [facility] Department [place] [address] * (ABNORMAL) Comprehensive metabolic panel (10/20/2024 12:53 [...] ORDERABLES Final Resu lt Performing Organization Address City/[facility]/ZIP Co de Phone Number [facility] ([place]) [address] [facility] [place] [address] * POCT glucose (10/19/2024 11:19 PM CDT) Glucose, POC 88 70 - 199 mg/dL Blood 10/19/2024 11:1 9 PM CDT 10/19/2024 11:19 PM CDT Tatiana Sow MD LAB POCT ORDERABLES - DEVICE F inal Result Performing Organization Address City/[facility]/ZIP Co de Phone Number [facility] ([place]) [address] [facility] [place] [address] * (ABNORMAL) Troponin T high-sensitivity 6-hour (10/19/2024 9:15 PM CDT) Trop T hs 292(C) <=22 ng/L [facility] ([place]) Comment: Critical Result called by [email or web address] at 2024-10-19 22:37:16. Result Read Back by [...] Final R esult [facility] ([place]) [address] [facility] Department of [employer] [place] [address] * POCT glucose (10/19/2024 8:31 PM CDT) [facility] Glucose, POC 91 70 - 199 mg/dL Blood 10/19/2024 8:31 PM CDT 10/19/2024 8:31 PM CDT Tatiana Sow MD LAB POCT ORDERABLES - DEVICE F inal Result [facility] ([place]) 1 [facility] of [employer] [place] [address] * (ABNORMAL) Troponin T high-sensitivity 4-hour (10/19/2024 6:52 PM CDT) Pathologist [facility] Trop T hs 290(C) <=22 ng/L [facility] ([place]) Comment: Critical Result called by [id number] at 2024-10-19 19:23:37. Result Read Back by MILADY GARCIA Interpretive Data For further hscTnT resources including the diagnostic algorithm and an aid in interpretation, copy and paste this link: https://nrl.testcatLucibel.org/show/hsTrop Current Interpretive Data last revised 2020. Trop T hs pct delta -4 % [facility] ([place]) Trop T hs interp Insignificant [facility] ([place]) Blood 10/19/2024 6:52 PM CDT 10/19/2024 6:55 PM CDT Konstantin Jara MD LAB BLOOD ORDERABLES Final R esult [facility] ([place]) [address] [facility] Department of [employer] [place] [address] * POCT glucose (10/19/2024 4:13 PM CDT) Glucose, POC 109 70 - 199 mg/dL Blood 10/19/2024 4:13 PM CDT 10/19/2024 4:13 PM CDT Konstantin Jara MD LAB POCT ORDERABLES - DEVICE Final Result [facility] ([place]) [address] [place] [address] of [employer] [place] [address] * (ABNORMAL) Troponin T high-sensitivity 2-hour (10/19/2024 4:12 PM CDT) Trop T hs 288(C) <=22 ng/L [facility] ([place]) Comment: Critical Result called by [email or web address] at 2024-10-19 17:04:24. Result Read Back by FAUSTO LEPE Interpretive Data For further hscTnT resources including the diagnostic algorithm and an aid in interpretation, copy and paste this link: https://nrl.testcatLucibel.org/show/hsTrop Current Interpretive Data last revised 2020. Trop T hs pct delta -4 % [facility] ([place]) Trop T hs interp Insignificant [facility] ([place]) Blood 10/19/2024 4:12 PM CDT 10/19/2024 4:17 PM CDT Konstantin Jara MD LAB BLOOD ORDERABLES Final R esult Performing Organization Address City/[facility]/ZIP Co de Phone Number [facility] ([place]) [address] [facility] Department [place] [address] * ECG 12 lead (10/19/2024 2:45 PM CDT) 10/19/2024 2:45 PM CDT Narrative [facility] - 10/19/2024 3:36 PM CDT Vent Rate: 62 bpm RR Interval: 967 msec AK Interval: 213 msec QRS Duration: 162 msec QT Interval: 506 msec QTC Interval: 510 msec P-R-T [place]: -2 - -76 - 137 degrees IMPRESSION: Baseline artifact, 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 ABNORMAL RHYTHM ECG No change from prior EKG Electronically Signed By: Graham Mancilla MD Konstantin Jara MD ECG ORDERABLES Final Result Performing Organization Address [facility] de Phone Number [facility] * Influenza A/B, RSV, and COVID-19 PCR Nasopharyngeal (10/19/2024 2:45 PM CDT) COVID-19 RNA Negative Negative Influenza A RNA Negative Negative [facility] ([place]) Influenza B RNA Negative Negative [facility] ([place] RSV RNA Negative Negative [facility] ([place]) Comment: Interpretive data: Testing performed by [facility]. This test is performed using the [employer] Xpert Xpress CoV-2/Flu/RSV plus assay. This is a multiplex, real- time reverse transcriptase PCR assay intended for the qualitative detection of nucleic acid from SARS-CoV-2, influenza A, influenza B, and respiratory syncytial virus. This assay has been cleared by the [place] Food and Drug administration. The performance characteristics have been verified by the [facility]. Results must be considered in the clinical context, and a negative result does not rule out infection. Interpretive Data last revised 2023 Nasopharyngeal 10/19/2024 2: 45 PM CDT 10/19/2024 2:47 PM CDT Narrative [facility] ([place]) - 10/19/2024 3:27 PM CDT Is the Patient experiencing symptoms consistent with COVID?->Unknown us Konstantin Jara MD LAB MICROBIOLOGY - GENERAL O RDERABLES Final Result [facility] ([place]) [address] [facility] Department [place] [address] * XR Chest 1 Vw Portable (10/19/2024 [...] Katie Li M.D. FT: FT Report ID: [id number] Reading Location: [id number] Procedure Note Katie Kirkland MD - 08/15/2025 EXAM DESCRIPTION: XR CHEST 1 VIEW REASON [...] Katie Li M.D. FT: FT Report ID: [id number] Reading Location: [place] [address] Konstantin Jara MD IMG XR PROCEDURES Final Resu lt * (ABNORMAL) Troponin T high-sensitivity series (baseline, 2hr, 4hr, 6hr) (10/19/2024 2:30 PM CDT) Trop T hs 301(C) <=22 ng/L [facility] ([place]) Comment: Critical Result called by [email or web address] at 2024-10-19 14:59:02. Result Read Back by SHANEKA QUIÑONES Interpretive Data For further hscTnT resources including the diagnostic algorithm and an aid in interpretation, copy and paste this link: https://nrl.testcatalog.org/show/hsTrop Current Interpretive Data last revised 2020. Blood 10/19/2024 2:30 PM CDT 10/19/2024 2:35 PM CDT Konstantin Jara MD LAB BLOOD ORDERABLES Final R esult [facility] ([place]) [address] [facility] [place] [address] * (ABNORMAL) eGFR (10/19/2024 2:30 PM CDT) Pathologist [facility] eGFR 6(L) >=60 mL/min/1. 73 m2 [...] LOUIE LAB BLOOD ORDERABLES Final Resu lt [facility] ([place]) [address] [facility] Department [place] [address] * Differential, auto (10/19/2024 2:30 PM CDT) Pathologist [facility] Neutrophil abs 5.57 1.50 - 6.50 K/cumm Imm gran abs 0.03 0.00 - 0.10 K/cumm [facility] ([place]) Lymphocyte abs 0.89 0.80 - 3.30 K/cumm [facility] ([place]) Monocyte abs 0.55 0.20 - 0.80 K/cumm [facility] ([place]) Eosinophil abs 0.19 0.00 - 0.50 K/cumm [...] Final Resu lt [facility] ([place]) [address] [facility] Department [place] [address] * (ABNORMAL) Pro B-type natriuretic peptide (10/19/2024 2:30 PM CDT) NT-proBNP 14,898(H) <=450 pg/mL [facility] ([place]) Comment: Interpretive Comments: A. Dyspnea in Acute [...] as advanced age. - References: 1. Bev JL et.al. Eur Heart J. 2006:27:330-337. 2. Buster RW, Magali NICHOLSON. J. AM Bello Cardiol: Cardiovasc Imag. 2009;2: 216- 225. Interpretive Data Last Revised Date: 2017. Blood 10/19/2024 2:30 PM CDT 10/19/2024 2:35 PM CDT us Konstantin Jara MD LAB BLOOD ORDERABLES Final R esult LUCILLE QUI[facility]ONES ([place]) [address] [facility] Department [place] [address] * (ABNORMAL) CBC with auto differential (10/19/2024 [...] Final R esult [facility] ([place]) [address] [facility] Department [place] [address] * (ABNORMAL) Comprehensive metabolic panel (10/19/2024 2:30 [...] ORDERABLES Final R esult Performing Organization Address City/State/[facility] Co de Phone Number [facility] ([place]) [address] [facility] Department [place] [address] * POCT glucose (10/19/2024 2:23 PM CDT) Glucose, POC 126 70 - 199 mg/dL Blood 10/19/2024 2:23 PM CDT 10/19/2024 2:23 PM CDT us Notinfile Unknown LAB POCT ORDERABLES - DEVICE F inal Result [facility] [place]) [address] [facility] Department [place] [address] * DEVICE CHECK - REMOTE (10/10/2024 7:00 AM CDT) Anatomical Region Laterality Modality Other Narrative 10/15/2024 7:36 AM CDT [employer]ik Dual Pacemaker. Dx; SSS. DOI 11/10/[address] Black. [employer] remote home monitoring. Office pacer checks Q1 yr. Unscheduled DDD CLS Pacemaker Remote due to EMEKA reached on 10/10/24 Transmission attached. Battery status: EMEKA reached on 10/10/24 Patient is not pacemaker dependent. [employer] reports that standard six-month replacement window applies, however some setting changes will occur. Patient device will switch to VDD mode with no rate response, and there is 11% reduction in base rate. Stable Lead impedances, pacing and sensing thresholds since 04/24/24 Presenting rhythm: AP/VS AP-84%, IMMIGRATION JUDGE-7% No AT/AF episodes noted. No Ventricular high [...] like to have the replacement done at [facility] by Dr. Juares. Patient is diabetic and on peritoneal dialysis. Patient is taking Eliquis 2.5 mg and ASA 81 mg as ordered. Informed patient's that this report would be forwarded to Dr. Juares and the nurses in the [place] office for follow-up. Patient's verbalized understanding. Patient [...] last revised on 19. Testing performed by: [facility], [address] [place] [address]., [id number] Hep B core IgM Nonreactive Nonreactive Juana QUIÑONES ([place]) Comment: Interpretive Data If HepB Core IgM Ab is reported as Equivocal, a new sample should be drawn in two weeks for testing. Current interpretive data was last revised on 19. Testing performed by: [facility], [address] [place] [address]., [id number] Hep C Ab Nonreactive Nonreactive LUCILLE QUIÑONES [...] last revised on 2019. Testing performed by: [facility], [address] [place] [address]., [id number] HepBsAg Nonreactive Nonreactive [facility] QUI[facility]ON[facility] ([place]) Comment:Testing performed by : [address] [id number] Blood 07/27/2024 6:07 PM CDT 07/28/2024 11:03 AM CDT us Guilherme Dumont MD LAB MICROBIOLOGY - GENERAL OR DERABLES Final Result [facility] ([place]) [address] [facility] Department [place] [address] * Colonoscopy (11/19/2023 7:32 AM CDT) Anatomical Region Laterality Modality Other Narrative Procedure Note Karadaghy, Ahmad A., MD - 11/19/2023 7:32 AM CDT [facility] Patient Name: Quinten Gould Procedure Date: 11/19/2023 7:32 AM Date of : 1950 Admit Type: Inpatient Age: 73 Gender: Male Attending MD: Jerson Alonso M.D. Room: [facility] 3 Note Status: Finalized Patient [...] passed under direct vision.The Pediatric Colonoscope PCF-H190L [id number] was introduced through the anus and advanced [...] 7:32 AM Procedure Code(s): --- Professional --- 73098, 53, Colonoscopy, flexible; diagnostic, including collection of specimen(s) by brushing or washing, when performed (separateprocedure) Diagnosis Code(s): --- Professional --- R93.3, Abnormal findings on diagnostic imaging of other parts of digestive tract CPT copyright 2020 [employer]. All rights reserved. The codes documented in this report are preliminary and upon stain sprayer reviewmay be revised to meet current compliance requirements. Recognized by the [employer] for promoting quality [...] revised on 2017. Chol/HDL ratio 6 ROSITA QUIÑONES ([place]) Blood 06/21/2023 3:52 AM CDT 06/21/2023 4:23 AM CDT us Andrey Hernandez MD LAB BLOOD ORDERABLES Final Resu lt LUCILLE NURIA ([place]) [address] [facility] Department of Laboratories [place], [place] [id number] * Albumin Creatinine Ratio, Urine (07/27/2019) Urine us Historical Provider LAB URINE ORDERABLES Nancy l Result from Last 3 Months or Most Recently Relevant to Health Maintenance
--- NOTE | 2024-12-19 20:05 | PC.NURSE ---
1944 returned patient to bed. call [facility] in reach . clean dry brief applied. report to laurent ponce
[2024-12-19] MEDS: MAGNESIUM CITRATE 300 ML BTL PO (21:07)
== END 2024-12-19 21:16 | disposition home or self-care (01) ==
PROVIDERS: Emergency Provider Emergency Medicine; PCP Internal Medicine
DX: K59.00 Constipation, unspecified (principal); E78.5 Hyperlipidemia, unspecified; I10 Essential (primary) hypertension; J44.9 Chronic obstructive pulmonary disease, unspecified
CPT/HCPCS: 74019; 99283; A9270

== ENCOUNTER 2024-12-22 12:52 | Emergency (ER) | payer MEDICARE, OTHER, SELFPAY ==
--- OUTSIDE RECORDS SUMMARY | 2023-12-01 09:05 | XMS_ITS | Continuity of Care Document ---
Author Organization [facility] Address [address] [place] [address] Phone Care Team Providers Care Manager Of School Name Role Phone Garth MARSHALL, Skyler Unavailable Unavailabl e Allergies, Adverse Reactions, Alerts Substance Reaction Status Criticality morphine Nausea Active No Information Medications Medication Instructions Dosage Effective Dates (start - stop) Status Comments amlodipine 2.5 mg tablet TAKE 1 TABLET AT BEDTIME - Active cetirizine 10 mg tablet TAKE 1/2 TABLET BY MOUTH DAILY - Active fluoxetine 40 mg capsule TAKE ONE CAPSULE BY MOUTH EVERY MORNING - Active aspirin 81 mg tablet,delayed release TAKE 1 TABLET BY MOUTH EVERY DAY - Active carvedilol 25 mg tablet TAKE 1 TABLET BY MOUTH TWICE A DAY - Active allopurinol 100 mg tablet TAKE 2 TABLETS BY MOUTH EVERY DAY - Active zafirlukast 20 mg tablet TAKE 1 TABLET BY MOUTH TWICE A DAY AT LEAST 1 HOUR BEFORE OR 2 HOURS AFTER MEALS. - Active lactulose 10 gram/15 mL oral solution TAKE 15 ML (10 G TOTAL) BY MOUTH DAILY NEEDED (CONSTIPATION) - Active atorvastatin 80 mg tablet TAKE 1 TABLET BY MOUTH EVERY DAY - Active oxycodone-acetaminophe n 5 mg-325 mg tablet TAKE 1-2 TABLETS BY MOUTH EVERY 8 HOURS NEEDED FOR PAIN. - Active bupropion HCl XL 300 mg 24 hr tablet, extended release TAKE 1 TABLET BY MOUTH EVERY DAY - Active ammonium lactate 12 % topical cream APPLY TO THE FEET AND AROUND THE TOENAILS AT LEAST ONCE A DAY. DO NOT APPLY BETWEEN THE TOES - Active Procedures Procedure Date CONTRAST, 300/ML, PER ML MOD SED BY OR SUP BY PHYSICIAN REPLACE TUNNELED CV CATH INTRO CATH SVC/IVC Sterile Barrier Technique Followed Radiation Exposure Documented To Be Coded Replace tunneled cv cath Fluoroguide for vein device Mod sed same phys/qhp 5/>yrs Cath impl vasc access portal Replace tunneled cv cath Fluoroguide for vein device Mod sed same phys/qhp 5/>yrs Advance Directives Directive Yes / No Effective Date File Name No Information Encounters Encounter Description Practice Location Reason(s) For Visit Diagnoses Date Provider Providers Copied on Encounter [facility], [address] [place] [address], [id number], tel:[phone] [facility] No Information Liang Skyler. [address] [place] [address], [id number], [place]. tel:[phone] [facility], [address] [place] [address], [id number], tel:[phone] [facility] Liang Skyler. [address] [place] [address], [id number], . tel:[phone] Referring Provider: Guilherme Ramos, [address] [place] [address], [place], [address]. tel:[phone] [facility], [address] [place] [address], [id number], tel:[phone] [facility] Liang Skyler. [address] [place] [address], [id number], . tel:[phone] Referring Provider: Guilherme Ramos, [address] [facility] [address] [facility], [place], [address]. tel:[phone] As per patient privacy policy some of the clinical information may not be visible. Family History Family Member Type Diagnosis Age At Onset No Information Payers Payer name Insurance type Covered alliance party ID Authortoshiaa tikam(s) Medicare [facility] [id number] [employer] [facility] [id number] Social History Type Description Quantity Date Captured Comments Sex Male Smoking Status No Information Gender Identity Male Chief Complaint And Reason For Visit No Information Reason For Referral Reason For Referral No Information Plan Of Treatment Date Type Action Status Future Order: Radiology Order Up per Body Flouroscopy ([id number]), Ordered on: Ordered History Of Present Illness Encounter Date Complaint History Of Prese nt Illness No Information Functional Status Date Functional Assessmen t No Information Instructions Date Instruction Additional Infor mation No Information Assessments Type Assessment Date No Information Patient Care Teams Name Effective Dates (start - stop) Status Members No Information
[2024-12-22] VITALS (32 sets, daily range): BP systolic 151–193; BP diastolic 85–97; PULSE 62–84; RESP 20; TEMP 36.7–37.1; O2SAT 85–97
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
--- OUTSIDE RECORDS SUMMARY | 2024-12-22 12:56 | XMS_ITS | Encounter Summary ---
Author Organization [facility] Healthcare Address [address] [place] [address] Care Team Providers Care Flatcar Whacker Name Role Phone Omer Nunn MD Primary Care Provider [phone] Hemanth Sanches MD Unavailable Jessa Bryan DO Unavailable [phone] Encounter Details Date Type Department Care Team (Late st Contact Info) Description 10/24/2024 Orders Only [facility] Information Management [address] [place] [id number] Scanning, Provider Social History Tobacco Use Types Packs/Day Years Used Date Smoking Tobacco: Never Smokeless Tobacco: Never Alcohol Use Standard Drinks/Week Comments Never 0 (1 standard drink = 0.6 oz pur e alcohol) [facility] Utilities Answer Date Recorded In the past 12 months has [employer], gas, oil, or water company threatened [...] often do you attend chur ch or jew services? 1 to 4 times per year 07/27/2024 Do you belong to any clubs o r organizations such as oriental orthodox groups, unions, fraternal or athletic groups, or [...] place to sleep or slept in a custodial (including now)? No 06/21/2023 Housing Stability Vital Sign Answer Vijay e Recorded In the last 12 months, was t here a time when you were not able to pay the mortgage or rent on time? No 07/27/2024 In the past 12 months, how m any times have you moved where you were living? 0 07/27/2024 At any time in the past 12 m [facility], were you homeless or living in a custodial (including now)? 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
--- OUTSIDE RECORDS SUMMARY | 2024-12-22 12:57 | XMS_ITS | Clinical Summary ---
Author Organization [facility] Facility Address [address] [address] Care Team Providers Care Assistant Field Hockey Coach Name Role Phone Omer Nunn MD Primary Care Provider Allergies Active Allergy Reactions Criticality Noted Date [...] Encounters Date Type Department Care Team Description 12/05/2024 Orders Only [facility]. [address] [place] [address] Guilherme Dumont MD 11/15/2024 Documentation Only [facility]. [address] [place] [address] Guilherme Dumont MD 11/15/2024 Documentation Only [facility]. [address] [place] [address] Guilherme Dumont MD 11/12/2024 Orders Only [facility]. [address] [facility] [place] [address] Guilherme Dumont MD 10/22/2024 Orders Only [facility]. [address] [facility] [place] [address] Guilherme Dumont MD 10/04/2024 Orders Only [facility]. [address] [facility] [place] [address] Guilherme Dumont MD from Last 3 Months [...] exists Colorectal Cancer Screening: Colonoscopy Discontinued 11/19/2023 Colorectal Cancer Screening: Annual FOBT Discontinued 11/12/2024 Hepatitis B Vaccine Aged Out No longe r eligible based on patient's age to complete this topic Procedures Procedure Name Priority Date/Time Associated Diagnosis Comments CHEMISTRY Routine 12/05/2024 HEMATOLOGY Routine 12/05/2024 OCCULT BLOOD X 3, STOOL Routine 11/12/2024 CHEMISTRY Routine 11/12/2024 HEMATOLOGY Routine 11/12/2024 SPECIAL CHEMISTRY Routine 10/22/2024 CHEMISTRY Routine 10/22/2024 CHEMISTRY Routine 10/22/2024 HEMATOLOGY Routine 10/22/2024 URINE CLEARANCE Routine 10/04/2024 PD ADEQUACY Routine 10/04/2024 HEMATOLOGY Routine 10/04/2024 PDF CHEMISTRY Routine 10/04/2024 PD ADEQUACY Routine 10/04/2024 PATIENT INFORMATION Routine 10/04/2024 CHEMISTRY Routine 10/04/2024 PATIENT INFORMATION Routine 10/04/2024 PATIENT INFORMATION Routine 10/04/2024 from Last 3 Months Results * (ABNORMAL) HEMATOLOGY (12/05/2024) Only the most recent of4 resultswithin the time period is included. Neutrophils 68.6 40.0 - 75.0 % [facility] Lymphocytes Relative 19.8 19.0 - 48.0 % [facility] Monocytes 5.8 3.0 - 10.0 % [facility] Eosinophils Relative 2.8 0.0 - 7.0 % [facility] Basophils Relative 1.2 0.0 - 1.5 % [facility] BUBBA 1.9 0.0 - 4.0 % [facility] WBC 5.74 4.80 - 10.80 1000/mcL [facility] RBC 3.19(L) 4.70 - 6.10 mill/mcL [facility] Hematocrit 31.4(L) 42.0 - 52.0 % [facility] MCV 98 80 - 100 fl [facility] MCH 32.1(H) 27.0 - 31.0 pg [facility] MCHC 32.6 30.0 - 36.0 g/dL [facility] RDW 14.3 11.5 - 14.5 % [facility] Hemoglobin 10.2(L) 14.0 - 18.0 g/dL [facility] Hemoglobin x 3 30.6(L) 42.0 - 54.0 % [facility] Platelets 223 130 - 400 1000/mcL [facility] Retic Ct Pct 1.58 0.80 - 2.10 % [facility] 12/05/2024 12/06/2024 12: 02 PM CDT Narrative [facility] - 12/06/2024 Unless otherwise specified, test(s) performed at: [facility], [address] [place] [id number] LEGAL ENTITY CONTROLLER: Ramirez Carter, M.D. For any questions, please call customer service at FREQUENCY:MONTHLY Resulting Agency Comment Specimen source: Blood Guilherme Dumont MD LAB BLOOD ORDERABLES Final Res ult [facility] Incoming Media See order comments or contact performing lab Unknown, [place] * (ABNORMAL) [facility] (12/05/2024) Only the most recent of5 resultswithin the time period is included. BUN 46(H) 6 - 19 mg/dL [facility] Creatinine 8.20(H) 0.60 - 1.30 mg/dL [facility] BUN/Creatinine Ratio 5.6(L) 10.0 - 20.0 [facility] Sodium 141 136 - 145 mEq/L [facility] Potassium 3.4(L) 3.5 - 5.1 mEq/L [facility] Chloride 97 96 - 108 mEq/L [facility] Bicarbonate (CO2) 28 22 - 29 mEq/L [facility] Calcium 8.6 8.4 - 10.2 mg/dL [facility] Corrected Calcium 9.2 8.4 - 10.2 mg/dL [facility] Comment: Corrected Calcium is not equivalent to measured Ionized Calcium. Phosphorus 5.4(H) 2.6 - 4.5 mg/dL [facility] Calcium Phosphorus Product 46 0 - 54 [facility] Calcium Phosporus Product, Cor 50 0 - 54 [facility] Total Protein 5.8(L) 6.0 - 8.5 g/dL [facility] Albumin 3.2(L) 3.5 - 5.2 g/dL [facility] Globulin, Total 2.6 2.0 - 4.0 g/dL [facility] A/G Ratio 1.2 1.0 - 2.0 [facility] Glucose 125(H) 70 - 100 mg/dL [facility] Iron 91 45 - 160 mcg/dL [facility] UIBC 173 155 - 355 mcg/dL [facility] TIBC 264 185 - 515 mcg/dL [facility] Iron Saturation (TSat) 34 20 - 55 % [facility] 12/05/2024 12/06/2024 1:1 1 PM CDT Narrative [facility] - 12/06/2024 Unless otherwise specified, test(s) performed at: [facility], [address] [place] [address] LEGAL ENTITY CONTROLLER: Ramirez Carter M.D. For any questions, please call customer service at FREQUENCY:MONTHLY Resulting Agency Comment Specimen source: Serum Guilherme Dumont MD LAB BLOOD ORDERABLES Final Res ult Performing Organization Address City/[facility]/ZIP Co de Phone Number [facility] Incoming Media See order comments or contact performing lab Unknown, [place] * Occult blood x 3, stool (11/12/2024) Occult Blood, Stool #1 Positive Negative [facility] Comment: Performed by [facility]. Occult Blood, Stool #2 Positive Negative [facility] Comment: Performed by [facility]. Occult Blood, Stool #3 Positive Negative [facility] Comment: Performed by [facility]. 11/12/2024 11/13/2024 9:2 1 AM CDT Narrative [facility] - 11/13/2024 Unless otherwise specified, test(s) performed at: [facility], [address] [place] [id number] LEGAL ENTITY CONTROLLER: Ramirez Carter M.D. For any questions, please call customer service at FREQUENCY:OTHER Resulting Agency Comment Specimen source: Occult Blood Card Guilherme Dumont MD LAB BODY FLUIDS AND STOOLS ORD ERABLES Final Result Performing Organization Address City/[facility]/ZIP Co de Phone Number [facility] Incoming [employer] See order comments or contact performing lab Unknown, [place] * (ABNORMAL) SPECIAL CHEMISTRY (10/22/2024) Hemoglobin A1C 4.7(L) 4.8 - 5.9 % [facility] 10/22/2024 10/23/2024 9:5 2 AM CDT Narrative [facility] - 10/23/2024 Unless otherwise specified, test(s) performed at: [facility], [address] [place] [address] LEGAL ENTITY CONTROLLER: Ramirez Carter M.D. For any questions, please call customer service at FREQUENCY:MONTHLY Resulting Agency Comment Specimen source: Blood Guilherme Dumont MD LAB BLOOD BANK TEST ORDERABLES Final Result Performing Organization Address City/[facility]/ZIP Co de Phone Number [facility] See order comments or contact performing lab Unknown, [place] * (ABNORMAL) URINE CLEARANCE (10/04/2024) Urea Nitrogen, Urine Timed 264 mg/dL [facility] Urea Nitrogen, Urine 24 Hr 0.8(L) [...] Narrative Resulting Agency Comment Specimen source: Urine Guilherme Dumont MD LAB URINE ORDERABLES Final Res ult Performing Organization Address [facility] Co de Phone Number [facility] See order comments or contact performing lab Unknown, [place] * PDF CHEMISTRY (10/04/2024) Urea Nitrogen, PDF 24 Hr 7,974.2 mg/24 [...] values have been corrected for glucose interference. [facility] glucose correction factor for creatinine is 0.0002. [...] STOOLS ORD ERABLES Edited Result - Final Performing Organization Address [facility] Co de Phone Number [facility] See order comments or contact performing lab Unknown, [place] * PD ADEQUACY (10/04/2024) Only the most recent of2 resultswithin the time period is included. Kt/V, Residual 0.20 [facility] Creat Clear, Urine Nor Wkly 20 L/wk [facility] 10/04/2024 10/05/2024 9:4 7 AM CDT Narrative [facility] - 10/05/2024 Unless otherwise specified, test(s) performed at: [facility], [address] [place], [place] [id number] LEGAL ENTITY CONTROLLER: Ramirez Carter M.D. For any questions, please call customer service at FREQUENCY:OTHER Resulting Agency Comment Specimen source: Urine Guilherme Dumont MD LAB BODY FLUIDS AND STOOLS ORD ERABLES Final Result Performing Organization Address [facility]/ZIP Co de Phone Number [employer] See order comments or contact performing lab Unknown, [place] * PATIENT INFORMATION (10/04/2024) Only the most recent of3 resultswithin the time period is included. Urea Volume Distribution ([place]) 49.0 L [facility] 10/04/2024 10/05/2024 9:4 3 AM CDT Narrative [facility] - 10/05/2024 Unless otherwise specified, test(s) performed at: [facility], [address] [place] [phone] LEGAL ENTITY CONTROLLER: Ramirez Carter M.D. For any questions, please call customer service at FREQUENCY:OTHER Resulting Agency Comment Specimen source: PD Fluid us Guilherme Dumont MD LAB BLOOD ORDERABLES Final Res ult [facility] See order comments or contact performing lab Unknown, [place] from Last 3 Months Insurance Medicare [facility] Commercial Care Teams Assistant Field Hockey Coach Relationship Specialty Start Date End Date Omre Nunn MD [address] [place] [address] PCP - General Internal Medicine 12/18/19
--- OUTSIDE RECORDS SUMMARY | 2024-12-22 12:57 | XMS_ITS ---
Author Organization [facility] Address [address] [place] [address] Care Team Providers Care Home Hospice Aide Name Role Phone Omer Nunn MD Primary Care Provider Hemanth Sanches MD Unavailable Jessa Bryan DO Unavailable [phone] Dialysis Access Sites Type Status Location Placement [...] long-term current use of insulin ([facility]) Use for BG monitoring 3 each 08/03/19 25 Active blood-glucose,re ceiver,cont miscIndications: Type 2 diabetes mellitus with hypoglycemia without coma, without long-term current use of insulin ([facility]) Use for blood glucose monitor 1 each [...] well since EGD yesterday. Progressively worsening dyasphagia OR FIRST ASSIST REGISTERED NURSE and scheduled for endoscopy at OSH. He [...] week. He will obtain a BMP at [facility] prior to the visit. 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 No symptoms presently. - Cont zyrtec, levalbuterol PRN - formulary montelukast to replace home zafirlukast Unintentional weight loss 12/22/2022 Mood disorder 12/22/2022 Assessment & Plan (11/12/2023 5:01 PM CDT): - continue home wellbutrin, prozac Assessment & Plan (05/13/2023 2:27 AM MANAGER FURNITURE): Continue fluoxetine 40 and bupropion 300 Iron [...] for cell count [place] [address]40 nucleated cells (95% neutrophils) and 6403 RBCs, [...] 12/30/2016 Assessment & Plan (05/13/2023 2:10 AM MANAGER FURNITURE): - Continue ASA, atorvastatin 80 - Off [...] 09/16/2016 Assessment & Plan (05/13/2023 2:10 AM MANAGER FURNITURE): Nonadherent to CPAP Assessment & Plan (09/16/2016 [...] Acquired trigger finger 04/28/2010 Coronary arteriosclerosis in [place] artery 06/18 Overview (06/09/2016): CHETAN HDZ VSSL [...] HYPERLIPIDEMIA Assessment & Plan (05/13/2023 2:10 AM MANAGER FURNITURE): Cont atorva 80 Assessment & Plan (09/16/2016 [...] drink = 0.6 oz pur e alcohol) [facility] Utilities Answer Date Recorded In the past 12 months has get[employer]ie, gas, oil, or water Fwd: Power threatened to shut off services in your [...] week 07/27/2024 How often do you attend [facility] ch or mormon services? 1 to 4 times per year 07/27/2024 Do you belong to any clubs o r organizations such as christianity groups, unions, fraternal or athletic groups, or [...] any time in the past 12 m [facility], were you homeless or living in a [...] on file Legal Sex Male 7:02 AM MANAGER FURNITURE Gender Identity Not on file Sexual Orientation [...] EMEKA. Presenting rhythm- VS (SR). AP- 32 PAINTER SIGN MAINTENANCE- 0. No Atrial high rate episodes recorded. No Ventricular high rate episodes noted. Medications; Eliquis, ASA 81 mg, Coreg. No programming changes made to device settings. See scanned report. Office pacemaker f/u scheduled 01/08/2026. Biotronik remote f/u 02/05/2025. Rosi Lisa RN [facility] Cisco Roy MD CV CARDIAC SERVICES PRO [...] - DEV ICE Final Result [facility] [place] 1 [facility] Department [place] [address] * POCT glucose (10/21/2024 11:59 AM CDT) Glucose, POC 128 70 - 199 mg/dL Blood 10/21/2024 11:5 9 AM CDT 10/21/2024 11:59 AM CDT Nancy Merritt MD LAB POCT ORDERABLES - DEV ICE Final Result Performing Organization Address City/[facility]/ZIP Co de Phone Number [facility] ([place]) 1 [facility] [employer] [place] [address] * POCT glucose (10/21/2024 8:12 AM CDT) Glucose, POC 121 70 - 199 mg/dL Blood 10/21/2024 8:12 AM CDT 10/21/2024 8:12 AM CDT Nancy Merritt MD LAB POCT ORDERABLES - DEV ICE Final Result Performing Organization Address [facility] Co de Phone Number [facility] ([place]) 1 [facility] [employer] [place] [address] * POCT glucose (10/21/2024 4:16 AM CDT) Glucose, POC 95 70 - 199 mg/dL Blood 10/21/2024 4:16 AM CDT 10/21/2024 4:16 AM CDT Nancy Merritt MD LAB POCT ORDERABLES - DEV ICE Final Result Performing Organization Address City/[facility] Co de Phone Number [facility] ([place] 1 [facility] [employer] [place] [address] * (ABNORMAL) eGFR (10/21/2024 2:15 AM CDT) [...] MD LAB BLOOD ORDERABLES Final Resu lt [facility] ([place]) 1 [facility] Department [place] [address] * Differential, auto (10/21/2024 2:15 AM CDT) [...] BLOOD ORDERABLES Final Resu lt [facility] ([place]) 1 [facility] [place] [address] * (ABNORMAL) CBC with auto differential (10/21/2024 [...] MD LAB BLOOD ORDERABLES Final Resu lt [facility] ([place]) 1 [facility] Department of Laboratories [place] [id number] * (ABNORMAL) Comprehensive metabolic panel (10/21/2024 2:15 AM CDT) Sodium 131(L) 135 - 145 mmol/L [facility] ([place]) Potassium, pl 4.5 3.3 - [...] ([place]) Glucose 90 70 - 199 mg/dL [facility] ([place]) Comment: Interpretive Data Fasting glucose [...] BLOOD ORDERABLES Final Resu lt [facility] ([place] 1 [facility] [employer] of [employer] [place] [address] * POCT glucose (10/21/2024 12:06 AM CDT) Glucose, POC 106 70 - 199 mg/dL Blood 10/21/2024 12:0 6 AM CDT 10/21/2024 12:06 AM CDT us Nancy Merritt MD LAB POCT ORDERABLES - DEV ICE Final Result Performing Organization Address City/[facility]/ZIP Co de Phone Number [facility] ([place] 1 [facility] [employer] [place] [address] * POCT glucose (10/20/2024 8:24 PM CDT) Glucose, POC 146 70 - 199 mg/dL Blood 10/20/2024 8:24 PM CDT 10/20/2024 8:24 PM CDT Nancy Merritt MD LAB POCT ORDERABLES - DEV ICE Final Result Performing Organization Address [facility] Co de Phone Number [facility] ([place] 1 [facility] [place] [address] * POCT glucose (10/20/2024 5:07 PM CDT) Glucose, POC 127 70 - 199 mg/dL Blood 10/20/2024 5:07 PM CDT 10/20/2024 5:07 PM CDT Nancy Merritt MD LAB POCT ORDERABLES - DEV ICE Final Result Performing Organization Address [facility] de Phone Number [facility] ([place]) 1 [facility] [employer] [place] [address] * POCT glucose (10/20/2024 12:07 PM CDT) Glucose, POC 103 70 - 199 mg/dL Blood 10/20/2024 12:0 7 PM CDT 10/20/2024 12:07 PM CDT Nancy Merritt MD LAB POCT ORDERABLES - DEV ICE Final Result Performing Organization Address [facility] de Phone Number [facility] ([place] 1 [facility] [place] [address] * (ABNORMAL) Glutamic acid decarboxylase (10/20/2024 11:18 AM CDT) GAD65 ab ser 0.11(H) <=0.02 nmol/L [facility] Comment: The following antibody was [...] developed and its performance characteristics determined by [facility] in a manner consistent with CLIA requirements. This test has not been cleared or approved by the U.S. Food and Drug Administration. Test Performed by: [address] [address] Disintegrator Feeder: Andrea Almonte Ph.D.; CLIA# [id number] Blood 10/20/2024 11:1 8 AM CDT 10/20/2024 11:30 AM CDT Guilherme Dumont MD LAB BLOOD ORDERABLES Final Re sult Performing Organization Address [facility]/ZIP Co de Phone Number [facility] ([place]) 1 [facility] [place] [address] [place] [facility] * (ABNORMAL) Insulin, total (10/20/2024 11:18 AM CDT) Insulin 28.7(H) 2.6 - 25.0 mcIUnit/mL Comment:Testing performed by : [facility], 1 [place] [address] Blood 10/20/2024 11:1 8 AM CDT 10/20/2024 4:05 PM CDT Guilherme Dumont MD LAB BLOOD ORDERABLES Final Re sult [facility] ([place]) 1 [facility] [place] [address] * (ABNORMAL) C-peptide (10/20/2024 11:18 AM CDT) Pathologist [facility] C-peptide 14.70(H) 1.10 - 4.40 ng/mL Comment:Testing performed by : [facility], [address] [place] [address], [address] Blood 10/20/2024 11:1 8 AM CDT 10/20/2024 4:05 PM CDT Guilherme Dumont MD LAB BLOOD ORDERABLES Final Re sult Performing Organization Address City/[facility]/ZIP Co de Phone Number [facility] ([place]) [address] [place] [address] [employer] [place] [address] * Hepatitis B Surface Antigen Blood (10/20/2024 11:18 AM CDT) [facility] HepBsAg Nonreactive Nonreactive Comment:Testing performed by : [facility], [address] [place] [address], [address] Blood 10/20/2024 11:1 8 AM CDT 10/20/2024 3:08 PM CDT Guilherme Dumont MD LAB MICROBIOLOGY - GENERAL OR DERABLES Final Result Performing Organization Address City/[facility]/ZIP Co de Phone Number [facility] ([place]) [address] [place] [address] [place] [address] * TRANSTHORACIC ECHO (TTE) LIMITED/FOLLOW UP WO DOPPLER/CF WO CONTRAST (10/20/2024 9:45 AM CDT) Pathologist [facility] Estimated EF 30 % CONS SCIMAGE Anatomical Region Laterality Modality Ultrasound 10/20/2024 11:3 5 AM CDT Narrative 10/20/2024 4:26 PM CDT [address] [address] Limited Echocardiogram Report Patient Name: QUINTEN GOULD : 1950 Study Date: 10/20/2024 11:35:32 AM Gender: M Tech: AA Location: [id number] Ref Provider: ROE GOSS Height(Cm): BSA: Weight(Kg): [...] Procedure Note Roe Goss MD - 10/20/[address] [place] [address] Limited Echocardiogram Report Patient Name: QUINTEN GOULD : 1950 Study Date: 10/20/2024 11:35:32 AM Gender: M Tech: Location: [id number] Ref Provider: ROE GOSS Height(Cm): BSA: Weight(Kg): [...] DEV ICE Final Result Performing Organization Address City/[facility]/ZIP Co de Phone Number [facility] ([place]) 1 [facility] [place] [address] * POCT glucose (10/20/2024 1:50 AM CDT) Glucose, POC 79 70 - 199 mg/dL Blood 10/20/2024 1:50 AM CDT 10/20/2024 1:50 AM CDT Tatiana Sow MD LAB POCT ORDERABLES - DEVICE F inal Result Performing Organization Address City/[facility] Co de Phone Number [facility] ([place]) 1 [facility] [place] [address] * Lactate (10/20/2024 12:53 AM CDT) [facility] Signature Lactate 1.3 0.7 - 2.0 mmol/L Blood 10/20/2024 12:5 3 AM CDT 10/20/2024 12:56 AM CDT Eugene Scott MD LAB BLOOD ORDERABLES Final Resu lt Performing Organization Address City/[facility]/ZIP Co de Phone Number [facility] ([place] 1 [facility] Department of [employer] [place] [address] * (ABNORMAL) eGFR (10/20/2024 12:53 AM CDT) Pathologist [facility] eGFR 6(L) >=60 mL/min/1. 73 m2 Comment: [...] ORDERABLES Final Resu lt Performing Organization Address City/[facility]/ZIP Co de Phone Number [facility] ([place]) 1 [facility] Department of [employer] [place] [address] * Differential, auto (10/20/2024 12:53 AM CDT) Neutrophil abs 4.52 1.50 - 6.50 K/cumm Imm gran abs 0.04 0.00 - 0.10 K/cumm [facility] ([place]) Lymphocyte abs 1.26 0.80 - 3.30 K/cumm [facility] ([place]) Monocyte abs 0.65 0.20 - 0.80 K/cumm [...] Lymphocyte pct 18.9 % [facility] ([place]) Comment: Interpretive Data Percent cell count reference [...] Eosinophil pct 2.2 % [facility] ([place]) Comment: Interpretive Data Percent cell count reference ranges are not reported, since discordance with absolute values may lead to misinterpretation of CBC data. Current Interpretive Data was last revised on 2017. Basophil pct 0.7 % [facility] ([place]) Comment: Interpretive Data Percent cell count reference ranges are not reported, since discordance with absolute values may lead to misinterpretation of CBC data. Current Interpretive Data was last revised on 2017. Blood 10/20/2024 12:5 3 AM CDT 10/20/2024 12:56 AM CDT us Eugene Scott MD LAB BLOOD ORDERABLES Final Resu lt [facility] ([place]) 1 [facility] Department of [employer] [place] [address] * (ABNORMAL) CBC with auto differential (10/20/2024 [...] Final Resu lt [facility] ([place]) 1 [facility] Department [place] [address] * Blood culture Blood (10/20/2024 12:53 AM CDT) Report Final Report: No growth Comment:Testing performed by : [facility], 1 [facility] [place]., [address] Blood 10/20/2024 12:5 3 AM CDT 10/20/2024 [...] performance characteristics have been verified by the [facility]. For questions about this culture, contact the Microbiology Laboratory at [phone]. Interpretive data was last revised on 23. Eugene Scott MD LAB MICROBIOLOGY - GENERAL [facility]de [facility] Final Result [facility] ([place]) 1 [facility] Department [place] [address] * Blood culture Blood (10/20/2024 12:53 AM CDT) Report Final Report: No growth Comment:Testing performed by : [facility], 1 [facility], [place]., [address] Blood 10/20/2024 12:5 3 AM CDT 10/20/2024 [...] performance characteristics have been verified by the [facility]. For questions about this culture, contact the Microbiology Laboratory at [phone]. Interpretive data was last revised on 23. Eugene Scott MD LAB MICROBIOLOGY - [facility] Final Result [facility] ([place]) 1 [facility] Department [place] [address] * (ABNORMAL) Comprehensive metabolic panel (10/20/2024 12:53 [...] ORDERABLES Final Resu lt Performing Organization Address City/[facility]/ZIP Co de Phone Number [facility] ([place]) 1 [facility] [place] [address] * POCT glucose (10/19/2024 11:19 PM CDT) Glucose, POC 88 70 - 199 mg/dL Blood 10/19/2024 11:1 9 PM CDT 10/19/2024 11:19 PM CDT Tatiana Sow MD LAB POCT ORDERABLES - DEVICE F inal Result Performing Organization Address City/[facility]/ZIP Co de Phone Number [facility] ([place]) 1 [facility] [place] [address] * (ABNORMAL) Troponin T high-sensitivity 6-hour (10/19/2024 9:15 PM CDT) Trop T hs 292(C) <=22 ng/L [facility] ([place]) Comment: Critical Result called by [email or web address] at 2024-10-19 22:37:16. Result Read Back by [...] Final R esult [facility] ([place]) 1 [facility] Department of [employer] [place] [address] * POCT glucose (10/19/2024 8:31 PM CDT) [facility] Glucose, POC 91 70 - 199 mg/dL Blood 10/19/2024 8:31 PM CDT 10/19/2024 8:31 PM CDT Tatiana Sow MD LAB POCT ORDERABLES - DEVICE F inal Result [facility] ([place]) 1 [facility] of [employer] [place] [address] * (ABNORMAL) Troponin T high-sensitivity 4-hour (10/19/2024 6:52 PM CDT) Pathologist [facility] Trop T hs 290(C) <=22 ng/L [facility] ([place]) Comment: Critical Result called by [email or web address] at 2024-10-19 19:23:37. Result Read Back by MILADY GARCIA Interpretive Data For further hscTnT resources including the diagnostic algorithm and an aid in interpretation, copy and paste this link: https://nrl.testcatAd[employer].org/show/hsTrop Current Interpretive Data last revised 2020. Trop T hs pct delta -4 % [facility] ([place]) Trop T hs interp Insignificant [facility] ([place]) Blood 10/19/2024 6:52 PM CDT 10/19/2024 6:55 PM CDT Konstantin Jara MD LAB BLOOD ORDERABLES Final R esult [facility] ([place]) 1 [facility] Department of [employer] [place] [address] * POCT glucose (10/19/2024 4:13 PM CDT) Glucose, POC 109 70 - 199 mg/dL Blood 10/19/2024 4:13 PM CDT 10/19/2024 4:13 PM CDT Konstantin Jara MD LAB POCT ORDERABLES - DEVICE Final Result [facility] ([place]) [address] [place] [address] of [employer] [place] [address] * (ABNORMAL) Troponin T high-sensitivity 2-hour (10/19/2024 4:12 PM CDT) Trop T hs 288(C) <=22 ng/L [facility] ([place]) Comment: Critical Result called by [email or web address] at 2024-10-19 17:04:24. Result Read Back by FAUSTO LEPE Interpretive Data For further hscTnT resources including the diagnostic algorithm and an aid in interpretation, copy and paste this link: https://nrl.[employer]catAd[email or web address]/show/hsTrop Current Interpretive Data last revised 2020. Trop T hs pct delta -4 % [facility] ([place]) Trop T hs interp Insignificant [facility] ([place]) Blood 10/19/2024 4:12 PM CDT 10/19/2024 4:17 PM CDT Konstantin Jara MD LAB BLOOD ORDERABLES Final R esult Performing Organization Address City/[facility]/ZIP Co de Phone Number [facility] ([place]) 1 [facility] Department [place] [address] * ECG 12 lead (10/19/2024 2:45 PM CDT) 10/19/2024 2:45 PM CDT Narrative [facility] - 10/19/2024 3:36 PM CDT Vent Rate: 62 bpm RR Interval: 967 msec MA Interval: 213 msec QRS Duration: 162 msec QT Interval: 506 msec QTC Interval: 510 msec P-R-T Karthaus: -2 - -76 - 137 degrees IMPRESSION: Baseline artifact, 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 ABNORMAL RHYTHM ECG No change from prior EKG Electronically Signed By: Graham Mancilla MD Konstantin Jara MD ECG ORDERABLES Final Result Performing Organization Address [facility] de Phone Number [facility] * Influenza A/B, RSV, and COVID-19 PCR Nasopharyngeal (10/19/2024 2:45 PM CDT) COVID-19 RNA Negative Negative Influenza A RNA Negative Negative [facility] ([place]) Influenza B RNA Negative Negative [facility] ([place]) RSV RNA Negative Negative [facility] ([place]) Comment: Interpretive data: Testing performed by [facility]. This test is performed using the [employer] Xpert Xpress CoV-2/Flu/RSV plus assay. This is a multiplex, real- time reverse transcriptase PCR assay intended for the qualitative detection of nucleic acid from SARS-CoV-2, influenza A, influenza B, and respiratory syncytial virus. This assay has been cleared by the [place] Food and Drug administration. The performance characteristics have been verified by the [facility]. Results must be considered in the clinical context, and a negative result does not rule out infection. Interpretive Data last revised 2023 Nasopharyngeal 10/19/2024 2: 45 PM CDT 10/19/2024 2:47 PM CDT Narrative [facility] ([place]) - 10/19/2024 3:27 PM CDT Is the Patient experiencing symptoms consistent with COVID?->Unknown us Konstantin Jara MD LAB MICROBIOLOGY - GENERAL O RDERABLES Final Result [facility] ([place]) 1 [facility] Department [place] [address] * XR Chest 1 Vw Portable (10/19/2024 [...] Katie Li M.D. FT: FT Report ID: [id number] Reading Location: [id number] Procedure Note Katie Kirkland MD - 08/15/2025 [...] Katie Li M.D. FT: FT Report ID: [id number] Reading Location: [place] [address] Konstantin Jara MD IMG XR PROCEDURES Final Resu lt * (ABNORMAL) Troponin T high-sensitivity series (baseline, 2hr, 4hr, 6hr) (10/19/2024 2:30 PM CDT) Trop T hs 301(C) <=22 ng/L [facility] ([place]) Comment: Critical Result called by [email or web address] at 2024-10-19 14:59:02. Result Read Back by SHANEKA QUIÑONES Interpretive Data For further hscTnT resources including the diagnostic algorithm and an aid in interpretation, copy and paste this link: https://nrl.testcatalog.org/show/hsTrop Current Interpretive Data last revised 2020. Blood 10/19/2024 2:30 PM CDT 10/19/2024 2:35 PM CDT Konstantin Jara MD LAB BLOOD ORDERABLES Final R esult [facility] ([place]) 1 [facility] [employer] [place] [address] * (ABNORMAL) eGFR (10/19/2024 2:30 PM CDT) Pathologist [facility] eGFR 6(L) >=60 mL/min/1. 73 m2 Comment: [...] LOUIE LAB BLOOD ORDERABLES Final Resu lt [facility] ([place]) 1 [facility] Department [place] [address] * Differential, auto (10/19/2024 2:30 PM CDT) Pathologist [facility] Neutrophil abs 5.57 1.50 - 6.50 K/cumm Imm gran abs 0.03 0.00 - 0.10 K/cumm [facility] ([place]) Lymphocyte abs 0.89 0.80 - 3.30 K/cumm [facility] ([place]) Monocyte abs 0.55 0.20 - 0.80 K/cumm [facility] ([place]) Eosinophil abs 0.19 0.00 - 0.50 K/cumm [...] Final Resu lt [facility] ([place]) 1 [facility] Department [place] [address] * (ABNORMAL) Pro B-type natriuretic peptide (10/19/2024 2:30 PM CDT) NT-proBNP 14,898(H) <=450 pg/mL [facility] ([place]) Comment: Interpretive Comments: A. Dyspnea in Acute [...] BLOOD ORDERABLES Final R esult [facility] ([place]) 1 [facility] [place] [address] * (ABNORMAL) CBC with auto [...] Final R esult [facility] ([place]) 1 [facility] Department [place] [address] * (ABNORMAL) Comprehensive metabolic panel (10/19/2024 2:30 [...] ORDERABLES Final R esult Performing Organization Address City/State/[facility] Co de Phone Number [facility] ([place]) 1 [facility] [place] [address] * POCT glucose (10/19/2024 2:23 PM CDT) Glucose, POC 126 70 - 199 mg/dL Blood 10/19/2024 2:23 PM CDT 10/19/2024 2:23 PM CDT us Notinfile Unknown LAB POCT ORDERABLES - DEVICE F inal Result [facility] [place]) 1 [facility] [place] [address] * DEVICE CHECK - REMOTE (10/10/2024 7:00 AM CDT) Anatomical Region Laterality Modality Other Narrative 10/15/2024 7:36 AM CDT [employer] Dual Pacemaker. Dx; SSS. DOI 11/10/[address] Black. [employer] remote home monitoring. Office pacer checks Q1 yr. Unscheduled DDD CLS Pacemaker Remote due to EMEKA reached on 10/10/24 Transmission attached. Battery status: EMEKA reached on 10/10/24 Patient is not pacemaker dependent. [employer] reports that standard six-month replacement window applies, however some setting changes will occur. Patient device will switch to VDD mode with no rate response, and there is 11% reduction in base rate. Stable Lead impedances, pacing and sensing thresholds since 04/24/24 Presenting rhythm: AP/VS AP-84%, PAINTER SIGN MAINTENANCE-7% No AT/AF episodes noted. No Ventricular high [...] like to have the replacement done at [facility] by Dr. Juares. Patient is diabetic [...] last revised on 19. Testing performed by: [facility], [address] [place] [address]., [id number] Hep B core IgM Nonreactive Nonreactive Juana QUIÑONES (DARRON) Comment: Interpretive Data If HepB Core IgM Ab is reported as Equivocal, a new sample should be drawn in two weeks for testing. Current interpretive data was last revised on 19. Testing performed by: [facility], [address] [place] [address]., [id number] Hep C Ab Nonreactive Nonreactive LUCILLE QUIÑONES [...] last revised on 2019. Testing performed by: [facility], [address] [place] [address]., [id number] HepBsAg Nonreactive Nonreactive LUCILLE QUIÑONES (DARRON) Comment:Testing performed by : [address] [id number] Blood 07/27/2024 6:07 PM CDT 07/28/2024 11:03 AM CDT us Guilherme Dumont MD LAB MICROBIOLOGY - GENERAL OR DERABLES Final Result LUCILLE QUIÑONES (DARRON) 1 [facility] Department [place] [address] * Colonoscopy (11/19/2023 7:32 AM CDT) Anatomical Region Laterality Modality Other Narrative Procedure Note Karadaghy, Ahmad A., MD - 11/19/2023 7:32 AM CDT Digestive [facility] Patient Name: Quinten Gould Procedure Date: 11/19/2023 7:32 AM Date of : 1950 Admit Type: Inpatient Age: 73 Gender: Male Attending MD: Jerson Alonso M.D. Room: [facility] END[facility] 3 Note Status: Finalized [...] passed under direct vision.The Pediatric Colonoscope PCF-H190L [id number] was introduced through the anus and advanced [...] 7:32 AM Procedure Code(s): --- Professional --- 36443, 53, Colonoscopy, flexible; diagnostic, including collection of specimen(s) by brushing or washing, when performed (separateprocedure) Diagnosis Code(s): --- Professional --- R93.3, Abnormal findings on diagnostic imaging of other parts of digestive tract CPT copyright 2020 [employer]. All rights reserved. The codes documented in this report are preliminary and upon pump and still operator reviewmay be revised to meet current compliance requirements. Recognized by the [employer] for promoting quality [...] Final Resu lt LUCILLE NURIA (DARRON) 1 [facility] Department of Laboratories [place], [place] [id number] * Albumin Creatinine Ratio, Urine (07/27/2019) Urine us Historical Provider LAB URINE ORDERABLES Nancy l Result from Last 3 Months or Most Recently Relevant to Health Maintenance
--- OUTSIDE RECORDS SUMMARY | 2024-12-22 12:57 | XMS_ITS | Encounter Summary ---
Author Organization [facility] Address [address] [place] [address] Care Team Providers Care Flowers Salesperson Name Role Phone Monty Moreno MD Unavailable [phone] Jill Black MD Unavailable Omer Nunn MD Primary Care Provider [phone] Encounter Details Date Type Department Care Team (Late st Contact Info) Description 05/01/[address] 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
--- OUTSIDE RECORDS SUMMARY | 2024-12-22 12:57 | XMS_ITS | Encounter Summary ---
Author Organization [facility] Address [address] [place] [address] Care Team Providers Care Hunting Sales Leader Name Role Phone Monty Moreno MD Unavailable [phone] Jill Black MD Unavailable [phone] Omer Nunn MD Primary Care Provider Encounter Details Date Type Department Care Team (Late st Contact Info) Description 10/12/2019 Postop Outreach [facility] - Perioperative Surgery [address] [place] [address] Nazario Jensen PA-C [address] [facility] [address] [place] [address] Social History Tobacco Use Types [...] on file 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
--- OUTSIDE RECORDS SUMMARY | 2024-12-22 12:57 | XMS_ITS | Clinical Summary ---
Author Organization [facility] Address [address] [place] [address] Care Team Providers Care Circulating Nurse Name Role Phone Omer Nunn MD Primary Care Provider [phone] Hemanth Sanches MD Unavailable Jessa Bryan DO Unavailable [phone] Allergies Active Allergy Reactions Criticality Noted Date [...] total) by mouth daily Active blood-glucose sensor (Content [employer] G7 Sensor) deviceIndication s:Type 2 diabetes mellitus [...] time and patient to follow up with [facility] orthopedics (Dr. [facility] clinic to set [...] well since EGD yesterday. Progressively worsening dyasphagia [facility] and scheduled for endoscopy at OSH. He [...] week. He will obtain a BMP at [facility] prior to the visit. 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 No symptoms presently. - Cont zyrtec, levalbuterol PRN - formulary montelukast to replace home zafirlukast Unintentional weight loss 12/22/2022 Mood disorder 12/22/2022 Assessment & Plan (11/12/2023 5:01 PM CDT): - continue home wellbutrin, prozac Assessment & Plan (05/13/2023 2:27 AM AUTO APPRENTICE MECHANIC): Continue fluoxetine 40 and bupropion 300 Iron [...] for cell count and [place] [address] nucleated cells (95% neutrophils) and 6403 RBCs, [...] 12/30/2016 Assessment & Plan (05/13/2023 2:10 AM AUTO APPRENTICE MECHANIC): - Continue ASA, atorvastatin 80 - Off [...] 09/16/2016 Assessment & Plan (05/13/2023 2:10 AM AUTO APPRENTICE MECHANIC): Nonadherent to CPAP Assessment & Plan (09/16/2016 [...] Acquired trigger finger 04/28/2010 Coronary arteriosclerosis in [place] artery 06/18 Overview (06/09/2016): CHETAN BROCK NATNOEMI [...] HYPERLIPIDEMIA Assessment & Plan (05/13/2023 2:10 AM AUTO APPRENTICE MECHANIC): Cont atorva 80 Assessment & Plan (09/16/2016 [...] Description 12/10/2024 1:45 PM CDT Office Visit [facility] of [address], [place] [address] Leila Cardoza MD Type 2 diabetes mellitus with hypoglycemia without coma, without long-term current use of insulin (HCC) (Primary Dx) 12/06/2024 1:15 PM CDT Office Visit [facility] Medical Group Cardiology at [address] [place] [address] Maxim Juares MD Coronary arteriosclerosis in [place] artery (Primary Dx); Dilated cardiomyopathy (HCC); Presence of stent in coronary artery; Anemia of chronic renal failure, stage 5 (HCC); Pacemaker 11/29/2024 Telephone [facility] Cardiology [address] [facility] [address] [place] [phone] Maxim Juares MD Hypertension; Dizziness 11/14/2024 Documentation [facility] Medical Group Gastroenterology at [address] [place] [address] Eva Cary MA Labs 11/14/2024 Orders Only [facility] Gastroenterology at [address] [place] [address] ProviderSmiley MD 10/31/2024 2:00 PM CDT Ancillary Procedure [facility] Cardiology [address] [facility] [address] [place] [phone] Bradycardia (Primary Dx); SSS (sick sinus syndrome) (HCC); Ischemic cardiomyopathy; Pacemaker; Atrial fibrillation, unspecified type (HCC) 10/25/2024 Orders Only [facility] Cardiology [address] [facility] [address] [place] [phone] Maxim Juares MD 10/24/2024 Orders Only [facility] Health Information Management [address] [place] [address] Darien Garcia 10/23/2024 [facility] Post Discharge Follow up phone call [facility] [address] [place] [address] Chiara Chavez 10/22/2024 Telephone [facility] Medical Group Gastroenterology at [address] [place] [address] Delia Davila MA 10/22/2024 Telephone [facility] Gastroenterology at [address] [place] [address] Delia Davila MA 10/22/2024 Telephone [facility] Gastroenterology at [address] [place] [address] Delia Davila MA 10/19/2024 2:24 PM CDT - 10/21/2024 5:33 PM CDT Hospital Encounter [facility] IMU 1 [place] [address] Konstantin Jara MD Nikolic, MD Magali Simpson, [...] care 10/10/2024 7:15 AM CDT Ancillary Procedure [facility] Cardiology [address] [facility] [address] [place] [phone] Pacemaker; Sick sinus syndrome (HCC) 10/10/2024 Telephone [facility] Cardiology [address] [facility] [address] [place] [phone] Maxim Juares MD 10/10/2024 Telephone [facility] Cardiology [address] [place] [address] [place] [phone] Maxim Juares MD 10/09/2024 Telephone [facility] Gastroenterology at [place] [address] [facility] [address] [place] [phone] Mckenna Cary from Last 3 Months Surgical [...] Other Medical Diabetes Type I I Hypertension VT (myocardial infarction) (HCC) Lung disease COPD Chronic kidney disease stage 5 c kd Type 2 diabetes mellitus Anemia Depression Anxiety VT (myocardial infarction) (HCC) 3 stents Family History [...] drink = 0.6 oz pur e alcohol) [facility] Utilities Answer Date Recorded In the past 12 months has e [employer], gas, oil, or water [employer] threatened to shut off services in your [...] often do you attend chur ch or baptist services? 1 to 4 times per year 07/27/2024 Do you belong to any clubs o r organizations such as yazdanism groups, unions, fraternal or athletic groups, or [...] place to sleep or slept in a usp (including now)? No 06/21/2023 Housing Stability Vital Sign Answer Vijay e Recorded In the last 12 months, was t here a time when you were not able to pay the mortgage or rent on time? No 07/27/2024 In the past 12 months, how m any times have you moved where you were living? 0 07/27/2024 At any time in the past 12 m [facility], were you homeless or living in a usp (including now)? 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 APPRENTICE MECHANIC Gender Identity Not on file Sexual Orientation [...] history exists 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 Type Area Marketing Designer Device Identifier Shelf Expiration Date Model / Serial / Lot Pacemaker- 011 Implanted:11/09 by Jill Black MD (Quantity not on file) Pacemaker Chest [employer] SSS [employer] Longer Luke Set Catheter Laparoscopic Placement Peritoneal [id number] - [id number] Implanted:Qty: 1 on 06/20/2023 by Volodymyr Seo MD at [facility] N/A: Peritoneum [employer] 03/24/2026 [id number] / / [id number] [employer] Catheter Peritoneal Dialysis Double Cuff Coiled Adult Flex Neck 5.3x3.6icl53gb Cf-5260 - [id number] Implanted:Qty: 1 on 06/20/2023 by Volodymyr Seo MD at [facility] N/A: Peritoneum [employer] 05/14/2024 CF-5260 / / [id number] [employer] Duraflow Embosafe 15.5fr 24cm Basic 2 Lumen Kit Catheter [id number] - [id number] Implanted:Qty: 1 on 11/18/2023 by Volodymyr Seo MD at [facility] Right: Chest [employer] 04/06/2024 [id number] / / [id number] [employer] Catheter Peritoneal Dialysis Double Cuff Coiled Adult Flex Neck 5.3x3.1ppn86xa Cf-5260 - [id number] Implanted:Qty: 1 on 03/05/2024 by Volodymyr Seo MD at [facility] N/A: Abdomen [employer] 07/21/2026 CF-5260 / / [id number] [employer] Longer Luke Set Catheter Laparoscopic Placement Peritoneal Vp411 - [id number] Implanted:Qty: 1 on 03/05/2024 by Volodymyr Seo MD at [facility] N/A: Abdomen [facility] [employer] 08/12/2026 [id number] / / [id number] Procedures Procedure Name Priority Date/Time Associated Diagnosis [...] EMEKA. Presenting rhythm- VS (SR). AP- 32 TECHNOLOGY CONSULTANT- 0. No Atrial high rate episodes recorded. [...] - DEV ICE Final Result [facility] [place] [address] [facility] Department of Laboratories [place], [place] [id number] * POCT glucose (10/21/2024 11:59 AM CDT) Glucose, POC 128 70 - 199 mg/dL Blood 10/21/2024 11:5 9 AM CDT 10/21/2024 11:59 AM CDT Nancy Merritt MD LAB POCT ORDERABLES - DEV ICE Final Result [place] [place] 1 [facility] [place] [address] * POCT glucose (10/21/2024 8:12 AM CDT) Glucose, POC 121 70 - 199 mg/dL Blood 10/21/2024 8:12 AM CDT 10/21/2024 8:12 AM CDT Nancy Merritt MD LAB POCT ORDERABLES - DEV ICE Final Result Performing Organization Address City/[facility]/ZIP Co de Phone Number [facility] ([place]) 1 [facility] [place] [address] * POCT glucose (10/21/2024 4:16 AM CDT) Glucose, POC 95 70 - 199 mg/dL Blood 10/21/2024 4:16 AM CDT 10/21/2024 4:16 AM CDT Nancy Merritt MD LAB POCT ORDERABLES - DEV ICE Final Result Performing Organization Address City/[facility]/ZIP Co de Phone Number [facility] ([place]) 1 [facility] [place] [address] * (ABNORMAL) eGFR (10/21/2024 2:15 AM CDT) [...] BLOOD ORDERABLES Final Resu lt [facility] ([place]) 1 [facility] Department [place] [address] * Differential, auto (10/21/2024 2:15 AM CDT) [...] Final Resu lt [facility] ([place]) [address] [facility] Department [place] [address] * (ABNORMAL) CBC with auto differential (10/21/2024 [...] NRBC abs 0.00 0.00 - 0.01 K/cumm [facility] Blood 10/21/2024 2:15 AM CDT 10/21/2024 3:35 AM CDT us Eugene Scott MD LAB BLOOD ORDERABLES Final Resu lt [facility] ([place]) 1 [facility] Department [place] [address] * (ABNORMAL) Comprehensive metabolic panel (10/21/2024 2:15 [...] Final Resu lt [facility] ([place]) 1 [facility] [employer] [place] [address] * POCT glucose (10/21/2024 12:06 AM CDT) Glucose, POC 106 70 - 199 mg/dL Blood 10/21/2024 12:0 6 AM CDT 10/21/2024 12:06 AM CDT Nancy Merritt MD LAB POCT ORDERABLES - DEV ICE Final Result [facility] ([place]) 1 [facility] [place] [address] * POCT glucose (10/20/2024 8:24 PM CDT) Glucose, POC 146 70 - 199 mg/dL Blood 10/20/2024 8:24 PM CDT 10/20/2024 8:24 PM CDT Nancy Merritt MD LAB POCT ORDERABLES - DEV ICE Final Result [facility] ([place]) 1 [facility] [place] [address] * POCT glucose (10/20/2024 5:07 PM CDT) Glucose, POC 127 70 - 199 mg/dL Blood 10/20/2024 5:07 PM CDT 10/20/2024 5:07 PM CDT Nancy Merritt MD LAB POCT ORDERABLES - DEV ICE Final Result Performing Organization Address [facility] Co de Phone Number [facility] ([place]) 1 [facility] [place] [address] * POCT glucose (10/20/2024 12:07 PM CDT) Glucose, POC 103 70 - 199 mg/dL Blood 10/20/2024 12:0 7 PM CDT 10/20/2024 12:07 PM CDT Nancy Merritt MD LAB POCT ORDERABLES - DEV ICE Final Result Performing Organization Address [facility] Co de Phone Number [facility] ([place]) 1 [facility] [employer] [address] * (ABNORMAL) Glutamic acid decarboxylase (10/20/2024 11:18 AM CDT) GAD65 ab ser 0.11(H) <=0.02 nmol/L [facility] Comment: The following antibody was [...] developed and its performance characteristics determined by [facility] in a manner consistent with CLIA requirements. This test has not been cleared or approved by the U.S. Food and Drug Administration. Test Performed by: [facility] - [address] [address] [employer]sembler Garment Form: Andrea Almonte Ph.D.; CLIA# [id number] Blood 10/20/2024 11:1 8 AM CDT 10/20/2024 11:30 AM CDT Guilherme Dumont MD LAB BLOOD ORDERABLES Final Re sult Performing Organization Address City/[facility] Co de Phone Number [facility] ([place]) [address] [place] [address] [employer] [address] [facility] * (ABNORMAL) Insulin, total (10/20/2024 11:18 AM CDT) Insulin 28.7(H) 2.6 - 25.0 mcIUnit/mL Comment:Testing performed by : [facility], [address] [place] [address], [place]., [address] Blood 10/20/2024 11:1 8 AM CDT 10/20/2024 4:05 PM CDT Guilherme Dumont MD LAB BLOOD ORDERABLES Final Re sult [facility] ([place]) [address] [place] [address] [place] [address] * (ABNORMAL) C-peptide (10/20/2024 11:18 AM CDT) C-peptide 14.70(H) 1.10 - 4.40 ng/mL Comment:Testing performed by : [facility], [address] [place] [address], [place]., [address] Blood 10/20/2024 11:1 8 AM CDT 10/20/2024 4:05 PM CDT Guilherme Dumont MD LAB BLOOD ORDERABLES Final Re sult Performing Organization Address [facility] Co de Phone Number [facility] [place]) [address] [place] [address] * Hepatitis B Surface Antigen Blood (10/20/2024 11:18 AM CDT) Pathologist [facility] HepBsAg Nonreactive Nonreactive Comment:Testing performed by : [facility], [address] [place] [address], [facility] Blood 10/20/2024 11:1 8 AM CDT 10/20/2024 3:08 PM CDT Guilherme Dumont MD LAB MICROBIOLOGY - GENERAL OR DERABLES Final Result Performing Organization Address [facility] Co de Phone Number [facility] ([place]) [address] [place] [address] * TRANSTHORACIC ECHO (TTE) LIMITED/FOLLOW UP WO DOPPLER/CF WO CONTRAST (10/20/2024 9:45 AM CDT) [facility] Estimated EF 30 % CONS SCIMAGE Anatomical Region Laterality Modality Ultrasound 10/20/2024 11:3 5 AM CDT Narrative 10/20/2024 4:26 PM CDT [address] [address] Limited Echocardiogram Report Patient Name: QUINTEN GOULD : 1950 Study Date: 10/20/2024 11:35:32 AM Gender: M Tech: AA Location: [place] [address] Ref Provider: ROE GOSS Height(Cm): BSA: Weight(Kg): [...] Procedure Note Roe Goss MD - 10/20/[address] [place] [address] Limited Echocardiogram Report Patient Name: QUINTEN GOULD : 1950 Study Date: 10/20/2024 11:35:32 AM Gender: M Tech: AA Location: [id number] Ref Provider: ROE GOSS Height(Cm): BSA: Weight(Kg): [...] * POCT glucose (10/20/2024 8:08 AM CDT) [facility] Glucose, POC 87 70 - 199 mg/dL Blood 10/20/2024 8:08 AM CDT 10/20/2024 8:08 AM CDT us Nancy Merritt MD LAB POCT ORDERABLES - DEV ICE Final Result [facility] ([place]) 1 [facility] [place] [address] * POCT glucose (10/20/2024 1:50 AM CDT) [facility] Glucose, POC 79 70 - 199 mg/dL Blood 10/20/2024 1:50 AM CDT 10/20/2024 1:50 AM CDT Tatiana Sow MD LAB POCT ORDERABLES - DEVICE F inal Result Performing Organization Address [facility] Co de Phone Number [facility] ([place]) 1 [facility] [place] [address] * Lactate (10/20/2024 12:53 AM CDT) [facility] Lactate 1.3 0.7 - 2.0 mmol/L Blood 10/20/2024 12:5 3 AM CDT 10/20/2024 12:56 AM CDT us Eugene Scott MD LAB BLOOD ORDERABLES Final Resu lt Performing Organization Address City/[facility]/ZIP Co de Phone Number [facility] ([place]) 1 [facility] [place] [address] * (ABNORMAL) eGFR (10/20/2024 12:53 AM CDT) [facility] eGFR 6(L) >=60 mL/min/1. 73 m2 Comment: [...] AM CDT 10/20/2024 12:56 AM CDT us Eguene Scott MD LAB BLOOD ORDERABLES Final Resu lt [facility] ([place]) 1 [facility] Department [place] [address] * Differential, auto (10/20/2024 12:53 AM CDT) Pathologist [facility] Neutrophil abs 4.52 1.50 - 6.50 K/cumm [...] Neutrophil pct 67.9 % [facility] ([place]) Comment: Interpretive Data Percent cell count reference [...] Final Resu lt [facility] ([place]) 1 [facility] Department of Laboratories [place], [place] [id number] * (ABNORMAL) CBC with auto differential (10/20/2024 [...] Final Resu lt [facility] ([place]) 1 [facility] Department [place] [address] * Blood culture Blood (10/20/2024 12:53 AM CDT) Report Final Report: No growth Comment:Testing performed by : [facility], [address] [facility], [place]., [address] Blood 10/20/2024 12:5 3 AM CDT 10/20/2024 [...] performance characteristics have been verified by the [facility] Microbiology Laboratory. For questions about this culture, contact the Microbiology Laboratory at [phone]. Interpretive data was last revised on 23. Eugene Scott MD LAB MICROBIOLOGY - [facility] Final Result [facility] ([place]) 1 [facility] Department [place] [address] * Blood culture Blood (10/20/2024 12:53 AM CDT) Report Final Report: No growth Comment:Testing performed by : [facility], 1 [facility] [place]., [address] Blood 10/20/2024 12:5 3 AM CDT 10/20/2024 [...] performance characteristics have been verified by the [facility] Microbiology Laboratory. For questions about this culture, contact the Microbiology Laboratory at [phone]. Interpretive data was last revised on 23. us Eugene Scott MD LAB [facility]OLOGY - [facility] Final Result [facility] ([place]) 1 [facility] Department [place] [address] * (ABNORMAL) Comprehensive metabolic panel (10/20/2024 12:53 [...] City/[facility]/ZIP Co de Phone Number [facility] ([place] 1 [facility] [place] [address] * POCT glucose (10/19/2024 11:19 PM CDT) [facility] Glucose, POC 88 70 - 199 mg/dL Blood 10/19/2024 11:1 9 PM CDT 10/19/2024 11:19 PM CDT Tatiana Sow MD LAB POCT ORDERABLES - DEVICE F inal Result Performing Organization Address City/[facility]/ZIP Co de Phone Number [facility] ([place]) 1 [facility] [place] [address] * (ABNORMAL) Troponin T high-sensitivity 6-hour (10/19/2024 9:15 PM CDT) Trop T hs 292(C) <=22 ng/L [facility] ([place]) Comment: Critical Result called by [email or web address] at 2024-10-19 22:37:16. Result Read Back by ludy zavala [facility] Interpretive Data For further hscTnT resources including [...] BLOOD ORDERABLES Final R esult [facility] ([place]) 1 [facility] [place] [address] * POCT glucose (10/19/2024 8:31 PM CDT) Glucose, POC 91 70 - 199 mg/dL Blood 10/19/2024 8:31 PM CDT 10/19/2024 8:31 PM CDT Tatiana Sow MD LAB POCT ORDERABLES - DEVICE F inal Result [facility] ([place]) 1 [facility] [place] [address] * (ABNORMAL) Troponin T high-sensitivity 4-hour (10/19/2024 6:52 PM CDT) Trop T hs 290(C) <=22 ng/L [facility] ([place]) Comment: Critical Result called by [email or web address] at 2024-10-19 19:23:37. Result Read Back by MILADY GARCIA Interpretive Data For further hscTnT resources including the diagnostic algorithm and an aid in interpretation, copy and paste this link: https://nrl.testcatPlayCrafter.org/show/hsTrop Current Interpretive Data last revised 2020. Trop T hs pct delta -4 % [facility] ([place]) Trop T hs interp Insignificant [facility] ([place]) Blood 10/19/2024 6:52 PM CDT 10/19/2024 6:55 PM CDT Konstantin Jara MD LAB BLOOD ORDERABLES Final R esult Performing Organization Address City/[facility]/ZIP Co de Phone Number [facility] ([place]) 1 [facility] [place] [address] * POCT glucose (10/19/2024 4:13 PM CDT) Glucose, POC 109 70 - 199 mg/dL Blood 10/19/2024 4:13 PM CDT 10/19/2024 4:13 PM CDT Konstantin Jara MD LAB POCT ORDERABLES - DEVICE Final Result Performing Organization Address [facility] Co de Phone Number [facility] ([place]) 1 [facility] [place] [address] * (ABNORMAL) Troponin T high-sensitivity 2-hour (10/19/2024 4:12 PM CDT) Trop T hs 288(C) <=22 ng/L [facility] ([place]) Comment: Critical Result called by [email or web address] at 2024-10-19 17:04:24. Result Read Back by FAUSTO LEPE Interpretive Data For further hscTnT resources including the diagnostic algorithm and an aid in interpretation, copy and paste this link: https://nrl.testcatalog.org/show/hsTrop Current Interpretive Data last revised 2020. Trop T hs pct delta -4 % [facility] ([place]) Trop T hs interp Insignificant [facility] ([place]) Blood 10/19/2024 4:12 PM CDT 10/19/2024 4:17 PM CDT Konstantin Jara MD LAB BLOOD ORDERABLES Final R esult Performing Organization Address City/[facility] Co de Phone Number [facility] ([place]) 1 [facility] Department [place] [address] * ECG 12 lead (10/19/2024 2:45 PM CDT) 10/19/2024 2:45 PM CDT Narrative [facility] - 10/19/2024 3:36 PM CDT Vent Rate: 62 bpm RR Interval: 967 msec AR Interval: 213 msec QRS Duration: 162 msec QT Interval: 506 msec QTC Interval: 510 msec P-R-T [place]: -2 - -76 - 137 degrees IMPRESSION: Baseline artifact, 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 ABNORMAL RHYTHM ECG No change from prior EKG Electronically Signed By: Graham Mancilla MD Konstantin Jara MD ECG ORDERABLES Final Result Performing Organization Address [facility] Co de Phone Number [facility] * Influenza A/B, RSV, and COVID-19 PCR Nasopharyngeal (10/19/2024 2:45 PM CDT) COVID-19 RNA Negative Negative Influenza A RNA Negative Negative [facility] ([place]) Influenza B RNA Negative Negative [facility] ([place]) RSV RNA Negative Negative [facility] ([place]) Comment: Interpretive data: Testing performed by [facility]. This test is performed using the [employer] Xpert Xpress CoV-2/Flu/RSV plus assay. This is a multiplex, real- time reverse transcriptase PCR assay intended for the qualitative detection of nucleic acid from SARS-CoV-2, influenza A, influenza B, and respiratory syncytial virus. This assay has been cleared by the [place] Food and Drug administration. The performance characteristics have been verified by the [facility]. Results must be considered in the clinical context, and a negative result does not rule out infection. Interpretive Data last revised 2023 Nasopharyngeal 10/19/2024 2: 45 PM CDT 10/19/2024 2:47 PM CDT Narrative [facility] ([place]) - 10/19/2024 3:27 PM CDT Is the Patient experiencing symptoms consistent with COVID?->Unknown Konstantin Jara MD LAB MICROBIOLOGY - GENERAL O RDERABLES Final Result [facility] ([place]) 1 [facility] Department [place] [address] * XR Chest 1 Vw Portable (10/19/2024 [...] Katie Li M.D. FT: FT Report ID: [id number] Reading Location: [id number] Procedure Note Katie Kirkland MD - 10/19/2024 [...] Katie Li M.D. FT: FT Report ID: [id number] Reading Location: [place] [address] Konstantin Jara MD IMG XR PROCEDURES Final Resu lt * (ABNORMAL) Troponin T high-sensitivity series (baseline, 2hr, 4hr, 6hr) (10/19/2024 2:30 PM CDT) Trop T hs 301(C) <=22 ng/L [facility] ([place]) Comment: Critical Result called by [id number] at 2024-10-19 14:59:02. Result Read Back by SHANEKA DAMONHUBER Interpretive Data For further hscTnT resources including the diagnostic algorithm and an aid in interpretation, copy and paste this link: [email or web address] Current Interpretive Data last revised 2020. Blood 10/19/2024 2:30 PM CDT 10/19/2024 2:35 PM CDT Konstantin Jara MD LAB BLOOD ORDERABLES Final R esult [facility] ([place]) 1 [facility] Department [place] [address] * (ABNORMAL) eGFR (10/19/2024 2:30 [...] BLOOD ORDERABLES Final Resu lt [facility] ([place] 1 [facility] Department [place] [address] * Differential, auto (10/19/2024 2:30 PM CDT) [...] Final Resu lt [facility] ([place]) 1 [facility] Department [place] [address] * (ABNORMAL) Pro B-type natriuretic peptide (10/19/2024 [...] LAB BLOOD ORDERABLES Final R esult [facility] ([place]) 1 [facility] Department [place] [address] * (ABNORMAL) CBC with auto differential (10/19/2024 [...] NRBC abs 0.00 0.00 - 0.01 K/cumm [facility] Blood 10/19/2024 2:30 PM CDT 10/19/2024 2:35 PM CDT Konstantin Jara MD LAB BLOOD ORDERABLES Final R esult [facility] ([place] 1 [facility] Department [place] [address] * (ABNORMAL) Comprehensive metabolic panel (10/19/2024 2:30 PM CDT) Sodium 136 135 - 145 mmol/L [facility] ([place]) Potassium, pl 5.1(H) 3.3 - 4.9 mmol/L [facility] ([place]) Chloride 93(L) 97 - 110 mmol/L [facility] ([place] CO2 25 22 - 32 [...] BLOOD ORDERABLES Final R esult [facility] ([place]) 1 [facility] [place] [address] * POCT glucose (10/19/2024 2:23 PM CDT) Glucose, POC 126 70 - 199 mg/dL Blood 10/19/2024 2:23 PM CDT 10/19/2024 2:23 PM CDT us Notinfile Unknown LAB POCT ORDERABLES - DEVICE F inal Result Performing Organization Address City/[facility]/ZIP Co de Phone Number [facility] ([place]) 1 [facility] [place] [address] * DEVICE CHECK - REMOTE (10/10/2024 7:00 AM CDT) Anatomical Region Laterality Modality Other Narrative 10/15/2024 7:36 AM CDT Biotronik Dual Pacemaker. Dx; SSS. DOI 11/10/[address] Black. Biotronik remote home monitoring. Office pacer checks Q1 yr. Unscheduled DDD CLS Pacemaker Remote due to EMEKA reached on 10/10/24 Transmission attached. Battery status: EMEKA reached on 10/10/24 Patient is not pacemaker dependent. [employer] tech services reports that standard six-month replacement window applies, however some setting changes will occur. Patient device will switch to VDD mode with no rate response, and there is 11% reduction in base rate. Stable Lead impedances, pacing and sensing thresholds since 04/24/24 Presenting rhythm: AP/VS AP-84%, TECHNOLOGY CONSULTANT-7% No AT/AF episodes noted. No Ventricular high rate episodes detected. Medications: Eliquis 2.5 mg, ASA 81 mg, carvedilol 12.5 mg, hydralazine 25 mg See scanned report. Office pacemaker follow up: Pending generator change [employer]ik remote f/u pending generator change. Jose Guadalupe Velázquez RN Called and spoke with patient's Mili. She states that she handles most of Quinten's healthcare issues. Informed Mili that Quinten's pacemaker has reached recommended replacement time. She states that he would like to have the replacement done at [facility] by Dr. Juares. Patient is diabetic and [...] last revised on 19. Testing performed by: [facility], [address] [place] [address]., [id number] Hep B core IgM Nonreactive Nonreactive C JJ [facility] ([place]) Comment: Interpretive Data If HepB Core IgM Ab is reported as Equivocal, a new sample should be drawn in two weeks for testing. Current interpretive data was last revised on 19. Testing performed by: [facility], [address] [place] [address]., [id number] Hep C Ab Nonreactive Nonreactive [facility] [...] last revised on 2019. Testing performed by: [facility], [address] [place] [address]., [id number] HepBsAg Nonreactive Nonreactive [facility] ([place]) Comment:Testing performed by : [address] [address] Blood 07/27/2024 6:07 PM CDT 07/28/2024 11:03 AM CDT Guilherme Dumont MD LAB MICROBIOLOGY - GENERAL OR DERABLES Final Result [facility] ([place]) 1 [facility] Department [place] [address] * Colonoscopy (11/19/2023 7:32 AM CDT) Anatomical Region Laterality Modality Other Narrative Procedure Note Jerson Alonso MD - 11/19/2023 7:32 AM CDT [facility] Patient Name: Quinten Gould Procedure Date: 11/19/2023 7:32 AM Date of : 1950 Admit Type: Inpatient Age: 73 Gender: Male Attending MD: Jerson Alonso M.D. Room: [facility] 3 Note Status: Finalized Patient [...] passed under direct vision.The Pediatric Colonoscope [id number] was introduced through the anus and advanced [...] 7:32 AM Procedure Code(s): --- Professional --- 16354, 53, Colonoscopy, flexible; diagnostic, including collection of specimen(s) by brushing or washing, when performed (separateprocedure) Diagnosis Code(s): --- Professional --- R93.3, Abnormal findings on diagnostic imaging of other parts of digestive tract CPT copyright 2020 [employer]. All rights reserved. The codes documented in this report are preliminary and upon mine shifter reviewmay be revised to meet current compliance requirements. Recognized by the [employer] for promoting quality [...] 2017. Non-HDL Cholesterol 146 mg/dL [facility] ([place]) Comment: Interpretive Data Ages < or = [...] 2017. Chol/HDL ratio 6 [facility] ([place]) Blood 06/21/2023 3:52 AM CDT 06/21/2023 4:23 AM CDT Andrey Hernandez MD LAB BLOOD ORDERABLES Final Resu lt [facility] ([place]) 1 [facility] Department [place] [address] * Albumin Creatinine Ratio, Urine (07/27/2019) Urine Historical Provider LAB URINE ORDERABLES Nancy triana Result from Last 3 Months or Most Recently Relevant to Health Maintenance Insurance MEDICARE [facility] Address: [address] [place] [id number] [facility] MAIL HANDLERS [facility] [address] HMO/O Address: [facility] [id number] [place] [id number] MEDICARE [facility] HMO Advance Directives For more information, please contact: [phone] Documents on File Type Date Recorded Patient Sharemilker Expl anation ADVANCE DIRECTIVE 11/15/2016 Advance Di [...] Agents on File Name Relationship Healthcare Agent [facility] p Communication Mili Gould Spouse Health Care Agent Tita Gonzalez Sister First Alternate Health Care Agent John Gould Son Second Alternate Health Care Agent Care Teams Circulating Nurse Relationship Specialty Start Date End Date Omer Nunn MD [address] [place] [address] PCP - General 01/10/12 Hemanth Sanches MD [address] [address] Consulting Physician Gastroenterology 10/24/23 Jessa Bryan DO [address] [place] [address] Consulting Physician Internal Medicine 07/12/24
--- OUTSIDE RECORDS SUMMARY | 2024-12-22 12:58 | XMS_ITS | Encounter Summary ---
Author Organization [facility] Address [address] [place] [address] Phone Care Team Providers Care Advanced Manufacturing Engineer Name Role Phone Omer Nunn MD Primary Care Provider [phone] Reason for Visit * Reason Comments Med Refill Encounter Details Date Type Department Care Team (Late st Contact Info) Description 01/24/2024 Refill [facility] [address] [place] [address] Guilherme Dumont MD [address] [place] [address] Social History Tobacco Use Types [...] on filedocumented in this encounter Care Teams Advanced Manufacturing Engineer Relationship Specialty Start Date End Date Omer Nunn MD [address] [place] [address] PCP - General Internal Medicine 12/18/19 documented as of this encounter
--- OUTSIDE RECORDS SUMMARY | 2024-12-22 12:58 | XMS_ITS | Clinical Summary ---
Author Organization [facility] Address [address] [place] [address] Care Team Providers Care Commercial Maintenance Technician Name Role Phone Unavailable Primary Care Provider [...]
--- OUTSIDE RECORDS SUMMARY | 2024-12-22 12:58 | XMS_ITS | Encounter Summary ---
Author Organization [facility] Address [address] [place] [address] Phone Care Team Providers Care Dielectric Machine Operator Name Role Phone Omer Nunn MD Primary Care Provider [phone] Encounter Details Date Type Department Care Team (Late st Contact Info) Description 06/22/2019 Orders Only [facility] [address] [place] [address] Guilherme Dumont MD [address] [place] [address] Chronic kidney disease stage 3 [...] (HCC) documented in this encounter Care Teams Dielectric Machine Operator Relationship Specialty Start Date End Date Omer Nunn MD [address] [place] [id number] PCP - General Internal Medicine 12/18/19 documented as of this encounter
--- OUTSIDE RECORDS SUMMARY | 2024-12-22 12:58 | XMS_ITS | Encounter Summary ---
Author Organization [facility] Address [address] [facility] [address] [place] [address] Phone Care Team Providers Care Medical Records Manager Name Role Phone Omer Nunn MD Primary Care Provider [phone] Encounter Details Date Type Department Care Team (Late st Contact Info) Description 04/27/2019 Orders Only [facility] [address] [facility] [address] [place] [address] Guilherme Dumont MD [address] [facility] [address] [place] [address] Chronic kidney disease stage 3 [...] (HCC) documented in this encounter Care Teams Medical Records Manager Relationship Specialty Start Date End Date Omer Nunn MD [address] [place] [id number] PCP - General Internal Medicine 12/18/19 documented as of this encounter
--- OUTSIDE RECORDS SUMMARY | 2024-12-22 12:58 | XMS_ITS | Encounter Summary ---
Author Organization [facility] Address [address] [facility] [address] [address] [facility] [address] [place] [address] Phone Care Team Providers Care Primer Inspector Name Role Phone Omer Nunn MD Primary Care Provider [phone] Encounter Details Date Type Department Care Team (Late st Contact Info) Description 05/25/2019 Orders Only [facility] [address] [facility] [address] [place] [address] Guilherme Dumont MD [address] [facility] [address] [place] [address] Chronic kidney disease stage 3 [...] (HCC) documented in this encounter Care Teams Primer Inspector Relationship Specialty Start Date End Date Omer Nunn MD [address] [place] [id number] PCP - General Internal Medicine 12/18/19 documented as of this encounter
--- OUTSIDE RECORDS SUMMARY | 2024-12-22 12:59 | XMS_ITS | Clinical Summary ---
Author Organization [facility] Address [address] [place] [address] Care Team Providers Care Manager Integrity Name Role Phone Monty Moreno MD Unavailable [phone] Jill Black MD Unavailable Omer Nunn MD Primary Care Provider [phone] Source Comments [facility],non-owned Affiliates and Associated Physician Practices is amultiple site organization consisting of ambulatory clinics and hospital sitesin [place], [place], [place] and [place]. This disclosure is being madepursuant to the Care Everywhere program and may not contain all information available regarding this patient. Last updated 17.[facility] Allergies Active Allergy Reactions Criticality Noted Date [...] on file Legal Sex Male 9:37 AM MANUFACTURING PRODUCTION MANAGER Gender Identity Not on file Sexual Orientation Not on file Last Filed Vital Signs Vital Sign Reading Time Taken Comments Blood Pressure 146/67 04/11/2020 7:48 AM MANUFACTURING PRODUCTION MANAGER sit ting. Pulse 70 03/23/2023 1:10 PM MANUFACTURING PRODUCTION MANAGER Temperature 36.8 C (98.2 F) 04/11/2020 7:31 AM MANUFACTURING PRODUCTION MANAGER Respiratory Rate 17 03/23/2023 1:10 PM MANUFACTURING PRODUCTION MANAGER Oxygen Saturation 94% 03/23/2023 1:10 PM MANUFACTURING PRODUCTION MANAGER Inhaled Oxygen Concentration - - Weight 98.4 kg (217 lb) 03/23/2023 1:10 PM MANUFACTURING PRODUCTION MANAGER Height 188 cm (6' 2) 03/23/2023 1:10 PM MANUFACTURING PRODUCTION MANAGER Body Mass Index 27.86 03/23/2023 1:10 PM MANUFACTURING PRODUCTION MANAGER Plan of Treatment Health Maintenance Due Date [...] this topic 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 Type Area Director Of Academic Support Device Identifier Shelf Expiration Date Model / Serial / Lot Harrison Bone Oradell-G Hv 40/20 Implanted:Qty: 1 on 04/16/2015 by Monty Moreno MD at [facility] Left: Knee [employer] 10/04/2016 [id number] / / [id number] Compon Stem Exten Splined 18mm X 80mm Implanted:Qty: 1 on 04/16/2015 by Monty Moreno MD at [facility] Left: Knee [employer] 10/18/2024 [id number] / / [id number] Tibial Brg Vanguard Ps+ Sz 16 X 79/83mm Implanted:Qty: 1 on 04/16/2015 by Monty Moreno MD at [facility] Left: Knee [employer] 11/03/2016 [id number] / / [id number] Harrison Bone Oradell Hv Implanted:Qty: 1 on 04/16/2015 by Monty Moreno MD at [facility] Left: Knee [employer] 12/04/2016 [id number] / / [id number] Compon Stem Exten Splined 16mm X 120mm Implanted:Qty: 1 on 04/16/2015 by Monty Moreno MD at [facility] Left: Knee [employer] 01/03/2023 [id number] / / [id number] Comp Fem L 75mm Implanted:Qty: 1 on 04/16/2015 by Monty Moreno MD at [facility] Left: Knee [employer] 10/04/2015 [id number] / / [id number] 5mm X 75mm Femoral Posterior Augment Implanted:Qty: 1 on 04/16/2015 by Monty Moreno MD at [facility] Left: Knee [employer] 07/04/2017 [id number] / / [id number] 5mm X 75mm Femoral Posterior Augment Implanted:Qty: 1 on 04/16/2015 by Monty Moreno MD at [facility] Left: Knee [employer] 12/04/2016 [id number] / / [id number] Implt Fem Dist Aug 5 X 75mm Implanted:Qty: 1 on 04/16/2015 by Monty Moreno MD at [facility] Left: Knee [employer] 02/03/2021 [id number] / / [id number] 10mm X 75mm Femoral Rl/Lm Distal Augment Implanted:Qty: 1 on 04/16/2015 by Monty Moreno MD at [facility] Left: Knee [employer] 01/20/2025 [id number] / / [id number] Ty Tibial Non Por 79mm Implanted:Qty: 1 on 04/16/2015 by Monty Moreno MD at [facility] Left: Knee [employer] 02/19/2020 [id number] / / [id number] Harrison Bone Oradell-G Hv 40/20 Implanted:Qty: 2 on 09/24/2019 by oMnty Moreno MD at [facility] Right: Knee [employer] 06/21/2020 600-15-100 / / [id number] Cmnt Bone Djo Srg Cblt 40gm Hvisc Strl Implanted:Qty: 2 on 09/24/2019 by Monty Moreno MD at [facility] Right: Knee [employer] 01/04/2020 600-15-000 / / [id number] Harrison Bone Oradell-G Hv 40/20 Implanted:Qty: 1 on 04/09/2020 by Monty Moreno MD at [facility] Right: Knee [employer] 10/07/2020 600-15-100 / / [id number] Harrison Bone Oradell-G Hv 40/20 Implanted:Qty: 1 on 04/09/2020 by Monty Moreno MD at [facility] Right: Knee [employer] 06/07/2020 600-15-100 / / [id number] Block Aug Vngrd 85mpw2uy Fem Dist Rmll Implanted:Qty: 1 on 04/09/2020 by Monty Moreno MD at [facility] Right: Knee [employer] 08/07/2028 [id number] / / [id number] Block Aug Vngrd 31hfq5px Fem Dist Lt Mdl Implanted:Qty: 1 on 04/09/2020 by Monty Moreno MD at [facility] Right: Knee [employer] 08/07/2028 679501 / / [id number] Block Aug Vngrd 00kbv26ay Kn Fem Lt Mdl Implanted:Qty: 1 on 04/09/2020 by Monty Moreno MD at [facility] Right: Knee [employer] 06/07/2028 794952 / / [id number] Block Aug Vngrd 30qfv6qc Fem Post Rmll Implanted:Qty: 1 on 04/09/2020 by Monty Moreno MD at [facility] Right: Knee [employer] 04/09/2028 [id number] / / [id number] Tray Tib 5mm Ofst Kn Adpr Implanted:Qty: 1 on 04/09/2020 by Monty Morneo MD at [facility] Right: Knee [employer] 01/07/2029 [id number] / / [id number] Stem Tib 80mm 16mm Vngrd 360 Kn Spline Implanted:Qty: 1 on 04/09/2020 by Monty Moreno MD at [facility] Right: Knee [employer] 09/06/2028 952257 / / [id number] Cmpnt Fem Kn Rt Post Stab Opn Bx Vngrd Implanted:Qty: 1 on 04/09/2020 by Monty Moreno MD at [facility] Right: Knee [employer] 09/07/2027 [id number] / / [id number] Stem Tib 120mm 18mm Vngrd 360 Kn Spline Implanted:Qty: 1 on 04/09/2020 by Monty Moreno MD at [facility] Right: Knee [employer] 09/06/2025 485247 / / [id number] Cmpnt Ptlr 31mm 1 Pg Wire Ascnt Arcm Kn Implanted:Qty: 1 on 04/09/2020 by Monty Moreno MD at [facility] Right: Knee [employer] 02/06/2025 [id number] / / [id number] Brng 79/96qrt37nk Vngrd 360 Pe Kn Post Implanted:Qty: 1 on 04/09/2020 by Monty Moreno MD at [facility] Right: Knee [employer] 06/07/2021 [id number] / / [id number] Tray Tib 83mm Ofst Kn Implanted:Qty: 1 on 04/09/2020 by Monty Moreno MD at [facility] Right: Knee [employer] [id number] / / [id number] Procedures Procedure Name Priority Date/Time Associated Diagnosis Comments BASIC METABOLIC PANEL (CALCIUM TOTAL) AM Draw 04/11/2020 3:57 AM MANUFACTURING PRODUCTION MANAGER Status post revision of total replacement of right knee HEMOGLOBIN A1C STAT 01/24/2020 12:50 PM MANUFACTURING PRODUCTION MANAGER Type 2 diabetes mellitus without complication, without long-term current use of insulin PROTEIN CREATININE RATIO URINE RANDOM PNL Routine 10/11/2019 6:20 PM CDT Acute renal failure superimposed on chronic kidney disease, unspecified CKD stage, unspecified acute renal failure type from Last 3 Months or Most Recently Relevant to Health Maintenance Results * (ABNORMAL) BASIC METABOLIC PANEL (CALCIUM TOTAL) (04/11/2020 3:57 AM MANUFACTURING PRODUCTION MANAGER) Glucose 112(H) 70 - 105 mg/dL 04/11/2020 4:35 AM MANUFACTURING PRODUCTION MANAGER [facility] Sodium 136 136 - 145 mmol/L 04/11/2020 4:[address] [facility] Potassium 4.7 3.5 - 5.1 mmol/L 04/11/2020 4:[address] [facility] Chloride 103 98 - 107 mmol/L 04/11/2020 4:[address] [facility] CO2 24 23 - 31 mmol/L 04/11/2020 4:[address] [facility] Calcium 7.9(L) 8.4 - 10.4 mg/dL 04/11/2020 4:[address] [facility] Anion Gap 9 8 - 18 mmol/L 04/11/2020 4:[address] [facility] Comment:Attention clinician: Reference Range change. BUN 43(H) 8.4 - 25.7 mg/dL 04/11/2020 4:[address] [facility] Creatinine 2.16(H) 0.72 - 1.25 mg/dL 04/11/2020 4:35 AM MANUFACTURING PRODUCTION MANAGER [facility] eGFR by MDRD 30 mL/min/1.7 3m2 04/11/2020 4:35 AM MANUFACTURING PRODUCTION MANAGER [facility] eGFR by MDRD 37 mL/min/1.7 3m2 04/11/2020 4:[address] [facility] Blood BLOOD SPECIMEN / Unknown Venipuncture / Unknown 04/11/2020 3:57 AM MANUFACTURING PRODUCTION MANAGER 04/11/2020 4:09 AM MANUFACTURING PRODUCTION MANAGER us Liza Ojeda MD LAB - CHEMISTRY ORDERABLES Final Result [facility] [address] [place] [address] * HEMOGLOBIN A1C (01/24/2020 12:50 PM MANUFACTURING PRODUCTION MANAGER) Hemoglobin A1c 4.8 4.2 - 5.6 % 01/24/2020 2:50 PM MANUFACTURING PRODUCTION MANAGER [facility] Estimated Average Glucose 91 mg/dL 01/24/2020 2:50 PM MANUFACTURING PRODUCTION MANAGER [facility] Blood BLOOD SPECIMEN / Unknown Venipuncture / Unknown 01/24/2020 12:50 PM MANUFACTURING PRODUCTION MANAGER 01/24/2020 12:53 PM MANUFACTURING PRODUCTION MANAGER Narrative [facility] - 01/24/2020 2:50 PM MANUFACTURING PRODUCTION MANAGER The following cutoff levels are recommended by Citizen Of [place] [employer]. A1c > 6.5% : considered [...] exceeds 5% in the specimen. Monica Garrido CHEST PAINTING LEADER-NETWORK SYSTEMS ENGINEER LAB - CHEMISTRY ORDER ALEXX Final Result [facility] [address] [place] [address] * (ABNORMAL) PROTEIN CREATININE RATIO URINE RANDOM PNL (10/11/2019 6:20 PM CDT) Protein Urine 147.0(H) <11.9 mg/dL 10/11/2019 7:06 PM CDT [facility] Creatinine Urine 38.58 mg/dL 10/11/2019 7:06 PM CDT [facility] Protein/Creatin ine Ratio Urine 3.81 10/11/2019 7:06 PM CDT [facility] Urine URINE SPECIMEN OBTAINED BY CLEAN CATCH PROCEDURE / Unknown Collection / Unknown 10/11/2019 6:20 PM CDT 10/11/2019 6:39 PM CDT us Pradeep Grewal MD LAB - URINE CHEMISTRY ORDERABL ES Final Result [facility] [address] [place] [address] from Last 3 Months or Most Recently Relevant to Health Maintenance Insurance [facility]IC[facility] Address: [facility] [id number] [place] [address] MEDICARE [employer] Advance Directives * Full Code [...] 5:00 PM 04/18/2015 3:07 PM Care Teams Manager Integrity Relationship Specialty Start Date End Date Omer Nunn MD [address] [place] [id number] PCP - General 02/04/21 [place] [address] [address] Orthopedic Surgery 12/31/14 Jill Black MD [address] [address] Cardiovascular Disease 09/20/19
--- OUTSIDE RECORDS SUMMARY | 2024-12-22 12:59 | XMS_ITS | Encounter Summary ---
Author Organization [facility] Address [address] [place] [address] Phone Care Team Providers Care Teaching Specialists Name Role Phone Omer Nunn MD Primary Care Provider [phone] Encounter Details Date Type Department Care Team (Late st Contact Info) Description 11/23/2019 Orders Only [facility] [address] [place] [address] Guilherme Dumont MD [address] [place] [address] Stage 5 chronic kidney disease [...] (HCC) documented in this encounter Care Teams Teaching Specialists Relationship Specialty Start Date End Date Omer Nunn MD [address] [place] [address] PCP - General Internal Medicine 12/18/19 documented as of this encounter
--- OUTSIDE RECORDS SUMMARY | 2024-12-22 12:59 | XMS_ITS | Encounter Summary ---
Author Organization [facility] Address [address] [facility] [address] [place] [address] Phone Care Team Providers Care Oliver Filter Operator Name Role Phone Omer Nunn MD Primary Care Provider [phone] Encounter Details Date Type Department Care Team (Late st Contact Info) Description 11/30/2019 Orders Only [facility]. [address] [facility] [address] [place] [address] Guilherme Dumont MD [address] [facility] [address] [place] [address] Stage 5 chronic kidney disease [...] (HCC) documented in this encounter Care Teams Oliver Filter Operator Relationship Specialty Start Date End Date Omer Nunn MD [address] [place] [address] PCP - General Internal Medicine 12/18/19 documented as of this encounter
--- OUTSIDE RECORDS SUMMARY | 2024-12-22 12:59 | XMS_ITS | Encounter Summary ---
Author Organization [facility] Address [address] [facility] [address] [place] [address] Phone Care Team Providers Care Rock Breaker Name Role Phone Omer Nunn MD Primary Care Provider [phone] Encounter Details Date Type Department Care Team (Late st Contact Info) Description 11/16/2019 Orders Only [facility]. [address] [facility] [address] [place] [address] Guilherme Dumont MD [address] [facility] [address] [place] [address] Stage 5 chronic kidney disease [...] (HCC) documented in this encounter Care Teams Rock Breaker Relationship Specialty Start Date End Date Omer Nunn MD [address] [place] [address] PCP - General Internal Medicine 12/18/19 documented as of this encounter
--- OUTSIDE RECORDS SUMMARY | 2024-12-22 12:59 | XMS_ITS | Encounter Summary ---
Author Organization [facility] Address [address] [facility] [address] [place] [address] Phone Care Team Providers Care Sales Associate Cashier Name Role Phone Omer Nunn MD Primary Care Provider [phone] Encounter Details Date Type Department Care Team (Late st Contact Info) Description 12/07/2019 Orders Only [facility]. [address] [facility] [address] [place] [address] Guilherme Dumont MD [address] [facility] [address] [place] [address] Stage 5 chronic kidney disease [...] (HCC) documented in this encounter Care Teams Sales Associate Cashier Relationship Specialty Start Date End Date Omer Nunn MD [address] [place] [address] PCP - General Internal Medicine 12/18/19 documented as of this encounter
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
[2024-12-22] MEDS: ACETAMINOPHEN 500 MG TABLET 1000 MG PO (13:53)
[2024-12-22 14:24] LABS: Hematocrit 26.4 % (37.0-46.0); Hemoglobin 8.3 g/dL (12.4-15.3); Immature Granulocyte Percent A 0.5 % (0.0-0.0); Lymphocytes Absolute Auto 0.60 K/mm3 (1.10-4.50); Mean Corpuscular HGB Conc 31.4 g/dL (32-36); Mean Corpuscular Hemoglobin 31.9 pg (27.0-31.0); Mean Corpuscular Volume 101.5 fL (78.0-102.0); Nucleated Red Blood Cells Absolute Auto 0.00 K/mm3 (0.00-0.00); Nucleated Red Blood Cells Perc 0.0 % (0-0.0); Platelet Count Result 151 K/mm3 (150-420); Red Blood Count 2.60 M/mm3 (4.70-6.10); White Blood Count 7.9 K/mm3 (4.8-10.8)
[2024-12-22 14:35] LABS: Alanine Aminotransferase 26 U/L (6-50); Albumin Level 3.1 g/dL (3.5-5.1); Alkaline Phosphatase 67 U/L (38-126); Anion Gap 9 mmol/L (4-12); Aspartate Amino Transferase 43 U/L (17-59); Bilirubin,Total 0.4 mg/dL (0.2-1.3); Blood Urea Nitrogen 62 mg/dL (9-20); Calcium 7.9 mg/dL (8.4-10.2); Carbon Dioxide 32 mmol/L (22-30); Chloride 94 mmol/L (98-107); Estimated CRCL calculation 7 ml/min; Estimated Glomerular Filt Rate 5; Glucose 107 mg/dL (65-110); Magnesium 4.8 mg/dL (1.6-2.3); Osmolality Calculated 297 mOsm/kg (285-295); Potassium 3.8 mmol/L (3.4-5.0); Sodium 135 mmol/L (137-145); Total Protein 5.9 g/dL (6.3-8.2)
[2024-12-22] MEDS: NEOMYCIN/POLYMYXIN/BACITRACIN OINTMENT PACKET 1 PACKET TOPICAL (16:34)
[2024-12-22] MEDS: SODIUM CHLORIDE 0.9% IV 100 ML 200 ML (16:36)
== END 2024-12-22 17:01 | disposition short-term general hospital (02) ==
PROVIDERS: Emergency Provider Emergency Medicine; PCP Internal Medicine
DX: S22.31XA Fracture of one rib, right side, initial encounter for closed fracture (principal); S02.2XXA Fracture of nasal bones, initial encounter for closed fracture; S00.81XA Abrasion of other part of head, initial encounter; J44.9 Chronic obstructive pulmonary disease, unspecified; I25.10 Atherosclerotic heart disease of native coronary artery without angina pectoris; E78.5 Hyperlipidemia, unspecified; E11.22 Type 2 diabetes mellitus with diabetic chronic kidney disease; I12.0 Hypertensive chronic kidney disease with stage 5 chronic kidney disease or end stage renal disease; N18.6 End stage renal disease; V84.5XXA Driver of special agricultural vehicle injured in nontraffic accident, initial encounter
CPT/HCPCS: 36415; 70450; 70486; 71250; 72125; 73110; 80053; 83735; 85025; 96374; 99285; J0690; A9270